=== PATIENT | male | born 1965 | race Caucasian/White ===

== ENCOUNTER 2016-05-06 07:58 | Emergency (ER) | payer OTHER ==
[~2016-05-06] VITALS: Ht 188 cm; Wt 82.7 kg
[~2016-05-06 07:58] MED LIST: CITA10TA4 PO; PRAZ2CAP3 PO; WARF7.5T PO
[2016-05-06] MEDS ORDERED: SODIUM CHLORIDE 0.9% 1000ML 1,000 ML IV STA (08:01)
[2016-05-06 08:05] VITALS: TEMP 36.8; Ht 188 cm; Wt 82.7 kg
[2016-05-06 08:12] VITALS: O2SAT 95
[2016-05-06 08:19] LABS: BASO % 0.2 %; BASO ABS # 0.02 K/uL (0-0.2); COMPLETE YES; EOS % 2.4 %; IG% 0.2 %; LYMPH % 10.3 %; LYMPH ABS # 1.06 K/uL (1.2-3.4); MEAN CELL VOLUME 92.9 fL (80-100); MEAN CORPUSCULAR HEMOGLOBIN 32.6 pg (25-34); MEAN CORPUSCULAR HGB CONC 35.1 g/dl (32-36); MONO % 8.9 %; PLATELET COUNT 141 K/uL (130-400); WHITE BLOOD COUNT 10.28 K/uL (4.8-10.8)
[2016-05-06 08:28] LABS: INR 2.6 (0.9-1.1); PROTHROMBIN TIME (PATIENT) 28.8 SECONDS (9.0-12.0)
--- NOTE | 2016-05-06 08:28 | DIAGNOSTIC IMAGING REPORT ---
CHEST ONE VIEW PORTABLE CLINICAL HISTORY: Syncope. COMPARISON STUDY: Chest radiograph March 06, 2015. FINDINGS: There are median sternotomy wires and a prosthetic cardiac valve. Mild cardiomegaly is noted. There is no evidence of pulmonary edema. No consolidation is identified. No pneumothorax or pleural effusion is identified. IMPRESSION: No acute cardiopulmonary findings. Electronically signed by: Sherman Murdock M.D. 05/06/2016 8:26 AM Dictated Date/Time: 05/06/2016 8:24 AM
[2016-05-06 08:36] LABS: ALT/SGPT 34 U/L (12-78); BLOOD UREA NITROGEN 8 mg/dl (7-18); BUN/CREATININE RATIO 10.2 (10-20); CALCIUM 8.4 mg/dl (8.5-10.1); CARBON DIOXIDE 25 mmol/L (21-32); CHLORIDE 107 mmol/L (98-107); GLUCOSE 85 mg/dl (70-99); POTASSIUM 3.9 mmol/L (3.5-5.1); SODIUM 142 mmol/L (136-145)
[2016-05-06 08:47] LABS: ALKALINE PHOSPHATASE 68 U/L (45-117); AST/SGOT 34 U/L (15-37); CKMB/CK RATIO 0.8 (0-3.0)
--- NOTE | 2016-05-06 08:48 | DIAGNOSTIC IMAGING REPORT ---
CT HEAD WITHOUT CONTRAST (CT) CLINICAL HISTORY: Head pain status post trauma. Patient on Coumadin. COMPARISON STUDY: No previous studies for comparison. TECHNIQUE: Axial CT of the brain is performed from the vertex to the skull base. IV contrast was not administered for this examination. CT DOSE: FINDINGS: No intra or extra-axial mass lesions are visualized. There is no CT evidence of acute cortical infarction. There is no evidence of midline shift. There is no acute hemorrhage. No calvarial fractures are visualized. There is no evidence of pathologic ventricular dilatation. There is no evidence of acute sinusitis. There is mastoid sclerosis. There is minor mucosal thickening within the maxillary sphenoid ethmoid and frontal sinuses. IMPRESSION: No acute intracranial findings Electronically signed by: Vish Maloney M.D. 05/06/2016 8:46 AM Dictated Date/Time: 05/06/2016 8:45 AM
--- NOTE | 2016-05-06 08:52 | DIAGNOSTIC IMAGING REPORT ---
CT FACIAL BONES-MXILLOFAC WITHOUT CT DOSE: 860.29 mGy.cm CLINICAL HISTORY: Facial pain status post trauma COMPARISON STUDY: No previous studies for comparison. TECHNIQUE: Helical images were acquired in the transverse plane. The study was reviewed and analyzed on the independent 3-D workstation. The pterygoid plates appear intact. The zygomatic arches appear intact. The globes appear intact. There is no evidence of orbital emphysema. The orbital figueroa and floor appear intact. The mandibular condyles appear intact. There is a left nasal bone fracture. IMPRESSION: Left nasal bone fracture. Electronically signed by: Vish Maloney M.D. 05/06/2016 8:50 AM Dictated Date/Time: 05/06/2016 8:48 AM
[2016-05-06] MEDS ORDERED: WARF2TAB PO (08:54)
[2016-05-06] MEDS ORDERED: WARF5TAB90 PO (08:54)
--- NOTE | 2016-05-06 08:56 | DIAGNOSTIC IMAGING REPORT ---
RIGHT KNEE 1 OR 2 VIEWS ROUTINE CLINICAL HISTORY: Right knee pain following fall. COMPARISON: None FINDINGS: Alignment of the right knee is anatomic. No acute fracture is identified. There is chondrocalcinosis within the menisci. There is a moderate to large right knee joint effusion. No lipohemarthrosis is identified. There is prepatellar soft tissue swelling. IMPRESSION: 1. No acute fracture identified. 2. Moderate to large right knee joint effusion. 3. Chondrocalcinosis within the menisci. Electronically signed by: Sherman Murdock M.D. 05/06/2016 8:54 AM Dictated Date/Time: 05/06/2016 8:52 AM
[2016-05-06] MEDS ORDERED: HYDR50CA2 PO (08:58)
[2016-05-06] MEDS ORDERED: PRAZ2CAP3 PO (08:58)
[2016-05-06] MEDS ORDERED: BUSP-8 PO (08:58)
[2016-05-06] MEDS ORDERED: PRAZ1CAP10 PO (08:58)
[2016-05-06] MEDS ORDERED: ACETAMINOPHEN 500 MG TAB PO STA (09:03)
[2016-05-06] MEDS ORDERED: HYDROmorphone INJ 1 MG/ML SYR IV STA (09:03)
--- NOTE | 2016-05-06 09:17 | EMERGENCY ROOM VISIT NOTE ---
History Report prepared by [place]: Heather Perez Under the Supervision of: Dr. Stanislav Lloyd M.D. First contact with patient: 08:01 Chief Complaint: SYNCOPE Stated Complaint: SYNCOPE History of Present Illness The patient is a 50 year old male arriving by ambulance from [facility] who presents to the Emergency Room for evaluation after suffering a syncopal episode just prior to arrival. Patient was complaining of pain to his right knee , but is now resting more comfortably after given 50 mg Fentanyl via EM en route to the ED. At the time of onset, the patient had just finished using the bathroom when he stood up from the toilet and suddenly became light headed. His vision then became "white", and he passed out, fall forward onto the floor. As the patient fell, he hit his head/face on the floor, and also injured his right knee. Detention staff then called the ambulance as there were concerns because he is currently on Coumadin for history of aortic valve replacement. The patient states that he has not yet eaten breakfast this morning. He denies developing chest pain or shortness of breath prior to passing out this morning, and he has not had recent fevers, chills, cough, abdominal pain, nausea, vomiting, diarrhea or urinary symptoms. Source of History: patient Onset: just prior to arrival Position: head Quality: other (syncope) Timing: other (episodic) Modifying Factors (Worsening): other (standing up after using the toilet) Modifying Factors (Relieving): other (Fentanyl) Associated Symptoms: + LOC, No SOB, No abdominal pain, No chest pain, No chills, No diarrhea, No fevers, No nausea, No urinary symptoms, No vomiting Note: Patient has pain to his right knee. Review of Systems See HPI for pertinent positives & negatives. A total of 10 systems reviewed and were otherwise negative. Past Medical & Surgical Surgical Problems: (1) H/O aortic valve replacement Social History Smoking Status: Current Every Day Smoker Marital Status: single Housing Status: other (incarcerated) Occupation Status: other Current/Historical Medications Scheduled Buspirone Hcl (Buspirone Hcl), 10 MG PO TID Citalopram Hydrobromide (Citalopram Hydrobromide), 30 MG PO HS Hydroxyzine Pamoate (Vistaril), 50 MG PO BID Prazosin Hcl (Prazosin), 1 MG PO HS Prazosin Hcl (Prazosin), 2 MG PO HS Warfarin Sodium (Coumadin), 5 MG PO HS Warfarin Sodium (Coumadin), 2 MG PO HS Allergies Coded Allergies: Chocolate (Unverified Adverse Reaction, Unknown, ., 05/06/16) Uncoded Allergies: VEGETABLES (Adverse Reaction, Intermediate, ., 05/06/16) Physical Exam Vital Signs Date Time Temp Pulse Resp B/P Pulse Ox O2 Delivery O2 Flow Rate FiO2 05/06/16 09:20 69 18 123/69 99 Room Air 05/06/16 08:12 95 Room Air 05/06/16 08:10 61 05/06/16 08:05 36.8 65 18 122/64 95 Room Air Physical Exam GENERAL: Patient is a healthy-appearing well-nourished 50 year old mal. HEAD: There is no tenderness or swelling to the nose. EYES: Black eye present. Ocular movements intact pupils equal and react to light OROPHARYNX mucous membranes are moist no exudates present no erythema or edema present NECK: Supple no nuchal rigidity CHEST: Good equal expansion LUNGS: Clear and equal to auscultation CARDIAC: Normal S1 and S2 ABDOMEN: Soft nontender no guarding BACK: No CVA tenderness EXTREMITIES: Right knee effusion. Able to bend the knee. Good range of motion of the hip and right ankle. Foot is neurovascularly intact. No pain with varus or valgus stress. Normal anterior posterior drawer sign. NEURO: Patient is following commands is answering questions appropriately. Alert and oriented x3 Cranial Nerves 2-12 grossly intact Medical Decision & Procedures ER Provider Diagnostic Interpretation: CT results as stated below per my review and radiologist interpretation: X-ray results as stated below per interpretation by me and the radiologist: CT FACIAL BONES-MXILLOFAC WITHOUT CT DOSE: 860.29 mGy.cm CLINICAL HISTORY: Facial pain status post trauma COMPARISON STUDY: No previous studies for comparison. TECHNIQUE: Helical images were acquired in the transverse plane. The study was reviewed and analyzed on the independent 3-D workstation. The pterygoid plates appear intact. The zygomatic arches appear intact. The globes appear intact. There is no evidence of orbital emphysema. The orbital figueroa and floor appear intact. The mandibular condyles appear intact. There is a left nasal bone fracture. IMPRESSION: Left nasal bone fracture. Electronically signed by: Vish Maloney M.D. 05/06/2016 8:50 AM Dictated Date/Time: 05/06/2016 8:[address] HEAD WITHOUT CONTRAST (CT) CLINICAL HISTORY: Head pain status post trauma. Patient on Coumadin. COMPARISON STUDY: No previous studies for comparison. TECHNIQUE: Axial CT of the brain is performed from the vertex to the skull base. IV contrast was not administered for this examination. CT DOSE: FINDINGS: No intra or extra-axial mass lesions are visualized. There is no CT evidence of acute cortical infarction. There is no evidence of midline shift. There is no acute hemorrhage. No calvarial fractures are visualized. There is no evidence of pathologic ventricular dilatation. There is no evidence of acute sinusitis. There is mastoid sclerosis. There is minor mucosal thickening within the maxillary sphenoid ethmoid and frontal sinuses. IMPRESSION: No acute intracranial findings Electronically signed by: Vish Maloney M.D. 05/06/2016 8:46 AM Dictated Date/Time: 05/06/2016 8:45 AM CHEST ONE VIEW PORTABLE CLINICAL HISTORY: Syncope. COMPARISON STUDY: Chest radiograph March 06, 2015. FINDINGS: There are median sternotomy wires and a prosthetic cardiac valve. Mild cardiomegaly is noted. There is no evidence of pulmonary edema. No consolidation is identified. No pneumothorax or pleural effusion is identified. IMPRESSION: No acute cardiopulmonary findings. Electronically signed by: Sherman Murdock M.D. 05/06/2016 8:26 AM Dictated Date/Time: 05/06/2016 8:24 AM RIGHT KNEE 1 OR 2 VIEWS ROUTINE CLINICAL HISTORY: Right knee pain following fall. COMPARISON: None FINDINGS: Alignment of the right knee is anatomic. No acute fracture is identified. There is chondrocalcinosis within the menisci. There is a moderate to large right knee joint effusion. No lipohemarthrosis is identified. There is prepatellar soft tissue swelling. IMPRESSION: 1. No acute fracture identified. 2. Moderate to large right knee joint effusion. 3. Chondrocalcinosis within the menisci. Electronically signed by: Sherman Murdock M.D. 05/06/2016 8:54 AM Dictated Date/Time: 05/06/2016 8:52 AM Laboratory Results 05/06/16 08:05 Red Blood Count 4.20, Mean Corpuscular Volume 92.9, Mean Corpuscular Hemoglobin 32.6, Mean Corpuscular Hemoglobin Concent 35.1, Mean Platelet Volume 10.0, Neutrophils (%) (Auto) 78.0, Lymphocytes (%) (Auto) 10.3, Monocytes (%) (Auto) 8.9, Eosinophils (%) (Auto) 2.4, Basophils (%) (Auto) 0.2, Neutrophils # (Auto) 8.02, Lymphocytes # (Auto) 1.06, Monocytes # (Auto) 0.91, Eosinophils # (Auto) 0.25, Basophils # (Auto) 0.02 05/06/16 08:05 Test 05/06/16 08:05 05/06/16 08:18 White Blood Count 10.28 K/uL (4.8-10.8) Red Blood Count 4.20 M/uL (4.7-6.1) Hemoglobin 13.7 g/dL (14.0-18.0) Hematocrit 39.0 % (42-52) Mean Corpuscular Volume 92.9 fL (80-100) Mean Corpuscular Hemoglobin 32.6 pg (25-34) Mean Corpuscular Hemoglobin Concent 35.1 g/dl (32-36) Platelet Count 141 K/uL (130-400) Mean Platelet Volume 10.0 fL (7.4-10.4) Neutrophils (%) (Auto) 78.0 % Lymphocytes (%) (Auto) 10.3 % Monocytes (%) (Auto) 8.9 % Eosinophils (%) (Auto) 2.4 % Basophils (%) (Auto) 0.2 % Neutrophils # (Auto) 8.02 K/uL (1.4-6.5) Lymphocytes # (Auto) 1.06 K/uL (1.2-3.4) Monocytes # (Auto) 0.91 K/uL (0.11-0.59) Eosinophils # (Auto) 0.25 K/uL (0-0.5) Basophils # (Auto) 0.02 K/uL (0-0.2) RDW Standard Deviation 45.3 fL (36.4-46.3) RDW Coefficient of Variation 13.4 % (11.5-14.5) Immature Granulocyte % (Auto) 0.2 % Immature Granulocyte # (Auto) 0.02 K/uL (0.00-0.02) Prothrombin Time 28.8 SECONDS (9.0-12.0) Prothromb Time International Ratio 2.6 (0.9-1.1) Anion Gap 10.0 mmol/L (3-11) Est Creatinine Clear Calc Drug Dose 128.5 ml/min Estimated GFR () 120.7 Estimated GFR (Non- 104.2 BUN/Creatinine Ratio 10.2 (10-20) Calcium Level 8.4 mg/dl (8.5-10.1) Total Bilirubin 0.7 mg/dl (0.2-1) Direct Bilirubin 0.2 mg/dl (0-0.2) Aspartate Amino Transf (AST/SGOT) 34 U/L (15-37) Alanine Aminotransferase (ALT/SGPT) 34 U/L (12-78) Alkaline Phosphatase 68 U/L (45-117) Total Creatine Kinase 346 U/L (39-308) Creatine Kinase MB 2.6 ng/ml (0.5-3.6) Creatine Kinase MB Ratio 0.8 (0-3.0) Troponin I < 0.015 ng/ml (0-0.045) Total Protein 6.4 gm/dl (6.4-8.2) Albumin 3.4 gm/dl (3.4-5.0) Thyroid Stimulating Hormone (TSH) 1.750 uIu/ml (0.300-4.500) Bedside Glucose 89 mg/dl (70-99) Labs reviewed by ED physician. Medications Administered Medications (Trade) Dose Ordered Sig/Kain Route Start Time Stop Time Status Last Admin Dose Admin Sodium Chloride (Nss 1000ml) 1,000 ml @ 999 mls/hr Q1H1M STAT IV 05/06/16 08:01 05/06/16 09:01 DC 05/06/16 08:24 999 MLS/HR Hydromorphone HCl (Dilaudid Inj) 1 mg NOW STAT IV 05/06/16 09:03 05/06/16 09:05 DC 05/06/16 09:10 1 MG Acetaminophen (Tylenol Tab) 1,000 mg NOW STAT PO 05/06/16 09:03 05/06/16 09:05 DC 05/06/16 09:09 1,000 MG ECG Indication: syncope Rate (beats per minute): 59 Rhythm: sinus bradycardia Findings: 1st degree AV block, no acute ischemic change, no ectopy Change: no significant change (when compared to EKG from 03/06/15.) ED Course 0803: Past medical records reviewed. The patient was evaluated in room B7. A complete history and physical examination was performed. 08: NSS bolus IV was ordered. 902: Upon reevaluation, the patient was experiencing additional pain. Tylenol tab 1,000 mg PO and Dilaudid 1 mg IV were ordered. 30: Patient was reevaluated at this time and was feeling improved after receiving the pain medication. I updated him on the results of his radiology reports and lab tests. Discharge instructions were also discussed at this time. He verbalized his understanding and agreement with the treatment plan, and he is now ready for disposition back to senior care. Medical Decision Differential diagnosis: Etiologies such as vasovagal event, infection, hypoglycemia, electrolyte abnormalities, cardiac sources, intracerebral event, toxicologic, neurologic, as well as others were entertained. This is a 50-year-old male who presents emergency Department with a syncopal episode after using the bathroom. This appears to be a vasovagal episode. In addition the patient has not eaten today. IV was established, patient given normal saline bolus area the patient's x-ray is consistent with an knee effusion. The patient has no other laboratory abnormality. CAT scan of his head is normal. The patient was given Dilaudid for his pain. I believe he is well enough to be discharged back to the senior care for follow-up with orthopedics for his knee. Patient was in agreement with the treatment plan. Impression Primary Impression: Vasovagal syncope Additional Impression: Right knee sprain Scribe Attestation The scribe's documentation has been prepared under my direction and personally reviewed by me in its entirety. I confirm that the note above accurately reflects all work, treatment, procedures, and medical decision making performed by me. Departure Information Dispostion Other ([facility]) [facility] Forms HOME CARE DOCUMENTATION FORM, IMPORTANT VISIT INFORMATION, School Instructions, Work Instructions Patient Instructions My [facility] Additional Instructions Follow up with DR Smith's office for knee pain Follow up with Dr Ramirez's office for nose fracture Take 1000 mg Tylenol every 6 hours You have been examined and treated today on an emergency basis only. This is not a substitute for, or an effort to provide, complete comprehensive medical care. It is impossible to recognize and treat all injuries or illnesses in a single emergency department visit. It is therefore important that you follow up closely with your PCP. Call as soon as possible for an appointment. Thank you for your time and consideration. I look forward to speaking with you again soon. Please don't hesitate to call us if you have any questions. Problem Qualifiers Additional Impression: Right knee sprain Encounter type: initial encounter Involved ligament of knee: unspecified ligament Qualified Codes: S83.91XA - Sprain of unspecified site of right knee , initial encounter
[2016-05-06 09:20] VITALS: BP 123/69; PULSE 69; O2SAT 99
== END 2016-05-06 09:20 | disposition home or self-care (01) ==
LOC: EDBD 07:58 → C.EDB 07:59
DX: R55 Syncope and collapse (principal); S83.91XA Sprain of unspecified site of right knee, initial encounter; M25.461 Effusion, right knee; I44.0 Atrioventricular block, first degree; S02.2XXA Fracture of nasal bones, initial encounter for closed fracture; Z95.2 Presence of prosthetic heart valve; Z79.01 Long term (current) use of anticoagulants; F17.200 Nicotine dependence, unspecified, uncomplicated; W19.XXXA Unspecified fall, initial encounter; Y93.E8 Activity, other personal hygiene; Y92.142 Bathroom in prison as the place of occurrence of the external cause; Y99.8 Other external cause status

== ENCOUNTER 2017-08-01 01:04 | Observation (INO) | payer OTHER ==
[~2017-08-01] VITALS: Ht 188 cm; Wt 80.8 kg
[~2017-08-01 01:04] MED LIST changes: +BUSP-8 PO; +HYDR50CA2 PO; +PRAZ1CAP10 PO; +WARF2TAB PO; +WARF5TAB90 PO; -WARF7.5T PO
--- NOTE | 2017-08-01 01:16 | EMERGENCY ROOM VISIT NOTE ---
History Report prepared by [place]: Tonny Painagua Under the Supervision of: Dr. Ashwin Mcintyre M.D. First contact with patient: 01:09 Chief Complaint: CHEST PAIN Stated Complaint: CHEST PAIN History of Present Illness The patient is a 51 year old male who presents to the Emergency Room with complaints of persistent chest pain for about one hour. He currently rates his pain a 1/10 in severity. He notes the pain woke him from his sleep and felt heavy. He notes nausea and leg swelling. He notes the leg swelling is new. He denies any shortness of breath. He denies any history of blood clots, HTN, HLD, or DM. He denies any family history of HI. He has a history of aortic valve replacement in February of 1983. He has a metal valve. He regularly takes Coumadin and reports his levels have been normal. He denies taking any medication for the pain. He denies any recent falls or injuries. Source of History: patient Onset: one hour ago Position: chest Symptom Intensity: 1/10 Quality: other (heavy) Timing: other (persistent ) Associated Symptoms: + nausea, No SOB Note: He notes leg swelling. He denies any recent falls or injuries. Review of Systems See HPI for pertinent positives & negatives. A total of 10 systems reviewed and were otherwise negative. Past Medical & Surgical Medical Problems: (1) Chest pain Surgical Problems: (1) H/O aortic valve replacement Family History No pertinent family history Social History Smoking Status: Current Every Day Smoker Marital Status: single Housing Status: other Occupation Status: other Current/Historical Medications Scheduled Buspirone Hcl (Buspirone Hcl), 10 MG PO TID Buspirone Hcl (Buspirone Hcl), 10 MG PO BID Citalopram Hydrobromide (Citalopram Hydrobromide), 30 MG PO HS Citalopram Hydrobromide (Celexa), 15 MG PO DAILY Hydroxyzine Pamoate (Vistaril), 50 MG PO BID Prazosin Hcl (Prazosin), 1 MG PO HS Prazosin Hcl (Prazosin), 2 MG PO HS Prazosin Hcl (Prazosin), 4 MG PO HS Warfarin Sodium (Coumadin), 5 MG PO HS Warfarin Sodium (Coumadin), 2 MG PO HS Warfarin Sodium (Coumadin), 3 MG PO DAILY Allergies Coded Allergies: Chocolate (Unverified Adverse Reaction, Unknown, ., 05/06/16) Uncoded Allergies: VEGETABLES (Adverse Reaction, Intermediate, ., 05/06/16) Physical Exam Vital Signs Date Time Temp Pulse Resp B/P (MAP) Pulse Ox O2 Delivery O2 Flow Rate FiO2 08/01/17 01:54 63 20 107/63 97 Room Air 08/01/17 01:34 68 18 107/59 95 Room Air 08/01/17 01:25 63 08/01/17 01:23 96 Room Air 08/01/17 01:20 97 Room Air 08/01/17 01:17 36.9 63 20 122/67 97 Room Air Physical Exam GENERAL: Patient is sleepy-appearing and in minimal acute distress. EYES: No scleral icterus, unremarkable pupils. ENT: Mucous membranes moist, no nasal congestion. NECK: No masses appreciated, no meningismus, trachea is midline. CHEST: Large sternal incision scar, well healed. RESPIRATORY: No dyspnea. Clear to auscultation and equal bilaterally. No wheeze , no rhonchi. CARDIOVASCULAR: Regular rate and rhythm. No murmurs, rubs, gallops appreciated. Audible click consistent with aortic metal valve. GASTROINTESTINAL: Abdomen soft, nontender, no peritonitis. Bowel sounds positive. No masses appreciated. BACK: No midline tenderness, no CVA tenderness EXTREMITIES: Normal motion all extremities, no cyanosis. Mild swelling of right ankle, larger than left. NEUROLOGIC: Alert and oriented, no acute motor or sensory deficits, no focal weakness, cranial nerves grossly intact. SKIN: No rash, no jaundice, no diaphoresis. Medical Decision & Procedures ER Provider Diagnostic Interpretation: X ray results are stated below per my interpretation: Chest: 1 view: No infiltrate, no effusion, normal cardiac border. Sternal wires in place. Metal aortic valve noted. Laboratory Results 08/01/17 01:20 Red Blood Count 3.84, Mean Corpuscular Volume 94.8, Mean Corpuscular Hemoglobin 32.6, Mean Corpuscular Hemoglobin Concent 34.3, Mean Platelet Volume 9.7, Neutrophils (%) (Auto) 69.2, Lymphocytes (%) (Auto) 19.0, Monocytes (%) (Auto) 5.6, Eosinophils (%) (Auto) 5.8, Basophils (%) (Auto) 0.2, Neutrophils # (Auto) 6.02, Lymphocytes # (Auto) 1.66, Monocytes # (Auto) 0.49, Eosinophils # (Auto) 0.51, Basophils # (Auto) 0.02 08/01/17 01:20 Test 08/01/17 01:20 White Blood Count 8.72 K/uL (4.8-10.8) Red Blood Count 3.84 M/uL (4.7-6.1) Hemoglobin 12.5 g/dL (14.0-18.0) Hematocrit 36.4 % (42-52) Mean Corpuscular Volume 94.8 fL (80-100) Mean Corpuscular Hemoglobin 32.6 pg (25-34) Mean Corpuscular Hemoglobin Concent 34.3 g/dl (32-36) Platelet Count 233 K/uL (130-400) Mean Platelet Volume 9.7 fL (7.4-10.4) Neutrophils (%) (Auto) 69.2 % Lymphocytes (%) (Auto) 19.0 % Monocytes (%) (Auto) 5.6 % Eosinophils (%) (Auto) 5.8 % Basophils (%) (Auto) 0.2 % Neutrophils # (Auto) 6.02 K/uL (1.4-6.5) Lymphocytes # (Auto) 1.66 K/uL (1.2-3.4) Monocytes # (Auto) 0.49 K/uL (0.11-0.59) Eosinophils # (Auto) 0.51 K/uL (0-0.5) Basophils # (Auto) 0.02 K/uL (0-0.2) RDW Standard Deviation 46.3 fL (36.4-46.3) RDW Coefficient of Variation 13.3 % (11.5-14.5) Immature Granulocyte % (Auto) 0.2 % Immature Granulocyte # (Auto) 0.02 K/uL (0.00-0.02) Prothrombin Time 28.1 SECONDS (9.0-12.0) Prothromb Time International Ratio 2.7 (0.9-1.1) Activated Partial Thromboplast Time 50.2 SECONDS (21.0-31.0) Partial Thromboplastin Ratio 1.9 D-Dimer 620 ug/L FEU (0-500) Anion Gap 0.0 mmol/L (3-11) Est Creatinine Clear Calc Drug Dose 106.3 ml/min Estimated GFR () 108.4 Estimated GFR (Non- 93.5 BUN/Creatinine Ratio 12.1 (10-20) Calcium Level 8.1 mg/dl (8.5-10.1) Magnesium Level 1.9 mg/dl (1.8-2.4) Total Creatine Kinase 124 U/L (39-308) Creatine Kinase MB 1.1 ng/ml (0.5-3.6) Creatine Kinase MB Ratio 0.9 (0-3.0) Pro-B-Type Natriuretic Peptide 136 pg/ml (0-900) Laboratory results as reviewed by me. Medications Administered Medications (Trade) Dose Ordered Sig/Kain Route Start Time Stop Time Status Last Admin Dose Admin Nitroglycerin (Nitrostat Tab) 0.4 mg Q5M PRN SL 08/01/17 01:30 08/01/17 04:04 DC 08/01/17 01:30 0.4 MG ECG Per My Interpretation Indication: chest pain Rate (beats per minute): 63 Rhythm: normal sinus Findings: nonspecific-ST abn (Anterior), no acute ischemic change, no ectopy, other (QTC of 460) Change: Repeat EC minutes later Normal Sinus Rhythm 61 bpm Findings: No ectopy. No acute ischemic changes. Similar morphology to previous ECG. ED Course 0111: The patient was evaluated in room A3. A complete history and physical exam was performed. 0146: Discussed with nursing. The patient was given one NTG and has complete resolution of his chest pain. 0228: I reassessed the patient at this time. He is sleeping. He has no further chest pain. 0235: I spoke with Dr. Joel, [facility] hospitalist. We discussed the patient's case. The patient will be evaluated by the [facility] for further management. Medical Decision Differential: Cardiac Ischemia (STEMI, NSTEMI, Unstable Angina, etc), Aortic Dissection, Arrhythmia, Pulmonary Embolism, Pneumonia, Pneumothorax, MSK, Infectious, Pericarditis/Myocarditis, Esophageal Rupture, Gastrointestinal, amongst other pathologies entertained. 51 yr old male with sudden onset left chest pressure which awoke him from sleep this morning. Resolving on way here and completely gone with SLNTG. Patient declines PO Aspirin as states he does not need another blood thinner. He is on Coumadin for metal valve repaired Atrial valve 1982. History of smoking but denies other cardiac risk factors. EKG without obvious ischemia and repeated. He is completely pain free at this time. Will need cardiac rule out and thus hospitalist consulted. Unclear why some swelling right lower leg but INR is therapeutic and his symptoms are not consistent with PE, and even so he has normal vitals and thus I feel CT PE is not indicated at this time. Medication Reconcilliation Current Medication List: was personally reviewed by me Blood Pressure Screening Patient's blood pressure: Normal blood pressure Consults Time Called: [phone] Consulting Physician: Dr. Joel [facility] hospitalist Returned Call: [phone] Joel [facility] hospitalist. We discussed the patient's case. The patient will be evaluated by the [facility] for further management. Impression Primary Impression: Left sided chest pain Scribe Attestation The scribe's documentation has been prepared under my direction and personally reviewed by me in its entirety. I confirm that the note above accurately reflects all work, treatment, procedures, and medical decision making performed by me. Departure Information Dispostion Being Evaluated By Hospitalist Referrals [facility] (PCP) Patient Instructions My [facility]
[2017-08-01] MEDS ORDERED: NITROGLYCERIN 0.4 MG SL PER TAB CHARGE SL PRN ×2 (01:30→02:45)
[2017-08-01 01:38] LABS: BASO % 0.2 %; BASO ABS # 0.02 K/uL (0-0.2); EOS % 5.8 %; EOS ABS # 0.51 K/uL (0-0.5); HEMATOCRIT 36.4 % (42-52); HEMOGLOBIN 12.5 g/dL (14.0-18.0); IG# 0.02 K/uL (0.00-0.02); LYMPH ABS # 1.66 K/uL (1.2-3.4); MEAN CELL VOLUME 94.8 fL (80-100); MEAN CORPUSCULAR HEMOGLOBIN 32.6 pg (25-34); MEAN CORPUSCULAR HGB CONC 34.3 g/dl (32-36); MEAN PLATELET VOLUME 9.7 fL (7.4-10.4); MONO % 5.6 %; MONO ABS # 0.49 K/uL (0.11-0.59); NEUT % 69.2 %; NEUT ABS # 6.02 K/uL (1.4-6.5); PLATELET COUNT 233 K/uL (130-400); RED CELL DISTRIBUTION WIDTH CV 13.3 % (11.5-14.5); RED CELL DISTRIBUTION WIDTH SD 46.3 fL (36.4-46.3); WHITE BLOOD COUNT 8.72 K/uL (4.8-10.8)
[2017-08-01 01:56] LABS: BLOOD UREA NITROGEN 11 mg/dl (7-18); CALCIUM 8.1 mg/dl (8.5-10.1); CARBON DIOXIDE 31 mmol/L (21-32); CREATININE 0.94 mg/dl (0.60-1.40); GLUCOSE 114 mg/dl (70-99); INR 2.7 (0.9-1.1); POTASSIUM 3.5 mmol/L (3.5-5.1); SODIUM 140 mmol/L (136-145)
[2017-08-01 02:04] LABS: CKMB 1.1 ng/ml (0.5-3.6)
[2017-08-01 02:17] LABS: PTT PATIENT 50.2 SECONDS (21.0-31.0)
[2017-08-01] MEDS ORDERED: ZOLPIDEM TARTRATE 5 MG TAB PO PRN (02:45)
[2017-08-01] MEDS ORDERED: MAGNESIUM HYDROXIDE SUSP 30 ML UDC PO PRN (02:45)
[2017-08-01] MEDS ORDERED: ACETAMINOPHEN 325 MG TAB PO PRN (02:45)
[2017-08-01] MEDS ORDERED: ALUMINUM/MAGNESIUM/SIMETH (MAALOX MAX) 30 ML UDC PO PRN (02:45)
[2017-08-01] MEDS ORDERED: POLYETHYLENE (MIRALAX) 17 GM PACK PO PRN (02:45)
[2017-08-01] MEDS ORDERED: ONDANSETRON INJ 2 MG/ML 2 ML VIAL IV PRN (02:45)
[2017-08-01] MEDS ORDERED: MoRPHine SULFATE 2 MG/ML CARP IV PRN (02:45)
[2017-08-01] MEDS ORDERED: BUSP-8 PO (03:49)
[2017-08-01] MEDS ORDERED: CITA10TA8 PO (03:52)
[2017-08-01] MEDS ORDERED: PRAZ2CAP3 PO (03:53)
[2017-08-01 03:55] VITALS: BP 112/65; PULSE 65; TEMP 36.6; O2SAT 97; Ht 188 cm; Wt 80.8 kg
[2017-08-01] MEDS ORDERED: WARF1TAB PO (03:57)
--- NOTE | 2017-08-01 04:05 | History and Physical ---
History & Physical Date & Time of Service: Aug 01, 2017 at 02:57 Chief Complaint: Chest Pain Primary Care Physician: Barbie CARPENTER History of Present Illness Source: patient 51 y/o M Hx aortic valve replacement 1982. Presents from a local [facility] with severe L sided CP. He also states that he has had noticed ankle swelling over the past 2 weeks which he had not had previously. The pt denies any SOB, nausea, vomiting or diaphoresis. His CP did not radiate. Past Medical/Surgical History 1) Aortic valve replacement with mechanical valve 1982 2) Depression Family History No pertinent family history Not well informed regarding family medical history - Mother is living, Father of unspecified CA Social History Smoking Status: Current Every Day Smoker Marital Status: single Occupational Status: other Allergies Coded Allergies: Chocolate (Unverified Adverse Reaction, Unknown, ., 05/06/16) Uncoded Allergies: VEGETABLES (Adverse Reaction, Intermediate, ., 05/06/16) Home Medications Scheduled Buspirone Hcl (Buspirone Hcl), 10 MG PO TID Citalopram Hydrobromide (Citalopram Hydrobromide), 30 MG PO HS Hydroxyzine Pamoate (Vistaril), 50 MG PO BID Prazosin Hcl (Prazosin), 1 MG PO HS Prazosin Hcl (Prazosin), 2 MG PO HS Warfarin Sodium (Coumadin), 5 MG PO HS Warfarin Sodium (Coumadin), 2 MG PO HS Review of Systems Constitutional: No fever, No chills, No sweats Eyes: No worsening of vision ENT: No hearing loss, No unusual epistaxis, No nasal symptoms Respiratory: No cough, No sputum Cardiovascular: + chest pain, + edema, No orthopnea, No PND Abdomen: No pain, No nausea Musculoskeletal: No joint pain Genitourinary - Male: No hematuria, No dysuria Neurologic: No memory loss, No paralysis, No weakness Psychiatric: No depression symptoms Endocrine: No fatigue Hematologic / Lymphatic: No abnormal bleeding/bruising Integumentary: No rash Allergic / Immunologic: No environmental allergies Physical Exam Vital Signs Date Time Temp Pulse Resp B/P (MAP) Pulse Ox O2 Delivery O2 Flow Rate FiO2 08/01/17 01:54 63 20 107/63 97 Room Air 08/01/17 01:34 68 18 107/59 95 Room Air 08/01/17 01:25 63 08/01/17 01:23 96 Room Air 08/01/17 01:20 97 Room Air 08/01/17 01:17 36.9 63 20 122/67 97 Room Air General Appearance: WD/WN, no apparent distress Head: normocephalic Eyes: normal inspection ENT: + pertinent finding (Very poor dentition) Neck: supple, no JVD Respiratory/Chest: chest non-tender, lungs clear, normal breath sounds Cardiovascular: regular rate, rhythm, no edema, no gallop, + systolic murmur Abdomen/GI: normal bowel sounds, non tender, soft Back: normal inspection, no CVA tenderness Extremities/Musculoskelatal: normal inspection, no calf tenderness, normal capillary refill 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, no motor/sensory deficits, alert, oriented x 3 Skin: normal color Diagnostics Laboratory Results Results Past 24 Hours Test 08/01/17 01:20 Range/Units White Blood Count 8.72 4.8-10.8 K/uL Red Blood Count 3.84 4.7-6.1 M/uL Hemoglobin 12.5 14.0-18.0 g/dL Hematocrit 36.4 42-52 % Mean Corpuscular Volume 94.8 80-100 fL Mean Corpuscular Hemoglobin 32.6 25-34 pg Mean Corpuscular Hemoglobin Concent 34.3 32-36 g/dl Platelet Count 233 130-400 K/uL Mean Platelet Volume 9.7 7.4-10.4 fL Neutrophils (%) (Auto) 69.2 % Lymphocytes (%) (Auto) 19.0 % Monocytes (%) (Auto) 5.6 % Eosinophils (%) (Auto) 5.8 % Basophils (%) (Auto) 0.2 % Neutrophils # (Auto) 6.02 1.4-6.5 K/uL Lymphocytes # (Auto) 1.66 1.2-3.4 K/uL Monocytes # (Auto) 0.49 0.11-0.59 K/uL Eosinophils # (Auto) 0.51 0-0.5 K/uL Basophils # (Auto) 0.02 0-0.2 K/uL RDW Standard Deviation 46.3 36.4-46.3 fL RDW Coefficient of Variation 13.3 11.5-14.5 % Immature Granulocyte % (Auto) 0.2 % Immature Granulocyte # (Auto) 0.02 0.00-0.02 K/uL Prothrombin Time 28.1 9.0-12.0 SECONDS Prothromb Time International Ratio 2.7 0.9-1.1 Activated Partial Thromboplast Time 50.2 21.0-31.0 SECONDS Partial Thromboplastin Ratio 1.9 Sodium Level 140 136-145 mmol/L Potassium Level 3.5 3.5-5.1 mmol/L Chloride Level 109 98-107 mmol/L Carbon Dioxide Level 31 21-32 mmol/L Anion Gap 0.0 3-11 mmol/L Blood Urea Nitrogen 11 7-18 mg/dl Creatinine 0.94 0.60-1.40 mg/dl Est Creatinine Clear Calc Drug Dose 106.3 ml/min Estimated GFR () 108.4 Estimated GFR (Non- 93.5 BUN/Creatinine Ratio 12.1 10-20 Random Glucose 114 70-99 mg/dl Calcium Level 8.1 8.5-10.1 mg/dl Magnesium Level 1.9 1.8-2.4 mg/dl Total Creatine Kinase 124 39-308 U/L Creatine Kinase MB 1.1 0.5-3.6 ng/ml Creatine Kinase MB Ratio 0.9 0-3.0 Troponin I < 0.015 0-0.045 ng/ml Pro-B-Type Natriuretic Peptide 136 0-900 pg/ml Normal EKG Impression Assessment and Plan 51 y/o M Hx aortic valve replacement 1982. Presents from a local [facility] with severe L sided CP. He also states that he has had noticed ankle swelling over the past 2 weeks which he had not had previously. The pt denies any SOB, nausea, vomiting or diaphoresis. His CP did not radiate. 1) CP - pt assigned to telemetry. Serial enzymes ordered. NTG/Morphine PRN for pain. We have ordered an echo as well considering his history of AVR. The pt refused ASA stating that he did not want to combine it with Coumadin. 2) Edema - an echo is pending - there is no additional clinical evidence of CHF and BNP is negative - we have ordered a dimer and will consider LE doppler if (+ ) 3) Mechanical aortic valve - echo ordered as mentioned - INR is therapeutic on Coumadin. 4) Depression - continue current prescriptions. 5) Tobacco use - not currently interested in cessation Full code - Coumadin prophylaxis Total time for this admit including review of labs, meds, EKG - discussion with pt and ER attending - 35 min Resuscitation Status VTE Prophylaxis Will order VTE Prophylaxis: Yes
[2017-08-01] MEDS: NSS + 20MEQ KCL 1000ML 1,000 ML IV SCH ×2 (04:23→13:12)
[2017-08-01] MEDS ORDERED: IV FLUIDS COMPLETED PRN (04:30)
[2017-08-01] MEDS ORDERED: OPTIRAY 320 IV PRN (04:45)
--- NOTE | 2017-08-01 05:42 | DIAGNOSTIC IMAGING REPORT ---
(CHEST FOR PE) ANGIO WITH CLINICAL HISTORY: 51 years-old Male presenting with ^elevated D Dimer, clinical concern for pulmonary embolus. TECHNIQUE: Multidetector CT angiography of the chest was performed after administration of intravenous contrast. 3-D volumetric and/or maximum intensity projection (MIP) images were subsequently reconstructed for review. IV contrast: 94 mL of Optiray 320. A dose lowering technique was used consistent with the principles of ALARA (as low as reasonably achievable). COMPARISON: Chest x-ray performed earlier the same day. CT DOSE (mGy.cm): The estimated cumulative dose is 236.74 mGy.cm. FINDINGS: Vice President Sales topogram: Median sternotomy wires. Cardiomegaly. Pulmonary vasculature: The study is suboptimal for the assessment of the pulmonary vascular tree secondary to respiratory motion artifact. Allowing for limited image quality, no central filling defect to suggest pulmonary embolus. Main pulmonary artery is not enlarged. No flattening of the interventricular septum. No intracardiac filling defect. No reflux of contrast into the hepatic veins. Remaining chest: On soft tissue windows, normal thyroid. Bilateral gynecomastia. Small bilateral hilar lymph nodes. No mediastinal lymphadenopathy. Atherosclerosis of the aorta. Postsurgical changes of aortic valve replacement median sternotomy. Mildly ectatic ascending aorta, which measures 4.3 cm in diameter. Descending aorta normal in caliber. Mild multichamber enlargement of the heart. Coronary artery calcification. No pericardial or pleural effusion. Upper abdomen normal. On lung windows, dependent groundglass opacity in the lower lobes. Mild bronchial wall thickening predominately in the lower lobes. Mild smooth interlobular septal thickening with lower lobe predominance. No other focal nodule or infiltrate. Central airways patent. On bone windows, well-healed sternotomy. No acute osseous injury. IMPRESSION: 1. Allowing for suboptimal image quality, no evidence of pulmonary embolus. 2. Mild bibasilar atelectasis and mild congestive change. No cristain pulmonary edema. 3. Mild cardiomegaly. 4. Postsurgical changes of aortic valve replacement. 5. Mild ectasia of the ascending aorta, which measures 4.3 cm in diameter. Electronically signed by: Willi Rodriguez M.D. 08/01/2017 5:40 AM Dictated Date/Time: 08/01/2017 5:32 AM
--- NOTE | 2017-08-01 05:48 | DIAGNOSTIC IMAGING REPORT ---
R VENOUS DOPP LOWER EXT UNILAT CLINICAL HISTORY: 51 years-old Male presenting with swelling of the RLE, positive D Dimer. TECHNIQUE: Real-time grayscale and color and spectral Doppler ultrasound imaging of the veins of the right lower extremity was performed. Compression and augmentation were also utilized. COMPARISON: None. FINDINGS: Right: Common femoral vein: Patent. Greater saphenous vein: Patent. Deep femoral vein: Patent. Femoral vein: Patent. Popliteal vein: Patent. Calf veins: Patent. Other: Predominantly anechoic elongated collection in the right popliteal fossa measuring 5.5 x 9.5 x 1.6 cm. The periphery is mildly thick-walled with polypoid soft tissue. No demonstrable internal color Doppler flow. Mild subcutaneous edema noted in the lower leg. IMPRESSION: 1. No evidence of deep venous thrombosis. 2. Mild subcutaneous edema noted in the lower leg. 3. Suspected right popliteal cyst with synovitis. Electronically signed by: Willi Rodriguez M.D. 08/01/2017 5:46 AM Dictated Date/Time: 08/01/2017 5:45 AM
--- NOTE | 2017-08-01 05:54 | DIAGNOSTIC IMAGING REPORT ---
CHEST ONE VIEW PORTABLE CLINICAL HISTORY: 51 years-old Male presenting with Chest Pain. TECHNIQUE: Portable upright AP view of the chest was obtained. COMPARISON: 05/06/2016. FINDINGS: Median sternotomy wires noted. Atherosclerosis and mild tortuosity of the thoracic aorta. Cardiac silhouette top normal in size. Lungs and pleural spaces clear. Osseous structures normal. Upper abdomen normal. IMPRESSION: 1. No acute cardiopulmonary disease. Electronically signed by: Willi Rodriguez M.D. 08/01/2017 5:52 AM Dictated Date/Time: 08/01/2017 5:52 AM
[2017-08-01 07:18] VITALS: BP 102/51; PULSE 53; TEMP 36.5; O2SAT 98
[2017-08-01] MEDS ORDERED: hydrOXYzine HCL 25 MG TAB PO SCH (09:00)
[2017-08-01] MEDS ORDERED: ATORVASTATIN 40 MG TAB PO SCH (09:00)
[2017-08-01 10:24] VITALS: BP 121/68; PULSE 51; TEMP 36.6; O2SAT 96
--- NOTE | 2017-08-01 12:32 | Discharge Instructions ---
Discharge Instructions Date of Service Aug 01, 2017. Admission Reason for Admission: Chest Pain Discharge Discharge Diagnosis / Problem: ACS r/o Discharge Goals Goal(s): Decrease discomfort, Improve function, Increase independence Activity Recommendations Activity Limitations: per Instructions/Follow-up section . Instructions / Follow-Up Instructions / Follow-Up 51 male with a PMH of Aortic valve replacement came to [facility] with chest pain and right pedal edema. The patient was admitted and evaluated to r/o ACS, pulmonary embolism, CHF and structural abnormalities. All test were found to be unremarkable and the patient was subsequently discharged back to the long-term with close follow up with primary care doctor. No changes were made to the patients medications---please continue normal home regimen. Course by problem; 1. Acute coronary syndrome rule out -Patient had negative troponin x2 -EKG was unremarkable for ischemic changes -Vitals were within normal limits -Low suspicion for acute coronary syndrome 2. Pulmonary embolism and DVT rule out--patient had unilateral swelling, chest pain and elevated d-dimer -LE Doppler was negative for DVT -Chest CT was negative for PE -Low suspicion for venous thrombolic events following imaging modalities 3. CHF rule out--unilateral swelling, h/o valve replacement -BNP was unremarkable -No SOB, CTAB -ECHO showed EF 50-55%, no wall motion abnormalities, RA pressure were increased and IVC was dilated -Findings from physical exam, labs and ECHO do not suggest congestive heart failure Current Hospital Diet Patient's current hospital diet: AHA Diet (Heart Healthy) Discharge Diet Recommended Diet: Regular Diet, Regular OB Diet Pending Studies Studies pending at discharge: no Medical Emergencies . Who to Call and When: Medical Emergencies: If at any time you feel your situation is an emergency, please call 911 immediately. . Non-Emergent Contact Non-Emergency issues call your: Primary Care Provider, Web Operations Manager . . "Provider Documentation" section prepared by David Becerra. .
--- NOTE | 2017-08-01 13:25 | ECHOCARDIOGRAM REPORT ---
*NOTICE TO RECEIVING [employer]ENCY This information is strictly Confidential and protected under [place] law. [place] law prohibits you from making any further disclosure of this information unless further disclosure is expressly permitted by the written consent of the person to whom it pertains or is authorized by law. A general authorization for the release of medical or other information is not sufficient for this purpose. Hospital accepts no responsibility if the information is made available to any other person, INCLUDING THE PATIENT. Interpretation Summary * Conclusions -- * 1. Normal LV size. Moderate concentric LVH. * 2. Normal LV systolic function. LVEF 50-55 %. No regional wall motion abnormalities. * 3. Normal RV size and function. * 4. Well-seated mechanical aortic valve with expected transvalvular gradients. Mild aortic regurgitation. * 5. Mild mitral regurgitation. * 6. Dilated IVC. Estimated RA 15 mmHg * 7. No prior studies for comparison. Procedure Details * A complete two-dimensional transthoracic echocardiogram was performed (2D, M-mode, Doppler and color flow Doppler). Left Ventricle * The left ventricle is grossly normal size. * There is moderate concentric left ventricular hypertrophy. * Ejection Fraction = 50-55%. * No regional wall motion abnormalities noted. * Septal motion is consistent with post-operative state. Right Ventricle * The right ventricle is grossly normal size. * The right ventricular systolic function is normal as assessed by tricuspid annular plane systolic excursion (TAPSE) (normal >1.5 cm). Atria * Borderline left atrial enlargement. * The right atrium is moderately dilated. * There is no evidence of atrial septal defect, but resolution does not allow assessment for a patent foramen ovale. Mitral Valve * The mitral valve is grossly normal. * There is no mitral valve stenosis. * There is mild mitral regurgitation. Tricuspid Valve * The tricuspid valve is not well visualized, but is grossly normal. * There is trace tricuspid regurgitation. Aortic Valve * Mild aortic regurgitation. * There is a mechanical aortic valve. * Normal transvalvular gradients. Pulmonic Valve * The pulmonary valve is inadequately visualized, but the Doppler data is adequate for interpretation. * Pulmonic stenosis is absent. * There is no significant pulmonary regurgitation. Great Vessels * The aortic root and proximal ascending aorta are normal sized. Pericardium/Pleural * There is no pericardial effusion. Great Vessels * Dilated inferior vena cava with reduced collapsability with sniff indicates an elevated right atrial pressure of 15 mmHg MMode 2D Measurements and Calculations IVSd 1.5 cm IVSs 2.1 cm LVIDd 5.6 cm LVIDs 4.2 cm LVPWd 1.4 cm LVPWs 2.1 cm IVS/LVPW 1.1 FS 25.4 % EDV(Teich) 152.0 ml ESV(Teich) 76.7 ml EF(Teich) 49.5 % EDV(cubed) 173.1 ml ESV(cubed) 71.9 ml EF(cubed) 58.5 % % IVS thick 41.5 % % LVPW thick 51.3 % LV mass(C)d 350.4 grams LV mass(C)dI 169.4 grams/m\S\2 LV mass(C)s 416.3 grams LV mass(C)sI 201.3 grams/m\S\2 SV(Teich) 75.2 ml SI(Teich) 36.4 ml/m\S\2 SV(cubed) 101.2 ml SI(cubed) 48.9 ml/m\S\2 ACS 1.4 cm LA dimension 3.3 cm asc Aorta Diam 3.0 cm LVAd ap4 51.6 cm\S\2 LVLd ap4 10.2 cm EDV(MOD-sp4) 213.7 ml EDV(sp4-el) 220.9 ml LVAs ap4 30.4 cm\S\2 LVLs ap4 8.1 cm ESV(MOD-sp4) 96.3 ml ESV(sp4-el) 96.4 ml EF(MOD-sp4) 54.9 % EF(sp4-el) 56.3 % LVAd ap2 44.8 cm\S\2 LVLd ap2 9.6 cm EDV(MOD-sp2) 175.9 ml EDV(sp2-el) 176.3 ml LVAs ap2 29.2 cm\S\2 LVLs ap2 8.9 cm ESV(MOD-sp2) 80.0 ml ESV(sp2-el) 81.0 ml EF(MOD-sp2) 54.5 % EF(sp2-el) 54.0 % LVLd %diff -5.92 % EDV(MOD-bp) 197.3 ml LVLs %diff 8.8 % ESV(MOD-bp) 93.9 ml EF(MOD-bp) 52.4 % SV(MOD-sp4) 117.4 ml SI(MOD-sp4) 56.8 ml/m\S\2 SV(MOD-sp2) 95.9 ml SI(MOD-sp2) 46.3 ml/m\S\2 SV(MOD-bp) 103.4 ml SI(MOD-bp) 50.0 ml/m\S\2 SV(sp4-el) 124.5 ml SI(sp4-el) 60.2 ml/m\S\2 SV(sp2-el) 95.3 ml SI(sp2-el) 46.1 ml/m\S\2 Doppler Measurements and Calculations MV E max nathalie 85.7 cm/sec MV A max nathalie 46.4 cm/sec MV E/A 1.8 MV dec time 0.27 sec Ao V2 max 209.7 cm/sec Ao max PG 17.6 mmHg Ao max PG (full) 15.8 mmHg Ao V2 mean 124.8 cm/sec Ao mean PG 7.8 mmHg Ao V2 VTI 44.5 cm AI max nathalie 408.3 cm/sec AI max PG 66.7 mmHg AI dec slope 176.0 cm/sec\S\2 AI P1/2t 679.5 msec LV V1 max PG 1.8 mmHg LV V1 max 66.9 cm/sec MR max nathalie 456.8 cm/sec MR max PG 83.5 mmHg PA V2 max 59.9 cm/sec PA max PG 1.4 mmHg
--- NOTE | 2017-08-01 14:25 | Discharge Summary ---
Discharge Summary Date of Service Aug 01, 2017. Discharge Summary Admission Date: Aug 01, 2017 at 02:54 Discharge Date: Aug 01, 2017 Discharge Disposition: Home Principal Diagnosis: ACS rule out Procedures: ECHO, Chest CT, LE doppler Discharge Exam Review of Systems: Constitutional: No fever, No chills, No sweats Respiratory: No cough, No sputum, No wheezing Cardiovascular: No chest pain, No palpitations Abdomen: No pain, No nausea, No vomiting Genitourinary - Female: No dysuria Physical Exam: General Appearance: WD/WN, no apparent distress Neck: supple, no adenopathy Respiratory/Chest: chest non-tender, lungs clear, normal breath sounds, no respiratory distress Cardiovascular: regular rate, rhythm, no gallop, no murmur Abdomen / GI: non tender, soft, no organomegaly Extremities: + pertinent finding (right pedal edema) Neurologic/Psychiatric: alert, normal mood/affect, normal reflexes, oriented x 3 Skin: normal color, warm/dry, no rash Hospital Course 51 male with a PMH of Aortic valve replacement came to [facility] with chest pain and right pedal edema. The patient was admitted and evaluated to r/o ACS, pulmonary embolism, CHF and structural abnormalities. All test were found to be unremarkable and the patient was subsequently discharged back to the snf with close follow up with primary care doctor. No changes were made to the patients medications---please continue normal home regimen. Course by problem; 1. Chest pain -Patient had negative troponin x2 -EKG was unremarkable for ischemic changes -Vitals were within normal limits -Low suspicion for acute coronary syndrome 2. Pulmonary embolism and DVT rule out--patient had unilateral swelling, chest pain and elevated d-dimer -LE Doppler was negative for DVT -Chest CT was negative for PE -Low suspicion for venous thrombolic events following imaging modalities 3. CHF rule out--unilateral swelling, h/o valve replacement -BNP was unremarkable -No SOB, CTAB -ECHO showed EF 50-55%, no wall motion abnormalities, RA pressure were increased and IVC was dilated -Findings from physical exam, labs and ECHO do not suggest congestive heart failure Total Time Spent: Greater than 30 minutes This includes examination of the patient, discharge planning, medication reconciliation, and communication with other providers. Discharge Instructions Please refer to the electronic Patient Visit Report (Discharge Instructions) for additional information. Reviewed: Pt Seen/Exam by Me History no further chest pain Constitutional: denies: fever Respiratory: negative: short of breath Cardiovascular: denies chest pain General Appearance: no apparent distress Respiratory: lungs clear, no respiratory distress Cardiovascular: regular rate, rhythm Gastrointestinal: soft Neurologic/Psychiatric: alert, oriented x 3 Skin Characteristics: warm/dry Assessment/Plan Resident Physician Supervision Note: I independently interviewed and examined the patient and verified the sethi history and physical, reviewed labs and image studies, discussed the case with the resident Dr. Becerra and agree with the findings and care plan.
[2017-08-01 14:47] VITALS: BP 121/68; PULSE 51; TEMP 36.6; O2SAT 96
[2017-08-01] MEDS ORDERED: WARFARIN SOD 2 MG TAB PO SCH (16:00)
[2017-08-01] MEDS ORDERED: PRAZOSIN HCL 2 MG PO SCH (21:00)
[2017-08-01] MEDS ORDERED: CITALOPRAM 20 MG TAB PO SCH (21:00)
[2017-08-01] MEDS ORDERED: PRAZOSIN HCL 1 MG CAP PO SCH (21:00)
== END 2017-08-01 15:41 | disposition home or self-care (01) ==
LOC: C.EDB 01:05 → C.2T 02:54 → ENRESERV 03:01
PROVIDERS: ADMIT Internal Medicine; ATTEND Family Medicine
DX: R07.9 Chest pain, unspecified (principal); R60.0 Localized edema; F17.200 Nicotine dependence, unspecified, uncomplicated; F32.9 Major depressive disorder, single episode, unspecified; Z95.2 Presence of prosthetic heart valve; Z79.01 Long term (current) use of anticoagulants

== ENCOUNTER 2023-06-06 14:47 | Inpatient (IN) ==
--- NOTE | 2023-06-06 15:33 | Emergency Department Note ---
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 He reports cough and congestion over the past week. He denies any fevers, nausea, vomiting, diarrhea or urinary symptoms. He was given 324 mg of aspirin and 1 spray of nitroglycerin by EMS and reported improvement in symptoms. The patient acknowledges that he recently had a heart catheterization on 05/20/2023 at this facility, which per records demonstrates normal coronary arteries. Will thus, his cardiomyopathy is suspected to be nonischemic in nature. He was referred to cardiothoracic surgery at [facility] for assessment for possible repeat aortic valve replacement and aortic graft. Patient does report he smokes daily but has been on a program to cut back and smokes 4 cigarettes a day at this time. On my evaluation the patient is fatigued appearing, mildly dyspneic but no acute distress, afebrile with stable vital signs. He appears mildly hypervolemic. He has diminished breath sounds of bilateral lung bases with intermittent underlying wheeze. EKG demonstrates LVH with repolarization abnormality which is new compared to February 2021 however this was before the patient's development of nonischemic cardiomyopathy. Otherwise no overt ST elevation. Chest x-ray demonstrates cardiomegaly with interstitial thickening consistent with pulmonary edema with note of small bilateral pleural effusions. Right lower lung opacity is suspected to reflect pulmonary edema as well though superimposed pneumonia could appear similar. WBC within normal limits without neutrophilia or left shift. Platelets within normal limits. H/H similar to prior range values. Chemistry without metabolic acidosis. Creatinine 1.4 proximate to prior values. Electrolytes without significant abnormality. Initial high-sensitivity troponin 52, nonspecific with delta 2-hour high-sensitivity troponin 49, essentially unchanged in the setting of the patient's known nonischemic cardiomyopathy. BNP is elevated at 1600 without prior for comparison but consistent with the patient's hypervolemic appearance and pulmonary edema on imaging. Lipase not elevated. Procalcitonin is not elevated. COVID-19 PCR was negative. CTA with dissection protocol of the chest to further characterize his chest x- ray findings. There is no evidence of thoracic aortic dissection. The patient's aneurysmal dilatation of the ascending aorta is unchanged from prior. Cardiomegaly moderate right and small left pleural effusions are seen. Moderate interstitial pulmonary edema as described. Mildly enlarged mediastinal lymph nodes suspected to be reactive secondary to pulmonary edema. Patient was treated with Xopenex and DuoNeb for component of bronchospasm and additionally administered 40 mg of IV Lasix for diuresis. Patient agrees with plan for admission for further management. Case was discussed with MOLLY Rivera hospitalist, who will evaluate the patient for admission. Further management per admitting team. Triage Nursing notes reviewed and agree them. Prior/external medical records reviewed Vital Signs: reviewed Differential diagnosis: Cardiac ischemia, aortic dissection, pulmonary embolism, pneumothorax, pneumonia, pericarditis, myocarditis, esophageal rupture, GERD, cholecystitis, pancreatitis, musculoskeletal, as well as other pathologies. ER treatment provided: See below. Diagnostics interpreted by me: ECG: Normal sinus rhythm, 92 bpm, LVH with repolarization abnormality, no overt ST elevation. QTc 497, QRS 104. Cardiac Monitoring: An order for continuous cardiac monitoring was placed and demonstrated Normal sinus rhythm, 92 bpm, no ectopy. Laboratory studies: See below Imaging studies: See below Consultation(s): MOLLY Rivera hospitalist. 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 He reports cough and congestion over the past week. He denies any fevers, nausea, vomiting, diarrhea or urinary symptoms. He was given 324 mg of aspirin and 1 spray of nitroglycerin by EMS and reported improvement in symptoms. The patient acknowledges that he recently had a heart catheterization on 05/20/2023 at this facility, which per records demonstrates normal coronary arteries. Will thus, his cardiomyopathy is suspected to be nonischemic in nature. He was referred to cardiothoracic surgery at [facility] for assessment for possible repeat aortic valve replacement and aortic graft. Patient does report he smokes daily but has been on a program to cut back and smokes 4 cigarettes a day at this time. ROS: See above HPI for pertinent positives & negatives. A total of 10 systems reviewed and were otherwise negative. VITALS:See Below PHYSICAL EXAMINATION: GENERAL: Awake, alert, fatigued-appearing, mildly dyspneic but in no distress HENT: Normocephalic, atraumatic. Oropharynx unremarkable. EYES: Normal conjunctiva. Sclera non-icteric. NECK: Supple. No nuchal rigidity. FROM. Mild JVD. RESPIRATORY: Diminished breath sounds of bilateral lung bases with intermittent underlying wheeze. Mild increased work of breathing but no acute distress. CARDIAC: Regular rate, normal rhythm. Extremities warm and well perfused. Pulses equal. ABDOMEN: Soft, non-distended. No tenderness to palpation. No rebound or guarding. No masses. RECTAL: Deferred. MUSCULOSKELETAL: Chest examination reveals no tenderness. The back is symmetrical on inspection without obvious abnormality. There is no CVA tenderness to palpation. No joint edema. LOWER EXTREMITIES: Calves are equal size bilaterally and non-tender. No edema. No discoloration. NEURO: Normal sensorium. No sensory or motor deficits noted. SKIN: No rash or jaundice noted. Pete Romero MD Past Med/Surg History Medical History Encounter for pre-operative examination Dysfunction of both eustachian tubes Tinnitus of right ear Conductive hearing loss of left ear with restricted hearing of right ear Mixed conductive and sensorineural hearing loss of right ear with restricted hearing of left ear Deviated septum Claustrophobia Did have issues in the past with oxygen mask Anxiety and depression Aortic valve disease s/p AVR/revisions (1981, 1982x2), on warfarin, FOLLOWED BY BECKY JAMES PA-C Osteoarthritis Hearing loss in right ear Post traumatic stress disorder History of rheumatic fever as a child at age 6 > led to cardiac issues (hx AVR) On warfarin therapy Asthma Surgical History S/P excision of lipoma LEFT/RT FOREARM AND RT HIP H/O excision of mass (10/16/20) Soft Tissue Mass Excision Bilateral Arms (2-5 cm) and Right Flank (19.5 cm)(Not Applicable) - Yang Lemus DO, FACS History of appendectomy History of tooth extraction all upper teeth removed/some lower teeth removed History of cardiac cath multiple, last Feb 1983--no stents placed Aortic valve replaced s/p AVR/revisions (1981, 1982x2) Family History Brother Family history of reaction to anesthesia when he received anesthesia "it always triggered his seizures" Father Hearing loss Cancer Sister Hearing loss Cancer Other Allergies No family history of bleeding disorder Social History Smoking Status: Current every day smoker Tobacco Type: Cigarettes Age Started Using Tobacco: 14; Cigarettes Per Day: 10 CIG DAILY; Second Hand Exposure: Yes; Do You Dip or Chew Tobacco: No; Hx Alcohol Use: No Hx Substance Use: No Preferred Language: Frisian Communication Ability: Effective Clinical Research Physician Required: No Beliefs That Will Affect Care: None marital status: / Current Living Situation: Other Current Living Situation Comment: ROOMATE WITH MOBILE HOME current occupational status: disabled Feels Safe at Home: Yes Assistive Devices: Glasses Allergies Allergies Allergy/AdvReac Type Severity Reaction Status Date / Time bee venom protein (honey bee) Allergy Severe Severe Verified 06/06/23 17:00 neck/throat swelling, dyspnea adhesive Allergy Mild Rash Verified 06/06/23 17:00 chocolate flavor AdvReac Unknown Advised to Verified 06/06/23 17:00 avoid by surgeon d/t Vitamin K content per pt Home Meds Home Medications Medication Instructions Recorded Confirmed bupropion HCl 300 mg 24 hr tablet, 300 mg PO HS 09/09/20 06/06/23 extended release cholecalciferol (vitamin D3) 50 50 mcg PO QAM 09/09/20 06/06/23 mcg (2,000 unit) capsule trazodone 50 mg tablet 50 mg PO HS 09/12/20 06/06/23 aspirin 81 mg tablet,delayed 81 mg PO QAM 09/27/20 06/06/23 release prazosin 5 mg capsule 10 mg PO QPM 01/12/22 06/06/23 melatonin 10 mg capsule 10 mg PO HS PRN Insomnia 06/04/22 06/06/23 sertraline 50 mg tablet 50 mg PO DAILY 03/16/23 06/06/23 fluticasone fur. 100 mcg-umeclid 1 ea inhalation DAILY 06/06/23 06/06/23 62.5 mcg-vilant 25 mcg inhalat.powder (Trelegy Ellipta) Previous Rx's Medication Instructions Recorded epinephrine 0.3 mg/0.3 mL 0.3 mg (0.3 mL) IM Q10M PRN 05/07/22 injection, auto-injector Anaphylaxis #2 ea hydroxyzine HCl 50 mg tablet 50 mg PO TID PRN Anxiety 30 days 05/07/22 #90 tabs losartan 50 mg tablet 50 mg PO DAILY #90 tabs 03/16/23 metoprolol succinate 25 mg 25 mg PO DAILY #90 tabs 03/16/23 tablet,extended release 24 hr furosemide 40 mg tablet 40 mg PO DAILY #30 tabs 05/11/23 potassium chloride 20 mEq 20 meq PO DAILY #30 tabs 05/11/23 tablet,extended release atorvastatin 10 mg tablet 10 mg PO DAILY #90 tabs 05/25/23 warfarin 5 mg tablet See Rx Instructions PO UD #40 tabs 05/31/23 Results & Data (ED) Vital Signs Vital Signs - 24 hr 06/06/23 14:52 06/06/23 14:52 06/06/23 15:49 Temperature 36.6 C Temperature Source Oral Pulse Rate 91 H 87 Pulse Rate [Apical] Pulse Rate from SpO2 Sensor Respiratory Rate 20 Respiratory Effort / Characteristics Non-Labored Respiratory Depth Normal Respiratory Pattern Blood Pressure 133/64 Blood Pressure [Left Arm] Blood Pressure Mean 87 Blood Pressure Mean [Left Arm] Blood Pressure Position [Left Arm] Pulse Oximetry 91 Oxygen Delivery Method Room Air Room Air Sepsis Recent Fever Within 48 Hours No Sepsis New/Unexplained Change in Mental Status No Sepsis Action Taken by Nursing No Action Required 06/06/23 16:09 06/06/23 16:09 06/06/23 16:09 Temperature Temperature Source Pulse Rate 84 Pulse Rate [Apical] 100 H Pulse Rate from SpO2 Sensor 87 Respiratory Rate 18 29 H Respiratory Effort / Characteristics Respiratory Depth Respiratory Pattern Blood Pressure 129/59 L Blood Pressure [Left Arm] 129/59 L Blood Pressure Mean 82 Blood Pressure Mean [Left Arm] 82 Blood Pressure Position [Left Arm] Pulse Oximetry 96 93 Oxygen Delivery Method Room Air Sepsis Recent Fever Within 48 Hours Sepsis New/Unexplained Change in Mental Status Sepsis Action Taken by Nursing 06/06/23 16:30 06/06/23 17:00 06/06/23 17:30 Temperature Temperature Source Pulse Rate 90 98 H 87 Pulse Rate [Apical] Pulse Rate from SpO2 Sensor 91 H 97 H 88 Respiratory Rate 22 20 23 Respiratory Effort / Characteristics Respiratory Depth Respiratory Pattern Blood Pressure 127/61 127/62 128/59 L Blood Pressure [Left Arm] Blood Pressure Mean 83 83 82 Blood Pressure Mean [Left Arm] Blood Pressure Position [Left Arm] Pulse Oximetry 93 90 93 Oxygen Delivery Method Sepsis Recent Fever Within 48 Hours Sepsis New/Unexplained Change in Mental Status Sepsis Action Taken by Nursing 06/06/23 19:02 Temperature Temperature Source Pulse Rate Pulse Rate [Apical] 97 H Pulse Rate from SpO2 Sensor Respiratory Rate 18 Respiratory Effort / Characteristics Non-Labored Spontaneous Respiratory Depth Normal Respiratory Pattern Regular Blood Pressure Blood Pressure [Left Arm] 176/73 H Blood Pressure Mean Blood Pressure Mean [Left Arm] 107 Blood Pressure Position [Left Arm] Semi-fowlers Pulse Oximetry 93 Oxygen Delivery Method Room Air Sepsis Recent Fever Within 48 Hours Sepsis New/Unexplained Change in Mental Status Sepsis Action Taken by Nursing Laboratory Data Attestation: I reviewed the patient's lab results. 06/06/23 14:59 06/06/23 14:59 Lab Results 06/06/23 06/06/23 Range/Units 14:59 17:03 WBC 7.61 (4.8-10.8) K/ul RBC 3.64 L (4.70-6.10) M/uL Hgb 10.7 L (14.0-18.0) g/dl Hct 32.4 L (42.0-52.0) % MCV 89.0 (80.0-100.0) fL MCH 29.4 (25.0-34.0) pg MCHC 33.0 (32.0-36.0) g/dL RDW Std Deviation 45.6 (36.4-46.3) fL RDW Coeff of Kacey 14.2 (11.5-14.5) % Plt Count 200 (130-400) K/uL MPV 12.5 H (9.4-12.4) fL Immature Gran % (Auto) 0.4 % Neut % (Auto) 73.2 % Lymph % (Auto) 15.9 % Bent % (Auto) 5.7 % Eos % (Auto) 3.7 % Baso % (Auto) 1.1 % Neut # (Auto) 5.58 (1.40-6.50) K/uL Lymph # (Auto) 1.21 (1.20-3.40) K/uL Bent # (Auto) 0.43 (0.11-0.59) K/uL Eos # (Auto) 0.28 (0.00-0.50) K/uL Baso # (Auto) 0.08 (0.00-0.20) K/uL Immature Gran # (Auto) 0.03 (0.01-0.20) K/uL PT 34.5 H (9.0-12.0) Seconds INR 3.4 H (0.9-1.1) Sodium 136 (136-145) mmol/L Potassium 4.2 (3.5-5.1) mmol/L Chloride 108 H (98-107) mmol/L Carbon Dioxide 22 (21-32) mmol/L Anion Gap 6 (3-11) BUN 23 (6-23) mg/dl Creatinine 1.40 (0.6-1.4) mg/dl Est Cr Clr Drug Dosing 65.8 ml/min Est GFR ( Amer) 64.2 ml/min Est GFR (Non-Af Amer) 55.4 ml/min BUN/Creatinine Ratio 16.4 (10-20) Glucose 122 H (70-99(Fasting)) mg/dl Calcium 8.6 (8.6-10.3) mg/dl Magnesium 1.8 (1.7-2.4) mg/dl Total Bilirubin 1.8 H (0.2-1.0) mg/dl AST 27 (13-39) U/L ALT 19 (7-52) U/L Alkaline Phosphatase 97 (34-104) U/L Troponin I High Sens 52.1 H* 49.5 H (0-20) pg/ml B-Natriuretic Peptide 1639 H (0-100) pg/ml Total Protein 6.8 (6.0-8.3) gm/dl Albumin 3.5 (3.4-5.0) gm/dl Globulin 3.3 (2.5-4.0) gm/dl Albumin/Globulin Ratio 1.1 (0.9-2) Lipase 7 L (11-82) U/L Procalcitonin 0.02 (0-0.5) ng/ml SARS-CoV-2 (PCR) NEGATIVE (Negative) Administered Medications Discontinued Medications Furosemide (Furosemide 40 Mg/4 Ml Vial) 40 mg IV ONE ONE Stop: 06/06/23 16:33 Last Admin: 06/06/23 17:41 Dose: 40 mg Documented By: FLORIN Ioversol (Optiray 320 125ml) 118 ml IV ONCE ONE Stop: 06/06/23 17:10 Last Admin: 06/06/23 17:12 Dose: 118 ml Documented By: SID Levalbuterol HCl (Levalbuterol Hcl 0.63 Mg/3 Ml Neb) 0.63 mg NEB NOW STA; Protocol Stop: 06/06/23 16:02 Last Admin: 06/06/23 17:41 Dose: 0.63 mg Documented By: FLORIN Imaging Data Radiologist's Impression: Chest X-Ray 06/06/23 15:17 XR chest 1V portable CLINICAL HISTORY: Chest pain, nonspecific COMPARISON STUDY: Radiograph October 01, 2020. Chest CT June 25, 2022. FINDINGS: There are median sternotomy wires and a prosthetic aortic valve. Moderate cardiomegaly is present. There is interstitial thickening. Right lower lung airspace opacities are present. There are small bilateral pleural effusions. No pneumothorax. IMPRESSION: 1. Cardiomegaly with interstitial thickening consistent with pulmonary edema. Small bilateral pleural effusions. 2. Right lower lung opacity which is likely related to pulmonary edema. Superimposed pneumonia could appear similar although is considered less likely. ACT 112: Negative or not required by law. Electronically signed by: Sherman Murdock M.D. 06/06/2023 4:03 PM Chest CTA 06/06/23 16:02 CT ANGIOGRAPHY OF THE CHEST DISSECTION PROTOCOL CLINICAL HISTORY: Chest pain. History of ascending thoracic aortic aneurysmal dilatation. COMPARISON STUDY: Chest CT July 05, 2022. Chest CT August 01, 2017. Chest radiograph performed earlier today. TECHNIQUE: Before and following the IV administration of 118 mL of Optiray, helical axial images of the chest were obtained. Maximal intensity projections and sagittal and coronal reformats were viewed on an independent 3D workstation. IV contrast was administered without complication. Automated exposure control was utilized for the study. A dose lowering technique was utilized adhering to the principles of ALARA. CT DOSE: 1008.03 mGy.cm FINDINGS: Prosthetic aortic valve is noted. Dilatation of the ascending aorta measuring 4.6 cm is unchanged since CT of June 25, 2022. There is no intramural hematoma. There is no thoracic aortic dissection. Moderate cardiomegaly is present. There is no pericardial effusion. Moderate right and small left pleural effusions are noted. No pneumothorax. There is interlobular septal thickening. Mild groundglass opacities within the lungs are present. Central airways are patent. 5 mm left lower lobe nodule is unchanged. This is likely benign. There is upper lobe predominant emphysema. Mildly enlarged mediastinal lymph nodes measure up to 1.4 cm in short axis diameter. No pulmonary emboli are identified. No acute fractures within the bony thorax. Visualized portions of the upper abdomen are unremarkable. IMPRESSION: 1. No thoracic aortic dissection. No change in aneurysmal dilatation of the ascending aorta measuring up to 4.[address] 2. Cardiomegaly. Moderate right and small left pleural effusions. Moderate interstitial pulmonary edema. 3. Mildly enlarged mediastinal lymph nodes. This is likely related to pulmonary edema however can be assessed on follow-up exams to ensure resolution. ACT 112: Negative or not required by law. Electronically signed by: Sherman Murdock M.D. 06/06/2023 5:34 PM Discharge Plan Visit Data Chief Complaint: Chest Pain Stated Complaint: CHEST PAIN ED Provider: Pete Romero Discharge Problem: Pulmonary edema, NICM (nonischemic cardiomyopathy), On warfarin therapy, H/O mechanical aortic valve replacement Discharge Problem: Pulmonary edema Qualifiers: Chronicity: acute Qualified Code(s): J81.0 - Acute pulmonary edema
[2023-06-06 15:36] LABS: Basophils # (auto) 0.08 K/uL (0.00-0.20); Basophils % (auto) 1.1 %; Eosinophils # (auto) 0.28 K/uL (0.00-0.50); Eosinophils % (auto) 3.7 %; Hematocrit (blood only) 32.4 % (42.0-52.0); Hemoglobin 10.7 g/dl (14.0-18.0); Immature Granulocytes # (auto) 0.03 K/uL (0.01-0.20); Immature Granulocytes % (auto) 0.4 %; Lymphocytes # (auto) 1.21 K/uL (1.20-3.40); Lymphocytes % (auto) 15.9 %; Mean Corpuscular Hemoglobin 29.4 pg (25.0-34.0); Mean Platelet Volume 12.5 fL (9.4-12.4); Monocytes # (auto) 0.43 K/uL (0.11-0.59); Monocytes % (auto) 5.7 %; Neutrophils # (auto) 5.58 K/uL (1.40-6.50); Neutrophils % (auto) 73.2 %; Platelet Count 200 K/uL (130-400); RDW Coefficient of Variation 14.2 % (11.5-14.5); RDW Standard Deviation 45.6 fL (36.4-46.3); Red Blood Count 3.64 M/uL (4.70-6.10); White Blood Count 7.61 K/ul (4.8-10.8)
[2023-06-06 15:51] LABS: Albumin Globulin Ratio 1.1 (0.9-2); Albumin Level 3.5 gm/dl (3.4-5.0); BUN Creatinine Ratio 16.4 (10-20); Bilirubin,Total 1.8 mg/dl (0.2-1.0); Calcium 8.6 mg/dl (8.6-10.3); Creatinine Clr Calc Pharmacy 65.8 ml/min; Est GFR (African American) 64.2 ml/min; Est GFR (Non-African American) 55.4 ml/min; Globulin 3.3 gm/dl (2.5-4.0); Magnesium 1.8 mg/dl (1.7-2.4); Potassium 4.2 mmol/L (3.5-5.1); Total Protein 6.8 gm/dl (6.0-8.3)
[2023-06-06 16:00] LABS: INR 3.4 (0.9-1.1); Prothrombin Time 34.5 Seconds (9.0-12.0); Troponin I High Sensitivity 52.1 pg/ml (0-20)
--- NOTE | 2023-06-06 16:04 | XRay Report ---
XR chest 1V portable CLINICAL HISTORY: Chest pain, nonspecific COMPARISON STUDY: Radiograph October 01, 2020. Chest CT June 25, 2022. FINDINGS: There are median sternotomy wires and a prosthetic aortic valve. Moderate cardiomegaly is p resent. There is interstitial thickening. Right lower lung airspace opacities are present. There are small bilateral pleural effusions. No pneumothorax. IMPRESSION: 1. Cardiomegaly with interstitial thickening consistent with pulmonary edema. Small bilateral pleural effusions. 2. Right lower lung opacity which is likely related to pulmonary edema. Superimposed pneumonia could appear similar although is considered less likely. ACT 112: Negative or not required by law. Electronically signed by: Sherman Murdock M.D. 06/06/2023 4:03 PM
[2023-06-06] MEDS: OPTIRAY 320 125ml IV ONE (17:12)
--- NOTE | 2023-06-06 17:36 | CT Scan Report ---
CT ANGIOGRAPHY OF THE CHEST DISSECTION PROTOCOL CLINICAL HISTORY: Chest pain. History of ascending thoracic aortic aneurysmal dilatation. COMPARISON STUDY: Chest CT July 05, 2022. Chest CT August 01, 2017. Chest radiograph performed earli er today. TECHNIQUE: Before and following the IV administration of 118 mL of Optiray, helical axial images of t he chest were obtained. Maximal intensity projections and sagittal and coronal reformats were viewed on an independent 3D workstation. IV contrast was administered without complication. Automated exp osure control was utilized for the study. A dose lowering technique was utilized adhering to the cathy Hayes. CT DOSE: 1008.03 mGy.cm FINDINGS: Prosthetic aortic valve is noted. Dilatation of the ascending aorta measuring 4.6 cm is un changed since CT of June 25, 2022. There is no intramural hematoma. There is no thoracic aortic disse ction. Moderate cardiomegaly is present. There is no pericardial effusion. Moderate right and small l eft pleural effusions are noted. No pneumothorax. There is interlobular septal thickening. Mild groun dglass opacities within the lungs are present. Central airways are patent. 5 mm left lower lobe nodul e is unchanged. This is likely benign. There is upper lobe predominant emphysema. Mildly enlarged med iastinal lymph nodes measure up to 1.4 cm in short axis diameter. No pulmonary emboli are identified. No acute fractures within the bony thorax. Visualized portions of the upper abdomen are unremarkable . IMPRESSION: 1. No thoracic aortic dissection. No change in aneurysmal dilatation of the ascending aorta measuring up to 4.[address] 2. Cardiomegaly. Moderate right and small left pleural effusions. Moderate interstitial pulmonary carmel ma. 3. Mildly enlarged mediastinal lymph nodes. This is likely related to pulmonary edema however can be assessed on follow-up exams to ensure resolution. ACT 112: Negative or not required by law. Electronically signed by: Sherman Murdock M.D. 06/06/2023 5:34 PM
[2023-06-06] MEDS: LEVALBUTEROL HCL 0.63 MG/3 ML NEB NEB STA (17:41)
[2023-06-06] MEDS: FUROSEMIDE 40 MG/4 ML VIAL IV ONE (17:41)
--- NOTE | 2023-06-06 19:20 | History & Physical Report ---
Date of Service June 06, 2023 Assessment & Plan (1) NICM (nonischemic cardiomyopathy): Plan: 57-year-old male with history of nonischemic cardiomyopathy with reduced EF presenting with several days of worsening chest pain, shortness of breath and lower abdominal cramping. Patient appears volume overloaded on physical exam and by lab values with elevated BNP = 1634. Mild troponin elevation initially 52.1, now 49.5. He has mild right upper quadrant pain as well as an elevated T. bili = 1.8, ?hepatic congestion. He has been given 40 mg of IV Lasix with good diuretic effect. He feels somewhat improved but still with symptoms. Suspect secondary to decompensated CHF Admit to medical with telemetry Continue diuresis with Lasix 40 mg IV twice daily Monitor intake and output, daily standing weights Repeat chemistry, LFTs in the morning Continue home Cozaar 50 mg daily and metoprolol 25 mg daily Fluid restriction 1200 mL (2) H/O mechanical aortic valve replacement: Plan: Patient with history of rheumatic heart disease as a child status post multiple mechanical aortic valves. He is on Coumadin anticoagulation with INR goal at 3.4 Continue p.o. Coumadin INR with a.m. labs (3) Asthma: Plan: Chronic. Patient without wheeze Continue Trelegy Ellipta Albuterol as needed (4) Dyslipidemia: Plan: Chronic. Stable. Continue atorvastatin 10 mg p.o. daily (5) Post traumatic stress disorder: Plan: Patient with history of PTSD. Symptoms are fairly well-controlled Continue prazosin Continue Wellbutrin Continue hydroxyzine as needed for anxiety Continue sertraline F/E/Ndiuresis with Lasix 40 mg IV twice daily as above, monitor electrolytes, will give 2 g of IV magnesium, heart healthy/fluid restricted diet Prophylaxispatient on Coumadin anticoagulation for history mechanical aortic valve. 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 Patient reports that he was recently seen in [place] for evaluation of his heart and he needs to have a new aortic valve placed as well as possible mitral valve. He had a cardiac catheterization performed on 05/20/23 which showed clean coronary arteries. Patient has had 3-4 days of intermittent left sided chest pain with radiation across the anterior chest - pressure/pain and stabbing in nature which was improved by Nitro spray. He has also had some worsening ANDREA as well as abdominal cramping. He has dry cough, fatigue and orthopnea as well. No report of fever or chills. No report of edema or weight gain. In the ER he is afebrile, tachycardic, adequate oxygenation on room air. ER Course: Lasix 40mg IV Nitro spray by EMS Allergies Allergy/AdvReac Type Severity Reaction Status Date / Time bee venom protein (honey bee) Allergy Severe Severe Verified 06/06/23 17:00 neck/throat swelling, dyspnea adhesive Allergy Mild Rash Verified 06/06/23 17:00 chocolate flavor AdvReac Unknown Advised to Verified 06/06/23 17:00 avoid by surgeon d/t Vitamin K content per pt Home Medications Medication Instructions Recorded Confirmed Type bupropion HCl 300 mg 24 hr tablet, 300 mg PO HS 09/09/20 06/06/23 History extended release cholecalciferol (vitamin D3) 50 50 mcg PO QAM 09/09/20 06/06/23 History mcg (2,000 unit) capsule trazodone 50 mg tablet 50 mg PO HS 09/12/20 06/06/23 History aspirin 81 mg tablet,delayed 81 mg PO QAM 09/27/20 06/06/23 History release prazosin 5 mg capsule 10 mg PO QPM 01/12/22 06/06/23 History epinephrine 0.3 mg/0.3 mL 0.3 mg (0.3 mL) IM Q10M PRN 05/07/22 06/06/23 Rx injection, auto-injector Anaphylaxis #2 ea hydroxyzine HCl 50 mg tablet 50 mg PO TID PRN Anxiety 30 days 05/07/22 06/06/23 Rx #90 tabs melatonin 10 mg capsule 10 mg PO HS PRN Insomnia 06/04/22 06/06/23 History losartan 50 mg tablet 50 mg PO DAILY #90 tabs 03/16/23 06/06/23 Rx metoprolol succinate 25 mg 25 mg PO DAILY #90 tabs 03/16/23 06/06/23 Rx tablet,extended release 24 hr sertraline 50 mg tablet 50 mg PO DAILY 03/16/23 06/06/23 History furosemide 40 mg tablet 40 mg PO DAILY #30 tabs 05/11/23 06/06/23 Rx potassium chloride 20 mEq 20 meq PO DAILY #30 tabs 05/11/23 06/06/23 Rx tablet,extended release atorvastatin 10 mg tablet 10 mg PO DAILY #90 tabs 05/25/23 06/06/23 Rx warfarin 5 mg tablet See Rx Instructions PO UD #40 tabs 05/31/23 06/06/23 Rx fluticasone fur. 100 mcg-umeclid 1 ea inhalation DAILY 06/06/23 06/06/23 History 62.5 mcg-vilant 25 mcg inhalat.powder (Trelegy Ellipta) Past Med/Surg History Medical History Encounter for pre-operative examination Dysfunction of both eustachian tubes Tinnitus of right ear Conductive hearing loss of left ear with restricted hearing of right ear Mixed conductive and sensorineural hearing loss of right ear with restricted hearing of left ear Deviated septum Claustrophobia Did have issues in the past with oxygen mask Anxiety and depression Aortic valve disease s/p AVR/revisions (1981, 1982x2), on warfarin, FOLLOWED BY BECKY JAMES PA-C Osteoarthritis Hearing loss in right ear Post traumatic stress disorder History of rheumatic fever as a child at age 6 > led to cardiac issues (hx AVR) On warfarin therapy Asthma Surgical History S/P excision of lipoma LEFT/RT FOREARM AND RT HIP H/O excision of mass (10/16/20) Soft Tissue Mass Excision Bilateral Arms (2-5 cm) and Right Flank (19.5 cm)(Not Applicable) - Yang Lemus DO, FACS History of appendectomy History of tooth extraction all upper teeth removed/some lower teeth removed History of cardiac cath multiple, last Feb 1983--no stents placed Aortic valve replaced s/p AVR/revisions (1981, 1982x2) Family History Brother Family history of reaction to anesthesia when he received anesthesia "it always triggered his seizures" Father Hearing loss Cancer Sister Hearing loss Cancer Other Allergies No family history of bleeding disorder Social History Smoking Status: Current every day smoker Tobacco Type: Cigarettes Age Started Using Tobacco: 14; Cigarettes Per Day: 10 CIG DAILY; Second Hand Exposure: Yes; Do You Dip or Chew Tobacco: No; Hx Alcohol Use: No Hx Substance Use: No Preferred Language: Latvian Communication Ability: Effective Help Desk Representative Required: No Beliefs That Will Affect Care: None marital status: / Current Living Situation: Other Current Living Situation Comment: ROOMATE WITH MOBILE HOME current occupational status: disabled Feels Safe at Home: Yes Assistive Devices: Glasses Review of Systems Review of Systems: All systems reviewed & are unremarkable except as noted in HPI & below Physical Exam Physical Exam: General: patient resting comfortably, NAD, non-toxic in appearance, AA&O x 4 Skin: warm, dry, intact, no rashes or lesions HEENT: NC/AT, PERRL, EOMI, anicteric sclera, conjunctiva without injection, external ear normal to inspection and nontender, nares patent, moist mucus membranes, dentition intact, no oropharyngeal lesions, neck supple, trachea midline, no LAD, no thyromegaly, +JVD to angle of jaw noted on left Heart: +S1/S2, regular, tachycardic, no m/r/g Lungs: equal air entry bilaterally, crackles in bilateral bases Abd: +BS, soft, NT/ND, no masses/organomegaly/ascites Ext: warm, 2+ pulses in UE/LE bilaterally, no clubbing/cyanosis, trace edema bilaterally Neuro: nonfocal, patient AA&O x 4, speech intact, no facial droop, moving all extremities on command with equal strength 5/5 Results & Data Results & Data Vital Signs (Past 12 Hours) Vital Signs Temp Pulse Pulse Resp BP BP Pulse Ox 06/06/23 19:02 97 H 18 176/73 H 93 06/06/23 17:30 87 23 128/59 L 93 06/06/23 17:00 98 H 20 127/62 90 06/06/23 16:30 90 22 127/61 93 06/06/23 16:09 84 29 H 129/59 L 93 06/06/23 16:09 100 H 18 129/59 L 96 06/06/23 16:09 06/06/23 15:49 87 06/06/23 14:52 06/06/23 14:52 36.6 C 91 H 20 133/64 91 O2 Del Method 06/06/23 19:02 Room Air 06/06/23 17:30 06/06/23 17:00 06/06/23 16:30 06/06/23 16:09 06/06/23 16:09 06/06/23 16:09 Room Air 06/06/23 15:49 06/06/23 14:52 Room Air 06/06/23 14:52 Room Air Laboratory Results Laboratory Results WBC 7.61 K/ul (4.8-10.8) 06/06/23 14:59 RBC 3.64 M/uL (4.70-6.10) L 06/06/23 14:59 Hgb 10.7 g/dl (14.0-18.0) L 06/06/23 14:59 Hct 32.4 % (42.0-52.0) L 06/06/23 14:59 MCV 89.0 fL (80.0-100.0) 06/06/23 14:59 MCH 29.4 pg (25.0-34.0) 06/06/23 14:59 MCHC 33.0 g/dL (32.0-36.0) 06/06/23 14:59 RDW Std Deviation 45.6 fL (36.4-46.3) 06/06/23 14:59 RDW Coeff of Kacey 14.2 % (11.5-14.5) 06/06/23 14:59 Plt Count 200 K/uL (130-400) 06/06/23 14:59 MPV 12.5 fL (9.4-12.4) H 06/06/23 14:59 Immature Gran % (Auto) 0.4 % 06/06/23 14:59 Neut % (Auto) 73.2 % 06/06/23 14:59 Lymph % (Auto) 15.9 % 06/06/23 14:59 Hidalgo % (Auto) 5.7 % 06/06/23 14:59 Eos % (Auto) 3.7 % 06/06/23 14:59 Baso % (Auto) 1.1 % 06/06/23 14:59 Neut # (Auto) 5.58 K/uL (1.40-6.50) 06/06/23 14:59 Lymph # (Auto) 1.21 K/uL (1.20-3.40) 06/06/23 14:59 Hidalgo # (Auto) 0.43 K/uL (0.11-0.59) 06/06/23 14:59 Eos # (Auto) 0.28 K/uL (0.00-0.50) 06/06/23 14:59 Baso # (Auto) 0.08 K/uL (0.00-0.20) 06/06/23 14:59 Immature Gran # (Auto) 0.03 K/uL (0.01-0.20) 06/06/23 14:59 PT 34.5 Seconds (9.0-12.0) H 06/06/23 14:59 INR 3.4 (0.9-1.1) H 06/06/23 14:59 Sodium 136 mmol/L (136-145) 06/06/23 14:59 Potassium 4.2 mmol/L (3.5-5.1) 06/06/23 14:59 Chloride 108 mmol/L (98-107) H 06/06/23 14:59 Carbon Dioxide 22 mmol/L (21-32) 06/06/23 14:59 Anion Gap 6 (3-11) 06/06/23 14:59 BUN 23 mg/dl (6-23) 06/06/23 14:59 Creatinine 1.40 mg/dl (0.6-1.4) 06/06/23 14:59 Est Cr Clr Drug Dosing 65.8 ml/min 06/06/23 14:59 Est GFR ( Amer) 64.2 ml/min 06/06/23 14:59 Est GFR (Non-Af Amer) 55.4 ml/min 06/06/23 14:59 BUN/Creatinine Ratio 16.4 (10-20) 06/06/23 14:59 Glucose 122 mg/dl (70-99(Fasting)) H 06/06/23 14:59 Calcium 8.6 mg/dl (8.6-10.3) 06/06/23 14:59 Magnesium 1.8 mg/dl (1.7-2.4) 06/06/23 14:59 Total Bilirubin 1.8 mg/dl (0.2-1.0) H 06/06/23 14:59 AST 27 U/L (13-39) 06/06/23 14:59 ALT 19 U/L (7-52) 06/06/23 14:59 Alkaline Phosphatase 97 U/L (34-104) 06/06/23 14:59 Troponin I High Sens 49.5 pg/ml (0-20) H 06/06/23 17:03 B-Natriuretic Peptide 1639 pg/ml (0-100) H 06/06/23 14:59 Total Protein 6.8 gm/dl (6.0-8.3) 06/06/23 14:59 Albumin 3.5 gm/dl (3.4-5.0) 06/06/23 14:59 Globulin 3.3 gm/dl (2.5-4.0) 06/06/23 14:59 Albumin/Globulin Ratio 1.1 (0.9-2) 06/06/23 14:59 Lipase 7 U/L (11-82) L 06/06/23 14:59 Procalcitonin 0.02 ng/ml (0-0.5) 06/06/23 14:59 SARS-CoV-2 (PCR) NEGATIVE (Negative) 06/06/23 14:59 Impressions Chest X-Ray 06/06/23 15:17 XR chest 1V portable CLINICAL HISTORY: Chest pain, nonspecific COMPARISON STUDY: Radiograph October 01, 2020. Chest CT June 25, 2022. FINDINGS: There are median sternotomy wires and a prosthetic aortic valve. Moderate cardiomegaly is present. There is interstitial thickening. Right lower lung airspace opacities are present. There are small bilateral pleural effusions. No pneumothorax. IMPRESSION: 1. Cardiomegaly with interstitial thickening consistent with pulmonary edema. Small bilateral pleural effusions. 2. Right lower lung opacity which is likely related to pulmonary edema. Superimposed pneumonia could appear similar although is considered less likely. ACT 112: Negative or not required by law. Electronically signed by: Sherman Murdock M.D. 06/06/2023 4:03 PM Chest CTA 06/06/23 16:02 CT ANGIOGRAPHY OF THE CHEST DISSECTION PROTOCOL CLINICAL HISTORY: Chest pain. History of ascending thoracic aortic aneurysmal dilatation. COMPARISON STUDY: Chest CT July 05, 2022. Chest CT August 01, 2017. Chest radiograph performed earlier today. TECHNIQUE: Before and following the IV administration of 118 mL of Optiray, helical axial images of the chest were obtained. Maximal intensity projections and sagittal and coronal reformats were viewed on an independent 3D workstation. IV contrast was administered without complication. Automated exposure control was utilized for the study. A dose lowering technique was utilized adhering to the principles of ALARA. CT DOSE: 1008.03 mGy.cm FINDINGS: Prosthetic aortic valve is noted. Dilatation of the ascending aorta measuring 4.6 cm is unchanged since CT of June 25, 2022. There is no intramural hematoma. There is no thoracic aortic dissection. Moderate cardiomegaly is present. There is no pericardial effusion. Moderate right and small left pleural effusions are noted. No pneumothorax. There is interlobular septal thickening. Mild groundglass opacities within the lungs are present. Central airways are patent. 5 mm left lower lobe nodule is unchanged. This is likely benign. There is upper lobe predominant emphysema. Mildly enlarged mediastinal lymph nodes measure up to 1.4 cm in short axis diameter. No pulmonary emboli are identified. No acute fractures within the bony thorax. Visualized portions of the upper abdomen are unremarkable. IMPRESSION: 1. No thoracic aortic dissection. No change in aneurysmal dilatation of the ascending aorta measuring up to 4.[address] 2. Cardiomegaly. Moderate right and small left pleural effusions. Moderate interstitial pulmonary edema. 3. Mildly enlarged mediastinal lymph nodes. This is likely related to pulmonary edema however can be assessed on follow-up exams to ensure resolution. ACT 112: Negative or not required by law. Electronically signed by: Sherman Murdock M.D. 06/06/2023 5:34 PM PG Care Time/CCT Total # of Minutes Spent Total Time Spent with Patient: Total time spent is greater than 50% in coordination of care (as documented) at patient's floor/unit and/or counseling patient: Coding Level of Care Code 40589 INT INP/OBS CARE 3/75MIN Diagnoses NICM (nonischemic cardiomyopathy) I42.8 H/O mechanical aortic valve replacement Z95.2 Asthma J45.909 Dyslipidemia E78.5 Post traumatic stress disorder F43.10
[2023-06-07] MEDS ORDERED: MELATONIN 3 MG TAB PO PRN (00:50)
[2023-06-07] MEDS ORDERED: ALBUTEROL HFA 8 GM INHALER INH PRN (00:50)
[2023-06-07] MEDS ORDERED: ACETAMINOPHEN 325 MG TAB PO PRN (00:50)
[2023-06-07] MEDS: PRAZOSIN HCL 1 MG CAP PO SCH (02:32)
[2023-06-07] MEDS: buPROPion XL 300 MG TABCR PO SCH (02:32)
[2023-06-07] MEDS: traZODone HCL 50 MG TAB PO SCH (02:32)
[2023-06-07] MEDS: MAGNESIUM SULFATE / D5W 1 GM/100 ML BAG IV SCH (02:33)
[2023-06-07 06:58] LABS: Hematocrit (blood only) 29.5 % (42.0-52.0); Hemoglobin 9.8 g/dl (14.0-18.0); Mean Corpuscular Hemoglobin 29.5 pg (25.0-34.0); Mean Corpuscular Hgb Conc 33.2 g/dL (32.0-36.0); Mean Corpuscular Volume 88.9 fL (80.0-100.0); Mean Platelet Volume 11.8 fL (9.4-12.4); Platelet Count 183 K/uL (130-400); RDW Coefficient of Variation 14.5 % (11.5-14.5); RDW Standard Deviation 46.2 fL (36.4-46.3); Red Blood Count 3.32 M/uL (4.70-6.10); White Blood Count 6.95 K/ul (4.8-10.8)
--- NOTE | 2023-06-07 07:05 | Electrocardiogram Report ---
Test Reason : Blood Pressure : / mmHG Vent. Rate : 092 BPM Atrial Rate : 092 BPM P-R Int : 204 ms QRS Dur : 104 ms QT Int : 402 ms P-R-T Axes : 072 058 165 degrees QTc Int : 497 ms Normal sinus rhythm Possible Left atrial enlargement Left ventricular hypertrophy with repolarization abnormality ( Abie product ) Prolonged QT Abnormal ECG When compared with ECG of 21-FEB-2021 23:07, ST now depressed in Inferior leads ST now depressed in Lateral leads T wave inversion now evident in Lateral leads QT has lengthened Confirmed by Seven Yu ([id number]) on 06/07/2023 7:05:01 AM Referred By: REFERRED SELF Confirmed By:Seven Yu
[2023-06-07 07:21] LABS: Albumin Level 3.4 gm/dl (3.4-5.0); BUN Creatinine Ratio 14.9 (10-20); Bilirubin Direct 0.5 mg/dl (0-0.2); Bilirubin,Total 1.6 mg/dl (0.2-1.0); Calcium 8.2 mg/dl (8.6-10.3); Creatinine Clr Calc Pharmacy 62.2 ml/min; Est GFR (Non-African American) 51.8 ml/min; Potassium 3.6 mmol/L (3.5-5.1); Total Protein 6.1 gm/dl (6.0-8.3)
[2023-06-07 07:28] LABS: Troponin I High Sensitivity 83.1 pg/ml (0-20)
[2023-06-07 07:31] LABS: INR 4.1 (0.9-1.1)
[2023-06-07] MEDS ORDERED: NON-FORMULARY MEDICATION (Fluticasone-Umeclidin-Vilanter [Trelegy Ellipta] 100-62.5-25 mcg INH SCH (09:00)
[2023-06-07] MEDS: ATORVASTATIN 10 MG TAB PO SCH (09:20)
[2023-06-07] MEDS: ASPIRIN 81 MG ECTAB PO SCH (09:20)
[2023-06-07] MEDS: SERTRALINE HCL 50 MG TABLET PO SCH (09:22)
[2023-06-07] MEDS: UMECLIDINIUM/VILANTEROL 62.5/25MCG 7 PUFFS/INHALER INH SCH (09:23)
[2023-06-07] MEDS: LOSARTAN POTASSIUM 50 MG TAB PO SCH (09:25)
[2023-06-07] MEDS: METOPROLOL SUCC 25MG EXT REL TAB PO SCH (09:25)
[2023-06-07] MEDS: FLUTICASONE FUROATE 100MCG 14 PUFFS/INHALER INH SCH (09:26)
[2023-06-07] MEDS: FUROSEMIDE 40 MG/4 ML VIAL IV SCH (09:29)
--- NOTE | 2023-06-07 13:01 | Hospitalist Progress Note ---
Date of Service June 07, 2023 Assessment & Plan (1) NICM (nonischemic cardiomyopathy): Plan: 57-year-old male with history of nonischemic cardiomyopathy with reduced EF presenting with several days of worsening chest pain, shortness of breath and lower abdominal cramping. Most likely acute decompensated heart failure, Patient appears volume overloaded on physical exam and by lab values with elevated BNP = 1634. Mild troponin elevation initially 52.1, now 49.5. He has mild right upper quadrant pain as well as an elevated T. bili = 1.8, ?hepatic congestion. He has been given 40 mg of IV Lasix with good diuretic effect. He feels somewhat improved but still with symptoms. Continue diuresis with Lasix 40 mg IV twice daily Monitor intake and output, daily standing weights Continue home Cozaar 50 mg daily and metoprolol 25 mg daily Fluid restriction 1200 mL (2) H/O mechanical aortic valve replacement: Plan: Patient with history of rheumatic heart disease as a child status post multiple mechanical aortic valves. He is on Coumadin anticoagulation with INR goal at 3.4 Continue p.o. Coumadin INR 4.1 (3) Asthma: Plan: Chronic. Patient without wheeze Continue Trelegy Ellipta Albuterol as needed (4) Dyslipidemia: Plan: Chronic. Stable. Continue atorvastatin 10 mg p.o. daily (5) Post traumatic stress disorder: Plan: Patient with history of PTSD. Symptoms are fairly well-controlled Continue prazosin Continue Wellbutrin Continue hydroxyzine as needed for anxiety Continue sertraline F/E/Ndiuresis with Lasix 40 mg IV twice daily as above, monitor electrolytes, will give 2 g of IV magnesium, heart healthy/fluid restricted diet Prophylaxispatient on Coumadin anticoagulation for history mechanical aortic valve. INR = 3.4 present Codefull per discussion with patient Dispositionadmit to medical with telemetry for ongoing treatment for acute exacerbation of CHF Plan Continue to monitor, Admission and Anticipated Discharge Date Admission Date: June 06, 2023 Subjective Patient seen and examined, sitting up in the bed, says his symptoms little bit improved, shortness of breath elevated improved 2. Review of Systems Review of Systems: All systems reviewed are negative, apart from the ones contained in the history. Physical Exam Physical Exam: The patient is awake, alert and oriented 3, well developed and well nourished, normocephalic and atraumatic, lying in bed and in no acute distress. HEENT--PERRL, EOMI, mucous membranes and oropharynx mildly dry Neck--supple. No JVD. No bruits. Thyroid normal, trachea midline, no adenopathy. Heart--mechanical heart sounds,. No murmurs, rubs or gallops. Lungs--clear bilaterally, no respiratory distress, no accessory muscle use. Abdomen--normal bowel sounds and soft. Extremities--no cyanosis or clubbing. No edema. Dermatologic--normal skin turgor, normal color, no abnormal lymph nodes, no rash. Neurologic--cranial nerves II through XII grossly intact. Rheumatologic--normal range of motion. Psychiatric--normal affect. Results & Data Results & Data Vital Signs (Past 12 Hours) Vital Signs Temp Pulse Pulse Resp BP BP Pulse Ox 06/07/23 11:10 97.5 F L 92 H 16 119/56 L 93 06/07/23 08:00 93 H 06/07/23 07:44 92 06/07/23 07:43 97.7 F 73 20 109/56 L 89 L 06/07/23 04:00 98.2 F 73 18 105/53 L 92 06/07/23 01:45 103 H 06/07/23 01:45 06/07/23 01:45 97.5 F L 100 H 20 144/71 H 94 O2 Del Method O2 Flow Rate 06/07/23 11:10 Nasal Cannula 2 06/07/23 08:00 06/07/23 07:44 Nasal Cannula 2 06/07/23 07:43 Room Air 06/07/23 04:00 Room Air 06/07/23 01:45 06/07/23 01:45 Room Air 06/07/23 01:45 Room Air PG Care Time/CCT Total # of Minutes Spent Total Time Spent with Patient: Total time spent is greater than 50% in coordination of care (as documented) at patient's floor/unit and/or counseling patient: Coding Level of Care Code 35182 SUB INP/OBS CARE 2/35MIN Diagnoses NICM (nonischemic cardiomyopathy) I42.8 H/O mechanical aortic valve replacement Z95.2 Asthma J45.909 Dyslipidemia E78.5 Post traumatic stress disorder F43.10 Time Spent (min) 35
[2023-06-07] MEDS: WARFARIN SOD 7.5 MG TAB PO SCH (15:10)
[2023-06-07] MEDS: WARFARIN SOD 5 MG TAB PO ONE (16:22)
[2023-06-07 17:33] LABS: Calcium 8.3 mg/dl (8.6-10.3); Est GFR (African American) 43.8 ml/min; Est GFR (Non-African American) 37.8 ml/min; Potassium 3.8 mmol/L (3.5-5.1)
[2023-06-07] MEDS: BENZONATATE 100 MG CAPSULE PO PRN (23:04)
[2023-06-08 07:00] LABS: Calcium 8.2 mg/dl (8.6-10.3); Creatinine Clr Calc Pharmacy 55.8 ml/min; Est GFR (African American) 52.6 ml/min; Est GFR (Non-African American) 45.4 ml/min; Potassium 3.7 mmol/L (3.5-5.1)
[2023-06-08 07:37] LABS: INR 3.6 (0.9-1.1); Prothrombin Time 36.6 Seconds (9.0-12.0)
--- NOTE | 2023-06-08 12:27 | Hospitalist Progress Note ---
Date of Service June 08, 2023 Assessment & Plan (1) NICM (nonischemic cardiomyopathy): Plan: 57-year-old male with history of nonischemic cardiomyopathy with reduced EF presenting with several days of worsening chest pain, shortness of breath and lower abdominal cramping. Most likely acute decompensated heart failure, -On admission, he appeared volume overloaded on physical exam and by lab values with elevated BNP = 1634. Mild troponin elevation initially 52.1, now 49.5. He has mild right upper quadrant pain as well as an elevated T. bili = 1.8, ?hepatic congestion. Continue diuresis with Lasix 40 mg IV twice daily 9the night dose was held due to worsening cr) Monitor intake and output, daily standing weights Continue home Cozaar 50 mg daily and metoprolol 25 mg daily Fluid restriction 1200 mL -Some improvement in clinical symptoms however still gets short of breath especially on exertion (2) H/O mechanical aortic valve replacement: Plan: Patient with history of rheumatic heart disease as a child status post multiple mechanical aortic valves. He is on Coumadin anticoagulation with INR goal at 3.4 Continue p.o. Coumadin -Mechanical aortic valve with regurgitation 3+ on suspected paravalvular leak Patient said he is scheduled to follow-up with cardiothoracic surgery at [facility] for a redo AVR (3) Asthma: Plan: Chronic. Patient without wheeze Continue Trelegy Ellipta Albuterol as needed (4) Dyslipidemia: Plan: Chronic. Stable. Continue atorvastatin 10 mg p.o. daily (5) Post traumatic stress disorder: Plan: Patient with history of PTSD. Symptoms are fairly well-controlled Continue prazosin Continue Wellbutrin Continue hydroxyzine as needed for anxiety Continue sertraline F/E/Ndiuresis with Lasix 40 mg IV twice daily as above, monitor electrolytes, will give 2 g of IV magnesium, heart healthy/fluid restricted diet Prophylaxispatient on Coumadin anticoagulation for history mechanical aortic valve. INR = 3.4 present Codefull per discussion with patient Plan Dispositionpatient still a bit short of breath especially on exertion, hopefully discharge in the next 24 to 48 hours Admission and Anticipated Discharge Date Admission Date: June 06, 2023 Subjective Patient seen and examined, sitting up in the bed, says his symptoms little bit improved, shortness of breath elevated improved 2. Review of Systems Review of Systems: All systems reviewed are negative, apart from the ones contained in the history. Physical Exam Physical Exam: The patient is awake, alert and oriented 3, well developed and well nourished, normocephalic and atraumatic, lying in bed and in no acute distress. HEENT--PERRL, EOMI, mucous membranes and oropharynx mildly dry Neck--supple. No JVD. No bruits. Thyroid normal, trachea midline, no adenopathy. Heart--mechanical heart sounds,. No murmurs, rubs or gallops. Lungs--clear bilaterally, no respiratory distress, no accessory muscle use. Abdomen--normal bowel sounds and soft. Extremities--no cyanosis or clubbing. No edema. Dermatologic--normal skin turgor, normal color, no abnormal lymph nodes, no rash. Neurologic--cranial nerves II through XII grossly intact. Rheumatologic--normal range of motion. Psychiatric--normal affect. Results & Data Results & Data Vital Signs (Past 12 Hours) Vital Signs Temp Pulse Pulse Resp BP Pulse Ox O2 Del Method 06/08/23 11:13 97.5 F L 88 18 110/60 97 Nasal Cannula 06/08/23 10:15 Nasal Cannula 06/08/23 07:58 62 06/08/23 07:33 97.5 F L 93 H 22 125/60 96 Nasal Cannula 06/08/23 04:10 97.7 F 77 20 97/51 L 90 Room Air 06/08/23 01:13 81 O2 Flow Rate 06/08/23 11:13 2 06/08/23 10:15 2 06/08/23 07:58 06/08/23 07:33 2 06/08/23 04:10 06/08/23 01:13 PG Care Time/CCT Total # of Minutes Spent Total Time Spent with Patient: Total time spent is greater than 50% in coordination of care (as documented) at patient's floor/unit and/or counseling patient: Coding Level of Care Code 02350 SUB INP/OBS CARE 2/35MIN Diagnoses NICM (nonischemic cardiomyopathy) I42.8 H/O mechanical aortic valve replacement Z95.2 Asthma J45.909 Dyslipidemia E78.5 Post traumatic stress disorder F43.10 Time Spent (min) 35
[2023-06-08] MEDS ORDERED: WARFARIN SOD 5 MG TAB PO SCH (16:00)
[2023-06-09 06:39] LABS: INR 2.8 (0.9-1.1); Prothrombin Time 28.8 Seconds (9.0-12.0)
--- NOTE | 2023-06-09 08:35 | XRay Report ---
XR chest 1V portable HISTORY: Shortness of breath. CHF COMPARISON: Chest 06/06/2023. FINDINGS: No pneumothorax. The heart remains enlarged. There are poststernotomy changes again noted. There is an aortic valve prosthesis. Pulmonary edema and small bilateral pleural effusions persist. N o acute fractures. IMPRESSION: Cardiomegaly, bilateral pleural effusions, and pulmonary edema again noted. This is similar to the pr ior study. ACT 112: Negative or not required by law. Electronically signed by: Garrett Stewart M.D. 06/09/2023 8:34 AM
--- NOTE | 2023-06-09 13:08 | Hospitalist Progress Note ---
Date of Service June 09, 2023 Assessment & Plan (1) Acute on chronic systolic (congestive) heart failure: Plan: Up titration of parenteral Lasix dosage today, June 09. Will also give a dose of metolazone today and gauge the response. Monitor intake and output. Cardiology consultation requested (2) NICM (nonischemic cardiomyopathy): Plan: Most recent cardiac echo reveals ejection fraction of 40% with moderately severe mitral regurgitation. He already takes an ARB. Cardiology consultation requested . (3) H/O mechanical aortic valve replacement: Plan: history of rheumatic heart disease as a child, status post multiple mechanical aortic valve replacements. INR should be maintained between 2.5 and 3.5 on average. INR is 2.8 today and Coumadin has been restarted. Will follow INR daily. (4) Asthma: Plan: Stable. No exacerbation. Continue current medical management (5) Dyslipidemia: Plan: Stable. Continue statin therapy (6) Post traumatic stress disorder: Plan: Supportive care. Continue current medical management Plan Hopeful discharge to home soon Admission and Anticipated Discharge Date Admission Date: June 06, 2023 Subjective Alert and oriented. No distress. Chest x-ray repeated today, June 09, is underpenetrated but there probably is an element of CHF causing his hypoxia. Parenteral Lasix dosage increased and metolazone 5 mg ordered x 1 dose. Coumadin has been restarted since INR is now in a therapeutic range. He has a mechanical aortic valve and INR will be monitored daily. Cardiology consultation requested. Most recent cardiac echo obtained February 2023 reveals ejection fraction of 40% with moderately severe MR. Review of Systems 2 Review of Systems: Constitutional-no fever or chills ENT-no blurred vision, no double vision, no epistaxis, no sore throat Respiratory-no cough, no wheezing. Dyspnea on exertion Cardiac-no palpitations, no chest pain, no syncope GI-no nausea, vomiting, diarrhea, melena, hematochezia -no urinary retention, no urinary incontinence, no dysuria, no hematuria Musculoskeletal-no joint pain, no muscle tenderness Skin-no bruising, no rashes, no pruritus Neuro-no isolated weakness, no paresthesia Psych-no depression, no anxiety Physical Exam 2 Physical Exam: General-alert and oriented x3, no fevers, no chills HEENT-head atraumatic and normocephalic, pupils equal and reactive to light, extraocular muscles intact Neck-no lymphadenopathy or thyromegaly, trachea midline Chest-faint bibasilar inspiratory rales. No rhonchi. No wheezing Cardiac-regular rate and rhythm, normal S1 and S2 Abdomen-normal bowel sounds, nontender, no hepatosplenomegaly Extremities-no cyanosis, clubbing, or edema Neuro-cranial nerves II through XII intact, motor and sensory function within normal limits, strength symmetrical, no focal deficits Psych-flat affect Results & Data Results & Data Vital Signs (Past 12 Hours) Vital Signs Temp Pulse Pulse Resp BP BP Pulse Ox 06/09/23 11:19 36.8 C 78 20 99/58 L 95 06/09/23 09:58 06/09/23 08:44 107/61 06/09/23 07:31 36.4 C L 78 20 94/57 L 95 06/09/23 05:29 88 06/09/23 04:19 36.3 C L 85 20 102/50 L 92 O2 Del Method O2 Flow Rate 06/09/23 11:19 Nasal Cannula 2 06/09/23 09:58 Nasal Cannula 2 06/09/23 08:44 06/09/23 07:31 Nasal Cannula 2 06/09/23 05:29 06/09/23 04:19 Nasal Cannula 2 Laboratory Results 06/07/23 06:10 06/08/23 05:41 PG Care Time/CCT Total # of Minutes Spent Total Time Spent with Patient: Total time spent is greater than 50% in coordination of care (as documented) at patient's floor/unit and/or counseling patient: Coding Level of Care Code 85011 SUB INP/OBS CARE 3/50MIN Diagnoses Acute on chronic systolic (congestive) heart failure I50.23 NICM (nonischemic cardiomyopathy) I42.8 H/O mechanical aortic valve replacement Z95.2 Asthma J45.909 Dyslipidemia E78.5 Post traumatic stress disorder F43.10
--- NOTE | 2023-06-09 13:57 | Cardiology Consultation ---
Date of Consultation June 09, 2023 Assessment & Plan (1) Acute on chronic systolic (congestive) heart failure: (2) H/O mechanical aortic valve replacement: (3) NICM (nonischemic cardiomyopathy): (4) Severe aortic valve regurgitation: (5) Mitral regurgitation: (6) Ascending aortic aneurysm: Plan 1. Acute decompensated systolic heart failure: He has an element of reduced LV systolic function and severe valvular heart disease. He had progressive dyspnea leading up to his admission which became acutely worse. He was known to have some mildly elevated filling pressures and an element of pulmonary hypertension on catheterization done a few weeks ago. X-ray, lab studies, exam presentation all consistent with pulmonary edema. Unfortunately, he has not affected a significant diuresis over 2 days. Renal function slightly worse. Hopefully we can still effect some volume loss and reverses symptoms so that he can continue his evaluation for elective valve surgery. I think we will intensify his diuretic regimen. In the absence of improvement, we may need to contact [facility] to see if more urgent surgery can be performed. 2. Valvular heart disease: Significant aortic and mitral regurgitation. All re-evaluated and planning on valve surgery at [facility]. As noted above will try medical treatment to reverse some of his pulmonary vascular congestion in the hopes that the surgery can still be performed on a planned basis. 3. Cardiomyopathy: Nonischemic. Currently on losartan and metoprolol succinate. More intensive regimen would be worthwhile. Addition of an SG LT 2 inhibitor and or switch to Entresto can be considered. Blood pressure on the lower side currently. I think we will wait till he is more hemodynamically stable before introducing new agents. 4. Ascending thoracic aortic aneurysm: 4.7 cm. This will be addressed at the time of his planned surgery. We will continue beta-blockade good blood pressure control. 5. Poor dentition: Patient was planning on dental extraction leading up to valve surgery. Perhaps he can be seen as an inpatient. History of Present Illness Reason for Consultation: Congestive heart failure, valvular heart disease, cardiomyopathy Requesting Physician: Juliana Attending Physician: Christiano Andrews MD History of Present Illness The patient is a 57-year-old gentleman with an extensive cardiac history to include a mechanical aortic valve replacement x3 between 1981 in 1982. This was reportedly for rheumatic heart disease. Surgery took place in [place]. Recently he has been suffering with progressive shortness of breath and exercise intolerance. Outpatient evaluation has revealed mildly reduced LV systolic function and significant aortic regurgitation secondary to a perivalvular leak. He also has an element of significant mitral regurgitation and known thoracic aortic aneurysm. He underwent coronary angiography and right heart catheterization on May 20. This revealed mildly elevated wedge pressure and moderately elevated pulmonary pressures. Coronary angiography was normal and there was no evidence of obstructive coronary disease. The patient was evaluated for surgery at [facility]. An evaluation was in progress in anticipation of another heart surgery. The patient states that 2-3 days ago he began to have acutely worsening shortness of breath. This was accompanied by an element of chest discomfort that was located in the left lateral chest wall. He had some mild associated dizziness and lightheadedness. Some tachycardia but no irregularity to his heartbeat. He also had significant coughing at nighttime which prevented him from sleeping. He did not endorse symptoms of lower extremity edema or increasing abdominal girth. No subjective fevers or chills. He was admitted to the hospital treated for pulmonary edema. He states that his chest pain has resolved but his breathing difficulty persists. Allergies Allergy/AdvReac Type Severity Reaction Status Date / Time bee venom protein (honey bee) Allergy Severe Severe Verified 06/06/23 17:00 neck/throat swelling, dyspnea adhesive Allergy Mild Rash Verified 06/06/23 17:00 chocolate flavor AdvReac Unknown Advised to Verified 06/06/23 17:00 avoid by surgeon d/t Vitamin K content per pt Home Medications Medication Instructions Recorded Confirmed Type bupropion HCl 300 mg 24 hr tablet, 300 mg PO HS 09/09/20 06/06/23 History extended release cholecalciferol (vitamin D3) 50 50 mcg PO QAM 09/09/20 06/06/23 History mcg (2,000 unit) capsule trazodone 50 mg tablet 50 mg PO HS 09/12/20 06/06/23 History aspirin 81 mg tablet,delayed 81 mg PO QAM 09/27/20 06/06/23 History release prazosin 5 mg capsule 10 mg PO QPM 01/12/22 06/06/23 History epinephrine 0.3 mg/0.3 mL 0.3 mg (0.3 mL) IM Q10M PRN 05/07/22 06/06/23 Rx injection, auto-injector Anaphylaxis #2 ea hydroxyzine HCl 50 mg tablet 50 mg PO TID PRN Anxiety 30 days 05/07/22 06/06/23 Rx #90 tabs melatonin 10 mg capsule 10 mg PO HS PRN Insomnia 06/04/22 06/06/23 History losartan 50 mg tablet 50 mg PO DAILY #90 tabs 03/16/23 06/06/23 Rx metoprolol succinate 25 mg 25 mg PO DAILY #90 tabs 03/16/23 06/06/23 Rx tablet,extended release 24 hr sertraline 50 mg tablet 50 mg PO DAILY 03/16/23 06/06/23 History furosemide 40 mg tablet 40 mg PO DAILY #30 tabs 05/11/23 06/06/23 Rx potassium chloride 20 mEq 20 meq PO DAILY #30 tabs 05/11/23 06/06/23 Rx tablet,extended release atorvastatin 10 mg tablet 10 mg PO DAILY #90 tabs 05/25/23 06/06/23 Rx warfarin 5 mg tablet See Rx Instructions PO UD #40 tabs 05/31/23 06/06/23 Rx fluticasone fur. 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 ear Deviated septum Claustrophobia Did have issues in the past with oxygen mask Anxiety and depression Aortic valve disease s/p AVR/revisions (1981, 1982x2), on warfarin, FOLLOWED BY BECKY JAMES PA-C Osteoarthritis Hearing loss in right ear Post traumatic stress disorder History of rheumatic fever as a child at age 6 > led to cardiac issues (hx AVR) On warfarin therapy Asthma Surgical History S/P excision of lipoma LEFT/RT FOREARM AND RT HIP H/O excision of mass (10/16/20) Soft Tissue Mass Excision Bilateral Arms (2-5 cm) and Right Flank (19.5 cm)(Not Applicable) - Yang Lemus DO, FACS History of appendectomy History of tooth extraction all upper teeth removed/some lower teeth removed History of cardiac cath multiple, last Feb 1983--no stents placed Aortic valve replaced s/p AVR/revisions (1981, 1982x2) Family History Brother Family history of reaction to anesthesia when he received anesthesia "it always triggered his seizures" Father Hearing loss Cancer Sister Hearing loss Cancer Other Allergies No family history of bleeding disorder Social History Smoking Status: Current every day smoker Tobacco Type: Cigarettes Age Started Using Tobacco: 14; Cigarettes Per Day: 4; Second Hand Exposure: Yes; Do You Dip or Chew Tobacco: No; Hx Alcohol Use: No Hx Substance Use: No Preferred Language: Hebrew Communication Ability: Effective Tire [employer]er Required: No Beliefs That Will Affect Care: None marital status: / Current Living Situation: Other Current Living Situation Comment: lives with a roomate current occupational status: disabled Feels Safe at Home: Yes Assistive Devices: None Review of Systems Review of Systems: Per HPI Physical Exam Physical Exam: The patient is alert and oriented. Mood and affect appeared normal. He answered all questions appropriately. HEENT: Pupils are equal and reactive to light and accommodation. Extraocular movements are intact. The sclerae are anicteric. Poor dentition Neuro: Cranial nerves intact Lungs: Crackles from the mid lung to bases bilaterally. No expiratory wheezing. Normal respiratory effort. Cardiac: Heart demonstrates a regular rate and rhythm. Holosystolic murmur. [place] mechanical S2 Pulses: The patient has palpable radial pulses bilaterally that are equal in intensity Extremities: There was no evidence of hypoperfusion. There is no cyanosis or clubbing. There is no edema. Skin: I did not appreciate any rashes on examination today. Results & Data Vital Signs (Past 12 Hours) Vital Signs Temp Pulse Pulse Resp BP BP Pulse Ox 06/09/23 11:19 36.8 C 78 20 99/58 L 95 06/09/23 09:58 06/09/23 08:44 107/61 06/09/23 07:31 36.4 C L 78 20 94/57 L 95 06/09/23 05:29 88 06/09/23 04:19 36.3 C L 85 20 102/50 L 92 O2 Del Method O2 Flow Rate 06/09/23 11:19 Nasal Cannula 2 06/09/23 09:58 Nasal Cannula 2 06/09/23 08:44 06/09/23 07:31 Nasal Cannula 2 06/09/23 05:29 06/09/23 04:19 Nasal Cannula 2 Laboratory Results Abnormal Lab Results 06/09/23 05:37 PT 28.8 H INR 2.8 H Diagnostic Findings Cardiac catheterization 05/20/2023: Summary: 1. Angiographically normal coronary arteries 2. Borderline cardiac output 3. Moderate pulmonary hypertension (combined pre and post capillary) 4. Elevated left-sided filling pressures. 5. Dilated aortic root/ascending aorta. 6. Mechanical AVR with 3+ aortic regurgitation (suspected paravalvular leak) Echocardiogram 03/08/2023: Moderately dilated left ventricle with mildly reduced LV systolic function. Ejection fraction 40-45%. Normally functioning mechanical aortic valve. Posterior perivalvular aortic valve regurgitation. Dilated ascending aorta. Moderate to severe mitral regurgitation. Obtained the time admission revealed pulmonary vascular congestion. Chest CTA performed 06/06/2023: Ascending thoracic aortic aneurysm measured at 4.7 cm in greatest dimension. No evidence of dissection. Moderate right and small left pleural effusions. Interstitial pulmonary edema. ECG Additional Comments: Normal sinus rhythm with diffuse ST segment depressions and T-wave inversions PG Care Time/CCT Total # of Minutes Spent Total Time Spent with Patient: Total time spent is greater than 50% in coordination of care (as documented) at patient's floor/unit and/or counseling patient: Coding Level of Care Code 58730 IN/OBS CONSULT LVL 4,60M Diagnoses Acute on chronic systolic (congestive) heart failure I50.23 H/O mechanical aortic valve replacement Z95.2 NICM (nonischemic cardiomyopathy) I42.8 Severe aortic valve regurgitation I35.1 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
[2023-06-09] MEDS: metOLazone 5 MG TABLET PO ONE (15:17)
[2023-06-09] MEDS: WARFARIN SOD 5 MG TAB PO SCH (16:23)
[2023-06-09] MEDS: FUROSEMIDE 40 MG/4 ML VIAL IV SCH (16:24)
[2023-06-10 08:19] LABS: BUN Creatinine Ratio 25.3 (10-20); Calcium 8.3 mg/dl (8.6-10.3); Creatinine Clr Calc Pharmacy 54.2 ml/min; Est GFR (African American) 50.8 ml/min; Est GFR (Non-African American) 43.8 ml/min; Potassium 3.8 mmol/L (3.5-5.1)
[2023-06-10 08:29] LABS: INR 2.3 (0.9-1.1); Prothrombin Time 23.8 Seconds (9.0-12.0)
[2023-06-10] MEDS: metOLazone 5 MG TABLET PO ONE (11:32)
--- NOTE | 2023-06-10 14:09 | Hospitalist Progress Note ---
Date of Service June 10, 2023 Assessment & Plan (1) Acute on chronic systolic (congestive) heart failure: Plan: Good response to up titration of parenteral Lasix dosage on June 09 with addition of metolazone. Monitor intake and output. Cardiology consultation appreciated. Will repeat portable chest x-ray again tomorrow, June 11 (2) NICM (nonischemic cardiomyopathy): Plan: Most recent cardiac echo reveals ejection fraction of 40% with moderately severe mitral regurgitation. He already takes an ARB. Cardiology consultation appreciated. (3) H/O mechanical aortic valve replacement: Plan: history of rheumatic heart disease as a child, status post multiple mechanical aortic valve replacements. INR should be maintained between 2.5 and 3.5 on average. INR is 2.3 today on Coumadin. Will follow INR daily. (4) Asthma: Plan: Stable. No exacerbation. Continue current medical management (5) Dyslipidemia: Plan: Stable. Continue statin therapy (6) Post traumatic stress disorder: Plan: Supportive care. Continue current medical management Plan Hopeful discharge to home tomorrowJune 11 Admission and Anticipated Discharge Date Admission Date: June 06, 2023 Subjective Improving overall. He has responded nicely to higher dose parenteral Lasix with the addition of metolazone. Good diuretic effect achieved. Oxygen is nearly off now. Will repeat portable chest x-ray tomorrow. Hopefully he will be able to go home tomorrow, June 11 Review of Systems 2 Review of Systems: Constitutional-no fever or chills ENT-no blurred vision, no double vision, no epistaxis, no sore throat Respiratory-no cough, no wheezing. Dyspnea on exertion has improved Cardiac-no palpitations, no chest pain, no syncope GI-no nausea, vomiting, diarrhea, melena, hematochezia -no urinary retention, no urinary incontinence, no dysuria, no hematuria Musculoskeletal-no joint pain, no muscle tenderness Skin-no bruising, no rashes, no pruritus Neuro-no isolated weakness, no paresthesia Psych-no depression, no anxiety Physical Exam 2 Physical Exam: General-alert and oriented x3, no fevers, no chills HEENT-head atraumatic and normocephalic, pupils equal and reactive to light, extraocular muscles intact Neck-no lymphadenopathy or thyromegaly, trachea midline Chest-faint bibasilar inspiratory rales have resolved. No rhonchi. No wheezing Cardiac-regular rate and rhythm, normal S1 and S2 Abdomen-normal bowel sounds, nontender, no hepatosplenomegaly Extremities-no cyanosis, clubbing, or edema Neuro-cranial nerves II through XII intact, motor and sensory function within normal limits, strength symmetrical, no focal deficits Psych-flat affect Results & Data Results & Data Vital Signs (Past 12 Hours) Vital Signs Temp Pulse Pulse Resp BP Pulse Ox O2 Del Method 06/10/23 11:24 36.6 C 86 20 116/50 L 98 Nasal Cannula 06/10/23 08:00 84 06/10/23 08:00 Nasal Cannula 06/10/23 07:15 36.5 C 84 20 103/55 L 97 Nasal Cannula 06/10/23 04:03 36.3 C L 71 18 106/55 L 94 Nasal Cannula O2 Flow Rate 06/10/23 11:24 1 06/10/23 08:00 06/10/23 08:00 2 06/10/23 07:15 1 06/10/23 04:03 2 Laboratory Results 06/07/23 06:10 06/10/23 07:32 PG Care Time/CCT Total # of Minutes Spent Total Time Spent with Patient: Total time spent is greater than 50% in coordination of care (as documented) at patient's floor/unit and/or counseling patient: Coding Level of Care Code 09294 SUB INP/OBS CARE 3/50MIN Diagnoses Acute on chronic systolic (congestive) heart failure I50.23 NICM (nonischemic cardiomyopathy) I42.8 H/O mechanical aortic valve replacement Z95.2 Asthma J45.909 Dyslipidemia E78.5 Post traumatic stress disorder F43.10
--- NOTE | 2023-06-10 17:05 | Cardiology Progress Note ---
Date of Service June 10, 2023 Assessment & Plan (1) Acute on chronic systolic (congestive) heart failure: (2) H/O mechanical aortic valve replacement: (3) NICM (nonischemic cardiomyopathy): (4) Severe aortic valve regurgitation: (5) Mitral regurgitation: (6) Ascending aortic aneurysm: Plan 1. Acute decompensated systolic heart failure: He affected a good diuresis yesterday on escalating doses of diuretics. However, renal function did suffer somewhat. I think we will need to accept some compromised renal function order to maintain euvolemia in anticipation of his operative intervention. Overall improving. 2. Valvular heart disease: Significant aortic and mitral regurgitation. Currently being evaluated for valve replacement at [facility] in [place]. Patient was scheduled for an outpatient transesophageal echocardiogram yesterday. Obviously, hemostat appointment. It is possible we can accomplish this tomorrow while he is an inpatient. 3. Cardiomyopathy: Nonischemic. Currently on losartan and metoprolol succinate. More intensive regimen would be worthwhile but precluded by his relative hypotension and renal dysfunction. 4. Ascending thoracic aortic aneurysm: 4.7 cm. This will be addressed at the time of his planned surgery. We will continue beta-blockade good blood pressure control. 5. Poor dentition: Patient was planning on dental extraction leading up to valve surgery. Admission and Anticipated Discharge Date Admission Date: June 06, 2023 Subjective This afternoon the patient claimed of feeling tired. He was ambulatory to the bathroom. He did have some element of dyspnea. Mild dizziness as well. He was not able to sleep much last evening. However, he did sleep relatively flat. He did not report orthopnea but does continue to have coughing at times. Review of Systems Review of Systems: Per HPI Physical Exam Physical Exam: The patient is alert and oriented. Mood and affect appeared normal. He answered all questions appropriately. HEENT: Pupils are equal and reactive to light and accommodation. Extraocular movements are intact. The sclerae are anicteric. Poor dentition Neuro: Cranial nerves intact Lungs: Clear to auscultation bilaterally. No expiratory wheezing. Normal respiratory effort. Cardiac: Heart demonstrates a regular rate and rhythm. Holosystolic murmur. [place] mechanical S2 Pulses: The patient has palpable radial pulses bilaterally that are equal in intensity Extremities: There was no evidence of hypoperfusion. There is no cyanosis or clubbing. There is no edema. Skin: I did not appreciate any rashes on examination today. Results & Data Vital Signs (Past 12 Hours) Vital Signs Temp Pulse Pulse Resp BP Pulse Ox O2 Del Method 06/10/23 16:10 36.7 C 74 16 102/54 L 97 Nasal Cannula 06/10/23 15:51 86 06/10/23 11:24 36.6 C 86 20 116/50 L 98 Nasal Cannula 06/10/23 08:00 84 06/10/23 08:00 Nasal Cannula 06/10/23 07:15 36.5 C 84 20 103/55 L 97 Nasal Cannula O2 Flow Rate 06/10/23 16:10 1 06/10/23 15:51 06/10/23 11:24 1 06/10/23 08:00 06/10/23 08:00 2 06/10/23 07:15 1 Laboratory Results Abnormal Lab Results 06/10/23 07:32 PT 23.8 H INR 2.3 H Sodium 137 Potassium 3.8 Chloride 105 Carbon Dioxide 27 Anion Gap 5 BUN 43 H Creatinine 1.70 H Est Cr Clr Drug Dosing 54.2 Est GFR ( Amer) 50.8 Est GFR (Non-Af Amer) 43.8 BUN/Creatinine Ratio 25.3 H Glucose 99 Calcium 8.3 L PG Care Time/CCT Total # of Minutes Spent Total Time Spent with Patient: Total time spent is greater than 50% in coordination of care (as documented) at patient's floor/unit and/or counseling patient: Coding Level of Care Code 85847 SUB INP/OBS CARE 2/35MIN Diagnoses Acute on chronic systolic (congestive) heart failure I50.23 H/O mechanical aortic valve replacement Z95.2 NICM (nonischemic cardiomyopathy) I42.8 Severe aortic valve regurgitation I35.1 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
[2023-06-11 07:12] LABS: BUN Creatinine Ratio 22.5 (10-20); Calcium 8.3 mg/dl (8.6-10.3); Creatinine Clr Calc Pharmacy 44.1 ml/min; Est GFR (African American) 39.5 ml/min; Est GFR (Non-African American) 34.1 ml/min; Potassium 3.5 mmol/L (3.5-5.1)
[2023-06-11 07:25] LABS: INR 2.6 (0.9-1.1); Prothrombin Time 26.6 Seconds (9.0-12.0)
--- NOTE | 2023-06-11 07:59 | XRay Report ---
XR chest 1V portable HISTORY: Congestive heart failure. Shortness of breath. COMPARISON: Chest 06/09/2023. FINDINGS: No pneumothorax. There are poststernotomy changes again noted and an aortic valve prosthesi s. The heart remains enlarged. Small bilateral pleural effusions and pulmonary edema persists. There are patchy right basilar densities. IMPRESSION: 1. No significant change in the cardiomegaly, small bilateral pleural effusions, and pulmonary edema. 2. Patchy right basilar densities may represent a component of pulmonary edema versus a superimposed pneumonia. ACT 112: Negative or not required by law. Electronically signed by: Garrett Stewart M.D. 06/11/2023 7:57 AM
--- NOTE | 2023-06-11 12:14 | Pre Anesthesia Assessment ---
Date of Service June 11, 2023 Pre Sedation Assessment Vital Signs Temp Pulse Pulse Pulse Resp BP BP 06/11/23 12:10 77 18 99/53 L 06/11/23 12:05 89 100/49 L 06/11/23 12:00 89 108/50 L 06/11/23 11:55 89 114/48 L 06/11/23 11:50 89 124/49 L 06/11/23 11:20 83 20 113/52 L 06/11/23 08:00 06/11/23 07:51 36.8 C 75 18 102/48 L 06/11/23 07:36 82 06/11/23 02:54 36.7 C 84 16 98/33 L 06/10/23 23:35 36.6 C 84 91/47 L 06/10/23 23:30 06/10/23 22:27 97 H 06/10/23 19:22 36.6 C 84 18 100/54 L 06/10/23 16:10 36.7 C 74 16 102/54 L 06/10/23 15:51 86 Pulse Ox O2 Del Method O2 Flow Rate 06/11/23 12:10 99 Oxymask 2 06/11/23 12:05 98 Oxymask 6 06/11/23 12:00 98 Oxymask 6 06/11/23 11:55 98 Oxymask 6 06/11/23 11:50 98 Oxymask 6 06/11/23 11:20 96 Nasal Cannula 1 06/11/23 08:00 Nasal Cannula 1 06/11/23 07:51 96 Nasal Cannula 2 06/11/23 07:36 06/11/23 02:54 90 Nasal Cannula 1 06/10/23 23:35 94 Nasal Cannula 1 06/10/23 23:30 Nasal Cannula 1 06/10/23 22:27 06/10/23 19:22 98 Nasal Cannula 1 06/10/23 16:10 97 Nasal Cannula 1 06/10/23 15:51 Cardiovascular + regular rate and + regular rhythm Respiratory + respiratory effort normal Pre-Sedation Airway Assessment Smoking Status: Current every day smoker Hx Sleep Apnea: No Hx Difficult Intubation: No Short, Thick Neck: No Thyromental Distance: > or= 3.5 Finger Breadths Oral Cavity: + Chipped Teeth and + Dental Abnormalities Mallampati Class: III ASA: ASA3 NPO Status Date of Last Intake of Fluids: 06/10/23 Time of Last Intake of Fluids: 21:00 Date of Last Intake of Solid Food: 06/10/23 Time of Last Intake of Solid Foods: 17:00 Procedure Planning Contraindications for Sedation: none Current Medications Reviewed: Yes Notes The planned sedation has been discussed with the patient. Informed Consent was obtained. I have identified the patient, determined the appropriateness of sedation and have assessed the patient immediately prior to the procedure. All medicine(s) and interventions are by my order.
[2023-06-11] MEDS: fentaNYL citrate PF 100 MCG/2 ML VIAL ONE (12:19)
[2023-06-11] MEDS: BENZOCAINE/TETRACAIN/BUTAM 50 APPLN/5 GM CAN EXT ONE (12:20)
[2023-06-11] MEDS: MIDAZOLAM HCL 5 MG/ML 1 ML VIAL ONE (12:20)
--- NOTE | 2023-06-11 12:28 | Post Anesthesia Assessment ---
Date of Service June 11, 2023 Post Sedation Assessment Vital Signs Temp Pulse Pulse Pulse Resp BP BP 06/11/23 12:15 77 18 102/49 L 06/11/23 12:10 77 18 99/53 L 06/11/23 12:05 89 100/49 L 06/11/23 12:00 89 108/50 L 06/11/23 11:55 89 114/48 L 06/11/23 11:50 89 124/49 L 06/11/23 11:20 83 20 113/52 L 06/11/23 08:00 06/11/23 07:51 36.8 C 75 18 102/48 L 06/11/23 07:36 82 06/11/23 02:54 36.7 C 84 16 98/33 L 06/10/23 23:35 36.6 C 84 91/47 L 06/10/23 23:30 06/10/23 22:27 97 H 06/10/23 19:22 36.6 C 84 18 100/54 L 06/10/23 16:10 36.7 C 74 16 102/54 L 06/10/23 15:51 86 Pulse Ox O2 Del Method O2 Flow Rate 06/11/23 12:15 99 Oxymask 2 06/11/23 12:10 99 Oxymask 2 06/11/23 12:05 98 Oxymask 6 06/11/23 12:00 98 Oxymask 6 06/11/23 11:55 98 Oxymask 6 06/11/23 11:50 98 Oxymask 6 06/11/23 11:20 96 Nasal Cannula 1 06/11/23 08:00 Nasal Cannula 1 06/11/23 07:51 96 Nasal Cannula 2 06/11/23 07:36 06/11/23 02:54 90 Nasal Cannula 1 06/10/23 23:35 94 Nasal Cannula 1 06/10/23 23:30 Nasal Cannula 1 06/10/23 22:27 06/10/23 19:22 98 Nasal Cannula 1 06/10/23 16:10 97 Nasal Cannula 1 06/10/23 15:51 Recovery Score Activity: Moves 4 extremities Respiration: Deep Breath/Cough Circulation: +/-20% PreAnes Value Consciousness: Arouseable (by name) Oxygen Saturation: O2 needed for >90% Post Anesthesia Score: 8 Discharge Sedation Level of Care: Fast Track Phase II Post Sedation Plan On clinical assessment, the patient appears to have tolerated the sedation without complications. Patient is recovering as anticipated. Patient will continue to be monitored by nursing and may be discharged when sedation discharge criteria are met per below protocol. Upon Completions of procedure up to 15 minutes continue every 5 minute vital signs and the P.A.R. score; then discharge to a Phase I or Fast Track to Phase II per the following guidelines: * Discharge Patient to appropriate Phase II area if PAR is 8 or greater or return to pre- procedure baseline. The post - procedure orders will be as directed. * If PAR score is less than 8 or not return to pre-procedure baseline then patient will follow Phase I monitoring till PAR is reached for Phase II. The Phase I may be done in procedure room or may call to secure a Phase I area. * If naloxone or flumazenil are used for reversal, hold in Phase I for continued monitoring from when last reversal dose was given for a minimum of 60 minutes or longer pending the nurse and/or physician discretion of patient condition before discharge to Phase II. Please call the Sedation Physician to re-evaluate and complete post-note for discharge to Phase II area. Do NOT discharge from procedure sedation or Phase 1 until post- sedation evaluation note is complete by procedure /sedation MD Sedation Discharge Instructions to be given to the patient at discharge to home.
[2023-06-11] MEDS: LOSARTAN POTASSIUM 25 MG TAB PO SCH (14:19)
--- NOTE | 2023-06-11 15:20 | Hospitalist Progress Note ---
Date of Service June 11, 2023 Assessment & Plan (1) Acute on chronic systolic (congestive) heart failure: Plan: Good response to up titration of parenteral Lasix dosage on June 09 with addition of metolazone. However, his creatinine has now bumped to 2.0 and further metolazone will be avoided. Blood pressure has also dropped and losartan and prazosin dosages have been decreased. Monitor intake and output. Cardiology consultation appreciated. Chest x-ray done today, June 11, is unchanged (2) Acute respiratory failure with hypoxia: Plan: Supplemental oxygen per nasal cannula to maintain saturation greater than 90%. Wean off as tolerated. Continue to treat CHF (3) NICM (nonischemic cardiomyopathy): Plan: Most recent cardiac echo reveals ejection fraction of 40% with moderately severe mitral regurgitation. He already takes an ARB. Cardiology consultation appreciated. (4) H/O mechanical aortic valve replacement: Plan: history of rheumatic heart disease as a child, status post multiple mechanical aortic valve replacements. INR should be maintained between 2.5 and 3.5 on average. INR is 2.6 today on Coumadin. Will follow INR daily. (5) Asthma: Plan: Stable. No exacerbation. Continue current medical management (6) Dyslipidemia: Plan: Stable. Continue statin therapy (7) Post traumatic stress disorder: Plan: Supportive care. Continue current medical management Plan Hopeful discharge to home tomorrow, June 12. He may need oxygen at the time of discharge. Maxillofacial surgery consultation has been requested to assess his multiple teeth with dental caries which probably will need treatment as an outpatient before he can undergo any further cardiac surgery. Admission and Anticipated Discharge Date Admission Date: June 06, 2023 Subjective Alert and oriented. Blood pressure has dropped with diuresis and losartan and prazosin dosages decreased. Will not give metolazone today. Continue Lasix parenteral diuresis. Cardiology performed a CARLYN today which revealed suspected findings of AI and MR. Maxillofacial surgery consultation pending to evaluate the patient for his multiple teeth with dental caries which will need to be addressed before he can have another valve replacement operation in [place]. He remains on supplemental oxygen for the time being and may need oxygen when he is discharged hopefully tomorrow, June 12. Potassium is dropped to 3.5 and he received a dose of oral potassium today to prevent further hypokalemia. Creatinine has bumped to 2.0 with diuresis but this cannot be avoided unfortunately. Continue serial labs Review of Systems 2 Review of Systems: Constitutional-no fever or chills ENT-no blurred vision, no double vision, no epistaxis, no sore throat Respiratory-no cough, no wheezing. Dyspnea on exertion has improved Cardiac-no palpitations, no chest pain, no syncope GI-no nausea, vomiting, diarrhea, melena, hematochezia -no urinary retention, no urinary incontinence, no dysuria, no hematuria Musculoskeletal-no joint pain, no muscle tenderness Skin-no bruising, no rashes, no pruritus Neuro-no isolated weakness, no paresthesia Psych-no depression, no anxiety Physical Exam 2 Physical Exam: General-alert and oriented x3, no fevers, no chills HEENT-head atraumatic and normocephalic, pupils equal and reactive to light, extraocular muscles intact Neck-no lymphadenopathy or thyromegaly, trachea midline Chest-faint bibasilar inspiratory rales have resolved. No rhonchi. No wheezing Cardiac-regular rate and rhythm, normal S1 and S2 Abdomen-normal bowel sounds, nontender, no hepatosplenomegaly Extremities-no cyanosis, clubbing, or edema Neuro-cranial nerves II through XII intact, motor and sensory function within normal limits, strength symmetrical, no focal deficits Psych-flat affect Results & Data Results & Data Vital Signs (Past 12 Hours) Vital Signs Temp Pulse Pulse Pulse Resp BP BP 06/11/23 15:07 75 06/11/23 12:45 80 16 95/53 L 06/11/23 12:30 67 16 100/53 L 06/11/23 12:15 77 18 102/49 L 06/11/23 12:10 77 18 99/53 L 06/11/23 12:05 89 100/49 L 06/11/23 12:00 89 108/50 L 06/11/23 11:55 89 114/48 L 06/11/23 11:50 89 124/49 L 06/11/23 11:20 83 20 113/52 L 06/11/23 08:00 06/11/23 07:51 36.8 C 75 18 102/48 L 06/11/23 07:36 82 Pulse Ox O2 Del Method O2 Flow Rate 06/11/23 15:07 06/11/23 12:45 99 Nasal Cannula 2 06/11/23 12:30 99 Nasal Cannula 2 06/11/23 12:15 99 Oxymask 2 06/11/23 12:10 99 Oxymask 2 06/11/23 12:05 98 Oxymask 6 06/11/23 12:00 98 Oxymask 6 06/11/23 11:55 98 Oxymask 6 06/11/23 11:50 98 Oxymask 6 06/11/23 11:20 96 Nasal Cannula 1 06/11/23 08:00 Nasal Cannula 1 06/11/23 07:51 96 Nasal Cannula 2 06/11/23 07:36 Laboratory Results 06/07/23 06:10 06/11/23 05:38 PG Care Time/CCT Total # of Minutes Spent Total Time Spent with Patient: Total time spent is greater than 50% in coordination of care (as documented) at patient's floor/unit and/or counseling patient: Coding Level of Care Code 25869 SUB INP/OBS CARE 3/50MIN Diagnoses Acute on chronic systolic (congestive) heart failure I50.23 Acute respiratory failure with hypoxia J96.01 NICM (nonischemic cardiomyopathy) I42.8 H/O mechanical aortic valve replacement Z95.2 Asthma J45.909 Dyslipidemia E78.5 Post traumatic stress disorder F43.10
--- NOTE | 2023-06-11 16:13 | XCELERA ---
[id number] \\[email or web address]\[id number]___[id number]
--- NOTE | 2023-06-11 17:22 | Oral/Maxillofacial Consult ---
Date of Consultation June 11, 2023 Assessment & Plan (1) Poor dentition: (2) Exposed lingual bone: (3) Dental fistula: (4) Fracture of incisor teeth: (5) Chronic dental infection: History of Present Illness Attending Physician: Christiano Andrews MD History of Present Illness Oral Maxillofacial Surgery Exam (1) Acute on chronic systolic (congestive) heart failure: (2) H/O mechanical aortic valve replacement: (3) NICM (nonischemic cardiomyopathy): (4) Severe aortic valve regurgitation: (5) Mitral regurgitation: (6) Ascending aortic aneurysm: 1. Acute decompensated systolic heart failure: He affected a good diuresis yesterday on escalating doses of diuretics. However, renal function did suffer somewhat. I think we will need to accept some compromised renal function order to maintain euvolemia in anticipation of his operative intervention. Overall improving. 2. Valvular heart disease: Significant aortic and mitral regurgitation. Currently being evaluated for valve replacement at [facility] in [place]. Patient was scheduled for an outpatient transesophageal echocardiogram yesterday. Obviously, hemostat appointment. It is possible we can accomplish this tomorrow while he is an inpatient. 3. Cardiomyopathy: Nonischemic. Currently on losartan and metoprolol succinate. More intensive regimen would be worthwhile but precluded by his relative hypotension and renal dysfunction. 4. Ascending thoracic aortic aneurysm: 4.7 cm. This will be addressed at the time of his planned surgery. We will continue beta-blockade good blood pressure control. 5. Poor dentition: Patient was planning on dental extraction leading up to valve surgery. Subjective This afternoon the patient claimed of feeling tired. He was ambulatory to the bathroom. He did have some element of dyspnea. Mild dizziness as well. He was not able to sleep much last evening. However, he did sleep relatively flat. He did not report orthopnea but does continue to have coughing at times. Present Complaint: Carious teeth need extraction before he can be set up for heart valve replacement Oral Exam: Finding-, tender gingival tissue with deep pocket formation. Teeth are decayed and carious and removal is clinical indicated. There are only 9 grossly fractured teeth # 21,22,23,24,25,26,27,28,29 Swollen gingival tissue, fistula present, looks to have exposed bone lingula aspect secondary to the long standing bone infection and chronic draining dental infections. Imaging: Given the long chronic standing dental infection and the clinical picture a CT is needed to determine the condition of he supporting bone and need for bone curetment and adjustment to insure complete resolution of the ongoing dental infection. Soft tissue: The floor of the mouth, tongue, hard/soft palate, posterior pharyngeal area all with in normal limits, no pathology or abnormal findings noted other then noted above Oral Care: Overall oral care is poor secondary to the grossly infected and carious teeth Occlusion: N/A TMJ exam: No pop, clicking, pain, good ROM, No history of TMJ injury or dysfunction Periodontal exam: Healthy gingival tissue upper jaw (no teeth present -excellent ridge form) Lower periodontal inflammation, deep pockets and periodontal pathology apparent. Head/Neck exam: Neck is supple, FROM, Able to extend and flex neck w/o difficulty, no masses, no abnormalities, no airway issues, no evidence of sleep apnea. Treatment Plan: Set up with general anesthesia in hospital due to complexity of the procedure Need to adjust Heparin to allow surgery INR ideally to be 1.2-1.5 given the fact that 9 difficult teeth are planned for removal. Ideally need to keep INR to no higher then 1.5 for 24 hours post op I reviewed the treatment plan and consent with the patient . Understanding was expressed. Time was given for questions regarding the surgery, risks and post op care. Discussed alternative to treatment--procedure as planned, Do not do surgery The following teeth are decayed and fractured and removal is indicated CARIE: tooth 20-29 9 teeth Risks discussed: Bleeding,Pain,swelling,infection, dry socket, delayed healing, nerve injury to face,lips,tongue,chin area which could be permanent (rare). Need to adjust the INR pre-op and for 24 hours post op TMJ, jaw stiffness, change in bite (rare), ear pain (referred). Sinus problems like fistula or infection. Need to leave a small root fragment in place to avoid injury to nerve or sinus. Relationship of teeth to nerve and risk of jaw fracture very rare. Surgery to be set up ideally on WednesdayJun 14 in [place] need to get INR to at least 1.5 day of surgery need medical and cardiology clearance Allergies Allergy/AdvReac Type Severity Reaction Status Date / Time bee venom protein (honey bee) Allergy Severe Severe Verified 06/06/23 17:00 neck/throat swelling, dyspnea adhesive Allergy Mild Rash Verified 06/06/23 17:00 chocolate flavor AdvReac Unknown Advised to Verified 06/06/23 17:00 avoid by surgeon d/t Vitamin K content per pt Home Medications Medication Instructions Recorded Confirmed Type bupropion HCl 300 mg 24 hr tablet, 300 mg PO HS 09/09/20 06/06/23 History extended release cholecalciferol (vitamin D3) 50 50 mcg PO QAM 09/09/20 06/06/23 History mcg (2,000 unit) capsule trazodone 50 mg tablet 50 mg PO HS 09/12/20 06/06/23 History aspirin 81 mg tablet,delayed 81 mg PO QAM 09/27/20 06/06/23 History release prazosin 5 mg capsule 10 mg PO QPM 01/12/22 06/06/23 History epinephrine 0.3 mg/0.3 mL 0.3 mg (0.3 mL) IM Q10M PRN 05/07/22 06/06/23 Rx injection, auto-injector Anaphylaxis #2 ea hydroxyzine HCl 50 mg tablet 50 mg PO TID PRN Anxiety 30 days 05/07/22 06/06/23 Rx #90 tabs melatonin 10 mg capsule 10 mg PO HS PRN Insomnia 06/04/22 06/06/23 History losartan 50 mg tablet 50 mg PO DAILY #90 tabs 03/16/23 06/06/23 Rx metoprolol succinate 25 mg 25 mg PO DAILY #90 tabs 03/16/23 06/06/23 Rx tablet,extended release 24 hr sertraline 50 mg tablet 50 mg PO DAILY 03/16/23 06/06/23 History furosemide 40 mg tablet 40 mg PO DAILY #30 tabs 05/11/23 06/06/23 Rx potassium chloride 20 mEq 20 meq PO DAILY #30 tabs 05/11/23 06/06/23 Rx tablet,extended release atorvastatin 10 mg tablet 10 mg PO DAILY #90 tabs 05/25/23 06/06/23 Rx warfarin 5 mg tablet See Rx Instructions PO UD #40 tabs 05/31/23 06/06/23 Rx fluticasone fur. 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 ear Deviated septum Claustrophobia Did have issues in the past with oxygen mask Anxiety and depression Aortic valve disease s/p AVR/revisions (1981, 1982x2), on warfarin, FOLLOWED BY BECKY JAMES PA-C Osteoarthritis Hearing loss in right ear Post traumatic stress disorder History of rheumatic fever as a child at age 6 > led to cardiac issues (hx AVR) On warfarin therapy Asthma Surgical History S/P excision of lipoma LEFT/RT FOREARM AND RT HIP H/O excision of mass (10/16/20) Soft Tissue Mass Excision Bilateral Arms (2-5 cm) and Right Flank (19.5 cm)(Not Applicable) - Yang Lemus DO, FACS History of appendectomy History of tooth extraction all upper teeth removed/some lower teeth removed History of cardiac cath multiple, last Feb 1983--no stents placed Aortic valve replaced s/p AVR/revisions (1981, 1982x2) Family History Brother Family history of reaction to anesthesia when he received anesthesia "it always triggered his seizures" Father Hearing loss Cancer Sister Hearing loss Cancer Other Allergies No family history of bleeding disorder Social History Smoking Status: Current every day smoker Tobacco Type: Cigarettes Age Started Using Tobacco: 14; Cigarettes Per Day: 4; Second Hand Exposure: Yes; Do You Dip or Chew Tobacco: No; Hx Alcohol Use: No Hx Substance Use: No Preferred Language: Danish Communication Ability: Effective Utility Tech Required: No Beliefs That Will Affect Care: None marital status: / Current Living Situation: Other Current Living Situation Comment: lives with a roomate current occupational status: disabled Feels Safe at Home: Yes Assistive Devices: None Results & Data Vital Signs (Past 12 Hours) Vital Signs Temp Pulse Pulse Pulse Resp BP BP 06/11/23 15:42 36.3 C L 74 18 108/54 L 06/11/23 15:07 75 06/11/23 12:45 80 16 95/53 L 06/11/23 12:30 67 16 100/53 L 06/11/23 12:15 77 18 102/49 L 06/11/23 12:10 77 18 99/53 L 06/11/23 12:05 89 100/49 L 06/11/23 12:00 89 108/50 L 06/11/23 11:55 89 114/48 L 06/11/23 11:50 89 124/49 L 06/11/23 11:20 83 20 113/52 L 06/11/23 08:00 06/11/23 07:51 36.8 C 75 18 102/48 L 06/11/23 07:36 82 Pulse Ox O2 Del Method O2 Flow Rate 06/11/23 15:42 94 Room Air 06/11/23 15:07 06/11/23 12:45 99 Nasal Cannula 2 06/11/23 12:30 99 Nasal Cannula 2 06/11/23 12:15 99 Oxymask 2 06/11/23 12:10 99 Oxymask 2 06/11/23 12:05 98 Oxymask 6 06/11/23 12:00 98 Oxymask 6 06/11/23 11:55 98 Oxymask 6 06/11/23 11:50 98 Oxymask 6 06/11/23 11:20 96 Nasal Cannula 1 06/11/23 08:00 Nasal Cannula 1 06/11/23 07:51 96 Nasal Cannula 2 06/11/23 07:36 PG Care Time/CCT Total # of Minutes Spent Total Time Spent with Patient: Total time spent is greater than 50% in coordination of care (as documented) at patient's floor/unit and/or counseling patient: Coding Level of Care Code 09119 INT INP/OBS CARE 1/40MIN Diagnoses Poor dentition K08.9 Exposed lingual bone R29.898 Dental fistula K04.6 Fracture of incisor teeth S02.5XXA Chronic dental infection K04.7
[2023-06-11] MEDS: POTASSIUM CHLORIDE CRTAB 20 MEQ TABCR PO ONE (18:53)
[2023-06-11] MEDS: PRAZOSIN HCL 1 MG CAP PO SCH (20:09)
--- NOTE | 2023-06-11 21:24 | CT Scan Report ---
Exam(s): CT NECK Without Contrast EXAM: CT Neck Without Intravenous Contrast CLINICAL HISTORY: Reason for exam: fractured lower anterior teeth secondary dental DK. TECHNIQUE: Axial computed tomography images of the neck without intravenous contrast. CTDI is 16.34 mGy and DLP is 401.52 mGy-cm. Automated exposure control was utilized for the study. A dose lowering technique was utilized adhering to the principles of ALARA. COMPARISON: No relevant prior studies available. FINDINGS: Oropharynx: No foreign body. No significant tonsillar enlargement. Hypopharynx: Unremarkable. Larynx: Unremarkable. Normal epiglottis. Trachea: Unremarkable. Retropharyngeal space: Unremarkable. Submandibular/parotid glands: Unremarkable. Glands are normal in size. Thyroid: Unremarkable. No enlarged or calcified nodules. Bones/joints: No mandibular fracture. No maxillary fracture. Remainder of the osseous structures are intact. Moderate degenerative changes within the cervical spine. Soft tissues: Unremarkable. Vasculature: No acute findings. Lymph nodes: Unremarkable. No lymphadenopathy. Dental: Numerous missing maxillary and mandibular teeth. Caries within the teeth that remain. No periapical lucency. Lung apices: Pleural effusions bilaterally. IMPRESSION: No acute abnormality. Electronically signed by: Connor Petty MD 06/11/23 21:23 PM
[2023-06-12 08:35] LABS: INR 2.6 (0.9-1.1); Prothrombin Time 27.2 Seconds (9.0-12.0)
[2023-06-12 08:41] LABS: BUN Creatinine Ratio 24.6 (10-20); Calcium 8.6 mg/dl (8.6-10.3); Creatinine Clr Calc Pharmacy 47.2 ml/min; Est GFR (Non-African American) 37.1 ml/min; Potassium 3.4 mmol/L (3.5-5.1)
--- NOTE | 2023-06-12 09:07 | Cardiology Progress Note ---
Date of Service June 12, 2023 Assessment & Plan (1) Acute on chronic systolic (congestive) heart failure: (2) H/O mechanical aortic valve replacement: (3) NICM (nonischemic cardiomyopathy): (4) Severe aortic valve regurgitation: (5) Mitral regurgitation: (6) Ascending aortic aneurysm: Plan 1. Acute decompensated systolic heart failure: Improved. While his chest x-ray continues to demonstrate the appearance of pulmonary edema, it is possible this is also related to another etiology. He continues to have an element of coughing. This appears to be worse at night and may be related to being in a dependent position. In any event, he has affected a good diuresis yesterday. Unfortunately, kidney function suffered. He will likely require reduction in his Lasix dose to his once daily dose at this point. I suspect he will have an element of dyspnea leading up to his valve replacement in any event. 2. Valvular heart disease: Significant aortic and mitral regurgitation. 3. Cardiomyopathy: Nonischemic. Currently on losartan and metoprolol succinate. More intensive regimen would be worthwhile. Addition of an SG LT 2 inhibitor and or switch to Entresto can be considered. Blood pressure on the lower side currently. I think we will wait till he is more hemodynamically stable before introducing new agents. 4. Ascending thoracic aortic aneurysm: 4.7 cm. This will be addressed at the time of his planned surgery. We will continue beta-blockade good blood pressure control. 5. Poor dentition: Planning for tooth extraction on Wednesday Has improved significantly. Symptoms have improved. Still likely an element of pulmonary vascular congestion and hypervolemia. However, our ability to affect more volume loss may be limited by his valve disease. I would consider reducing the diuretic to a daily dose. Once his renal function improves, his symptoms have improved to the point where he could likely be discharged and follow up on an outpatient basis. With respect to the planned surgery on Wednesday, the only issue in the perioperative period will be managing his volume. Would avoid significant volume administration as this could precipitate worsening pulmonary edema and hypoxia. Warfarin can certainly be held for a couple of days. Anticoagulation could be held entirely for a couple of days if necessary to facilitate his surgery. I will be away from the hospital for the next 2 days. Please contact the on- call [facility] [facility] for questions or management. Admission and Anticipated Discharge Date Admission Date: June 06, 2023 Subjective This morning patient claimed to be feeling well. He was able to get some sleep last evening. Some dyspnea with activity but much improved. He did report ambulating around the james yesterday with minimal shortness of breath. No significant dizziness or lightheadedness. No orthopnea. Review of Systems Review of Systems: Per HPI Physical Exam Physical Exam: The patient is alert and oriented. Mood and affect appeared normal. He answered all questions appropriately. HEENT: Pupils are equal and reactive to light and accommodation. Extraocular movements are intact. The sclerae are anicteric. Poor dentition Neuro: Cranial nerves intact Lungs: Clear to auscultation bilaterally. No expiratory wheezing. Normal respiratory effort. Cardiac: Heart demonstrates a regular rate and rhythm. Holosystolic murmur. [place] mechanical S2 Pulses: The patient has palpable radial pulses bilaterally that are equal in intensity Extremities: There was no evidence of hypoperfusion. There is no cyanosis or clubbing. There is no edema. Skin: I did not appreciate any rashes on examination today. Results & Data Vital Signs (Past 12 Hours) Vital Signs Temp Pulse Pulse Pulse Pulse Pulse Resp 06/12/23 08:15 98 H 89 87 06/12/23 07:42 36.6 C 77 18 06/12/23 07:25 82 06/12/23 04:00 36.7 C 85 20 06/12/23 00:24 36.7 C 89 20 Resp Resp Resp BP BP Pulse Ox Pulse Ox 06/12/23 08:15 20 16 16 96 06/12/23 07:42 101/48 L 97 06/12/23 07:25 06/12/23 04:00 102/47 L 92 06/12/23 00:24 103/52 L 93 Pulse Ox Pulse Ox O2 Del Method O2 Flow Rate 06/12/23 08:15 94 95 06/12/23 07:42 Nasal Cannula 1.5 06/12/23 07:25 06/12/23 04:00 Nasal Cannula 1 06/12/23 00:24 Nasal Cannula 1 Laboratory Results Abnormal Lab Results 06/12/23 07:34 PT 27.2 H INR 2.6 H Sodium 137 Potassium 3.4 L Chloride 102 Carbon Dioxide 29 Anion Gap 6 BUN 48 H Creatinine 1.95 H Est Cr Clr Drug Dosing 47.2 Est GFR ( Amer) 43.0 Est GFR (Non-Af Amer) 37.1 BUN/Creatinine Ratio 24.6 H Glucose 97 Calcium 8.6 PG Care Time/CCT Total # of Minutes Spent Total Time Spent with Patient: Total time spent is greater than 50% in coordination of care (as documented) at patient's floor/unit and/or counseling patient: Coding Level of Care Code 44779 SUB INP/OBS CARE 2/35MIN Diagnoses Acute on chronic systolic (congestive) heart failure I50.23 H/O mechanical aortic valve replacement Z95.2 NICM (nonischemic cardiomyopathy) I42.8 Severe aortic valve regurgitation I35.1 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
[2023-06-12] MEDS: POTASSIUM CHLORIDE CRTAB 20 MEQ TABCR PO ONE (12:47)
--- NOTE | 2023-06-12 14:10 | Hospitalist Progress Note ---
Date of Service June 12, 2023 Assessment & Plan (1) Acute on chronic systolic (congestive) heart failure: Plan: Good response to up titration of parenteral Lasix dosage on June 09 with addition of metolazone. However, his creatinine bumped to 2.0 and further metolazone will be avoided. Blood pressure has also dropped and losartan and prazosin dosages have been decreased. Monitor intake and output. Cardiology consultation appreciated. Chest x-ray done on June 11 was unchanged (2) Acute respiratory failure with hypoxia: Plan: Resolved. He is now on room air. Continue to treat CHF (3) NICM (nonischemic cardiomyopathy): Plan: Most recent cardiac echo reveals ejection fraction of 40% with moderately severe mitral regurgitation. He already takes an ARB. Cardiology consultation appreciated. (4) H/O mechanical aortic valve replacement: Plan: history of rheumatic heart disease as a child, status post multiple mechanical aortic valve replacements. INR should be maintained between 2.5 and 3.5 on average. INR is 2.6 again today, June 12, on Coumadin. Coumadin has been placed on hold for upcoming dental surgery on June 14 (5) Asthma: Plan: Stable. No exacerbation. Continue current medical management (6) Dyslipidemia: Plan: Stable. Continue statin therapy (7) Post traumatic stress disorder: Plan: Supportive care. Continue current medical management Plan Anticipate multiple decayed teeth extraction on June 14. Hopeful discharge to home June 15. He has been weaned off of his oxygen. Admission and Anticipated Discharge Date Admission Date: June 06, 2023 Subjective Alert and oriented. Depressed affect. Oral maxillofacial surgery entry and cardiology entry noted. Multiple tooth extraction planned for June 14. Coumadin has been placed on hold. Lasix down titrated to once daily dosing. Will continue to monitor intake and output and daily lab. He is no longer requiring any oxygen. Review of Systems 2 Review of Systems: Constitutional-no fever or chills ENT-no blurred vision, no double vision, no epistaxis, no sore throat Respiratory-no cough, no wheezing. Dyspnea on exertion has improved Cardiac-no palpitations, no chest pain, no syncope GI-no nausea, vomiting, diarrhea, melena, hematochezia -no urinary retention, no urinary incontinence, no dysuria, no hematuria Musculoskeletal-no joint pain, no muscle tenderness Skin-no bruising, no rashes, no pruritus Neuro-no isolated weakness, no paresthesia Psych-no depression, no anxiety Physical Exam 2 Physical Exam: General-alert and oriented x3, no fevers, no chills HEENT-head atraumatic and normocephalic, pupils equal and reactive to light, extraocular muscles intact Neck-no lymphadenopathy or thyromegaly, trachea midline Chest-faint bibasilar inspiratory rales have resolved. No rhonchi. No wheezing Cardiac-regular rate and rhythm, normal S1 and S2 Abdomen-normal bowel sounds, nontender, no hepatosplenomegaly Extremities-no cyanosis, clubbing, or edema Neuro-cranial nerves II through XII intact, motor and sensory function within normal limits, strength symmetrical, no focal deficits Psych-flat affect Results & Data Results & Data Vital Signs (Past 12 Hours) Vital Signs Temp Pulse Pulse Pulse Pulse Pulse Resp 06/12/23 11:18 36.8 C 82 20 06/12/23 08:15 98 H 89 87 06/12/23 08:00 06/12/23 07:42 36.6 C 77 18 06/12/23 07:25 82 06/12/23 04:00 36.7 C 85 20 Resp Resp Resp BP BP Pulse Ox Pulse Ox 06/12/23 11:18 106/47 L 91 06/12/23 08:15 20 16 16 96 06/12/23 08:00 06/12/23 07:42 101/48 L 97 06/12/23 07:25 06/12/23 04:00 102/47 L 92 Pulse Ox Pulse Ox O2 Del Method O2 Flow Rate 06/12/23 11:18 Room Air 06/12/23 08:15 94 95 06/12/23 08:00 Room Air 06/12/23 07:42 Nasal Cannula 1.5 06/12/23 07:25 06/12/23 04:00 Nasal Cannula 1 Laboratory Results 06/07/23 06:10 06/12/23 07:34 PG Care Time/CCT Total # of Minutes Spent Total Time Spent with Patient: Total time spent is greater than 50% in coordination of care (as documented) at patient's floor/unit and/or counseling patient: Coding Level of Care Code 77642 SUB INP/OBS CARE 3/50MIN Diagnoses Acute on chronic systolic (congestive) heart failure I50.23 Acute respiratory failure with hypoxia J96.01 NICM (nonischemic cardiomyopathy) I42.8 H/O mechanical aortic valve replacement Z95.2 Asthma J45.909 Dyslipidemia E78.5 Post traumatic stress disorder F43.10
[2023-06-13] MEDS: FUROSEMIDE 40 MG/4 ML VIAL IV SCH (08:19)
--- NOTE | 2023-06-13 09:29 | XRay Report ---
XR chest 1V portable HISTORY: Shortness of breath. CHF COMPARISON: Chest 06/11/2023. FINDINGS: Interval improvement in the pulmonary edema. No pneumothorax. The heart remains enlarged. T here are poststernotomy changes. Small bilateral pleural effusions and right basilar densities again noted. Right basilar densities have slightly improved. IMPRESSION: 1. Interval improvement in the pulmonary edema and small bilateral pleural effusions. 2. The right basilar densities have also slightly improved and may represent a component of the pulmo nary edema. ACT 112: Negative or not required by law. Electronically signed by: Garrett Stewart M.D. 06/13/2023 9:27 AM
[2023-06-13 09:46] LABS: BUN Creatinine Ratio 28.7 (10-20); Calcium 8.8 mg/dl (8.6-10.3); Creatinine Clr Calc Pharmacy 50.9 ml/min; Est GFR (Non-African American) 40.6 ml/min; Potassium 3.6 mmol/L (3.5-5.1)
[2023-06-13 09:58] LABS: INR 1.9 (0.9-1.1); Prothrombin Time 19.5 Seconds (9.0-12.0)
--- NOTE | 2023-06-13 10:32 | Oral/Maxillofacial Progress Nt ---
Date of Service June 13, 2023 Assessment & Plan Admission and Anticipated Discharge Date Admission Date: June 06, 2023 Subjective I reviewed the CT scan Grossly infected teeth lower anterior jaw. There is significant swelling and infection from the carious and fractured teeth The plan is for I&D of the vestibular space and subperiosteal space infection, extraction of the remaining lower 9 teeth and smoothing the bone. Once healed he will undergo heart valve replacement. Will need INR to be at least 1.5 to allow surgery. Consent signed NPO tonight For OR tomorrow morning pending INR is at least 1.5 Results & Data Vital Signs (Past 12 Hours) Vital Signs Temp Pulse Pulse Resp BP Pulse Ox O2 Del Method 06/13/23 07:56 36.4 C L 79 18 94/57 L 94 Room Air 06/13/23 05:34 36.7 C 79 20 107/52 L 94 Room Air 06/13/23 00:58 82 06/12/23 23:40 36.5 C 79 20 99/51 L 95 Nasal Cannula O2 Flow Rate 06/13/23 07:56 06/13/23 05:34 06/13/23 00:58 06/12/23 23:40 1 PG Care Time/CCT Total # of Minutes Spent Total Time Spent with Patient: Total time spent is greater than 50% in coordination of care (as documented) at patient's floor/unit and/or counseling patient: Coding Level of Care Code None
--- NOTE | 2023-06-13 11:44 | Anesthesiology Consultation ---
Date of Service June 13, 2023 Assessment & Plan (1) Encounter for pre-operative examination: (2) Mitral regurgitation: Chart Review Chart Review: Acceptable Risk for Surgery (needs infected teeth removed prior to evaluation for further valve surgery) History Surgery Operation Date: 06/11/23 11:00 Proposed Procedures p Echo Transesophageal - Ahsan Martinez MD Operation Date: 06/14/23 07:30 Proposed Procedures p Incision and Drainage General - Trell Ramirez DMD s extract 6 teeth, incision and drainage - Trell Ramirez DMD Height/Weight Height: 6 ft 1 in Weight: 85.8 kg Allergies Allergy/AdvReac Type Severity Reaction Status Date / Time bee venom protein (honey bee) Allergy Severe Severe Verified 06/06/23 17:00 neck/throat swelling, dyspnea adhesive Allergy Mild Rash Verified 06/06/23 17:00 chocolate flavor AdvReac Unknown Advised to Verified 06/06/23 17:00 avoid by surgeon d/t Vitamin K content per pt Medications Home Medications Medication Instructions Recorded Confirmed Last Taken bupropion HCl 300 mg 24 hr tablet, 300 mg PO HS 09/09/20 06/06/23 02/20/21 08:00 extended release cholecalciferol (vitamin D3) 50 50 mcg PO QAM 09/09/20 06/06/23 02/20/21 08:00 mcg (2,000 unit) capsule trazodone 50 mg tablet 50 mg PO HS 09/12/20 06/06/23 02/19/21 21:00 aspirin 81 mg tablet,delayed 81 mg PO QAM 09/27/20 06/06/23 2 Days Ago release ~02/19/21 prazosin 5 mg capsule 10 mg PO QPM 01/12/22 06/06/23 Unknown epinephrine 0.3 mg/0.3 mL 0.3 mg (0.3 mL) IM Q10M PRN 05/07/22 06/06/23 Unknown injection, auto-injector Anaphylaxis #2 ea hydroxyzine HCl 50 mg tablet 50 mg PO TID PRN Anxiety 30 days 05/07/22 06/06/23 Unknown #90 tabs melatonin 10 mg capsule 10 mg PO HS PRN Insomnia 06/04/22 06/06/23 Unknown losartan 50 mg tablet 50 mg PO DAILY #90 tabs 03/16/23 06/06/23 Unknown metoprolol succinate 25 mg 25 mg PO DAILY #90 tabs 03/16/23 06/06/23 Unknown tablet,extended release 24 hr sertraline 50 mg tablet 50 mg PO DAILY 03/16/23 06/06/23 Unknown furosemide 40 mg tablet 40 mg PO DAILY #30 tabs 05/11/23 06/06/23 Unknown potassium chloride 20 mEq 20 meq PO DAILY #30 tabs 05/11/23 06/06/23 Unknown tablet,extended release atorvastatin 10 mg tablet 10 mg PO DAILY #90 tabs 05/25/23 06/06/23 Unknown warfarin 5 mg tablet See Rx Instructions PO UD #40 tabs 05/31/23 06/06/23 06/05/23 fluticasone fur. 100 mcg-umeclid 1 ea inhalation DAILY 06/06/23 06/06/23 Unknown 62.5 mcg-vilant 25 mcg inhalat.powder (Trelegy Ellipta) Active Medications Generic Name Dose Route Start Last Admin Trade Name Freq PRN Reason Stop Dose Admin Aspirin 81 mg 06/07/23 09:00 06/13/23 08:18 Aspirin 81 Mg Ectab PO 07/07/23 08:59 81 mg QAM JOVANY Administration Atorvastatin Calcium 10 mg 06/07/23 09:00 06/13/23 08:16 Atorvastatin 10 Mg Tab PO 07/07/23 08:59 10 mg DAILY JOVANY Administration Benzonatate 100 mg 06/07/23 22:35 06/13/23 08:21 Benzonatate 100 Mg Capsule PO 07/08/23 08:59 100 mg TID PRN Administration cough Bupropion HCl 300 mg 06/07/23 00:50 06/12/23 20:25 Bupropion Xl 300 Mg Tabcr PO 07/07/23 00:49 300 mg HS JOVANY Administration Fluticasone Furoate 1 puffs 06/07/23 09:00 06/13/23 08:14 Fluticasone Furoate 100mcg 14 Puffs/Inhaler INH 07/07/23 08:59 1 puffs DAILY OJVANY Administration Furosemide 60 mg 06/13/23 09:00 06/13/23 08:19 Furosemide 40 Mg/4 Ml Vial IV 07/13/23 08:59 60 mg DAILY JOVANY Administration Losartan Potassium 25 mg 06/11/23 09:00 06/13/23 08:16 Losartan Potassium 25 Mg Tab PO 07/11/23 08:59 25 mg DAILY JOVANY Administration Metoprolol Succinate 25 mg 06/07/23 09:00 06/13/23 08:18 Metoprolol Succ 25mg Ext Rel Tab PO 07/07/23 08:59 Not Given DAILY JOVANY Prazosin HCl 5 mg 06/11/23 21:00 06/12/23 20:25 Prazosin Hcl 1 Mg Cap PO 07/11/23 20:59 5 mg QPM JOVANY Administration Sertraline HCl 50 mg 06/07/23 09:00 06/13/23 08:16 Sertraline Hcl 50 Mg Tablet PO 07/07/23 08:59 50 mg DAILY JOVANY Administration Trazodone HCl 50 mg 06/07/23 00:50 06/12/23 20:24 Trazodone Hcl 50 Mg Tab PO 07/07/23 00:49 50 mg HS JOVANY Administration Umeclidinium/Vilanterol 1 puffs 06/07/23 09:00 06/13/23 08:14 Umeclidinium/Vilanterol 62.5/25mcg 7 Puffs/Inhaler INH 07/07/23 08:59 1 puffs DAILY JOVANY Administration Past Medical History Medical History (Updated 06/13/23 @ 11:42 by Demetri Fisher MD) Acute on chronic systolic (congestive) heart failure Tinnitus of right ear Mixed conductive and sensorineural hearing loss of right ear with restricted hearing of left ear Deviated septum Claustrophobia Did have issues in the past with oxygen mask Anxiety and depression Aortic valve disease s/p AVR/revisions (1981, 1982x2), on warfarin, FOLLOWED BY BECKY JAMES PA-C Osteoarthritis Hearing loss in right ear Post traumatic stress disorder History of rheumatic fever as a child at age 6 > led to cardiac issues (hx AVR) On warfarin therapy Asthma Past Family History Family History Brother Family history of reaction to anesthesia when he received anesthesia "it always triggered his seizures" Father Hearing loss Cancer Sister Hearing loss Cancer Other Allergies No family history of bleeding disorder Past Surgical History Surgical History S/P excision of lipoma LEFT/RT FOREARM AND RT HIP H/O excision of mass (10/16/20) Soft Tissue Mass Excision Bilateral Arms (2-5 cm) and Right Flank (19.5 cm)(Not Applicable) - Yang Lemus, DO, FACS History of appendectomy History of tooth extraction all upper teeth removed/some lower teeth removed History of cardiac cath multiple, last Feb 1983--no stents placed Aortic valve replaced s/p AVR/revisions (1981, 1982x2) Social History Smoking Status: Current every day smoker tobacco type: cigarettes Smoking cigarettes per day: 4 Do You Dip or Chew Tobacco: No Hx Alcohol Use: No Hx Substance Use: No substance use type: does not use Physical Exam Vital Signs Last Vital Signs Temp 36.6 C 06/13/23 11:36 Pulse 81 06/13/23 11:36 Resp 18 06/13/23 11:36 BP 104/53 L 06/13/23 11:36 Pulse Ox 94 06/13/23 11:36 O2 Del Method Room Air 06/13/23 11:36 O2 Flow Rate 1 06/12/23 23:40 Testing Laboratory Results 06/07/23 06:10 06/13/23 09:05 PT 19.5 Seconds (9.0-12.0) H 06/13/23 09:05 INR 1.9 (0.9-1.1) H 06/13/23 09:05 Electrocardiogram Date: 06/06/23 Findings: + NSR @ (92) and + LVH prolonged QT Echocardiogram Date: 06/11/23 LV Function: normal Valvular Disease: + MR moderate to severe MR and AI (pt has had an AVR) (2) Mitral regurgitation Cardiac valve disease etiology: rheumatic Qualified Code(s): I05.1 - Rheumatic mitral insufficiency
[2023-06-13] MEDS ORDERED: Heparin IV Adult Wt-Based Standard *NO* INITIAL Bolus Protocol IV SCH (12:01)
[2023-06-13] MEDS: PHYTONADIONE 5 MG in DEXTROSE 5% 50 ML IV ONE (12:11)
[2023-06-13 12:45] LABS: INR 1.8 (0.9-1.1); Prothrombin Time 19.1 Seconds (9.0-12.0)
[2023-06-13] MEDS: HEPARIN SODIUM/DEXTROSE 25,000 UNITS/500 ML BAG IV SCH (12:48)
[2023-06-13] MEDS: BENZONATATE 100 MG CAPSULE PO SCH (12:56)
--- NOTE | 2023-06-13 14:42 | Hospitalist Progress Note ---
Date of Service June 13, 2023 Assessment & Plan (1) Acute on chronic systolic (congestive) heart failure: Plan: Good response to up titration of parenteral Lasix dosage on June 09 with addition of metolazone. However, his creatinine bumped to 2.0 and further metolazone will be avoided. Creatinine now down to 1.8. Blood pressure has also dropped and losartan and prazosin dosages have been decreased. Blood pressure is now stable. Monitor intake and output. Cardiology consultation appreciated. Chest x-ray done today on June 13 looks better. June 11 was unchanged (2) Acute respiratory failure with hypoxia: Plan: Resolved. He is now on room air. Continue to treat CHF (3) NICM (nonischemic cardiomyopathy): Plan: Most recent cardiac echo reveals ejection fraction of 40% with moderately severe mitral regurgitation. He already takes an ARB. Cardiology consultation appreciated. (4) H/O mechanical aortic valve replacement: Plan: history of rheumatic heart disease as a child, status post multiple mechanical aortic valve replacements. INR should be maintained between 2.5 and 3.5 on average. Coumadin has been discontinued and reversed with vitamin K. He is now on a heparin drip pending upcoming dental surgery. Coumadin will be restarted postoperatively. (5) Asthma: Plan: Stable. No exacerbation. Continue current medical management (6) Dyslipidemia: Plan: Stable. Continue statin therapy (7) Post traumatic stress disorder: Plan: Supportive care. Continue current medical management Plan Anticipate multiple decayed teeth extraction tomorrow, June 14. Coumadin will need to be restarted postoperatively. He will be discharged when the INR is again therapeutic Admission and Anticipated Discharge Date Admission Date: June 06, 2023 Subjective Alert and oriented. Persistent flat affect. Coumadin discontinued and will be reversed with vitamin K. He is now on a heparin drip. He can proceed with dental surgery and multiple tooth extraction tomorrow, June 14. Dr. Ramirez notified. He is now on room air. Chest x-ray looks better. Review of Systems 2 Review of Systems: Constitutional-no fever or chills ENT-no blurred vision, no double vision, no epistaxis, no sore throat Respiratory-no cough, no wheezing. Dyspnea on exertion has improved Cardiac-no palpitations, no chest pain, no syncope GI-no nausea, vomiting, diarrhea, melena, hematochezia -no urinary retention, no urinary incontinence, no dysuria, no hematuria Musculoskeletal-no joint pain, no muscle tenderness Skin-no bruising, no rashes, no pruritus Neuro-no isolated weakness, no paresthesia Psych-no depression, no anxiety Physical Exam 2 Physical Exam: General-alert and oriented x3, no fevers, no chills HEENT-head atraumatic and normocephalic, pupils equal and reactive to light, extraocular muscles intact Neck-no lymphadenopathy or thyromegaly, trachea midline Chest-faint bibasilar inspiratory rales have resolved. No rhonchi. No wheezing Cardiac-regular rate and rhythm, normal S1 and S2 Abdomen-normal bowel sounds, nontender, no hepatosplenomegaly Extremities-no cyanosis, clubbing, or edema Neuro-cranial nerves II through XII intact, motor and sensory function within normal limits, strength symmetrical, no focal deficits Psych-flat affect Results & Data Results & Data Vital Signs (Past 12 Hours) Vital Signs Temp Pulse Resp BP Pulse Ox O2 Del Method 06/13/23 11:36 36.6 C 81 18 104/53 L 94 Room Air 06/13/23 08:00 Room Air 06/13/23 07:56 36.4 C L 79 18 94/57 L 94 Room Air 06/13/23 05:34 36.7 C 79 20 107/52 L 94 Room Air Laboratory Results 06/07/23 06:10 06/13/23 09:05 PG Care Time/CCT Total # of Minutes Spent Total Time Spent with Patient: Total time spent is greater than 50% in coordination of care (as documented) at patient's floor/unit and/or counseling patient: Coding Level of Care Code 85477 SUB INP/OBS CARE 3/50MIN Diagnoses Acute on chronic systolic (congestive) heart failure I50.23 Acute respiratory failure with hypoxia J96.01 NICM (nonischemic cardiomyopathy) I42.8 H/O mechanical aortic valve replacement Z95.2 Asthma J45.909 Dyslipidemia E78.5 Post traumatic stress disorder F43.10
[2023-06-13 19:12] LABS: ANTI-Xa, LMWH(Low Molecular Wt 0.49 IU/ML (< 0.10)
[2023-06-14 06:38] LABS: Basophils # (auto) 0.04 K/uL (0.00-0.20); Basophils % (auto) 0.8 %; Eosinophils # (auto) 0.14 K/uL (0.00-0.50); Eosinophils % (auto) 2.9 %; Hematocrit (blood only) 30.6 % (42.0-52.0); Immature Granulocytes # (auto) 0.02 K/uL (0.01-0.20); Immature Granulocytes % (auto) 0.4 %; Lymphocytes % (auto) 30.8 %; Mean Corpuscular Hemoglobin 29.2 pg (25.0-34.0); Mean Corpuscular Hgb Conc 32.7 g/dL (32.0-36.0); Mean Corpuscular Volume 89.5 fL (80.0-100.0); Mean Platelet Volume 11.8 fL (9.4-12.4); Monocytes # (auto) 0.42 K/uL (0.11-0.59); Monocytes % (auto) 8.6 %; Neutrophils # (auto) 2.75 K/uL (1.40-6.50); Neutrophils % (auto) 56.5 %; Platelet Count 206 K/uL (130-400); RDW Coefficient of Variation 14.8 % (11.5-14.5); RDW Standard Deviation 47.9 fL (36.4-46.3); Red Blood Count 3.42 M/uL (4.70-6.10); White Blood Count 4.87 K/ul (4.8-10.8)
[2023-06-14 06:39] LABS: BUN Creatinine Ratio 26.7 (10-20); Calcium 8.5 mg/dl (8.6-10.3); Creatinine Clr Calc Pharmacy 47.2 ml/min; Est GFR (Non-African American) 37.1 ml/min; Potassium 3.3 mmol/L (3.5-5.1)
[2023-06-14 07:25] LABS: ANTI-Xa, UFH(UnfractionatedHep 0.11 IU/ml (0.3-0.7); INR 1.2 (0.9-1.1); Prothrombin Time 13.3 Seconds (9.0-12.0)
[2023-06-14] MEDS: POTASSIUM CHLORIDE / WTR 10 MEQ/100 ML PLCT IV SCH (07:30)
--- NOTE | 2023-06-14 09:34 | Anesthesiology Consultation ---
Date of Service June 14, 2023 Assessment & Plan Chart Review Chart Review: Acceptable Risk for Surgery and Patient NOT seen in Pre Admission Testing Consults Requested none History Surgery Operation Date: 06/11/23 11:00 Proposed Procedures p Echo Transesophageal - Ahsan Martinez MD Operation Date: 06/14/23 07:30 Proposed Procedures p Incision and Drainage General - Trell Ramirez DMD s extract 6 teeth, incision and drainage - Trell Ramirez DMD Operation Date: 06/14/23 08:00 Proposed Procedures p Extraction 6 Teeth, Incision and Drainage - Trell Ramirez DMD Height/Weight Height: 6 ft 1 in Weight: 88.6 kg Allergies Allergy/AdvReac Type Severity Reaction Status Date / Time bee venom protein (honey bee) Allergy Severe Severe Verified 06/06/23 17:00 neck/throat swelling, dyspnea adhesive Allergy Mild Rash Verified 06/06/23 17:00 chocolate flavor AdvReac Unknown Advised to Verified 06/06/23 17:00 avoid by surgeon d/t Vitamin K content per pt Medications Home Medications Medication Instructions Recorded Confirmed Last Taken bupropion HCl 300 mg 24 hr tablet, 300 mg PO HS 09/09/20 06/06/23 02/20/21 08:00 extended release cholecalciferol (vitamin D3) 50 50 mcg PO QAM 09/09/20 06/06/23 02/20/21 08:00 mcg (2,000 unit) capsule trazodone 50 mg tablet 50 mg PO HS 09/12/20 06/06/23 02/19/21 21:00 aspirin 81 mg tablet,delayed 81 mg PO QAM 09/27/20 06/06/23 2 Days Ago release ~02/19/21 prazosin 5 mg capsule 10 mg PO QPM 01/12/22 06/06/23 Unknown epinephrine 0.3 mg/0.3 mL 0.3 mg (0.3 mL) IM Q10M PRN 05/07/22 06/06/23 Unknown injection, auto-injector Anaphylaxis #2 ea hydroxyzine HCl 50 mg tablet 50 mg PO TID PRN Anxiety 30 days 05/07/22 06/06/23 Unknown #90 tabs melatonin 10 mg capsule 10 mg PO HS PRN Insomnia 06/04/22 06/06/23 Unknown losartan 50 mg tablet 50 mg PO DAILY #90 tabs 03/16/23 06/06/23 Unknown metoprolol succinate 25 mg 25 mg PO DAILY #90 tabs 03/16/23 06/06/23 Unknown tablet,extended release 24 hr sertraline 50 mg tablet 50 mg PO DAILY 03/16/23 06/06/23 Unknown furosemide 40 mg tablet 40 mg PO DAILY #30 tabs 05/11/23 06/06/23 Unknown potassium chloride 20 mEq 20 meq PO DAILY #30 tabs 05/11/23 06/06/23 Unknown tablet,extended release atorvastatin 10 mg tablet 10 mg PO DAILY #90 tabs 05/25/23 06/06/23 Unknown warfarin 5 mg tablet See Rx Instructions PO UD #40 tabs 05/31/23 06/06/23 06/05/23 fluticasone fur. 100 mcg-umeclid 1 ea inhalation DAILY 06/06/23 06/06/23 Unknown 62.5 mcg-vilant 25 mcg inhalat.powder (Trelegy Ellipta) Active Medications Generic Name Dose Route Start Last Admin Trade Name Freq PRN Reason Stop Dose Admin Aspirin 81 mg 06/07/23 09:00 06/13/23 08:18 Aspirin 81 Mg Ectab PO 07/07/23 08:59 81 mg QAM JOVANY Administration Atorvastatin Calcium 10 mg 06/07/23 09:00 06/13/23 08:16 Atorvastatin 10 Mg Tab PO 07/07/23 08:59 10 mg DAILY JOVANY Administration Benzonatate 100 mg 06/13/23 14:00 06/13/23 20:03 Benzonatate 100 Mg Capsule PO 07/13/23 13:59 100 mg TID JOVANY Administration Bupropion HCl 300 mg 06/07/23 00:50 06/13/23 20:03 Bupropion Xl 300 Mg Tabcr PO 07/07/23 00:49 300 mg HS JOVANY Administration Fluticasone Furoate 1 puffs 06/07/23 09:00 06/14/23 09:07 Fluticasone Furoate 100mcg 14 Puffs/Inhaler INH 07/07/23 08:59 1 puffs DAILY JOVANY Administration Furosemide 60 mg 06/13/23 09:00 06/13/23 08:19 Furosemide 40 Mg/4 Ml Vial IV 07/13/23 08:59 60 mg DAILY JOVANY Administration Heparin Sodium/Dextrose 25,000 units in 500 mls @ 0 mls/hr 06/13/23 12:15 06/14/23 03:12 Heparin Sodium/Dextrose IV 07/13/23 12:14 Not Given .Q0M JOVANY Protocol 0 UNITS/HR Potassium Chloride 10 meq in 100 mls @ 100 mls/hr 06/14/23 07:30 06/14/23 08:47 K Shun / Wtr IV 06/14/23 09:29 100 mls/hr Q1H JOVANY Administration Losartan Potassium 25 mg 06/11/23 09:00 06/13/23 08:16 Losartan Potassium 25 Mg Tab PO 07/11/23 08:59 25 mg DAILY JOVANY Administration Metoprolol Succinate 25 mg 06/07/23 09:00 06/13/23 08:18 Metoprolol Succ 25mg Ext Rel Tab PO 07/07/23 08:59 Not Given DAILY JOVANY Prazosin HCl 5 mg 06/11/23 21:00 06/13/23 20:03 Prazosin Hcl 1 Mg Cap PO 07/11/23 20:59 5 mg QPM JOVANY Administration Sertraline HCl 50 mg 06/07/23 09:00 06/13/23 08:16 Sertraline Hcl 50 Mg Tablet PO 07/07/23 08:59 50 mg DAILY JOVANY Administration Trazodone HCl 50 mg 06/07/23 00:50 06/13/23 20:02 Trazodone Hcl 50 Mg Tab PO 07/07/23 00:49 50 mg HS JOVANY Administration Umeclidinium/Vilanterol 1 puffs 06/07/23 09:00 06/14/23 09:08 Umeclidinium/Vilanterol 62.5/25mcg 7 Puffs/Inhaler INH 07/07/23 08:59 1 puffs DAILY JOVANY Administration NPO Date Last Intake of Fluids: 06/13/23 Time Last Intake of Fluids: 23:30 Date Last Intake of Solids: 06/13/23 Time Last Intake of Solids: 20:00 Past Medical History Medical History (Updated 06/13/23 @ 11:42 by Demteri Fisher MD) Acute on chronic systolic (congestive) heart failure Tinnitus of right ear Mixed conductive and sensorineural hearing loss of right ear with restricted hearing of left ear Deviated septum Claustrophobia Did have issues in the past with oxygen mask Anxiety and depression Aortic valve disease s/p AVR/revisions (1981, 1982x2), on warfarin, FOLLOWED BY BECKY JAMES PA-C Osteoarthritis Hearing loss in right ear Post traumatic stress disorder History of rheumatic fever as a child at age 6 > led to cardiac issues (hx AVR) On warfarin therapy Asthma Past Family History Family History Brother Family history of reaction to anesthesia when he received anesthesia "it always triggered his seizures" Father Hearing loss Cancer Sister Hearing loss Cancer Other Allergies No family history of bleeding disorder Past Surgical History Surgical History S/P excision of lipoma LEFT/RT FOREARM AND RT HIP H/O excision of mass (10/16/20) Soft Tissue Mass Excision Bilateral Arms (2-5 cm) and Right Flank (19.5 cm)(Not Applicable) - Yang Lemus DO, FACS History of appendectomy History of tooth extraction all upper teeth removed/some lower teeth removed History of cardiac cath multiple, last Feb 1983--no stents placed Aortic valve replaced s/p AVR/revisions (1981, 1982x2) Social History Smoking Status: Current every day smoker tobacco type: cigarettes Smoking cigarettes per day: 4 Do You Dip or Chew Tobacco: No Hx Alcohol Use: No Hx Substance Use: No substance use type: does not use Physical Exam Vital Signs Last Vital Signs Temp 36.5 C 06/14/23 09:25 Pulse 87 06/14/23 09:25 Resp 20 06/14/23 09:25 BP 115/48 L 06/14/23 09:25 Pulse Ox 93 06/14/23 09:25 O2 Del Method Room Air 06/14/23 09:25 O2 Flow Rate 1 06/12/23 23:40 ENMT Thyromental Distance: > or= 3.5 Finger Breadths Mallampati Class: III Respiratory normal respiratory effort Cardiovascular Rate/Rhythm: regular rate and regular rhythm Testing Laboratory Results 06/14/23 06:02 06/14/23 06:02 PT 13.3 Seconds (9.0-12.0) H 06/14/23 06:02 INR 1.2 (0.9-1.1) H 06/14/23 06:02 Electrocardiogram Date: 06/06/23 Findings: + NSR @ (92) and + LVH prolonged QT Echocardiogram Date: 06/11/23 LV Function: normal Valvular Disease: + MR moderate to severe MR and AI (pt has had an AVR)
[2023-06-14] MEDS ORDERED: ATROPINE SULFATE 0.1 MG/ML 10ML SYR IV PRN (09:46)
[2023-06-14] MEDS ORDERED: ePHEDrine sulfate 50 MG/ML AMP IV PRN (09:46)
[2023-06-14] MEDS ORDERED: fentaNYL citrate PF 100 MCG/2 ML VIAL IV PRN (09:46)
--- NOTE | 2023-06-14 10:36 | History & Physical Bridge Note ---
Date of Service June 14, 2023 History & Physical Bridge Note I have examined the patient, reviewed the History & Physical and in the interval since the performance of the History & Physical I have noted the following changes of clinical significance: no changes noted INR ans APTT in surgical range for extractions of multiply teeth lower jaw OK for the procedure
[2023-06-14] MEDS: LACTATED RINGER'S 1,000 ML IV SCH (10:43)
[2023-06-14] MEDS: ceFAZolin 2000MG 2,000 MG/15 ML SYR IV ONE ×2 (10:59→13:57)
--- NOTE | 2023-06-14 12:06 | Post Operative Brief Note ---
PG Immediate Post Op with CF Date of Surgery June 14, 2023 Pre & Post Diagnosis Operation Date: 06/14/23 08:00 Pre-Op Diagnosis: CHEST PAIN, SOB Post-Op Diagnosis: CHEST PAIN, SOB I identified the patient and participated in the time-out.: Yes Procedure Operation Date: 06/14/23 08:00 Actual Procedures p Extraction 6 Teeth, Incision and Drainage(Not Applicable) - Trell Ramirez DMD Surgeon Trell Ramirez DMD Roll Cutting Operator none Estimated Blood Loss 5 Findings Consistent with Post-Op Diagnosis grossly infected anterior mandible secondary to decayed lower teeth Specimens Specimen Description: none Anesthesia Type General Complications none Disposition Accompanied Patient To Recovery: Yes
--- NOTE | 2023-06-14 12:59 | Anesthesiology Progress Note ---
Date of Service June 14, 2023 Anesthesia Post Procedure Vital Signs Vital Signs: Temp Pulse Pulse Pulse Resp BP BP 06/14/23 12:54 98.6 F 74 20 122/57 L 06/14/23 12:40 74 18 124/52 L 06/14/23 12:30 79 18 126/60 06/14/23 12:20 82 17 133/53 L 06/14/23 12:10 96.8 F L 83 12 140/49 L 06/14/23 09:25 97.7 F 87 20 115/48 L 06/14/23 07:35 97.9 F 83 16 117/46 L 06/14/23 07:19 82 06/14/23 07:15 06/14/23 04:14 97.9 F 64 18 105/43 L 06/14/23 00:22 76 06/13/23 23:12 97.9 F 75 20 111/51 L 06/13/23 22:39 06/13/23 20:04 98.1 F 75 20 111/53 L 06/13/23 17:16 97.5 F L 81 18 110/54 L 06/13/23 15:00 75 Pulse Ox O2 Del Method O2 Flow Rate 06/14/23 12:54 92 Room Air 0 06/14/23 12:40 92 Room Air 0 06/14/23 12:30 96 Oxymask 2 06/14/23 12:20 99 Oxymask 4 06/14/23 12:10 98 Oxymask 8 06/14/23 09:25 93 Room Air 06/14/23 07:35 94 Room Air 06/14/23 07:19 06/14/23 07:15 Room Air 06/14/23 04:14 94 Room Air 06/14/23 00:22 06/13/23 23:12 98 Room Air 06/13/23 22:39 Room Air 06/13/23 20:04 94 Room Air 06/13/23 17:16 96 Room Air 06/13/23 15:00 Pain Intensity Mouth: Pain Intensity: 3 Transfer of Care Handoff Completed per policy Notes Mental Status: alert / awake / arousable and participated in evaluation Patient Amnestic to Procedure: Yes Nausea / Vomiting: adequately controlled Pain: adequately controlled Airway Patency, RR, SpO2: stable & adequate BP & HR: stable & adequate Hydration State: stable & adequate Anesthetic Complications: no major complications apparent and Pt Satisfied with anesthetic care
[2023-06-14] MEDS: MoRPHine SULFATE 2 MG/ML CARP IV STA (13:56)
[2023-06-14] MEDS ORDERED: AMPICILLIN SOD/SULBACTAM SOD 3 GM VIAL IV SCH (14:30)
--- NOTE | 2023-06-14 14:30 | Hospitalist Progress Note ---
Date of Service June 14, 2023 Assessment & Plan (1) Acute on chronic systolic (congestive) heart failure: Plan: Good response to up titration of parenteral Lasix dosage on June 09 with addition of metolazone. However, his creatinine bumped to 2.0 and further metolazone will be avoided. Creatinine now stable in the 1.8-1.9 range. Low blood pressure necessitated down titration of dosages of losartan and terazosin. Blood pressure is now stable. Monitor intake and output. Cardiology consultation appreciated. Chest x-ray done on June 13 looks better. (2) Acute respiratory failure with hypoxia: Plan: Resolved. He is now on room air. Continue to treat CHF (3) NICM (nonischemic cardiomyopathy): Plan: Most recent cardiac echo reveals ejection fraction of 40% with moderately severe mitral regurgitation. He already takes an ARB. Cardiology consultation appreciated. (4) H/O mechanical aortic valve replacement: Plan: history of rheumatic heart disease as a child, status post multiple mechanical aortic valve replacements. INR should be maintained between 2.5 and 3.5 on average. Coumadin has been discontinued and reversed with vitamin K. He is now on a heparin drip bridge until INR is back to therapeutic levels postoperatively. Coumadin has been restarted today, June 14. (5) Asthma: Plan: Stable. No exacerbation. Continue current medical management (6) Dyslipidemia: Plan: Stable. Continue statin therapy (7) Post traumatic stress disorder: Plan: Supportive care. Continue current medical management (8) Chronic dental infection: Plan: Multiple lower teeth extracted today, June 14. Unasyn has been started, day 1. Appreciate oral maxillofacial surgery consult and recommendations Plan Hopeful discharge to home yet this week once INR levels are therapeutic again and heparin drip has been stopped. Admission and Anticipated Discharge Date Admission Date: June 06, 2023 Subjective The patient was seen postoperatively after he had multiple teeth extracted from the mandible. There is evidence of infection. Unasyn has been started. He is currently on a heparin drip and Coumadin has been restarted. Will discontinue heparin drip once the INR is therapeutic again. Potassium intravenous riders ordered earlier this morning, June 14, for mild hypokalemia. Review of Systems 2 Review of Systems: Constitutional-no fever or chills ENT-no blurred vision, no double vision, no epistaxis, no sore throat. No active bleeding from multiple dental extraction areas in the mandible Respiratory-no cough, no wheezing. Dyspnea on exertion has improved Cardiac-no palpitations, no chest pain, no syncope GI-no nausea, vomiting, diarrhea, melena, hematochezia -no urinary retention, no urinary incontinence, no dysuria, no hematuria Musculoskeletal-no joint pain, no muscle tenderness Skin-no bruising, no rashes, no pruritus Neuro-no isolated weakness, no paresthesia Psych-no depression, no anxiety Physical Exam 2 Physical Exam: General-alert and oriented x3, no fevers, no chills HEENT-head atraumatic and normocephalic, pupils equal and reactive to light, extraocular muscles intact. Hemostasis noted at all mandible tooth extraction sites Neck-no lymphadenopathy or thyromegaly, trachea midline Chest-faint bibasilar inspiratory rales have resolved. No rhonchi. No wheezing Cardiac-regular rate and rhythm, normal S1 and S2 Abdomen-normal bowel sounds, nontender, no hepatosplenomegaly Extremities-no cyanosis, clubbing, or edema Neuro-cranial nerves II through XII intact, motor and sensory function within normal limits, strength symmetrical, no focal deficits Psych-flat affect Results & Data Results & Data Vital Signs (Past 12 Hours) Vital Signs Temp Pulse Pulse Pulse Resp BP BP 06/14/23 13:15 76 17 119/57 L 06/14/23 13:10 81 21 122/51 L 06/14/23 13:00 82 16 118/47 L 06/14/23 12:50 37.0 C 74 20 122/57 L 06/14/23 12:40 74 18 124/52 L 06/14/23 12:30 79 18 126/60 06/14/23 12:20 82 17 133/53 L 06/14/23 12:10 36.0 C L 83 12 140/49 L 06/14/23 09:25 36.5 C 87 20 115/48 L 06/14/23 07:35 36.6 C 83 16 117/46 L 06/14/23 07:19 82 06/14/23 07:15 06/14/23 04:14 36.6 C 64 18 105/43 L Pulse Ox O2 Del Method O2 Flow Rate 06/14/23 13:15 92 Room Air 0 06/14/23 13:10 92 Room Air 0 02/26/24 13:00 90 Room Air 0 06/14/23 12:50 92 Room Air 0 06/14/23 12:40 92 Room Air 0 06/14/23 12:30 96 Oxymask 2 06/14/23 12:20 99 Oxymask 4 06/14/23 12:10 98 Oxymask 8 06/14/23 09:25 93 Room Air 06/14/23 07:35 94 Room Air 06/14/23 07:19 06/14/23 07:15 Room Air 06/14/23 04:14 94 Room Air Laboratory Results 06/14/23 06:02 06/14/23 06:02 PG Care Time/CCT Total # of Minutes Spent Total Time Spent with Patient: Total time spent is greater than 50% in coordination of care (as documented) at patient's floor/unit and/or counseling patient: Coding Level of Care Code 14348 SUB INP/OBS CARE 3/50MIN Diagnoses Acute on chronic systolic (congestive) heart failure I50.23 Acute respiratory failure with hypoxia J96.01 NICM (nonischemic cardiomyopathy) I42.8 H/O mechanical aortic valve replacement Z95.2 Asthma J45.909 Dyslipidemia E78.5 Post traumatic stress disorder F43.10 Chronic dental infection K04.7
[2023-06-14] MEDS: UNASYN 3000MG / NS q6h IV SCH (16:25)
[2023-06-14] MEDS: WARFARIN SOD 7.5 MG TAB PO SCH (16:29)
[2023-06-14] MEDS: MoRPHine SULFATE 2 MG/ML CARP IV PRN (17:56)
[2023-06-14] MEDS: ONDANSETRON INJ 2 MG/ML 2 ML VIAL IV PRN (20:48)
[2023-06-15 06:06] LABS: Basophils # (auto) 0.01 K/uL (0.00-0.20); Basophils % (auto) 0.1 %; Eosinophils # (auto) 0.02 K/uL (0.00-0.50); Eosinophils % (auto) 0.3 %; Hematocrit (blood only) 31.9 % (42.0-52.0); Hemoglobin 10.6 g/dl (14.0-18.0); Immature Granulocytes # (auto) 0.02 K/uL (0.01-0.20); Immature Granulocytes % (auto) 0.3 %; Lymphocytes # (auto) 0.74 K/uL (1.20-3.40); Lymphocytes % (auto) 10.5 %; Mean Corpuscular Hemoglobin 29.8 pg (25.0-34.0); Mean Corpuscular Hgb Conc 33.2 g/dL (32.0-36.0); Mean Corpuscular Volume 89.6 fL (80.0-100.0); Mean Platelet Volume 12.1 fL (9.4-12.4); Monocytes # (auto) 0.43 K/uL (0.11-0.59); Monocytes % (auto) 6.1 %; Neutrophils % (auto) 82.7 %; Platelet Count 191 K/uL (130-400); RDW Coefficient of Variation 15.3 % (11.5-14.5); RDW Standard Deviation 50.1 fL (36.4-46.3); Red Blood Count 3.56 M/uL (4.70-6.10); White Blood Count 7.02 K/ul (4.8-10.8)
[2023-06-15 06:24] LABS: BUN Creatinine Ratio 25.6 (10-20); Calcium 8.8 mg/dl (8.6-10.3); Creatinine Clr Calc Pharmacy 45.4 ml/min; Est GFR (Non-African American) 35.3 ml/min; Potassium 4.3 mmol/L (3.5-5.1)
[2023-06-15 06:34] LABS: ANTI-Xa, UFH(UnfractionatedHep < 0.10 IU/ml (0.3-0.7); INR 1.2 (0.9-1.1); Prothrombin Time 12.5 Seconds (9.0-12.0)
[2023-06-15 09:06] LABS: Troponin I High Sensitivity 76.2 pg/ml (0-20)
[2023-06-15] MEDS: FUROSEMIDE 40 MG TAB PO SCH (10:02)
--- NOTE | 2023-06-15 10:45 | Electrocardiogram Report ---
Test Reason : Blood Pressure : / mmHG Vent. Rate : 083 BPM Atrial Rate : 083 BPM P-R Int : 220 ms QRS Dur : 112 ms QT Int : 454 ms P-R-T Axes : 072 051 194 degrees QTc Int : 533 ms Sinus rhythm with 1st degree A-V block Possible Left atrial enlargement Incomplete left bundle block Prolonged QT Abnormal ECG When compared with ECG of 06-JUN-2023 14:52, No significant change was found Confirmed by Anand Watters ([id number]) on 06/15/2023 10:45:15 AM Referred By: REFERRED SELF Confirmed By:Anand Watters
--- NOTE | 2023-06-15 10:50 | Cardiology Progress Note ---
Date of Service June 15, 2023 Assessment & Plan (1) Acute on chronic systolic (congestive) heart failure: (2) NICM (nonischemic cardiomyopathy): (3) H/O mechanical aortic valve replacement: (4) Severe aortic valve regurgitation: (5) Mitral regurgitation: (6) Ascending aortic aneurysm: Plan Mr. 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, and twice in 1982), Mild Concentric LVH, Ascending Thoracic Aortic Aneurysm (4.[address] Scan 06/25/22), Calcified Coronary Arteries (Presumed CAD), Asthma, Arthritis, Depression, Lipomatosis, and a recently diagnosed Cardiomyopathy who was noted to have Reduced LV Systolic Function (LVEF 40% to 45% with global hypokinesis) with a Dilated LV, Ufhkazlv-jw-Maggeq MR, and a Severe Perivalvular Aortic Valve Insufficiency on Echocardiogram 03/16/23 who is currently admitted to [facility] with Acute on Chronic Combined Systolic and Diastolic CHF (Reduced LV Systolic Function, Severe Perivalvular AI, Moderate-to Severe MR) whom we were asked to re-evaluate for an atypical left sided chest pain. Patient noticed increased dyspnea on exertion/shortness beginning in June 2022 and this progressed as time passed. When he complained of this, we did an Echocardiogram which showed newly reduced LV systolic function with an LVEF of 40% to 45% as well as valvular heart disease and an ascending thoracic aortic aneurysm. He was also noted to have heavily calcified coronary arteries so we arranged for Cardiac Catheterization which was carried out on 05/20/23 and showed: 1. Angiographically normal coronary arteries 2. Borderline cardiac output 3. Moderate pulmonary hypertension (combined pre and post capillary) 4. Elevated left-sided filling pressures. 5. Dilated aortic root/ascending aorta. 6. Mechanical AVR with 3+ aortic regurgitation (suspected paravalvular leak) Recommendations: -- Repeat echo, CARLYN to reassess valve disease. -- Continue recently started diuretics. -- Continue GDMT for nonischemic cardiomyopathy. -- Refer to Cardiothoracic Surgery to address redo AVR, graft/repair ascending thoracic aorta +/- mitral valve repair. He did have a follow-up CARLYN with Dr. Martinez. Patient was seen by Cardiothoracic Surgery at [facility] who will proceed with the surgery, but he needed to have teeth pulled/dental work prior to proceeding due to multiple infected teeth, carious teeth, and poor dentition in general. During this hospitalization he had his teeth all removed in a staged procedure with Dr. Ramirez and is currently recovering from that oral surgery. Patient is currently being seen in room 286 bed 1 and he does complain of an intermittent nonexertional chest discomfort across his left upper chest which seems to come and go random, does not radiate, and it is without associated symptoms. He specifically denies any associated nausea, vomiting, diaphoresis, or worsening dyspnea. Patient has been coughing frequently due to his heart failure which is likely contributing to his chest pain. He also thinks that anxiety is playing a role. I have reassured the patient that this is most likely noncardiac in origin as he had completely normal coronary arteries on cardiac catheterization on 05/20/23 -- I suspect it is musculoskeletal origin related to increased work of breathing and frequent coughing while in heart failure. Ultimately, his valvular heart disease and ascending thoracic aorta need to be addressed surgically -- even if it requires a direct transfer from [facility] to [facility]. Recommend the followin. Continue to monitor daily body weights, I&Os. 2. Treat underlying anxiety, would recommend an as benzodiazepine such as Klonopin or Lorazepam on an as-needed basis. 3. Continue Toprol XL 25 mg daily. 4. Continue Lasix 40 mg daily. 5. Continue Potassium Chloride 20 mEq daily. 6. Continue Warfarin. 7. Continue Aspirin 81 mg daily. 8. Continue Atorvastatin 10 mg daily. 9. Continue Losartan 50 mg daily 10. Continue prazosin 10 mg q.h.s. 11. Low sodium diet. 12. Monitor laboratories as needed. Admission and Anticipated Discharge Date Admission Date: June 06, 2023 Subjective Mr. 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, and twice in 1982), Mild Concentric LVH, Ascending Thoracic Aortic Aneurysm (4.[address] Scan 06/25/22), Calcified Coronary Arteries (Presumed CAD), Asthma, Arthritis, Depression, Lipomatosis, and a recently diagnosed Cardiomyopathy who was noted to have Reduced LV Systolic Function (LVEF 40% to 45% with global hypokinesis) with a Dilated LV, Csxnvxdi-dn-Nrrave MR, and a Severe Perivalvular Aortic Valve Insufficiency on Echocardiogram 03/16/23 who is currently admitted to [facility] with Acute on Chronic Combined Systolic and Diastolic CHF (Reduced LV Systolic Function, Severe Perivalvular AI, Moderate-to Severe MR) whom we were asked to re-evaluate for left sided chest pain. Patient is currently being seen in room 286 bed 1 and he does complain of an intermittent nonexertional chest discomfort across his left upper chest which seems to come and go at random, does not radiate, and it is without associated symptoms. He specifically denies any associated nausea, vomiting, diaphoresis, or worsening dyspnea. Patient has been coughing frequently due to his heart failure which is likely contributing to his chest pain. He also thinks that anxiety is playing a role. Review of Systems Review of Systems: -- He still experiences dyspnea and orth opnea. -- 10 point ROS completed and is negativ e with the exception of what is mentioned in the HPI. Physical Exam Physical Exam: Blood pressure is 112/62. Pulse 78 and regular. GENERAL: Patient in no acute distress. HEENT: Head is atraumatic, normocephalic. EOM's intact. Facies symmetric. No perioral cyanosis. NECK: No JVD. JVP is elevated. Carotid upstrokes are + 2 bilaterally without bruits. Audible aortic valve closure sound in the carotids. CHEST/LUNGS: Mildly diminished breath sounds throughout, with bibasilar crackles. No wheezes. CVS: S1 and S2 are regular with a crisp aortic valve closure sound and a grade 1/6 systolic ejection murmur heard at the right upper sternal border, and a grade 2/6 apical holosystolic murmur. No gallops or rubs. PMI is nondisplaced. No lifts, heaves, or thrills. No abdominal aortic or renal bruits. ABDOMINAL EXAM: Bowel sounds are present. No masses, organomegaly, or tenderness. EXTREMITIES: No clubbing or cyanosis. Trace bilateral pretibial edema. Intact radial pulses bilaterally. NEUROLOGIC EXAM: Patient is awake, alert, and oriented. Pleasant and cooperative. Answers questions appropriately. Speech is clear. Results & Data Vital Signs (Past 12 Hours) Vital Signs Temp Pulse Pulse Resp BP Pulse Ox O2 Del Method 06/15/23 10:26 79 06/15/23 08:00 36.2 C L 82 14 112/62 83 L Room Air 06/15/23 02:56 36.8 C 80 18 112/40 L 91 Room Air 06/15/23 00:25 83 Laboratory Results Laboratory Results - last 24 hr 06/15/23 05:49 WBC 7.02 RBC 3.56 L Hgb 10.6 L Hct 31.9 L MCV 89.6 MCH 29.8 MCHC 33.2 RDW Std Deviation 50.1 H RDW Coeff of Kacey 15.3 H Plt Count 191 MPV 12.1 Immature Gran % (Auto) 0.3 Neut % (Auto) 82.7 Lymph % (Auto) 10.5 [place] % (Auto) 6.1 Eos % (Auto) 0.3 Baso % (Auto) 0.1 Neut # (Auto) 5.80 Lymph # (Auto) 0.74 L [place] # (Auto) 0.43 Eos # (Auto) 0.02 Baso # (Auto) 0.01 Immature Gran # (Auto) 0.02 PT 12.5 H INR 1.2 H Heparin Anti-Xa, Unfract < 0.10 L Sodium 136 Potassium 4.3 D Chloride 102 Carbon Dioxide 26 Anion Gap 8 BUN 52 H Creatinine 2.03 H Est Cr Clr Drug Dosing 45.4 Est GFR ( Amer) 41.0 Est GFR (Non-Af Amer) 35.3 BUN/Creatinine Ratio 25.6 H Glucose 132 H Calcium 8.8 Troponin I High Sens 76.2 H* Diagnostic Findings CXR 06/13/23: 1. Interval improvement in the pulmonary edema and small bilateral pleural effusions. 2. The right basilar densities have also slightly improved and may represent a component of the pulmonary edema. Medications Administered Medication List Aspirin (Aspirin 81 Mg Ectab) 81 mg PO [facility] Stop: 07/07/23 08:59 Last Admin: 06/15/23 10:04 Dose: 81 mg Documented By: Admin: 06/14/23 16:39 Dose: 81 mg Documented By: Admin: 06/13/23 08:18 Dose: 81 mg Documented By: Admin: 06/12/23 09:26 Dose: 81 mg Documented By: Admin: 06/11/23 14:16 Dose: 81 mg Documented By: Admin: 06/10/23 09:02 Dose: 81 mg Documented By: Admin: 06/09/23 08:42 Dose: 81 mg Documented By: Admin: 06/08/23 09:51 Dose: 81 mg Documented By: Admin: 06/07/23 09:20 Dose: 81 mg Documented By: JASE Atorvastatin Calcium (Atorvastatin 10 Mg Tab) 10 mg PO DAILY [facility] Stop: 07/07/23 08:59 Last Admin: 06/15/23 10:05 Dose: 10 mg Documented By: Admin: 06/14/23 16:41 Dose: 10 mg Documented By: Admin: 06/13/23 08:16 Dose: 10 mg Documented By: Admin: 06/12/23 09:25 Dose: 10 mg Documented By: Admin: 06/11/23 14:21 Dose: 10 mg Documented By: Admin: 06/10/23 09:02 Dose: 10 mg Documented By: Admin: 06/09/23 08:42 Dose: 10 mg Documented By: Admin: 06/08/23 09:51 Dose: 10 mg Documented By: Admin: 06/07/23 09:20 Dose: 10 mg Documented By: JASE Benzonatate (Benzonatate 100 Mg Capsule) 100 mg PO TID JOVANY Stop: 07/13/23 13:59 Last Admin: 06/15/23 10:04 Dose: 100 mg Documented By: Admin: 06/14/23 19:37 Dose: 100 mg Documented By: Admin: 06/14/23 16:38 Dose: 100 mg Documented By: Admin: 06/14/23 13:46 Dose: Not Given Documented By: Admin: 06/13/23 20:03 Dose: 100 mg Documented By: Admin: 06/13/23 12:56 Dose: 100 mg Documented By: MC Bupropion HCl (Bupropion Xl 300 Mg Tabcr) 300 mg PO HS JOVANY Stop: 07/07/23 00:49 Last Admin: 06/14/23 19:15 Dose: 300 mg Documented By: Admin: 06/13/23 20:03 Dose: 300 mg Documented By: Admin: 06/12/23 20:25 Dose: 300 mg Documented By: Admin: 06/11/23 20:09 Dose: 300 mg Documented By: Admin: 06/10/23 19:35 Dose: 300 mg Documented By: DMSamia Admin: 06/09/23 19:19 Dose: 300 mg Documented By: Admin: 06/08/23 20:12 Dose: 300 mg Documented By: Admin: 06/07/23 21:38 Dose: 300 mg Documented By: Admin: 06/07/23 02:32 Dose: 300 mg Documented By: MG Fluticasone Furoate (Fluticasone Furoate 100mcg 14 Puffs/Inhaler) 1 puffs INH DAILY JOVANY Stop: 07/07/23 08:59 Last Admin: 06/15/23 10:03 Dose: 1 puffs Documented By: Admin: 06/14/23 09:07 Dose: 1 puffs Documented By: Admin: 06/13/23 08:14 Dose: 1 puffs Documented By: Admin: 06/12/23 09:27 Dose: 1 puffs Documented By: KKJamie Admin: 06/11/23 14:18 Dose: 1 puffs Documented By: Admin: 06/10/23 09:03 Dose: 1 puffs Documented By: Admin: 06/09/23 08:43 Dose: 1 puffs Documented By: Admin: 06/08/23 09:52 Dose: 1 puffs Documented By: Admin: 06/07/23 09:26 Dose: 1 puffs Documented By: JASE Furosemide (Furosemide 40 Mg Tab) 40 mg PO QAM JOVANY Stop: 07/15/23 08:59 Last Admin: 06/15/23 10:02 Dose: 40 mg Documented By: LMS Ampicillin Sodium/Sulbactam Sodium 3,000 mg/ Sodium Chloride 100 mls @ 200 mls/hr IV Q6H JOVANY Stop: 06/21/23 14:59 Last Infusion: 06/15/23 10:06 Dose: Infused Documented By: Admin: 06/15/23 07:35 Dose: 100 mls/hr Documented By: Infusion: 06/15/23 02:52 Dose: Infused Documented By: Admin: 06/15/23 02:21 Dose: 200 mls/hr Documented By: Infusion: 06/14/23 20:18 Dose: Infused Documented By: Admin: 06/14/23 19:41 Dose: 200 mls/hr Documented By: Infusion: 06/14/23 17:31 Dose: Infused Documented By: Admin: 06/14/23 16:25 Dose: 200 mls/hr Documented By: MC Losartan Potassium (Losartan Potassium 25 Mg Tab) 25 mg PO DAILY JOVANY Stop: 07/11/23 08:59 Last Admin: 06/14/23 16:40 Dose: 25 mg Documented By: Admin: 06/13/23 08:16 Dose: 25 mg Documented By: Admin: 06/12/23 09:27 Dose: 25 mg Documented By: Admin: 06/11/23 14:19 Dose: 25 mg Documented By: DARIEN Metoprolol Succinate (Metoprolol Succ 25mg Ext Rel Tab) 25 mg PO DAILY JOVANY Stop: 07/07/23 08:59 Last Admin: 06/14/23 16:39 Dose: 25 mg Documented By: Admin: 06/13/23 08:18 Dose: Not Given Documented By: Admin: 06/12/23 09:26 Dose: 25 mg Documented By: Admin: 06/11/23 14:17 Dose: Not Given Documented By: Admin: 06/10/23 09:02 Dose: 25 mg Documented By: Admin: 06/09/23 08:44 Dose: 25 mg Documented By: Admin: 06/08/23 09:51 Dose: 25 mg Documented By: Admin: 06/07/23 09:25 Dose: 25 mg Documented By: JASE Morphine Sulfate (Morphine Sulfate 2 Mg/Ml Carp) 2 mg IV Q3H PRN PRN Reason: Pain Stop: 06/28/23 13:45 Last Admin: 06/15/23 07:35 Dose: 2 mg Documented By: Admin: 06/14/23 17:56 Dose: 2 mg Documented By: MC Ondansetron HCl (Ondansetron Inj 2 Mg/Ml 2 Ml Vial) 4 mg IV Q6H PRN PRN Reason: Nausea Stop: 07/07/23 00:49 Last Admin: 06/15/23 07:34 Dose: 4 mg Documented By: Admin: 06/15/23 04:22 Dose: 4 mg Documented By: Admin: 06/14/23 20:48 Dose: 4 mg Documented By: CAR Prazosin HCl (Prazosin Hcl 1 Mg Cap) 5 mg PO QPM JOVANY Stop: 07/11/23 20:59 Last Admin: 06/14/23 19:37 Dose: 5 mg Documented By: Admin: 06/13/23 20:03 Dose: 5 mg Documented By: Admin: 06/12/23 20:25 Dose: 5 mg Documented By: Admin: 06/11/23 20:09 Dose: 5 mg Documented By: CAMELIA Sertraline HCl (Sertraline Hcl 50 Mg Tablet) 50 mg PO DAILY JOVANY Stop: 07/07/23 08:59 Last Admin: 06/15/23 10:04 Dose: 50 mg Documented By: Admin: 06/14/23 16:41 Dose: 50 mg Documented By: Admin: 06/13/23 08:16 Dose: 50 mg Documented By: Admin: 06/12/23 09:25 Dose: 50 mg Documented By: Admin: 06/11/23 14:18 Dose: 50 mg Documented By: Admin: 06/10/23 09:02 Dose: 50 mg Documented By: Admin: 06/09/23 08:42 Dose: 50 mg Documented By: Admin: 06/08/23 09:51 Dose: 50 mg Documented By: Admin: 06/07/23 09:22 Dose: 50 mg Documented By: JASE Trazodone HCl (Trazodone Hcl 50 Mg Tab) 50 mg PO HS JOVANY Stop: 07/07/23 00:49 Last Admin: 06/14/23 19:37 Dose: 50 mg Documented By: Admin: 06/13/23 20:02 Dose: 50 mg Documented By: Admin: 06/12/23 20:24 Dose: 50 mg Documented By: Admin: 06/11/23 20:09 Dose: 50 mg Documented By: Admin: 06/10/23 19:35 Dose: 50 mg Documented By: Admin: 06/09/23 21:17 Dose: 50 mg Documented By: Admin: 06/08/23 20:12 Dose: 50 mg Documented By: Admin: 06/07/23 21:38 Dose: 50 mg Documented By: Admin: 06/07/23 02:32 Dose: 50 mg Documented By: MG Umeclidinium/Vilanterol (Umeclidinium/Vilanterol 62.5/25mcg 7 Puffs/Inhaler) 1 puffs INH DAILY [facility] Stop: 07/07/23 08:59 Last Admin: 06/15/23 10:03 Dose: 1 puffs Documented By: Admin: 06/14/23 09:08 Dose: 1 puffs Documented By: Admin: 06/13/23 08:14 Dose: 1 puffs Documented By: Admin: 06/12/23 09:27 Dose: 1 puffs Documented By: Admin: 06/11/23 14:18 Dose: 1 puffs Documented By: Admin: 06/10/23 09:03 Dose: 1 puffs Documented By: Admin: 06/09/23 08:43 Dose: 1 puffs Documented By: Admin: 06/08/23 09:52 Dose: 1 puffs Documented By: Admin: 06/07/23 09:23 Dose: 1 puffs Documented By: JASE Warfarin Sodium (Warfarin Sod 7.5 Mg Tab) 7.5 mg PO DAILY@1600 [facility] Stop: 07/14/23 15:59 Last Admin: 06/14/23 16:29 Dose: 7.5 mg Documented By: LMS Discontinued Medications Benzocaine/Butamben/Tetracaine HCl (Benzocaine/Tetracain/Butam 50 Appln/5 Gm Can) Confirm Administered Dose 50 appln EXT .STK-MED ONE Stop: 06/11/23 11:07 Last Admin: 06/11/23 12:20 Dose: 50 appln Documented By: JOSEK Benzonatate (Benzonatate 100 Mg Capsule) 100 mg PO TID PRN PRN Reason: cough Stop: 07/08/23 08:59 Last Admin: 06/13/23 08:21 Dose: 100 mg Documented By: Admin: 06/12/23 09:35 Dose: 100 mg Documented By: Admin: 06/11/23 21:12 Dose: 100 mg Documented By: Admin: 06/11/23 14:49 Dose: 100 mg Documented By: Admin: 06/10/23 20:52 Dose: 100 mg Documented By: Admin: 06/10/23 09:08 Dose: 100 mg Documented By: Admin: 06/08/23 15:55 Dose: 100 mg Documented By: Admin: 06/07/23 23:04 Dose: 100 mg Documented By: KARUNA Fentanyl Citrate (Fentanyl Citrate Pf 100 Mcg/2 Ml Vial) Confirm Administered Dose 100 mcg .ROUTE .STK-MED ONE Stop: 06/11/23 11:07 Last Increment: 06/11/23 12:19 Dose: 50 mcg Documented By: ALANA Furosemide (Furosemide 40 Mg/4 Ml Vial) 40 mg IV ONE ONE Stop: 06/06/23 16:33 Last Admin: 06/06/23 17:41 Dose: 40 mg Documented By: FLORIN Furosemide (Furosemide 40 Mg/4 Ml Vial) 40 mg IV BID17 [facility]ANY Stop: 07/07/23 08:59 Last Admin: 06/09/23 08:49 Dose: 40 mg Documented By: Admin: 06/08/23 16:55 Dose: 40 mg Documented By: Admin: 06/08/23 09:56 Dose: 40 mg Documented By: Admin: 06/07/23 16:23 Dose: 40 mg Documented By: Admin: 06/07/23 09:29 Dose: 40 mg Documented By: JASE Furosemide (Furosemide 40 Mg/4 Ml Vial) 60 mg IV BID17 JOVANY Stop: 07/09/23 16:59 Last Admin: 06/12/23 09:24 Dose: 60 mg Documented By: Admin: 06/11/23 17:31 Dose: 60 mg Documented By: Admin: 06/11/23 14:58 Dose: Not Given Documented By: Admin: 06/10/23 16:55 Dose: 60 mg Documented By: Admin: 06/10/23 09:03 Dose: 60 mg Documented By: Admin: 06/09/23 16:24 Dose: 60 mg Documented By: SNEHAL Furosemide (Furosemide 40 Mg/4 Ml Vial) 60 mg IV DAILY JOVANY Stop: 07/13/23 08:59 Last Admin: 06/14/23 13:46 Dose: Not Given Documented By: Admin: 06/13/23 08:19 Dose: 60 mg Documented By: MC Magnesium Sulfate/Dextrose (Magnesium Sulfate / D5w) 1 gm in 100 mls @ 50 mls/hr IV Q2H [facility]OVANY Stop: 06/07/23 04:49 Last Infusion: 06/07/23 06:30 Dose: Infused Documented By: Admin: 06/07/23 04:24 Dose: 50 mls/hr Documented By: Infusion: 06/07/23 04:24 Dose: Infused Documented By: Admin: 06/07/23 02:33 Dose: 50 mls/hr Documented By: MG Heparin Sodium/Dextrose (Heparin Sodium/Dextrose) 25,000 units in 500 mls @ 0 mls/hr IV .Q0M JOVANY; Protocol Stop: 07/13/23 12:14 Last Titration: 06/14/23 19:00 Dose: Infused Documented By: AMS Co-signed By: LMS Admin: 06/14/23 03:12 Dose: Not Given Documented By: Titration: 06/14/23 03:10 Dose: 0 units/hr, 0 mls/hr Documented By: CAMELIA Co-signed By: CHAZ Titration: 06/13/23 18:51 Dose: 1,500 units/hr, 30 mls/hr Documented By: MC Co-signed By: CAMELIA Admin: 06/13/23 12:48 Dose: 1,500 units/hr, 30 mls/hr Documented By: MC Co-signed By: RALEIGH Phytonadione 5 mg/ Dextrose 50.5 mls @ 101 mls/hr IV ONE ONE Stop: 06/13/23 12:44 Last Infusion: 06/13/23 13:31 Dose: Infused Documented By: Admin: 06/13/23 12:11 Dose: 101 mls/hr Documented By: MC Potassium Chloride (K Shun / Wtr) 10 meq in 100 mls @ 100 mls/hr IV Q1H [facility] Stop: 06/14/23 09:29 Last Infusion: 06/14/23 17:31 Dose: Infused Documented By: Admin: 06/14/23 08:47 Dose: 100 mls/hr Documented By: Infusion: 06/14/23 08:30 Dose: Infused Documented By: Admin: 06/14/23 07:30 Dose: 100 mls/hr Documented By: LMJamie Cefazolin Sodium (Ancef 2000mg) 2,000 mg in 15 mls @ 3.75 mls/min IV PREOP ONE; Protocol Stop: 06/14/23 10:38 Last Admin: 06/14/23 10:59 Dose: 3.75 mls/min Documented By: RENE Lactated Ringer's (Lr) 1,000 mls @ 15 mls/hr IV .Q24H [facility]OVANY Stop: 07/14/23 10:44 Last Infusion: 06/14/23 10:56 Dose: Infused Documented By: Admin: 06/14/23 10:43 Dose: 15 mls/hr Documented By: TSERING Cefazolin Sodium (Ancef 2000mg) 2,000 mg in 15 mls @ 3.75 mls/min IV ONE ONE; Protocol Stop: 06/14/23 13:03 Last Admin: 06/14/23 13:57 Dose: 3.75 mls/min Documented By: LMJamie Ioversol (Optiray 320 125ml) 118 ml IV ONCE ONE Stop: 06/06/23 17:10 Last Admin: 06/06/23 17:12 Dose: 118 ml Documented By: SID Levalbuterol HCl (Levalbuterol Hcl 0.63 Mg/3 Ml Neb) 0.63 mg NEB NOW STA; Protocol Stop: 06/06/23 16:02 Last Admin: 06/06/23 17:41 Dose: 0.63 mg Documented By: FLORIN Losartan Potassium (Losartan Potassium 50 Mg Tab) 50 mg PO DAILY [facility]ANY Stop: 07/07/23 08:59 Last Admin: 06/10/23 09:02 Dose: 50 mg Documented By: Admin: 06/09/23 08:42 Dose: 50 mg Documented By: Admin: 06/08/23 09:51 Dose: 50 mg Documented By: Admin: 06/07/23 09:25 Dose: 50 mg Documented By: JASE Metolazone (Metolazone 5 Mg Tablet) 5 mg PO NOW ONE Stop: 06/09/23 13:10 Last Admin: 06/09/23 15:17 Dose: 5 mg Documented By: SNEHAL Metolazone (Metolazone 5 Mg Tablet) 5 mg PO NOW ONE Stop: 06/10/23 09:56 Last Admin: 06/10/23 11:32 Dose: 5 mg Documented By: JOSEPH Midazolam HCl (Midazolam Hcl 5 Mg/Ml 1 Ml Vial) Confirm Administered Dose 5 mg .ROUTE .STK-MED ONE Stop: 06/11/23 11:07 Last Increment: 06/11/23 12:20 Dose: 2 mg Documented By: ALANA Morphine Sulfate (Morphine Sulfate 2 Mg/Ml Carp) 2 mg IV NOW STA Stop: 06/14/23 13:45 Last Admin: 06/14/23 13:56 Dose: 2 mg Documented By: WADES Potassium Chloride (Potassium Chloride Crtab 20 Meq Tabcr) 20 meq PO NOW ONE Stop: 06/11/23 09:49 Last Admin: 06/11/23 18:53 Dose: Not Given Documented By: DARIEN Potassium Chloride (Potassium Chloride Crtab 20 Meq Tabcr) 40 meq PO NOW ONE Stop: 06/12/23 10:12 Last Admin: 06/12/23 12:47 Dose: 40 meq Documented By: DARIEN Prazosin HCl (Prazosin Hcl 1 Mg Cap) 10 mg PO QPM [facility] Stop: 07/07/23 00:49 Last Admin: 06/10/23 19:35 Dose: 10 mg Documented By: Admin: 06/09/23 19:19 Dose: 10 mg Documented By: Admin: 06/08/23 20:12 Dose: 10 mg Documented By: Admin: 06/07/23 21:38 Dose: 10 mg Documented By: Admin: 06/07/23 02:32 Dose: 10 mg Documented By: MG Warfarin Sodium (Warfarin Sod 7.5 Mg Tab) 7.5 mg PO MoWeFr@1600 [facility] Stop: 07/07/23 15:59 Last Admin: 06/07/23 15:10 Dose: Not Given Documented By: YULIET Warfarin Sodium (Warfarin Sod 5 Mg Tab) 5 mg PO 1600 ONE Stop: 06/07/23 16:01 Last Admin: 06/07/23 16:22 Dose: 5 mg Documented By: JASE Warfarin Sodium (Warfarin Sod 5 Mg Tab) 5 mg PO DAILY@1600 [facility] Stop: 07/09/23 15:59 Last Admin: 06/11/23 17:30 Dose: 5 mg Documented By: Admin: 06/10/23 16:55 Dose: 5 mg Documented By: Admin: 06/09/23 16:23 Dose: 5 mg Documented By: SNEHAL PG Care Time/CCT Total # of Minutes Spent Total Time Spent with Patient: Total time spent is greater than 50% in coordination of care (as documented) at patient's floor/unit and/or counseling patient:37 [place] [address] SUB INP/OBS CARE 3/50MIN Patient Type Established History Comprehensive Exam Comprehensive Medical Decision Making High Complexity Diagnoses Acute on chronic systolic (congestive) heart failure I50.23 NICM (nonischemic cardiomyopathy) I42.8 H/O mechanical aortic valve replacement Z95.2 Severe aortic valve regurgitation I35.1 Rheumatic mitral regurgitation I05.1 Cardiac valve disease etiology: rheumatic Aneurysm of ascending aorta without rupture I71.21 Presence of rupture: without rupture Time Spent (min) 55 (5) Mitral regurgitation Cardiac valve disease etiology: rheumatic Qualified Code(s): I05.1 - Rheumatic mitral insufficiency (6) Ascending aortic aneurysm Presence of rupture: without rupture Qualified Code(s): I71.21 - Aneurysm of the ascending aorta, without rupture
[2023-06-15] MEDS: hydrOXYzine HCl 25 MG TAB PO PRN (11:37)
[2023-06-15] MEDS: HEPARIN SODIUM/DEXTROSE 25,000 UNITS/500 ML BAG IV SCH (13:49)
[2023-06-15] MEDS: Heparin IV Adult Wt-Based Standard *NO* INITIAL Bolus Protocol IV STA (14:29)
--- NOTE | 2023-06-15 17:43 | Hospitalist Progress Note ---
Date of Service June 15, 2023 Assessment & Plan (1) Acute on chronic systolic (congestive) heart failure: Plan: Presented with several days of shortness of breath, chest pain, found to have an elevated BNP and mildly elevated troponin consistent with myocardial demand ischemia Acute on chronic HFrEF with known mildly reduced EF of 40-45% He is s/p mechanical aortic valve replacement x 3 and has a known periaortic valve leak and moderate to severe MR Transesophageal echocardiogram here shows grossly normal LV, moderate to severe MR, mechanical aortic valve with perivalvular leak, ascending aortic aneurysm He had good response to IV Lasix with addition of metolazone. However, his creatinine bumped to 2.0 and further metolazone will be avoided. Low blood pressure necessitated down titration of dosages of losartan and terazosin. Will now hold losartan Convert from IV Lasix back to home dose of Lasix 40 Mg p.o. once daily Blood pressure is now stable. Monitor intake and output, Daily weights, low-sodium diet Monitor renal function with BMP and keep electrolytes replete Cardiology consultation appreciated-plan for close follow-up with surgeon at [facility] in [place] as he needs repeat aortic valve replacement as well as likely thoracic aortic aneurysm repair Chest x-ray done on June 13 looks better Continue Toprol-XL 25 mg daily (2) Acute respiratory failure with hypoxia: Plan: Resolved. He is now on room air. Continue to treat CHF (3) Chronic dental infection: Plan: Multiple lower teeth extracted June 14 At cardiothoracic surgeon's request prior to heart valve replacement. Appreciate OMFS management Continue Unasyn Continue clear liquids diet Discontinue morphine as this may be causing nausea and vomiting, increase Tylenol dose to 1000 Mg p.o. every 8 hours as needed pain (4) DUDLEY (acute kidney injury): Plan: Creatinine elevated at 2.0, with baseline creatinine 1.0-1.4 This is secondary to aggressive diuresis Reverting back to p.o. diuretics today Follow BMP (5) Anemia: Plan: Hemoglobin stable at 10.6, normocytic. Baseline hemoglobin is 11-12 Recent TSH normal No iron studies, B12 or folate in our system Likely anemia of chronic kidney disease but will check these levels in the morning as hemoglobin is dropping Also add LDH, reticulocytes, haptoglobin, and LFTs given mechanical aortic valve to look for hemolysis especially as total bilirubin has been elevated (6) Nausea & vomiting: Plan: Possibly secondary to morphine-discontinue morphine Antiemetics as needed Clear liquids diet (7) H/O mechanical aortic valve replacement: Plan: With a history of rheumatic heart disease as a child, status post multiple mechanical aortic valve replacements. INR should be maintained between 2.5 and 3.5 on average. Coumadin was held and reversed with vitamin K for his oral surgery. Resume his heparin drip bridge until INR is back to therapeutic levels postoperatively. Continue Coumadin and follow INR Needs close follow-up and valve replacement at [place] If decompensates from heart failure standpoint, would transfer directly to [place] (8) Asthma: Plan: Stable. No exacerbation. Continue current medical management (9) Dyslipidemia: Plan: Stable. Continue statin therapy (10) Post traumatic stress disorder: Plan: Supportive care. Continue current medical management with bupropion, hydroxyzine as needed, prazosin, trazodone (11) Ascending aortic aneurysm: Plan: Needs repair likely Following with cardiothoracic surgery (12) Elevated troponin: Plan: Mild elevation on admission secondary to myocardial demand ischemia Just had cardiac catheterization on 05/20/2023 with nonobstructive CAD With some atypical left-sided chest pain likely noncardiac-repeat troponin down from previous (13) Mitral regurgitation: Plan: Moderate to severe Follows with cardiology and cardiothoracic surgery Plan Disposition-continued stay on telemetry unit Admission and Anticipated Discharge Date Admission Date: June 06, 2023 Subjective Patient feels lousy. Has some soreness through the gums from his dental extraction. Has some left-sided chest pain occasionally that goes away. He feels it may be related to anxiety. He does report some occasional shortness of breath. I discussed his care with cardiology. He also reports having nausea and some vomiting today. He is moving his bowels. Telemetry with normal sinus rhythm with rates in the 60s to 80s Physical Exam Constitutional: WD/WN, vitals as above ENMT: Mouth: + dentition abnormality (Edentulous, bruised gums, no active bleeding) Respiratory: normal respiratory effort, lungs clear to auscultation Cardiovascular: Rate/Rhythm: regular rate and regular rhythm Heart Sounds: + murmur (2/6 holosystolic murmur) Extremities: no edema Gastrointestinal (Abdomen): normal bowel sounds, soft, nontender, no hepatosplenomegaly Psychiatric: A+Ox3, euthymic affect Results & Data Results & Data Vital Signs (Past 12 Hours) Vital Signs Temp Pulse Pulse Pulse Resp BP Pulse Ox 06/15/23 16:03 36.7 C 79 16 111/44 L 91 06/15/23 11:11 36.5 C 71 16 112/70 95 06/15/23 11:03 36.5 C 78 16 111/58 L 86 L 06/15/23 10:26 79 06/15/23 08:00 36.2 C L 82 14 112/62 83 L O2 Del Method 06/15/23 16:03 Room Air 06/15/23 11:11 Room Air 06/15/23 11:03 Room Air 06/15/23 10:26 06/15/23 08:00 Room Air Laboratory Results CBC, BMP, INR reviewed PG Care Time/CCT Total # of Minutes Spent Total Time Spent with Patient: Total time spent is greater than 50% in coordination of care (as documented) at patient's floor/unit and/or counseling patient: Coding Level of Care Code 72417 SUB INP/OBS CARE 3/50MIN Diagnoses Acute on chronic systolic (congestive) heart failure I50.23 Acute respiratory failure with hypoxia J96.01 Chronic dental infection K04.7 DUDLEY (acute kidney injury) N17.9 Anemia D64.9 Nausea & vomiting R11.2 H/O mechanical aortic valve replacement Z95.2 Asthma J45.909 Dyslipidemia E78.5 Post traumatic stress disorder F43.10 Aneurysm of ascending aorta without rupture I71.21 Presence of rupture: without rupture Elevated troponin R79.89 Rheumatic mitral regurgitation I05.1 Cardiac valve disease etiology: rheumatic (11) Ascending aortic aneurysm Presence of rupture: without rupture Qualified Code(s): I71.21 - Aneurysm of the ascending aorta, without rupture (13) Mitral regurgitation Cardiac valve disease etiology: rheumatic Qualified Code(s): I05.1 - Rheumatic mitral insufficiency
[2023-06-15 18:42] LABS: ANTI-Xa, LMWH(Low Molecular Wt 0.42 IU/ML (< 0.10)
[2023-06-16 06:07] LABS: Basophils # (auto) 0.03 K/uL (0.00-0.20); Basophils % (auto) 0.3 %; Eosinophils # (auto) 0.03 K/uL (0.00-0.50); Eosinophils % (auto) 0.3 %; Hematocrit (blood only) 32.3 % (42.0-52.0); Hemoglobin 10.5 g/dl (14.0-18.0); Immature Granulocytes # (auto) 0.05 K/uL (0.01-0.20); Immature Granulocytes % (auto) 0.6 %; Lymphocytes # (auto) 1.36 K/uL (1.20-3.40); Lymphocytes % (auto) 15.7 %; Mean Corpuscular Hemoglobin 29.7 pg (25.0-34.0); Mean Corpuscular Hgb Conc 32.5 g/dL (32.0-36.0); Mean Corpuscular Volume 91.2 fL (80.0-100.0); Mean Platelet Volume 12.2 fL (9.4-12.4); Monocytes # (auto) 0.44 K/uL (0.11-0.59); Monocytes % (auto) 5.1 %; Neutrophils # (auto) 6.78 K/uL (1.40-6.50); Platelet Count 196 K/uL (130-400); RDW Coefficient of Variation 15.5 % (11.5-14.5); RDW Standard Deviation 51.6 fL (36.4-46.3); Red Blood Count 3.54 M/uL (4.70-6.10); White Blood Count 8.69 K/ul (4.8-10.8)
[2023-06-16 06:20] LABS: Albumin Level 3.7 gm/dl (3.4-5.0); BUN Creatinine Ratio 23.5 (10-20); Bilirubin Direct 0.4 mg/dl (0-0.2); Calcium 8.5 mg/dl (8.6-10.3); Creatinine Clr Calc Pharmacy 35.4 ml/min; Est GFR (African American) 30.4 ml/min; Est GFR (Non-African American) 26.2 ml/min; Magnesium 2.4 mg/dl (1.7-2.4); Potassium 3.9 mmol/L (3.5-5.1); Total Protein 6.7 gm/dl (6.0-8.3)
[2023-06-16 06:29] LABS: INR 1.7 (0.9-1.1); Prothrombin Time 17.6 Seconds (9.0-12.0)
[2023-06-16 06:40] LABS: Ferritin 370.4 ng/ml (8-388)
[2023-06-16 06:43] LABS: ANTI-Xa, UFH(UnfractionatedHep 0.78 IU/ml (0.3-0.7)
[2023-06-16 06:46] LABS: Folate (Folic Acid),Ser orPlas 12.17 ng/ml (>5.38)
--- NOTE | 2023-06-16 12:40 | Oral/Maxillofacial Progress Nt ---
Date of Service June 15, 2023 Assessment & Plan Admission and Anticipated Discharge Date Admission Date: June 06, 2023 Subjective POST OP NOTE at 24 hours The patient did very well post operatively, healing is excellent. Oral care is good, minimal swelling as expected. Tissue tone =healthy normal tissue No sinus or nerve complications noted Excellent ROM Reviewed oral care, diet, home care. Still very sleepy and not out of bed as of yest. Will plan continued in patient status as per hospitalist team. I will see Werner on Jun 16. No Bleeding noted Overall: Excellent healing from recent oral surgery Results & Data Vital Signs (Past 12 Hours) Vital Signs Temp Pulse Pulse Pulse Pulse Resp BP 06/16/23 11:29 06/16/23 08:16 36.4 C L 76 14 06/16/23 08:16 80 06/16/23 07:38 36.3 C L 72 16 06/16/23 02:56 36.8 C 79 18 94/40 L BP Pulse Ox O2 Del Method 06/16/23 11:29 Room Air 06/16/23 08:16 96 Room Air 06/16/23 08:16 06/16/23 07:38 119/41 L 94 Room Air 06/16/23 02:56 93 Room Air PG Care Time/CCT Total # of Minutes Spent Total Time Spent with Patient: Total time spent is greater than 50% in coordination of care (as documented) at patient's floor/unit and/or counseling patient: Coding Level of Care Code None
[2023-06-16 13:32] LABS: ANTI-Xa, UFH(UnfractionatedHep 0.41 IU/ml (0.3-0.7)
--- NOTE | 2023-06-16 15:51 | Oral/Maxillofacial Progress Nt ---
Date of Service June 16, 2023 Assessment & Plan Admission and Anticipated Discharge Date Admission Date: June 06, 2023 Subjective POST OP NOTE at 48 hours The patient is doing very well post operatively, healing is excellent. Oral care is good, minimal swelling as expected. Tissue tone =healthy normal tissue No sinus issues, some paraesthesia lower left lip from swelling as expected Excellent ROM Sutures stable Reviewed oral care=when home--peridex rinse Reviewed diet, massage, exercise and continued home/oral care RTC to see me in 2 weeks from discharge Overall: Excellent healing from recent oral surgery Can be discharged when OK from Hospital medicine Suggest 1 week of oral antibiotics Pain Meds as needed--hopefully Tylenol will control other mccain Vicodin for a few days. Results & Data Vital Signs (Past 12 Hours) Vital Signs Temp Pulse Pulse Pulse Resp BP BP 06/16/23 15:35 36.5 C 82 16 118/61 06/16/23 12:35 36.5 C 76 12 108/40 L 06/16/23 11:29 06/16/23 08:16 36.4 C L 76 14 06/16/23 08:16 80 06/16/23 07:38 36.3 C L 72 16 119/41 L Pulse Ox O2 Del Method 06/16/23 15:35 94 Room Air 06/16/23 12:35 94 Room Air 06/16/23 11:29 Room Air 06/16/23 08:16 96 Room Air 06/16/23 08:16 06/16/23 07:38 94 Room Air PG Care Time/CCT Total # of Minutes Spent Total Time Spent with Patient: Total time spent is greater than 50% in coordination of care (as documented) at patient's floor/unit and/or counseling patient: Coding Level of Care Code 53230 SUB INP/OBS CARE 05/13MIN
--- NOTE | 2023-06-16 16:03 | Hospitalist Progress Note ---
Date of Service June 16, 2023 Assessment & Plan (1) Acute on chronic systolic (congestive) heart failure: Plan: Presented with several days of shortness of breath, chest pain, found to have an elevated BNP and mildly elevated troponin consistent with myocardial demand ischemia Acute on chronic HFrEF with known mildly reduced EF of 40-45% He is s/p mechanical aortic valve replacement x 3 and has a known periaortic valve leak and moderate to severe MR Transesophageal echocardiogram here shows grossly normal LV, moderate to severe MR, mechanical aortic valve with perivalvular leak, ascending aortic aneurysm He had good response to IV Lasix with addition of metolazone. However, developed acute kidney injury with creatinine up to 2.6 and further diuretics will be avoided. Low blood pressure necessitated down titration of dosages of losartan and terazosin. Will continue to hold losartan Continue to hold home oral Lasix until renal function improves Blood pressure is now stable. Monitor intake and output, Daily weights, low-sodium diet Monitor renal function with BMP and keep electrolytes replete Cardiology consultation appreciated-plan for close follow-up with surgeon at [facility] in [place] as he needs repeat aortic valve replacement as well as likely thoracic aortic aneurysm repair Chest x-ray done on June 13 looks better Continue Toprol-XL 25 mg daily (2) Acute respiratory failure with hypoxia: Plan: Resolved. He is now on room air. Continue to treat CHF (3) Chronic dental infection: Plan: Multiple lower teeth extracted June 14 At cardiothoracic surgeon's request prior to heart valve replacement. Appreciate OMFS management Continue Unasyn Advance to pured diet Continue chlorhexidine rinses twice daily Discontinued morphine as this was likely causing nausea and vomiting Continue Tylenol 1000 Mg p.o. every 8 hours as needed for pain (4) DUDLEY (acute kidney injury): Plan: Creatinine leif further to 2.6, with baseline creatinine 1.0-1.4 This is secondary to aggressive diuresis continue to hold diuretics and losartan Follow BMP (5) Anemia: Plan: Hemoglobin stable at 10.5, normocytic. Baseline hemoglobin is 11-12 Recent TSH normal iron studies, B12, and folate normal-anemia of chronic kidney disease However also with elevated total bilirubin, elevated LDH, elevated reticulocyte count, haptoglobin pending-could have some hemolysis from mechanical aortic valve and severe aortic regurgitation Follow CBC, pending haptoglobin, LFTs (6) Nausea & vomiting: Plan: Possibly secondary to morphine-discontinued morphine and now resolved Antiemetics as needed Advance diet (7) H/O mechanical aortic valve replacement: Plan: With a history of rheumatic heart disease as a child, status post multiple mechanical aortic valve replacements. INR should be maintained between 2.5 and 3.5 on average. Coumadin was held and reversed with vitamin K for his oral surgery. Continue heparin drip bridge until INR is back to therapeutic levels postoperatively. Continue Coumadin and follow INR-remains subtherapeutic at 1.7 Needs close follow-up and valve replacement at [place] If decompensates from heart failure standpoint, would transfer directly to [place] (8) Asthma: Plan: Stable. No exacerbation. Continue current medical management (9) Dyslipidemia: Plan: Stable. Continue statin therapy (10) Post traumatic stress disorder: Plan: Supportive care. Continue current medical management with bupropion, hydroxyzine as needed, prazosin, trazodone (11) Ascending aortic aneurysm: Plan: Needs repair likely Following with cardiothoracic surgery (12) Elevated troponin: Plan: Mild elevation on admission secondary to myocardial demand ischemia Just had cardiac catheterization on 05/20/2023 with nonobstructive CAD With some atypical left-sided chest pain likely noncardiac-repeat troponin down from previous (13) Mitral regurgitation: Plan: Moderate to severe Follows with cardiology and cardiothoracic surgery Plan Disposition-continued stay on telemetry unit Admission and Anticipated Discharge Date Admission Date: June 06, 2023 Subjective Patient reports no further nausea, oral pain is improved. Still has shortness of breath with exertion. Telemetry with normal sinus rhythm with rates in the 70s to 80s Physical Exam Constitutional: WD/WN, vitals as above ENMT: Mouth: + dentition abnormality (Edentulous, bruised gums, no active bleeding) Respiratory: normal respiratory effort, lungs clear to auscultation Cardiovascular: Rate/Rhythm: regular rate and regular rhythm Heart Sounds: + murmur (2/6 holosystolic murmur) Extremities: no edema Gastrointestinal (Abdomen): normal bowel sounds, soft, nontender, no hepatosplenomegaly Psychiatric: A+Ox3, euthymic affect Results & Data Results & Data Vital Signs (Past 12 Hours) Vital Signs Temp Pulse Pulse Pulse Resp BP BP 06/16/23 15:35 36.5 C 82 16 118/61 06/16/23 12:35 36.5 C 76 12 108/40 L 06/16/23 11:29 06/16/23 08:16 36.4 C L 76 14 06/16/23 08:16 80 06/16/23 07:38 36.3 C L 72 16 119/41 L Pulse Ox O2 Del Method 06/16/23 15:35 94 Room Air 06/16/23 12:35 94 Room Air 06/16/23 11:29 Room Air 06/16/23 08:16 96 Room Air 06/16/23 08:16 06/16/23 07:38 94 Room Air Laboratory Results CBC, CMP, LDH, INR, iron studies, B12 and folate, magnesium reviewed PG Care Time/CCT Total # of Minutes Spent Total Time Spent with Patient: Total time spent is greater than 50% in coordination of care (as documented) at patient's floor/unit and/or counseling patient: Coding Level of Care Code 08047 SUB INP/OBS CARE 2/35MIN Diagnoses Acute on chronic systolic (congestive) heart failure I50.23 Acute respiratory failure with hypoxia J96.01 Chronic dental infection K04.7 DUDLEY (acute kidney injury) N17.9 Anemia D64.9 Nausea & vomiting R11.2 H/O mechanical aortic valve replacement Z95.2 Asthma J45.909 Dyslipidemia E78.5 Post traumatic stress disorder F43.10 Aneurysm of ascending aorta without rupture I71.21 Presence of rupture: without rupture Elevated troponin R79.89 Rheumatic mitral regurgitation I05.1 Cardiac valve disease etiology: rheumatic (11) Ascending aortic aneurysm Presence of rupture: without rupture Qualified Code(s): I71.21 - Aneurysm of the ascending aorta, without rupture (13) Mitral regurgitation Cardiac valve disease etiology: rheumatic Qualified Code(s): I05.1 - Rheumatic mitral insufficiency
[2023-06-16] MEDS: guaiFENesin/DEXTROM SYRUP 200MG/20MG 10ML UDC PO STA (18:21)
[2023-06-16] MEDS: ACETAMINOPHEN 500 MG TAB PO PRN (19:11)
[2023-06-17 06:26] LABS: Basophils # (auto) 0.04 K/uL (0.00-0.20); Basophils % (auto) 0.5 %; Eosinophils % (auto) 1.2 %; Hemoglobin 9.8 g/dl (14.0-18.0); Immature Granulocytes # (auto) 0.07 K/uL (0.01-0.20); Immature Granulocytes % (auto) 0.8 %; Lymphocytes # (auto) 1.34 K/uL (1.20-3.40); Lymphocytes % (auto) 15.9 %; Mean Corpuscular Hemoglobin 29.3 pg (25.0-34.0); Mean Corpuscular Hgb Conc 32.7 g/dL (32.0-36.0); Mean Corpuscular Volume 89.8 fL (80.0-100.0); Mean Platelet Volume 11.9 fL (9.4-12.4); Monocytes # (auto) 0.38 K/uL (0.11-0.59); Monocytes % (auto) 4.5 %; Neutrophils # (auto) 6.52 K/uL (1.40-6.50); Neutrophils % (auto) 77.1 %; Nucleated RBC # (auto) 0.02 K/uL (0.00-0.12); Nucleated RBC % (auto) 0.2 %; Platelet Count 192 K/uL (130-400); RDW Coefficient of Variation 15.5 % (11.5-14.5); RDW Standard Deviation 50.3 fL (36.4-46.3); Red Blood Count 3.34 M/uL (4.70-6.10); White Blood Count 8.45 K/ul (4.8-10.8)
[2023-06-17 06:43] LABS: Albumin Level 3.4 gm/dl (3.4-5.0); BUN Creatinine Ratio 27.7 (10-20); Bilirubin Direct 0.4 mg/dl (0-0.2); Calcium 8.3 mg/dl (8.6-10.3); Creatinine Clr Calc Pharmacy 39.2 ml/min; Est GFR (African American) 34.3 ml/min; Est GFR (Non-African American) 29.6 ml/min; Magnesium 2.4 mg/dl (1.7-2.4); Potassium 3.5 mmol/L (3.5-5.1); Total Protein 6.3 gm/dl (6.0-8.3)
[2023-06-17 07:27] LABS: ANTI-Xa, UFH(UnfractionatedHep 0.51 IU/ml (0.3-0.7)
[2023-06-17 09:02] LABS: INR 3.5 (0.9-1.1); Prothrombin Time 35.6 Seconds (9.0-12.0)
--- NOTE | 2023-06-17 19:28 | Hospitalist Progress Note ---
Date of Service June 17, 2023 Assessment & Plan (1) Acute on chronic systolic (congestive) heart failure: Plan: Presented with SOB,CP, elevated BNP and mildly elevated troponin consistent with myocardial demand ischemia Acute on chronic HFrEF with known mildly reduced EF of 40-45% He is s/p mechanical aortic valve replacement x 3 and has a known periaortic valve leak and moderate to severe MR Transesophageal echocardiogram here shows grossly normal LV, moderate to severe MR, mechanical aortic valve with perivalvular leak, ascending aortic aneurysm He had good response to IV Lasix with addition of metolazone. 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 Low blood pressure necessitated down titration of dosages of losartan and terazosin. Will continue to hold losartan Continue to hold home oral Lasix until renal function improves Blood pressure is now stable. Monitor intake and output, Daily weights, low-sodium diet Monitor renal function with BMP and keep electrolytes replete Cardiology consultation appreciated-plan for close follow-up with surgeon at [facility] in [place] as he needs repeat aortic valve replacement as well as likely thoracic aortic aneurysm repair Chest x-ray done on June 13 looks better Continue Toprol-XL 25 mg daily Improved, feels better. Plan to resume home po lasix once renal function closer to baseline (2) Acute respiratory failure with hypoxia: Plan: Resolved. He is now on room air. secondary to CHF Remains with chronic cough-continue tessalon perles and added guaifenesin DM prn (3) Chronic dental infection: Plan: Multiple lower teeth extracted 06/14 at cardiothoracic surgeon's request prior to heart valve replacement. Appreciate OMFS management Received IV Unasyn for 3 days and now convert to po Augmentin through 06/20/23 Continue pured diet, chlorhexidine rinses twice daily Discontinued morphine as this was likely causing nausea and vomiting Continue Tylenol 1000 Mg p.o. 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 Baseline hemoglobin is 11-12 Recent TSH normal iron studies, B12, and folate normal-anemia of chronic kidney disease However also with elevated total bilirubin, elevated LDH, elevated reticulocyte count, haptoglobin pending-could have some hemolysis from mechanical aortic valve and severe aortic regurgitation Follow CBC, pending haptoglobin, LFTs (although TBili has normalized) (6) Nausea & vomiting: Plan: Possibly secondary to morphine-discontinued morphine and now resolved Antiemetics as needed tolerating pureed diet (7) H/O mechanical aortic valve replacement: Plan: With a h/o rheumatic heart disease as a child, status post multiple mechanical aortic valve replacements. INR should be maintained between 2.5 and 3.5 on average. Coumadin was held and reversed with vitamin K for his oral surgery. Received heparin drip bridge and now stopped as INR is back to therapeutic levels postoperatively at 3.5 Continue Coumadin but lower dose to 5mg daily while on Augmentin and follow INR after discharge Needs close follow-up and valve replacement at [place] If decompensates from heart failure standpoint, would transfer directly to [place] (8) Asthma: Plan: Stable. No exacerbation. Continue current medical management (9) Dyslipidemia: Plan: Stable. Continue statin therapy (10) Post traumatic stress disorder: Plan: Supportive care. Continue current medical management with bupropion, hydroxyzine as needed, prazosin, trazodone (11) Ascending aortic aneurysm: Plan: Needs repair at time of AV replacement Following with cardiothoracic surgery (12) Elevated troponin: Plan: Mild elevation on admission secondary to myocardial demand ischemia Just had cardiac catheterization on 05/20/2023 with nonobstructive CAD With some atypical left-sided chest pain on admission and 06/14 likely noncardiac-repeat troponin down from previous (13) Mitral regurgitation: Plan: Moderate to severe Follows with cardiology and cardiothoracic surgery Plan Disposition-continued stay on telemetry unit, slowly improving renal function, hopeful for discharge tomorrow if renal function continues to improve Admission and Anticipated Discharge Date Admission Date: June 06, 2023 Anticipated date of discharge: 06/18/23 Subjective Pt reports feeling better today. No nausea or vomiting, is tolerating pureed diet. oral pain controlled. Less SOB and is lying flat. No chest pain. Asking when he will be discharged. Tele with NSR, rates 70-80s Physical Exam Constitutional: WD/WN, vitals as above ENMT: Mouth: + dentition abnormality (Edentulous, bruised gums, no active bleeding) Respiratory: normal respiratory effort, lungs clear to auscultation Cardiovascular: Rate/Rhythm: regular rate and regular rhythm Heart Sounds: + murmur (2/6 holosystolic murmur) Extremities: no edema Gastrointestinal (Abdomen): normal bowel sounds, soft, nontender, no hepatosplenomegaly Psychiatric: A+Ox3, euthymic affect Results & Data Results & Data Vital Signs (Past 12 Hours) Vital Signs Temp Pulse Pulse Resp BP Pulse Ox O2 Del Method 06/17/23 15:54 71 06/17/23 15:34 36.4 C L 76 16 116/45 L 91 Room Air 06/17/23 12:30 36.6 C 80 16 120/49 L 94 Room Air 06/17/23 08:00 Room Air 06/17/23 07:59 36.5 C 85 16 118/50 L 94 Room Air Laboratory Results CBC, BMP, magnesium, INR reviewed PG Care Time/CCT Total # of Minutes Spent Total Time Spent with Patient: Total time spent is greater than 50% in coordination of care (as documented) at patient's floor/unit and/or counseling patient: Coding Level of Care Code 69376 SUB INP/OBS CARE 2/35MIN Diagnoses Acute on chronic systolic (congestive) heart failure I50.23 Acute respiratory failure with hypoxia J96.01 Chronic dental infection K04.7 DUDLEY (acute kidney injury) N17.9 Anemia D64.9 Nausea & vomiting R11.2 H/O mechanical aortic valve replacement Z95.2 Asthma J45.909 Dyslipidemia E78.5 Post traumatic stress disorder F43.10 Aneurysm of ascending aorta without rupture I71.21 Presence of rupture: without rupture Elevated troponin R79.89 Rheumatic mitral regurgitation I05.1 Cardiac valve disease etiology: rheumatic (11) Ascending aortic aneurysm Presence of rupture: without rupture Qualified Code(s): I71.21 - Aneurysm of the ascending aorta, without rupture (13) Mitral regurgitation Cardiac valve disease etiology: rheumatic Qualified Code(s): I05.1 - Rheumatic mitral insufficiency
[2023-06-17] MEDS: guaiFENesin/DEXTROM SYRUP 200MG/20MG 10ML UDC PO PRN (20:32)
[2023-06-18 08:00] LABS: Basophils # (auto) 0.05 K/uL (0.00-0.20); Basophils % (auto) 0.6 %; Eosinophils # (auto) 0.09 K/uL (0.00-0.50); Hematocrit (blood only) 29.8 % (42.0-52.0); Hemoglobin 9.7 g/dl (14.0-18.0); Immature Granulocytes # (auto) 0.08 K/uL (0.01-0.20); Immature Granulocytes % (auto) 0.9 %; Lymphocytes # (auto) 1.16 K/uL (1.20-3.40); Mean Corpuscular Hemoglobin 29.8 pg (25.0-34.0); Mean Corpuscular Hgb Conc 32.6 g/dL (32.0-36.0); Mean Corpuscular Volume 91.4 fL (80.0-100.0); Mean Platelet Volume 12.7 fL (9.4-12.4); Monocytes # (auto) 0.49 K/uL (0.11-0.59); Monocytes % (auto) 5.5 %; Neutrophils # (auto) 7.02 K/uL (1.40-6.50); Nucleated RBC # (auto) 0.05 K/uL (0.00-0.12); Nucleated RBC % (auto) 0.6 %; Platelet Count 205 K/uL (130-400); RDW Coefficient of Variation 15.9 % (11.5-14.5); RDW Standard Deviation 50.5 fL (36.4-46.3); Red Blood Count 3.26 M/uL (4.70-6.10); White Blood Count 8.89 K/ul (4.8-10.8)
[2023-06-18 08:04] LABS: BUN Creatinine Ratio 34.4 (10-20); Calcium 8.5 mg/dl (8.6-10.3); Creatinine Clr Calc Pharmacy 43.4 ml/min; Est GFR (African American) 38.9 ml/min; Est GFR (Non-African American) 33.5 ml/min; Magnesium 2.5 mg/dl (1.7-2.4); Potassium 3.4 mmol/L (3.5-5.1)
[2023-06-18 08:12] LABS: Prothrombin Time 58.5 Seconds (9.0-12.0)
[2023-06-18] MEDS: POTASSIUM CHLORIDE CRTAB 20 MEQ TABCR PO SCH (09:23)
[2023-06-18] MEDS: AMOXICILLIN/CLAVULANATE 875 MG TAB PO SCH (09:23)
--- NOTE | 2023-06-18 14:05 | Hospitalist Progress Note ---
Date of Service June 18, 2023 Assessment & Plan (1) Acute on chronic systolic (congestive) heart failure: Plan: Resolved. Losartan has been restarted. Repeat portable chest x-ray again today, June 17. Acute on chronic HFrEF with known mildly reduced EF of 40-45%. He is s/p mechanical aortic valve replacement x 3 and has a known periaortic valve leak and moderate to severe MR. Transesophageal echocardiogram here shows grossly normal LV, moderate to severe MR, mechanical aortic valve with perivalvular leak, ascending aortic aneurysm. He had good response to IV Lasix with addition of metolazone. However, developed DUDLEY w/ pier worker up to 2.6 and further parenteral diuretics have been avoided. Low blood pressure necessitated down titration of dosages of losartan and terazosin. Losartan was temporarily stopped and has been restarted today, June 17. Cardiology consultation and recommendations appreciated. Follow-up with surgeon at [facility] in [place] as he needs repeat aortic valve replacement as well as likely thoracic aortic aneurysm repair. (2) Acute respiratory failure with hypoxia: Plan: Resolved to room air earlier this hospitalization. However now he is requiring low-flow oxygen which possibly is due to atelectasis related to his sedentary lifestyle. Repeat portable chest x-ray is pending today, June 17. Incentive spirometry has been ordered. (3) Chronic dental infection: Plan: Multiple lower teeth extracted 06/14 prior to heart valve replacement. Appreciate [facility] consultation and recommendations. He was treated with intravenous Carri F for 3 days and now is on oral Augmentin. (4) DUDLEY (acute kidney injury): Plan: Due to parenteral diuresis. Hide Sorter peaked at 2.6 and is now declining. Losartan has been restarted. Serial lab (5) Anemia: Plan: Appears to be chronic. No overt GI bleeding. There may be an element of intravascular hemolysis related to the mechanical aortic valve. Serial lab (6) Nausea & vomiting: Plan: Resolved. May have been secondary to narcotic pain control measures after dental extraction. (7) H/O mechanical aortic valve replacement: Plan: h/o rheumatic heart disease as a child, status post multiple mechanical aortic valve replacements. Goal INR is 2.5 to 3.5. INR today is 6.0 and Coumadin has been placed on hold, June 17. Serial lab. Earlier this admission, Coumadin was reversed and he was placed on a heparin drip for the dental extraction. (8) Asthma: Plan: Stable. No exacerbation. Continue current medical management (9) Dyslipidemia: Plan: Stable. Continue statin therapy (10) Post traumatic stress disorder: Plan: Supportive care. Continue current medical management with bupropion, hydroxyzine as needed, prazosin, trazodone (11) Ascending aortic aneurysm: Plan: Needs repair at time of AV replacement. Following with cardiothoracic surgery (12) Elevated troponin: Plan: Mild elevation on admission secondary to myocardial demand ischemia. Just had cardiac catheterization on 05/20/2023 with nonobstructive CAD (13) Mitral regurgitation: Plan: Moderate to severe. Due to rheumatic fever as a child. Follows with cardiology and cardiothoracic surgery Plan Hopeful discharge to home tomorrow, June 18 Admission and Anticipated Discharge Date Admission Date: June 06, 2023 Subjective Alert and oriented. Unasyn has been switched to oral Augmentin. INR has bumped to 6.0 and Coumadin has temporarily been placed on hold. Creatinine is down to 2.1. Potassium is low again and oral potassium replacement has been restarted. Losartan has been restarted. He has back on oxygen again but I believe this is due to an element of atelectasis due to his sedentary lifestyle. Incentive spirometry has been ordered. Will repeat portable chest x-ray to reexamine the lung cordero. Hopefully he can go home tomorrow, June 18 Review of Systems 2 Review of Systems: Constitutional-no fever or chills ENT-no blurred vision, no double vision, no epistaxis, no sore throat. No active bleeding from multiple dental extraction areas in the mandible Respiratory-no cough, no wheezing. Dyspnea on exertion has improved Cardiac-no palpitations, no chest pain, no syncope GI-no nausea, vomiting, diarrhea, melena, hematochezia -no urinary retention, no urinary incontinence, no dysuria, no hematuria Musculoskeletal-no joint pain, no muscle tenderness Skin-no bruising, no rashes, no pruritus Neuro-no isolated weakness, no paresthesia Psych-no depression, no anxiety Physical Exam 2 Physical Exam: General-alert and oriented x3, no fevers, no chills HEENT-head atraumatic and normocephalic, pupils equal and reactive to light, extraocular muscles intact. Hemostasis noted at all mandible tooth extraction sites Neck-no lymphadenopathy or thyromegaly, trachea midline Chest-faint bibasilar inspiratory rales have resolved. No rhonchi. No wheezing Cardiac-regular rate and rhythm, normal S1 and S2 Abdomen-normal bowel sounds, nontender, no hepatosplenomegaly Extremities-no cyanosis, clubbing, or edema Neuro-cranial nerves II through XII intact, motor and sensory function within normal limits, strength symmetrical, no focal deficits Psych-flat affect Results & Data Results & Data Vital Signs (Past 12 Hours) Vital Signs Temp Pulse Resp BP Pulse Ox O2 Del Method O2 Flow Rate 06/18/23 11:56 36.4 C L 80 18 116/53 L 91 Nasal Cannula 2 06/18/23 10:56 94 Nasal Cannula 2 06/18/23 10:56 82 18 119/63 88 L Room Air 06/18/23 09:15 Nasal Cannula 2 06/18/23 07:17 36.6 C 79 18 111/66 96 Nasal Cannula 2 06/18/23 03:03 36.5 C 73 18 111/51 L 94 Room Air Laboratory Results 06/18/23 07:11 06/18/23 07:11 PG Care Time/CCT Total # of Minutes Spent Total Time Spent with Patient: Total time spent is greater than 50% in coordination of care (as documented) at patient's floor/unit and/or counseling patient: Coding Level of Care Code 71096 SUB INP/OBS CARE 3/50MIN Diagnoses Acute on chronic systolic (congestive) heart failure I50.23 Acute respiratory failure with hypoxia J96.01 Chronic dental infection K04.7 DUDLEY (acute kidney injury) N17.9 Anemia D64.9 Nausea & vomiting R11.2 H/O mechanical aortic valve replacement Z95.2 Asthma J45.909 Dyslipidemia E78.5 Post traumatic stress disorder F43.10 Aneurysm of ascending aorta without rupture I71.21 Presence of rupture: without rupture Elevated troponin R79.89 Rheumatic mitral regurgitation I05.1 Cardiac valve disease etiology: rheumatic (11) Ascending aortic aneurysm Presence of rupture: without rupture Qualified Code(s): I71.21 - Aneurysm of the ascending aorta, without rupture (13) Mitral regurgitation Cardiac valve disease etiology: rheumatic Qualified Code(s): I05.1 - Rheumatic mitral insufficiency
--- NOTE | 2023-06-18 14:18 | XRay Report ---
XR chest 1V portable CLINICAL HISTORY: CHF, hypoxia COMPARISON STUDY: Chest CT June 06, 2023. Chest radiograph June 13, 2023. FINDINGS: There is no pneumothorax. Small bilateral pleural effusions are unchanged. Moderate cardiom egaly. Interstitial pulmonary edema has slightly improved. IMPRESSION: 1. Slight improvement in pulmonary edema. 2. Small bilateral pleural effusions with stable bibasilar opacities. ACT 112: Negative or not required by law. Electronically signed by: Sherman Murdock M.D. 06/18/2023 2:17 PM
--- NOTE | 2023-06-18 15:26 | Heart Failure Consultation ---
Date of Consultation June 18, 2023 History of Present Illness Attending Physician: Christiano Andrews MD History of Present Illness Meet with patient in their hospital room. We discussed the nature of heart failure and the goals of the heart failure program. Patient is agreeable to ongoing participation and will be formally enrolled in the [facility] heart failure program. Patient advised to weigh themselves daily on their home scale. Notify the office if 2+ lb weight gain overnight or 5+ lb in 1 week. Low sodium diet recommended on discharge. Contact information provided. Patient will have scheduled outpatient follow up within 7 days of discharge- 06/24/1130am. Please see full cardiology consult for additional recommendations and formal plan of care. Allergies Allergy/AdvReac Type Severity Reaction Status Date / Time bee venom protein (honey bee) Allergy Severe Severe Verified 06/06/23 17:00 neck/throat swelling, dyspnea adhesive Allergy Mild Rash Verified 06/06/23 17:00 chocolate flavor AdvReac Unknown Advised to Verified 06/06/23 17:00 avoid by surgeon d/t Vitamin K content per pt Home Medications Medication Instructions Recorded Confirmed Type bupropion HCl 300 mg 24 hr tablet, 300 mg PO HS 09/09/20 06/06/23 History extended release cholecalciferol (vitamin D3) 50 50 mcg PO QAM 09/09/20 06/06/23 History mcg (2,000 unit) capsule trazodone 50 mg tablet 50 mg PO HS 09/12/20 06/06/23 History aspirin 81 mg tablet,delayed 81 mg PO QAM 09/27/20 06/06/23 History release prazosin 5 mg capsule 10 mg PO QPM 01/12/22 06/06/23 History epinephrine 0.3 mg/0.3 mL 0.3 mg (0.3 mL) IM Q10M PRN 05/07/22 06/06/23 Rx injection, auto-injector Anaphylaxis #2 ea hydroxyzine HCl 50 mg tablet 50 mg PO TID PRN Anxiety 30 days 05/07/22 06/06/23 Rx #90 tabs melatonin 10 mg capsule 10 mg PO HS PRN Insomnia 06/04/22 06/06/23 History losartan 50 mg tablet 50 mg PO DAILY #90 tabs 03/16/23 06/06/23 Rx metoprolol succinate 25 mg 25 mg PO DAILY #90 tabs 03/16/23 06/06/23 Rx tablet,extended release 24 hr sertraline 50 mg tablet 50 mg PO DAILY 03/16/23 06/06/23 History furosemide 40 mg tablet 40 mg PO DAILY #30 tabs 05/11/23 06/06/23 Rx potassium chloride 20 mEq 20 meq PO DAILY #30 tabs 05/11/23 06/06/23 Rx tablet,extended release atorvastatin 10 mg tablet 10 mg PO DAILY #90 tabs 05/25/23 06/06/23 Rx warfarin 5 mg tablet See Rx Instructions PO UD #40 tabs 05/31/23 06/06/23 Rx fluticasone fur. 100 mcg-umeclid 1 ea inhalation DAILY 06/06/23 06/06/23 History 62.5 mcg-vilant 25 mcg inhalat.powder (Trelegy Ellipta) Patient History Medical History (Updated 06/15/23 @ 17:48 by Carolina Sevilla MD) Coronary artery calcification Normal Coronary Arteries on Cardiac Cath 05/20/23 Acute on chronic systolic (congestive) heart failure Tinnitus of right ear Mixed conductive and sensorineural hearing loss of right ear with restricted hearing of left ear Deviated septum Claustrophobia Did have issues in the past with oxygen mask Anxiety and depression Aortic valve disease s/p AVR/revisions (1981, 1982x2), on warfarin, FOLLOWED BY BECKY JAMES PA-C Osteoarthritis Hearing loss in right ear Post traumatic stress disorder History of rheumatic fever as a child at age 6 > led to cardiac issues (hx AVR) On warfarin therapy Asthma Surgical History (Updated 06/15/23 @ 16:[address] RN) Hx of oral surgery (06/14/23) Extraction 6 Teeth, Incision and Drainage(Not Applicable) - Trell Ramirez, RODO S/P excision of lipoma LEFT/RT FOREARM AND RT HIP H/O excision of mass (10/16/20) Soft Tissue Mass Excision Bilateral Arms (2-5 cm) and Right Flank (19.5 cm)(Not Applicable) - Yang Lemus, DO, FACS History of appendectomy History of tooth extraction all upper teeth removed/some lower teeth removed History of cardiac cath multiple, last Feb 1983--no stents placed Aortic valve replaced s/p AVR/revisions (1981, 1982x2) Family History Brother Family history of reaction to anesthesia when he received anesthesia "it always triggered his seizures" Father Hearing loss Cancer Sister Hearing loss Cancer Other Allergies No family history of bleeding disorder Social History Smoking Status: Current every day smoker Tobacco Type: Cigarettes Age Started Using Tobacco: 14; Cigarettes Per Day: 4; Second Hand Exposure: Yes; Do You Dip or Chew Tobacco: No; Hx Alcohol Use: No Hx Substance Use: No Preferred Language: Omani Communication Ability: Effective Anatomy Professor Required: No Beliefs That Will Affect Care: None marital status: / Current Living Situation: Other Current Living Situation Comment: lives with a roomate current occupational status: disabled Feels Safe at Home: Yes Assistive Devices: None Results & Data Vital Signs (Past 12 Hours) Vital Signs Temp Pulse Resp BP Pulse Ox O2 Del Method O2 Flow Rate 06/18/23 11:56 97.5 F L 80 18 116/53 L 91 Nasal Cannula 2 06/18/23 10:56 94 Nasal Cannula 2 06/18/23 10:56 82 18 119/63 88 L Room Air 06/18/23 09:15 Nasal Cannula 2 06/18/23 07:17 97.9 F 79 18 111/66 96 Nasal Cannula 2 Heart Failure Data/Metrics Heart Failure Type: HFmrEF (Midly Reduced/Mid-Range, EF 41-49%) Ejection Fraction: 40-45% Evidenced Based Beta Desiree Therapy Beta Desiree Therapy: Yes Beta Desiree Name: Metoprolol Succinate ALTAF/ARB/ARNI Therapy ALTAF/ARB/ARNI Therapy: Yes ALTAF/ARB/ARNI Name: Losartan Coding Level of Care Code None
[2023-06-18] MEDS: FUROSEMIDE 40 MG/4 ML VIAL IV ONE (15:49)
[2023-06-18] MEDS ORDERED: WARFARIN SOD 5 MG TAB PO SCH (16:00)
[2023-06-19 06:36] LABS: Prothrombin Time 66.4 Seconds (9.0-12.0)
[2023-06-19 08:13] LABS: INR 6.9 (0.9-1.1)
[2023-06-19] MEDS: FUROSEMIDE 40 MG TAB PO SCH (10:35)
--- NOTE | 2023-06-19 12:05 | Discharge Summary ---
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 Patient reports that he was recently seen in [place] for evaluation of his heart and he needs to have a new aortic valve placed as well as possible mitral valve. He had a cardiac catheterization performed on 05/20/23 which showed clean coronary arteries. Patient has had 3-4 days of intermittent left sided chest pain with radiation across the anterior chest - pressure/pain and stabbing in nature which was improved by Nitro spray. He has also had some worsening ANDREA as well as abdominal cramping. He has dry cough, fatigue and orthopnea as well. No report of fever or chills. No report of edema or weight gain. In the ER he is afebrile, tachycardic, adequate oxygenation on room air. ER Course: Lasix 40mg IV Nitro spray by EMS Principal Diagnosis Acute on chronic combined systolic and diastolic CHF, transient acute hypoxic respiratory failure, Coumadin toxicity, dental caries Discharge Exam General-alert and oriented x3, no fevers, no chills HEENT-head atraumatic and normocephalic, pupils equal and reactive to light, extraocular muscles intact. Hemostasis noted at all mandible tooth extraction sites Neck-no lymphadenopathy or thyromegaly, trachea midline Chest-faint bibasilar inspiratory rales have resolved. No rhonchi. No wheezing Cardiac-regular rate and rhythm, normal S1 and S2 Abdomen-normal bowel sounds, nontender, no hepatosplenomegaly Extremities-no cyanosis, clubbing, or edema Neuro-cranial nerves II through XII intact, motor and sensory function within normal limits, strength symmetrical, no focal deficits Psych-flat affect Discharge Data Allergies Allergy/AdvReac Type Severity Reaction Status Date / Time bee venom protein (honey bee) Allergy Severe Severe Verified 06/06/23 17:00 neck/throat swelling, dyspnea adhesive Allergy Mild Rash Verified 06/06/23 17:00 chocolate flavor AdvReac Unknown Advised to Verified 06/06/23 17:00 avoid by surgeon d/t Vitamin K content per pt Consultations 06/06/23 17:46 ED Decision to Admit Stat 06/09/23 12:06 Consult Cardiology Routine 06/11/23 15:25 Consult Oromaxillofacial Surgery Routine Procedures Performed Operation Date: 06/14/23 08:00 Actual Procedures p Extraction 6 Teeth, (Not Applicable) - Trell Ramirez DMD s Incision and Drainage(Not Applicable) - Trell Ramirez DMD Ordered Studies 06/06/23 16:02 CT angio chest dissec wo/w con Stat 06/11/23 19:16 CT soft tissue neck wo con Urgent Hospital Course (1) Acute on chronic systolic (congestive) heart failure: Resolved. Losartan has been restarted. Acute on chronic HFrEF with known mildly reduced EF of 40-45%. He is s/p mechanical aortic valve replacement x 3 and has a known periaortic valve leak and moderate to severe MR. Transesophageal echocardiogram here shows grossly normal LV, moderate to severe MR, mechanical aortic valve with perivalvular leak, ascending aortic aneurysm. He had good response to IV Lasix with addition of metolazone. However, developed DUDLEY w/ electric switch tester up to 2.6 and further parenteral diuretics have been avoided. Low blood pressure necessitated down titration of dosages of losartan and terazosin. Losartan was temporarily stopped and has been restarted on June 17. Oral Lasix dosage now 40 mg twice daily. Cardiology consultation and recommendations appreciated. Follow-up with surgeon at [facility] in [place] as he needs repeat aortic valve replacement as well as likely thoracic aortic aneurysm repair. (2) Acute respiratory failure with hypoxia: Resolved. He is now on room air. Two-step oxygen evaluation reveals no need for home oxygen therapy at this time (3) Chronic dental infection: Multiple lower teeth extracted 06/14 prior to heart valve replacement. Appreciate [facility] consultation and recommendations. He was treated with intravenous Unasyn for 3 days and now is on oral Augmentin. (4) DUDLEY (acute kidney injury): Due to parenteral diuresis. Steam Crane Operator peaked at 2.6 and is now declining. Losartan has been restarted. Serial lab (5) Anemia: Appears to be chronic. No overt GI bleeding. There may be an element of intravascular hemolysis related to the mechanical aortic valve. Serial lab (6) Nausea & vomiting: Resolved. May have been secondary to narcotic pain control measures after dental extraction. (7) H/O mechanical aortic valve replacement: h/o rheumatic heart disease as a child, status post multiple mechanical aortic valve replacements. Goal INR is 2.5 to 3.5. INR today June 18, remains elevated at 6.9. No active bleeding however. He was told to stay off his Coumadin today and tomorrow then resume his usual Coumadin therapy on June 20. Serial lab. Earlier this admission, Coumadin was reversed and he was placed on a heparin drip for the dental extraction. (8) Asthma: Stable. No exacerbation. Continue current medical management (9) Dyslipidemia: Stable. Continue statin therapy (10) Post traumatic stress disorder: Supportive care. Continue current medical management with bupropion, hydroxyzine as needed, prazosin, trazodone (11) Ascending aortic aneurysm: Needs repair at time of AV replacement. Following with cardiothoracic surgery (12) Elevated troponin: Mild elevation on admission secondary to myocardial demand ischemia. Just had cardiac catheterization on 05/20/2023 with nonobstructive CAD (13) Mitral regurgitation: Moderate to severe. Due to rheumatic fever as a child. Follows with cardiology and cardiothoracic surgery Plan Home todayJune 18 . He will remain off Coumadin today and tomorrow. INR will be monitored twice weekly going forward. Total Time Total Time Spent Total Time Spent (In Minutes): 50 minutes Discharge Plan Discharge Items Patient Disposition: Home - Self-Care Reason For Visit: CHEST PAIN, SOB Discharge Diagnosis: Acute on chronic combined systolic and diastolic CHF, acute hypoxic respiratory failure, Coumadin toxicity, dental caries Activity: Resume your previous activity Non-emergency contact: Primary Care Provider, Surgeon and Drier And Evaporator Operator Call non-emergency contact if: you have any medication questions and your symptoms worsen Follow-up/Referrals: Pricilla Danielson PA-C [Physician Grizzly Worker] - 06/25/23 11:30 am (Congestive Heart Failure Program Appointment Information Early follow up is essential to managing your heart failure. An appointment has been scheduled for you with the [facility] within 7 days of discharge. Anticipate this visit to be 30-60 minutes long. Please expect a cloth laminating supervisor phone call from one of our nurses approximately 48 hours from discharge. They will also be placing an order for lab work to be completed 1-2 days prior to your heart failure follow up appointment. Please be sure to have this done so we can go over the results when you come in. Office Location The cardiology office building is located in front of the hospital at [address] Bring the following with you to your follow-up doctor appointments: Please bring your daily weight log any discharge paperwork all of your medication bottles with you to this visit. ) Trell Ramirez, RODO [Physician] - Jake Siegel DO [Primary Care Provider] - 06/18/23 2:45 pm Diet: Regular and Heart Healthy Diet Texture: Pureed (blended smooth) Diet Comment: advance as tolerated Addtl Attending Provider Instructions: ADDITIONAL ACTIVITY RECOMMENDATIONS: * It is very important to keep your mouth clean to prevent infection. * Starting tonight rinse with the Peridex as directed then 2 x a day * it is very important to keep well hydrated, this prevents fever and possible dry socket pain SPECIAL CARE INSTRUCTIONS: *It is not uncommon that between day 2-4 that your swelling will be at its worst this is very normal, do not be alarmed. * Tomorrow start rinsing your mouth with 1/2 teaspoon salt in 8 ounces warm water. This rinse should be used every 4-6 hours. * You may experience slight nausea. To prevent this, never take your medication on an empty stomach. If nauseated, take small sips of spenser angelica until you feel better; then you may start on applesauce and toast. * Some swelling is common. It should gradually decrease within 4-5 days. * A certain amount of bleeding is to be expected. It is often possible to control mild oozing by placing folded gauze over the area and biting down for 30 minutes. If you are unable to control excessive bleeding, * You may experience some discomfort for a few days. If pain or swelling increases, Call Dr Ramirez * Return to the office for a follow up check up on: call to set up to see Dr Ramirez 2 weeks from discharge * office address--[address]. phone # [phone] Lasix is now 40 mg twice daily. Take Augmentin (amoxicillin/clavulanate) twice daily for 1 more week. Stay off Coumadin today and tomorrow then resume usual dosing on Dexter, March 4. Get INR Coumadin level checked every Wednesday and going forward for Coumadin management. Pending Studies at Discharge: No Stand-Alone Forms: [facility], Smoking Cessation Medications and DC Order Prescriptions: New furosemide 40 mg Tablet 40 mg PO BID17 Qty: 60 0RF amoxicillin-pot clavulanate 875-125 mg Tablet 1 tab PO BIDM Qty: 14 0RF Continued warfarin 5 mg tablet See Rx Instructions PO UD Qty: 40 2RF Dose Instruction: TAKE 1 & 1/2 TABLETS BY MOUTH DIRECTED PER [facility] Rx Instructions: 7.5 mg MWF and 5 mg x 4 days or as directed by [facility] trazodone 50 mg tablet 50 mg PO HS aspirin 81 mg tablet,delayed release (DR/EC) 81 mg PO QAM atorvastatin 10 mg tablet 10 mg PO DAILY Qty: 90 3RF bupropion HCl 300 mg tablet extended release 24 hr 300 mg PO HS cholecalciferol (vitamin D3) 50 mcg (2,000 unit) capsule 50 mcg PO QAM prazosin 5 mg capsule 10 mg PO QPM epinephrine 0.3 mg/0.3 mL auto-injector 0.3 mg IM Q10M PRN (Reason: Anaphylaxis) Qty: 2 1RF Rx Instructions: for 2 doses hydroxyzine HCl 50 mg tablet 50 mg PO TID PRN (Reason: Anxiety) 30 Days Qty: 90 2RF sertraline 50 mg tablet 50 mg PO DAILY metoprolol succinate 25 mg tablet extended release 24 hr 25 mg PO DAILY Qty: 90 3RF losartan 50 mg tablet 50 mg PO DAILY Qty: 90 3RF potassium chloride 20 mEq tablet extended release 20 meq PO DAILY Qty: 30 5RF Rx Instructions: Take 1 tablet by mouth on days that Furosemide is taken melatonin 10 mg capsule 10 mg PO HS PRN (Reason: Insomnia) Trelegy Ellipta 100-62.5-25 mcg blister with device 1 ea INHALATION DAILY Discontinued furosemide 40 mg tablet 40 mg PO DAILY Qty: 30 5RF Rx Instructions: Take 1 tablet daily until breathing at baseline, then take 40 mg every other day. Discharge Orders: Discharge Order- CHF (Routine); Ordered 06/19/23 Ordered By: Christiano Andrews Admission Data Admit Date/Time: 06/06/23 19:19 Attending Provider: Christiano Andrews Admit Provider: Caroline Harris Primary Care Provider: Jake Siegel Other Providers: Willi Doss; Piter Aguayo; Matt Meek; Anand Watters; Sloan Dockery; Seven Yu; Walter Lopes Jr; Mathieu Chadwick; Cami Silvestre; Sarah Magana; Ahsan Andrew; Ahsan Martinez; Christiano Frazier; Pricilla Danielson; Angie Griffith; Steven Coon; Cezar Witt; Nakul Miguel; Trell Ramirez Coding Level of Care Code 62816 INP/OBS DISCH >30 MIN Diagnoses Acute on chronic systolic (congestive) heart failure I50.23 Acute respiratory failure with hypoxia J96.01 Chronic dental infection K04.7 DUDLEY (acute kidney injury) N17.9 Anemia D64.9 Nausea & vomiting R11.2 H/O mechanical aortic valve replacement Z95.2 Asthma J45.909 Dyslipidemia E78.5 Post traumatic stress disorder F43.10 Aneurysm of ascending aorta without rupture I71.21 Presence of rupture: without rupture Elevated troponin R79.89 Rheumatic mitral regurgitation I05.1 Cardiac valve disease etiology: rheumatic
--- NOTE | 2023-06-23 09:43 | Coding Query ---
CODING QUERY To promote full compliance with coding requirements relating to patient care, provider participation is requested in all cases of [employer] uncertainty. Please assist us with the question(s) below: Coding Question(s): There is documentation through the record of decompensated CHF with documentation. starting on the 06/09 Progress Note specifying as, "Acute on chronic systolic (congestive) heart failure", and on the 06/09 Cardiology Consultation of, "Acute on chronic systolic (congestive) heart failure", however, there is conflicting documentation on the 06/15 Cardiology Progress Note of, "Acute on chronic systolic (congestive) heart failure", under Assessment & Plan, and, "who is currently admitted to [facility] [place] with Acute on Chronic Combined Systolic and Diastolic CHF", in the body of the Plan section, and also conflicting documentation on the Discharge Summary, with documentation under Principal Diagnosis area of, "Acute on chronic combined systolic and diastolic CHF", and under the Hospital Course of, "Acute on chronic systolic (congestive) heart failure". Please specify below, in your clinical opinion, due to conflicting documentation, the CHF diagnosis: ( ) Acute on Chronic Systolic CHF ( x ) Acute on Chronic Combined Systolic and Diastolic CHF ( ) Other: Please Specify: Physician's Response(s): Thank you Sheryl Andrade Principal Diagnosis: "that condition established after study, to be chiefly responsible for occasioning the admission of the patient to the hospital for care." Co-Existing Principal Diagnosis: "when two or more diagnoses equally meet the criteria for principal diagnosis as determined by the circumstances of admission, diagnostic work up, and/or therapy provided, and the Alphabetic Index, Tabular List, or another coding guideline does not provide sequencing direction, any one of the diagnoses may be sequenced first." "When the physician has documented what appears to be a current diagnosis in the body of the record, but has not included the diagnosis in the final diagnostic statement, the physician should be asked whether the diagnosis should be added." (Source [facility]oding [facility] 2 QTR90. p3-4) [facility]
== END 2023-06-19 14:11 | disposition home or self-care (01) | DRG 981 ==
LOC: ED 14:47 → EDINP 19:19 → SUATTDRO 19:19 → 2N 06-07 00:50

== ENCOUNTER 2023-06-22 13:24 | Observation (INO) ==
--- NOTE | 2023-06-22 13:45 | ED Triage Note ---
Date of Service June 22, 2023 Provider in Triage Author: Fidelia Ramirez History of Present Illness This patient was briefly evaluated while in triage. An abbreviated physical exam was performed. This patient is a 57-year-old Male who presents to the ED for evaluation of SOB. Recently admitted, undergoing evaluation/plan for aortic valve replacement with Andie Garcia, h/o severe regurg. On coumadin, last INR 6.7 Physical Exam Constitutional: alert and oriented x3. conversational dyspnea. spO2 95% on RA HEENT: normocephalic, atraumatic. normal conjunctiva.PERRLA. EOM's grossly i ntact. Respiratory: equal chest rise. normal respiratory effort, no accessory muscle use. Cardiovascular: regular rate and rhythm. MSK: moves all 4 extremities spontaneously Psych:appropriate mood and affect. Initial orders for labs and / or imaging were placed and patient was placed in the waiting area until a bed is available. Please see further documentation for the full ED course.
[2023-06-22 14:24] LABS: Basophils # (auto) 0.06 K/uL (0.00-0.20); Basophils % (auto) 0.6 %; Eosinophils # (auto) 0.08 K/uL (0.00-0.50); Eosinophils % (auto) 0.9 %; Hematocrit (blood only) 32.3 % (42.0-52.0); Hemoglobin 10.4 g/dl (14.0-18.0); Immature Granulocytes # (auto) 0.05 K/uL (0.01-0.20); Immature Granulocytes % (auto) 0.5 %; Lymphocytes # (auto) 1.56 K/uL (1.20-3.40); Lymphocytes % (auto) 16.6 %; Mean Corpuscular Hemoglobin 29.4 pg (25.0-34.0); Mean Corpuscular Hgb Conc 32.2 g/dL (32.0-36.0); Mean Corpuscular Volume 91.2 fL (80.0-100.0); Mean Platelet Volume 12.8 fL (9.4-12.4); Monocytes # (auto) 0.55 K/uL (0.11-0.59); Monocytes % (auto) 5.9 %; Neutrophils # (auto) 7.07 K/uL (1.40-6.50); Neutrophils % (auto) 75.5 %; Nucleated RBC # (auto) 0.03 K/uL (0.00-0.12); Nucleated RBC % (auto) 0.3 %; Platelet Count 195 K/uL (130-400); RDW Coefficient of Variation 16.5 % (11.5-14.5); RDW Standard Deviation 53.1 fL (36.4-46.3); Red Blood Count 3.54 M/uL (4.70-6.10); White Blood Count 9.37 K/ul (4.8-10.8)
--- NOTE | 2023-06-22 14:49 | XRay Report ---
XR chest 1V not portable HISTORY: 57 years-old Male Dyspnea acute shortness of breath COMPARISON: 06/18/2023 TECHNIQUE: AP view the chest FINDINGS: Cardiac silhouette is enlarged. Median sternotomy with cardiac valvular prosthesis. Pulmonary vascula r congestion with interstitial coarsening. Small pleural effusions with mild bibasilar opacities. Bon es appear grossly intact. IMPRESSION: 1. Cardiomegaly with pulmonary edema. 2. Small pleural effusions with stable mild bibasilar opacities, likely atelectasis. ACT 112: Negative or not required by law. The above report was generated using voice recognition software. It may contain grammatical, syntax o r spelling errors. Electronically signed by: Karlo Navarrete M.D. 06/22/2023 2:47 PM
[2023-06-22 15:10] LABS: Alanine Aminotransferase 68 U/L (7-52); BUN Creatinine Ratio 31.3 (10-20); Bilirubin,Total 1.9 mg/dl (0.2-1.0); Blood Urea Nitrogen 51 mg/dl (6-23); Calcium 8.5 mg/dl (8.6-10.3); Carbon Dioxide 26 mmol/L (21-32); Chloride 103 mmol/L (98-107); Est GFR (African American) 53.4 ml/min; Est GFR (Non-African American) 46.1 ml/min; Glucose 137 mg/dl (70-99(Fasting)); Troponin I High Sensitivity 65.3 pg/ml (0-20)
[2023-06-22 16:31] LABS: Albumin Level 3.7 gm/dl (3.4-5.0); Magnesium 2.3 mg/dl (1.7-2.4); Potassium 3.5 mmol/L (3.5-5.1)
[2023-06-22 16:50] LABS: Partial Thromboplastin Ratio 1.9; Partial Thromboplastin Time 53 Seconds (21-31); Prothrombin Time 60.1 Seconds (9.0-12.0)
[2023-06-22 17:04] LABS: INR 6.2 (0.9-1.1)
--- NOTE | 2023-06-22 17:37 | Emergency Department Note ---
Impression & Plan Dyspnea, Supratherapeutic INR, Anemia ED Provider Note ED Provider Note NAME: ADDY VACA AGE:57 SEX: Male : 1965 ARRIVES VIA: EMS INFORMANT: Patient ED PROVIDER(s): Park Walls DO CHIEF COMPLAINT: Shortness of breath, referred from coumadin clinic HPI: This is a 57-year-old male who presents emergency department due to concern for increased shortness of breath. Patient admitted with similar symptoms last week and just discharged on Wednesday. He states he did feel improved at time of discharge but now returns because he is feeling worse again. Patient with history of prior aortic valve replacement. Patient states he is anticoagulated and did present to the Coumadin clinic today and his INR was found to be elevated. He was referred here for additional evaluation given his history and concern. Patient denies any increased leg swelling, fevers or chills, he does admit to slightly worse cough. He denies chest pain, abdominal pain, vomiting or diarrhea. He states he has been taking his medications as prescribed including his daily diuretic. He states he has seen cardiothoracic surgery at [facility] because his aortic valve needs to be replaced. Patient states during her last admission he underwent dental extraction additionally which was a requirement of CT surgery before they would schedule him for his aortic valve replacement. He is still taking antibiotics that were prescribed following the extraction. PAST MEDICAL HISTORY:See Below PAST SURGICAL HISTORY:See Below FAMILY HISTORY:See Below SOCIAL HISTORY:See Below HOME MEDICATIONS:See Below ALLERGIES:See Below VITALS:See Below PHYSICAL EXAMINATION: GENERAL: alert, well appearing, well nourished, no distress, non-toxic EYE EXAM: normal conjunctiva, PERRL and EOM's grossly intact OROPHARYNX: no exudate, no erythema, lips, buccal mucosa, and tongue normal and mucous membranes are moist, poor dentition and evidence of recent dental extraction NECK: supple, no nuchal rigidity, no adenopathy, non-tender LUNGS: Clear to auscultation. Normal chest wall mechanics, no w/r/r HEART: no murmurs, S1 normal and S2 normal, well-healed prior sternotomy scar ABDOMEN: abdomen soft, non-tender, normo-active bowel sounds, no masses, no rebound or guarding. Well-healed prior surgical scars in the epigastric region BACK: Back is symmetrical on inspection and there is no deformity, no midline tenderness, no CVA tenderness. SKIN: no rashes, petechiae, orbruising UPPER EXTREMITIES: upper extremities are grossly normal. FROM, nml pulses b/l. LOWER EXTREMITIES: No pitting edema. FROM, nml pulses b/l. NEURO EXAM: Normal sensorium, cranial nerves II-XII grossly intact, normal speech, no facial droop,nogross weakness of arms, no gross weakness of legs. Gross sensation intact. No ataxia. Vital Signs: reviewed and remarkable Differential Diagnosis: pneumonia, bronchitis, COPD/Asthma exacerbation, pneumothorax, pulmonary embolism, congestive heart failure, acute coronary syndrome, as well as others were considered MEDICAL DECISION MAKING: This is a 57-year-old male with complex past medical history who presents emergency department after being referred here from the Coumadin clinic due to concern for increased shortness of breath as well as supratherapeutic INR. Patient was afebrile vital signs stable on arrival. Labs drawn and sent, IV established, EKG and chest x-ray performed bedside interpreted by me and patient monitored on telemetry. Patient found to have supratherapeutic INR, stable and improved anemia compared to prior, and improved creatinine compared to prior. Due to initial concern by Coumadin clinic I did call and discussed case with Dr. Argueta. She felt patient could be given a small amount of oral vitamin K but also concerned about evaluation with [facility] given the need for aortic valve replacement. Case discussed with on-call CT surgery at [facility]. They do not feel patient required urgent transfer for operative intervention at this time. Recommended CT without contrast of the chest, additional dose of Lasix here, and were in agreement with plan for oral vitamin K dosing. Case discussed with hospitalist team for additional evaluation and management. Nasal swab added for completion given recent hospitalization and patient ultimately found to have COVID. Patient did not require additional oxygen here, although does admit to dyspnea with exertion. I do not suspect any occult bleeding from other sources despite the supratherapeutic INR. EKG changes were noted but appear similar compared to prior. Patient had frequent PVCs on telemetry. No evidence for overt CHF. Patient was given extra dose of Lasix in the ER and to begin diuresing. Consultation(s): 1701: Discussed with Dr. Argueta, coumadin clinic. 1729: Discussed with Dr. Monzon, CT surgery at [facility]. Recommends dose of Lasix here in the emergency room, dose of vitamin K orally, as well as CT of the chest. He feels this can be done without contrast given he did have a recent CT. 2030: DIscussed with Dr. Tomas, [facility] hospitalist team, for additional evaluation and management. ER Treatment Provided: See below Diagnostics Interpreted By Me: -ECG: Normal sinus at 88, normal axis, normal QRS, prolonged QTc, PVC noted, inverted T waves noted in 1, 2, 3, with ST depression in V5 and V6; unchanged compared to prior -Cardiac Monitoring: An order was placed for continuous cardiac monitoring. The monitor shows a rate of 80 with normal sinus rhythm. -Laboratory studies: As stated above and show below. -Imaging studies: X-ray Chest: A single view study of the chest was reviewed and was negative for focal infiltrate, effusion, or wide mediastinum. Cardiomegaly and mild pulmonary edema noted Triage Nursing Note Reviewed Prior/Outside Records Reviewed -prior discharge summary from this weekend reviewed Past Med/Surg History Medical History Anemia Chronic dental infection Fracture of incisor teeth Dental fistula Exposed lingual bone On warfarin therapy NICM (nonischemic cardiomyopathy) Poor dentition Severe aortic valve regurgitation Mitral regurgitation Ascending aortic aneurysm Dyslipidemia Coronary artery calcification Normal Coronary Arteries on Cardiac Cath 05/20/23 Acute on chronic systolic (congestive) heart failure Tinnitus of right ear Mixed conductive and sensorineural hearing loss of right ear with restricted hearing of left ear Deviated septum Claustrophobia Did have issues in the past with oxygen mask Anxiety and depression Aortic valve disease s/p AVR/revisions (1981, 1982x2), on warfarin, FOLLOWED BY BECKY JMAES PA-C Osteoarthritis Hearing loss in right ear Post traumatic stress disorder History of rheumatic fever as a child at age 6 > led to cardiac issues (hx AVR) On warfarin therapy Asthma Surgical History H/O mechanical aortic valve replacement Hx of oral surgery (06/14/23) Extraction 6 Teeth, Incision and Drainage(Not Applicable) - Trell Ramirez, RODO S/P excision of lipoma LEFT/RT FOREARM AND RT HIP H/O excision of mass (10/16/20) Soft Tissue Mass Excision Bilateral Arms (2-5 cm) and Right Flank (19.5 cm)(Not Applicable) - Yang Lemus DO, FACS History of appendectomy History of tooth extraction all upper teeth removed/some lower teeth removed History of cardiac cath multiple, last Feb 1983--no stents placed Aortic valve replaced s/p AVR/revisions (1981, 1982x2) Family History Brother Family history of reaction to anesthesia when he received anesthesia "it always triggered his seizures" Father Hearing loss Cancer Sister Hearing loss Cancer Other Allergies No family history of bleeding disorder Social History Smoking Status: Former smoker Tobacco Type: Cigarettes Age Started Using Tobacco: 14; Cigarettes Per Day: 4; Second Hand Exposure: Yes; Do You Dip or Chew Tobacco: No; Hx Alcohol Use: No Hx Substance Use: No Preferred Language: Latvian Communication Ability: Effective Manager Commission Required: No Beliefs That Will Affect Care: None marital status: / Current Living Situation: Other Current Living Situation Comment: lives with a roomate current occupational status: disabled Feels Safe at Home: Yes Assistive Devices: None Allergies Allergies Allergy/AdvReac Type Severity Reaction Status Date / Time bee venom protein (honey bee) Allergy Severe Severe Verified 06/06/23 17:00 neck/throat swelling, dyspnea adhesive Allergy Mild Rash Verified 06/06/23 17:00 chocolate flavor AdvReac Unknown Advised to Verified 06/06/23 17:00 avoid by surgeon d/t Vitamin K content per pt Home Meds Home Medications Medication Instructions Recorded Confirmed bupropion HCl 300 mg 24 hr tablet, 300 mg PO HS 09/09/20 06/22/23 extended release cholecalciferol (vitamin D3) 50 50 mcg PO QAM 09/09/20 06/22/23 mcg (2,000 unit) capsule trazodone 50 mg tablet 50 mg PO HS 09/12/20 06/22/23 aspirin 81 mg tablet,delayed 81 mg PO QAM 09/27/20 06/22/23 release prazosin 5 mg capsule 10 mg PO QPM 01/12/22 06/22/23 melatonin 10 mg capsule 10 mg PO HS PRN Insomnia 06/04/22 06/22/23 sertraline 50 mg tablet 50 mg PO DAILY 03/16/23 06/22/23 fluticasone fur. 100 mcg-umeclid 1 ea inhalation DAILY 06/06/23 06/22/23 62.5 mcg-vilant 25 mcg inhalat.powder (Trelegy Ellipta) warfarin 5 mg tablet See Rx Instructions PO UD 06/22/23 06/22/23 Previous Rx's Medication Instructions Recorded epinephrine 0.3 mg/0.3 mL 0.3 mg (0.3 mL) IM Q10M PRN 05/07/22 injection, auto-injector Anaphylaxis #2 ea hydroxyzine HCl 50 mg tablet 50 mg PO TID PRN Anxiety 30 days 05/07/22 #90 tabs losartan 50 mg tablet 50 mg PO DAILY #90 tabs 03/16/23 metoprolol succinate 25 mg 25 mg PO DAILY #90 tabs 03/16/23 tablet,extended release 24 hr potassium chloride 20 mEq 20 meq PO DAILY #30 tabs 05/11/23 tablet,extended release atorvastatin 10 mg tablet 10 mg PO DAILY #90 tabs 05/25/23 amoxicillin 875 mg-potassium 1 tab PO BIDM #14 tabs 06/19/23 clavulanate 125 mg tablet furosemide 40 mg tablet 40 mg PO BID17 #60 tabs 06/19/23 Results & Data (ED) Vital Signs Vital Signs - 24 hr 06/22/23 13:43 06/22/23 15:11 06/22/23 15:11 Temperature 36.5 C Temperature Source Oral Pulse Rate 88 Pulse Rate [Apical] 84 Pulse Rate from SpO2 Sensor Pulse Rhythm Regular Pulse Rhythm [Apical] Pulse Strength Normal Pulse Strength [Apical] Respiratory Rate 18 20 Respiratory Effort / Characteristics Non-Labored Spontaneous Non-Labored Spontaneous Respiratory Depth Normal Normal Respiratory Pattern Regular Blood Pressure 116/70 Blood Pressure [Right Arm] 126/57 L Blood Pressure Mean 85 Blood Pressure Mean [Right Arm] 80 Blood Pressure Position Sitting Blood Pressure Position [Right Arm] Pulse Oximetry 95 96 Oxygen Delivery Method Room Air Room Air Room Air Oxygen Flow Rate Sepsis Recent Fever Within 48 Hours No Sepsis New/Unexplained Change in Mental Status No Sepsis Action Taken by Nursing No Action Required 06/22/23 16:44 06/22/23 17:04 06/22/23 17:04 Temperature Temperature Source Pulse Rate 73 79 Pulse Rate [Apical] Pulse Rate from SpO2 Sensor 80 Pulse Rhythm Pulse Rhythm [Apical] Pulse Strength Pulse Strength [Apical] Respiratory Rate 21 Respiratory Effort / Characteristics Respiratory Depth Respiratory Pattern Blood Pressure 122/55 L Blood Pressure [Right Arm] Blood Pressure Mean 97 Blood Pressure Mean [Right Arm] Blood Pressure Position Blood Pressure Position [Right Arm] Pulse Oximetry 98 Oxygen Delivery Method Room Air Oxygen Flow Rate Sepsis Recent Fever Within 48 Hours Sepsis New/Unexplained Change in Mental Status Sepsis Action Taken by Nursing 06/22/23 17:05 06/22/23 17:30 06/22/23 17:30 Temperature Temperature Source Pulse Rate 66 Pulse Rate [Apical] 82 Pulse Rate from SpO2 Sensor 73 Pulse Rhythm Pulse Rhythm [Apical] Pulse Strength Pulse Strength [Apical] Respiratory Rate 25 H 19 Respiratory Effort / Characteristics Non-Labored Spontaneous Respiratory Depth Normal Respiratory Pattern Blood Pressure 121/59 L Blood Pressure [Right Arm] 122/55 L Blood Pressure Mean 103 Blood Pressure Mean [Right Arm] 77 Blood Pressure Position Blood Pressure Position [Right Arm] Pulse Oximetry 94 99 Oxygen Delivery Method Nasal Cannula Room Air Oxygen Flow Rate 2 Sepsis Recent Fever Within 48 Hours Sepsis New/Unexplained Change in Mental Status Sepsis Action Taken by Nursing 06/22/23 18:00 06/22/23 18:00 06/22/23 18:44 Temperature Temperature Source Pulse Rate 87 89 Pulse Rate [Apical] Pulse Rate from SpO2 Sensor 86 88 Pulse Rhythm Pulse Rhythm [Apical] Pulse Strength Pulse Strength [Apical] Respiratory Rate 15 18 Respiratory Effort / Characteristics Respiratory Depth Respiratory Pattern Blood Pressure 114/63 Blood Pressure [Right Arm] Blood Pressure Mean 89 Blood Pressure Mean [Right Arm] Blood Pressure Position Blood Pressure Position [Right Arm] Pulse Oximetry 91 98 Oxygen Delivery Method Room Air Room Air Oxygen Flow Rate Sepsis Recent Fever Within 48 Hours Sepsis New/Unexplained Change in Mental Status Sepsis Action Taken by Nursing 06/22/23 18:44 06/22/23 19:28 06/22/23 19:28 Temperature Temperature Source Pulse Rate 91 H Pulse Rate [Apical] Pulse Rate from SpO2 Sensor 91 H Pulse Rhythm Pulse Rhythm [Apical] Pulse Strength Pulse Strength [Apical] Respiratory Rate 19 Respiratory Effort / Characteristics Respiratory Depth Respiratory Pattern Blood Pressure 117/57 L 127/58 L Blood Pressure [Right Arm] Blood Pressure Mean 79 83 Blood Pressure Mean [Right Arm] Blood Pressure Position Blood Pressure Position [Right Arm] Pulse Oximetry 96 Oxygen Delivery Method Room Air Oxygen Flow Rate Sepsis Recent Fever Within 48 Hours Sepsis New/Unexplained Change in Mental Status Sepsis Action Taken by Nursing 06/22/23 19:30 06/22/23 19:30 06/22/23 19:50 Temperature Temperature Source Pulse Rate 88 87 Pulse Rate [Apical] Pulse Rate from SpO2 Sensor 87 Pulse Rhythm Pulse Rhythm [Apical] Pulse Strength Pulse Strength [Apical] Respiratory Rate 19 Respiratory Effort / Characteristics Respiratory Depth Respiratory Pattern Blood Pressure 143/51 H Blood Pressure [Right Arm] Blood Pressure Mean 105 Blood Pressure Mean [Right Arm] Blood Pressure Position Blood Pressure Position [Right Arm] Pulse Oximetry 94 Oxygen Delivery Method Room Air Oxygen Flow Rate Sepsis Recent Fever Within 48 Hours Sepsis New/Unexplained Change in Mental Status Sepsis Action Taken by Nursing 06/22/23 20:00 06/22/23 20:00 06/22/23 20:00 Temperature Temperature Source Pulse Rate 79 Pulse Rate [Apical] 81 Pulse Rate from SpO2 Sensor 81 Pulse Rhythm Pulse Rhythm [Apical] Regular Pulse Strength Pulse Strength [Apical] Normal Respiratory Rate 18 15 Respiratory Effort / Characteristics Non-Labored Spontaneous Respiratory Depth Normal Respiratory Pattern Regular Blood Pressure 135/67 Blood Pressure [Right Arm] 135/67 Blood Pressure Mean 98 Blood Pressure Mean [Right Arm] 89 Blood Pressure Position Blood Pressure Position [Right Arm] Semi-fowlers Pulse Oximetry 92 95 Oxygen Delivery Method Room Air Room Air Oxygen Flow Rate Sepsis Recent Fever Within 48 Hours Sepsis New/Unexplained Change in Mental Status Sepsis Action Taken by Nursing Laboratory Data 06/22/23 13:15 06/22/23 15:24 Lab Results 06/22/23 06/22/23 06/22/23 Range/Units 13:15 15:24 15:35 WBC 9.37 (4.8-10.8) K/ul RBC 3.54 L (4.70-6.10) M/uL Hgb 10.4 L (14.0-18.0) g/dl Hct 32.3 L (42.0-52.0) % MCV 91.2 (80.0-100.0) fL MCH 29.4 (25.0-34.0) pg MCHC 32.2 (32.0-36.0) g/dL RDW Std Deviation 53.1 H (36.4-46.3) fL RDW Coeff of Kacey 16.5 H (11.5-14.5) % Plt Count 195 (130-400) K/uL MPV 12.8 H (9.4-12.4) fL Immature Gran % (Auto) 0.5 % Neut % (Auto) 75.5 % Lymph % (Auto) 16.6 % Stanton % (Auto) 5.9 % Eos % (Auto) 0.9 % Baso % (Auto) 0.6 % Neut # (Auto) 7.07 H (1.40-6.50) K/uL Lymph # (Auto) 1.56 (1.20-3.40) K/uL Stanton # (Auto) 0.55 (0.11-0.59) K/uL Eos # (Auto) 0.08 (0.00-0.50) K/uL Baso # (Auto) 0.06 (0.00-0.20) K/uL Immature Gran # (Auto) 0.05 (0.01-0.20) K/uL Absolute Nucleated RBC 0.03 (0.00-0.12) K/uL Nucleated RBC % (auto) 0.3 % PT Cancelled 60.1 H INR Cancelled 6.2 H* APTT Cancelled 53 H PTT Ratio Cancelled 1.9 Sodium TNP 138 Potassium TNP 3.5 Chloride 103 (98-107) mmol/L Carbon Dioxide 26 (21-32) mmol/L Anion Gap TNP BUN 51 H (6-23) mg/dl Creatinine 1.63 H (0.6-1.4) mg/dl Est Cr Clr Drug Dosing Not Reportable Est GFR ( Amer) 53.4 ml/min Est GFR (Non-Af Amer) 46.1 ml/min BUN/Creatinine Ratio 31.3 H (10-20) Glucose 137 H (70-99(Fasting)) mg/dl Calcium 8.5 L (8.6-10.3) mg/dl Magnesium TNP 2.3 Total Bilirubin 1.9 H (0.2-1.0) mg/dl AST TNP 65 H ALT 68 H (7-52) U/L Alkaline Phosphatase TNP 110 H Troponin I High Sens 65.3 H* 76.8 H* D (0-20) pg/ml B-Natriuretic Peptide 1464 H (0-100) pg/ml Total Protein 7.0 (6.0-8.3) gm/dl Albumin TNP 3.7 Globulin TNP Albumin/Globulin Ratio TNP Urine Color Urine Appearance (Clear) Urine pH (4.5-7.5) Ur Specific [place] (1.000-1.030) Urine Protein (Negative) Urine Glucose (UA) (Negative) Urine Ketones (Negative) Urine Blood (Negative) Urine Nitrite (Negative) Urine Bilirubin (Negative) Urine Urobilinogen (Negative) Ur Leukocyte Esterase (Negative) Adenovirus (PCR) (NotDetected) B. pertussis DNA (PCR) (NotDetected) B.parapertussis DNA PCR (NotDetected) C. pneumoniae DNA (PCR) (NotDetected) Coronavirus OC43 (PCR) (NotDetected) Coronavirus HKU1 (PCR) (NotDetected) Coronavirus 229E (PCR) (NotDetected) SARS-CoV-2 (PCR) (NotDetected) Coronavirus NL63 (PCR) (NotDetected) Human Metapneumovir PCR (NotDetected) Influenza Type A (PCR) (NotDetected) Influenza Type B (PCR) (NotDetected) M. pneumoniae (PCR) (NotDetected) Parainfluenza 1 (PCR) (NotDetected) Parainfluenza 2 (PCR) (NotDetected) Parainfluenza 3 (PCR) (NotDetected) Parainfluenza 4 (PCR) (NotDetected) RSV (PCR) (NotDetected) Entero/Rhino (PCR) (NotDetected) 06/22/23 Range/Units 18:53 WBC (4.8-10.8) K/ul RBC (4.70-6.10) M/uL Hgb (14.0-18.0) g/dl Hct (42.0-52.0) % MCV (80.0-100.0) fL MCH (25.0-34.0) pg MCHC (32.0-36.0) g/dL RDW Std Deviation (36.4-46.3) fL RDW Coeff of Kacey (11.5-14.5) % Plt Count (130-400) K/uL MPV (9.4-12.4) fL Immature Gran % (Auto) % Neut % (Auto) % Lymph % (Auto) % Stanton % (Auto) % Eos % (Auto) % Baso % (Auto) % Neut # (Auto) (1.40-6.50) K/uL Lymph # (Auto) (1.20-3.40) K/uL Stanton # (Auto) (0.11-0.59) K/uL Eos # (Auto) (0.00-0.50) K/uL Baso # (Auto) (0.00-0.20) K/uL Immature Gran # (Auto) (0.01-0.20) K/uL Absolute Nucleated RBC (0.00-0.12) K/uL Nucleated RBC % (auto) % PT INR APTT PTT Ratio Sodium Potassium Chloride (98-107) mmol/L Carbon Dioxide (21-32) mmol/L Anion Gap BUN (6-23) mg/dl Creatinine (0.6-1.4) mg/dl Est Cr Clr Drug Dosing Est GFR ( Amer) ml/min Est GFR (Non-Af Amer) ml/min BUN/Creatinine Ratio (10-20) Glucose (70-99(Fasting)) mg/dl Calcium (8.6-10.3) mg/dl Magnesium Total Bilirubin (0.2-1.0) mg/dl AST ALT (7-52) U/L Alkaline Phosphatase Troponin I High Sens (0-20) pg/ml B-Natriuretic Peptide (0-100) pg/ml Total Protein (6.0-8.3) gm/dl Albumin Globulin Albumin/Globulin Ratio Urine Color Dark Yellow Urine Appearance Clear (Clear) Urine pH 6.0 (4.5-7.5) Ur Specific [place] 1.016 (1.000-1.030) Urine Protein Negative (Negative) Urine Glucose (UA) Negative (Negative) Urine Ketones Negative (Negative) Urine Blood Negative (Negative) Urine Nitrite Negative (Negative) Urine Bilirubin 1+ H (Negative) Urine Urobilinogen Negative (Negative) Ur Leukocyte Esterase Negative (Negative) Adenovirus (PCR) Not Detected (NotDetected) B. pertussis DNA (PCR) Not Detected (NotDetected) B.parapertussis DNA PCR Not Detected (NotDetected) C. pneumoniae DNA (PCR) Not Detected (NotDetected) Coronavirus OC43 (PCR) Not Detected (NotDetected) Coronavirus HKU1 (PCR) Not Detected (NotDetected) Coronavirus 229E (PCR) Not Detected (NotDetected) SARS-CoV-2 (PCR) DETECTED A (NotDetected) Coronavirus NL63 (PCR) Not Detected (NotDetected) Human Metapneumovir PCR Not Detected (NotDetected) Influenza Type A (PCR) Not Detected (NotDetected) Influenza Type B (PCR) Not Detected (NotDetected) M. pneumoniae (PCR) Not Detected (NotDetected) Parainfluenza 1 (PCR) Not Detected (NotDetected) Parainfluenza 2 (PCR) Not Detected (NotDetected) Parainfluenza 3 (PCR) Not Detected (NotDetected) Parainfluenza 4 (PCR) Not Detected (NotDetected) RSV (PCR) Not Detected (NotDetected) Entero/Rhino (PCR) Not Detected (NotDetected) Administered Medications Bupropion HCl (Bupropion Xl 300 Mg Tabcr) 300 mg PO [facility] Stop: 07/22/23 22:13 Last Admin: 06/23/23 00:08 Dose: 300 mg Documented By: SHANE Prazosin HCl (Prazosin Hcl 1 Mg Cap) 10 mg PO QPM [facility] Stop: 07/22/23 22:13 Last Admin: 06/23/23 00:10 Dose: 10 mg Documented By: SHANE Trazodone HCl (Trazodone Hcl 50 Mg Tab) 50 mg PO [facility] Stop: 07/22/23 22:13 Last Admin: 06/23/23 00:09 Dose: 50 mg Documented By: SHANE Discontinued Medications Furosemide (Furosemide 40 Mg/4 Ml Vial) 40 mg IV ONE ONE Stop: 06/22/23 18:12 Last Admin: 06/22/23 18:24 Dose: 40 mg Documented By: PLACIDO Phytonadione (Phytonadione 5 Mg Tab) 2.5 mg PO NOW STA Stop: 06/22/23 17:38 Last Admin: 06/22/23 18:15 Dose: 2.5 mg Documented By: PLACIDO Potassium Chloride (Potassium Chloride Crtab 20 Meq Tabcr) 40 meq PO NOW STA Stop: 06/22/23 20:16 Last Admin: 06/22/23 21:31 Dose: 40 meq Documented By: S Imaging Data Radiologist's Impression: Chest X-Ray 06/22/23 13:46 XR chest 1V not portable HISTORY: 57 years-old Male Dyspnea acute shortness of breath COMPARISON: 06/18/2023 TECHNIQUE: AP view the chest FINDINGS: Cardiac silhouette is enlarged. Median sternotomy with cardiac valvular prosthesis. Pulmonary vascular congestion with interstitial coarsening. Small pleural effusions with mild bibasilar opacities. Bones appear grossly intact. IMPRESSION: 1. Cardiomegaly with pulmonary edema. 2. Small pleural effusions with stable mild bibasilar opacities, likely atelectasis. ACT 112: Negative or not required by law. The above report was generated using voice recognition software. It may contain grammatical, syntax or spelling errors. Electronically signed by: Karlo Navarrete M.D. 06/22/2023 2:[address] 06/22/23 17:37 CT SCAN OF THE CHEST WITHOUT IV CONTRAST CLINICAL HISTORY: Dyspnea. COMPARISON STUDY: Chest x-ray dated 06/22/2023. Chest CT dated 06/06/2023. TECHNIQUE: CT scan of the thorax was performed from the thoracic inlet to the upper abdomen. Images are reviewed in the axial, sagittal, and coronal planes. IV contrast was not administered for this examination as per the referring clinician. A dose lowering technique was utilized adhering to the principles of ALARA. CT DOSE: 576.85 mGy.cm FINDINGS: Thyroid: Imaged portions of the thyroid gland are normal in size and attenuation. Thoracic aorta: There is atherosclerotic calcification of the thoracic aorta, which is normal in caliber and demonstrates bovine variant arch anatomy. Heart: The patient is status post midline sternotomy and aortic valve surgery.. The heart is enlarged and without pericardial effusion. There is diminished attenuation of the cardiac blood pool as compared to myocardium suggesting anemia. The coronary arteries are densely calcified. Lungs and pleural spaces: Emphysematous change is observed. There are [id number] pleural effusions, right larger than left with dependent atelectasis. Intralobular septal thickening is seen throughout both lungs. The trachea and central airways are clear. A 4 mm left lower lobe pulmonary nodule image #212 is unchanged. Mediastinum: 5 enlarged mediastinal lymph nodes are similar to previous. A precarinal node measures 13 mm in short axis. A high prevascular node measures 14 mm in short axis. Jacquelyn: Not well assessed without IV contrast. Axillae: There is no axillary lymphadenopathy. Upper abdomen: The liver is cirrhotic in morphology. Partially visualized upper abdominal viscera is otherwise grossly unremarkable. Skeletal structures: The skeletal structures are osteopenic. Degenerative change is noted in the shoulders and spine. No lytic or blastic bony lesions are seen. IMPRESSION: 1. Cardiomegaly and emphysema with evidence of congestive failure. Radiographic follow-up to resolution is recommended. 2. Right larger than left pleural effusions with dependent atelectasis. 3. Cirrhotic liver morphology. 4. Mildly enlarged mediastinal lymph nodes are nonspecific and may be reactive. These are similar to previous. Clinical correlation will be required. 5. Additional findings as above. ACT 112: Negative or not required by law. Electronically signed by: Alfonso Lunsford M.D. 06/22/2023 7:01 PM Discharge Plan Visit Data Chief Complaint: Shortness of Breath/Dyspnea Stated Complaint: SOB, REF BY DOC ED Provider: Park Walls Discharge Problem: Dyspnea, Supratherapeutic INR, Anemia Patient Disposition: Admitted As Inpatient Discharge Instructions Interventions: ED Discharge Assessment Last Done: 06/22/23 22:20
--- NOTE | 2023-06-22 17:52 | Electrocardiogram Report ---
Test Reason : Blood Pressure : / mmHG Vent. Rate : 088 BPM Atrial Rate : 088 BPM P-R Int : 198 ms QRS Dur : 108 ms QT Int : 430 ms P-R-T Axes : 067 031 218 degrees QTc Int : 520 ms Poor data quality, interpretation may be adversely affected Sinus rhythm with occasional Premature ventricular complexes Left atrial enlargement Left ventricular hypertrophy with repolarization abnormality ( James product ) Prolonged QT Abnormal ECG When compared with ECG of 15-JUN-2023 08:15, Premature ventricular complexes are now Present Confirmed by Matt Meek ([id number]) on 06/22/2023 5:51:58 PM Referred By: REFERRED SELF Confirmed By:Matt Meek
[2023-06-22] MEDS: PHYTONADIONE 5 MG TAB PO STA (18:15)
[2023-06-22] MEDS: FUROSEMIDE 40 MG/4 ML VIAL IV ONE (18:24)
--- NOTE | 2023-06-22 19:03 | CT Scan Report ---
CT SCAN OF THE CHEST WITHOUT IV CONTRAST CLINICAL HISTORY: Dyspnea. COMPARISON STUDY: Chest x-ray dated 06/22/2023. Chest CT dated 06/06/2023. TECHNIQUE: CT scan of the thorax was performed from the thoracic inlet to the upper abdomen. Images are reviewed in the axial, sagittal, and coronal planes. IV contrast was not administered for this ex amination as per the referring clinician. A dose lowering technique was utilized [facility] DOSE: 576.85 mGy.cm FINDINGS: Thyroid: Imaged portions of the thyroid gland are normal in size and attenuation. Thoracic aorta: There is atherosclerotic calcification of the thoracic aorta, which is normal in kalyn severino and demonstrates bovine variant arch anatomy. Heart: The patient is status post midline sternotomy and aortic valve surgery.. The heart is enlarged and without pericardial effusion. There is diminished attenuation of the cardiac blood pool as macho red to myocardium suggesting anemia. The coronary arteries are densely calcified. Lungs and pleural spaces: Emphysematous change is observed. There are xasit-fr-xcgrujsp pleural effus ions, right larger than left with dependent atelectasis. Intralobular septal thickening is seen throu ghout both lungs. The trachea and central airways are clear. A 4 mm left lower lobe pulmonary nodule image #212 is unchanged. Mediastinum: 5 enlarged mediastinal lymph nodes are similar to previous. A precarinal node measures 1 3 mm in short axis. A high prevascular node measures 14 mm in short axis. Jacquelyn: Not well assessed without IV contrast. Axillae: There is no axillary lymphadenopathy. Upper abdomen: The liver is cirrhotic in morphology. Partially visualized upper abdominal viscera is otherwise grossly unremarkable. Skeletal structures: The skeletal structures are osteopenic. Degenerative change is noted in the shou lders and spine. No lytic or blastic bony lesions are seen. IMPRESSION: 1. Cardiomegaly and emphysema with evidence of congestive failure. Radiographic follow-up to resoluti on is recommended. 2. Right larger than left pleural effusions with dependent atelectasis. 3. Cirrhotic liver morphology. 4. Mildly enlarged mediastinal lymph nodes are nonspecific and may be reactive. These are similar to previous. Clinical correlation will be required. 5. Additional findings as above. ACT 112: Negative or not required by law. Electronically signed by: Alfonso Lunsford M.D. 06/22/2023 7:01 PM
[2023-06-22 19:12] LABS: Appearance Urine Clear (Clear); Blood Urine Negative (Negative); Color Urine Dark Yellow; Glucose Urine UA Negative (Negative); Ketones Urine Negative (Negative); Leukocyte Esterase Urine Negative (Negative); Nitrite Urine Negative (Negative); Protein Urine Negative (Negative); Specific Gravity Urine 1.016 (1.000-1.030); Urobilinogen Urine Negative (Negative)
[2023-06-22 19:18] LABS: Bilirubin Urine 1+ (Negative)
--- NOTE | 2023-06-22 20:22 | History & Physical Report ---
Date of Service June 22, 2023 Assessment & Plan (1) Supratherapeutic INR: (2) Acute on chronic systolic (congestive) heart failure: (3) Acute respiratory failure with hypoxia: (4) Pulmonary edema: (5) Cardiomyopathy: (6) Valvular heart disease: (7) H/O mechanical aortic valve replacement: (8) Aortic valve replaced: (9) On warfarin therapy: (10) Chronic dental infection: Plan Pulmonary edema/acute on chronic combined systolic and diastolic CHF- EF 40-45% on most recent echo Status post hospitalization from 06/06-06/19/2023 for management of CHF and dental infection Given Lasix 40 mg IV in ED, and will continue every morning Chest x-ray/CT chest with pulmonary edema and bilateral pleural effusions right greater than left Transesophageal echo at last visit showed grossly normal LV, moderate to severe MR, mechanical aortic valve with perivalvular leak and ascending aortic aneurysm Plan was to follow-up with surgeon at [facility] in [place] to get repeat aortic valve replacement and likely thoracic aortic aneurysm repair Continue losartan, metoprolol succinate, potassium chloride, aspirin Chronic dental infection-patient is status post excision of multiple lower teeth on 06/14 in preparation for heart valve replacement Continue Augmentin 875 mg p.o. twice daily Supratherapeutic INR- Target 2.5-3.5 INR was 6.2 in the ED, and was given vitamin K 2.5 mg by the ED COVID is temporarily on hold Recheck labs in the a.m. COPD- Continue Trelegy Ellipta History of Present Illness Chief Complaint: The patient presents to the emergency department due to a recurrence of shortness of breath, similar to symptoms that prompted his most recent hospitalization from 06/06-06/19/2023 at [facility]. Primary Care Provider: Jake Siegel DO The patient is a 57-year-old male with a past medical history including acute on chronic combined systolic and diastolic heart failure, pulmonary edema, cardiomyopathy, valvular heart disease, hearing loss, history of aortic valve replacement on warfarin therapy, rheumatic disease of heart valve, aortic valve disease, LVH, and on chronic anticoagulation. The patient was most recently a dmitted from 06/06-06/19/2023 to [facility] and was treated for acute on chronic systolic CHF. Transesophageal echocardiogram showed a grossly normal LV, moderate to severe MR, mechanical aortic valve with perivalvular leak, ascending aortic aneurysm. He was initially managed with IV Lasix in the edition metolazone, but due to acute kidney injury he was returned to oral Lasix and increase dosing to 40 mg twice daily. He was to follow-up with cardiothoracic surgery at [facility] in [place], as he was told he needed another aortic valve replacement and likely thoracic aortic aneurysm repair. The patient was known to have rheumatic heart disease as a child, and had a history of multiple mechanical aortic valve replacements. The patient presented to the emergency department this evening due to worsening shortness of breath, was found to have pulmonary edema and recurrent CHF, received furosemide 40 mg IV in the ED, and will be admitted to the PCU for further treatment. Patient was noted to have a chronic dental infection during last admission, and had multiple lower teeth extracted on 06/14/2023 anticipation of heart valve replacement. He was on Unasyn IV during admission, and changed to Augmentin twice daily upon discharge. Allergies Allergy/AdvReac Type Severity Reaction Status Date / Time bee venom protein (honey bee) Allergy Severe Severe Verified 06/06/23 17:00 neck/throat swelling, dyspnea adhesive Allergy Mild Rash Verified 06/06/23 17:00 chocolate flavor AdvReac Unknown Advised to Verified 06/06/23 17:00 avoid by surgeon d/t Vitamin K content per pt Home Medications Medication Instructions Recorded Confirmed Type bupropion HCl 300 mg 24 hr tablet, 300 mg PO HS 09/09/20 06/22/23 History extended release cholecalciferol (vitamin D3) 50 50 mcg PO QAM 09/09/20 06/22/23 History mcg (2,000 unit) capsule trazodone 50 mg tablet 50 mg PO HS 09/12/20 06/22/23 History aspirin 81 mg tablet,delayed 81 mg PO QAM 09/27/20 06/22/23 History release prazosin 5 mg capsule 10 mg PO QPM 01/12/22 06/22/23 History epinephrine 0.3 mg/0.3 mL 0.3 mg (0.3 mL) IM Q10M PRN 05/07/22 06/22/23 Rx injection, auto-injector Anaphylaxis #2 ea hydroxyzine HCl 50 mg tablet 50 mg PO TID PRN Anxiety 30 days 05/07/22 06/22/23 Rx #90 tabs melatonin 10 mg capsule 10 mg PO HS PRN Insomnia 06/04/22 06/22/23 History losartan 50 mg tablet 50 mg PO DAILY #90 tabs 03/16/23 06/22/23 Rx metoprolol succinate 25 mg 25 mg PO DAILY #90 tabs 03/16/23 06/22/23 Rx tablet,extended release 24 hr sertraline 50 mg tablet 50 mg PO DAILY 03/16/23 06/22/23 History potassium chloride 20 mEq 20 meq PO DAILY #30 tabs 05/11/23 06/22/23 Rx tablet,extended release atorvastatin 10 mg tablet 10 mg PO DAILY #90 tabs 05/25/23 06/22/23 Rx fluticasone fur. 100 mcg-umeclid 1 ea inhalation DAILY 06/06/23 06/22/23 History 62.5 mcg-vilant 25 mcg inhalat.powder (Trelegy Ellipta) amoxicillin 875 mg-potassium 1 tab PO BIDM #14 tabs 06/19/23 06/22/23 Rx clavulanate 125 mg tablet furosemide 40 mg tablet 40 mg PO BID17 #60 tabs 06/19/23 06/22/23 Rx warfarin 5 mg tablet See Rx Instructions PO UD 06/22/23 06/22/23 History Past Med/Surg History Medical History (Updated 06/23/23 @ 04:57 by Miguel Angel Tomas MD) Chronic dental infection Anemia Fracture of incisor teeth Dental fistula Exposed lingual bone On warfarin therapy NICM (nonischemic cardiomyopathy) Poor dentition Severe aortic valve regurgitation Mitral regurgitation Ascending aortic aneurysm Dyslipidemia Coronary artery calcification Normal Coronary Arteries on Cardiac Cath 05/20/23 Acute on chronic systolic (congestive) heart failure Tinnitus of right ear Mixed conductive and sensorineural hearing loss of right ear with restricted hearing of left ear Deviated septum Claustrophobia Did have issues in the past with oxygen mask Anxiety and depression Aortic valve disease s/p AVR/revisions (1981, 1982x2), on warfarin, FOLLOWED BY BECKY JAMES PA-C Osteoarthritis Hearing loss in right ear Post traumatic stress disorder History of rheumatic fever as a child at age 6 > led to cardiac issues (hx AVR) On warfarin therapy Asthma Surgical History (Updated 06/23/23 @ 04:56 by Miguel Angel Tomas MD) H/O mechanical aortic valve replacement Hx of oral surgery (06/14/23) Extraction 6 Teeth, Incision and Drainage(Not Applicable) - Trell Ramirez, DMD S/P excision of lipoma LEFT/RT FOREARM AND RT HIP H/O excision of mass (10/16/20) Soft Tissue Mass Excision Bilateral Arms (2-5 cm) and Right Flank (19.5 cm)(Not Applicable) - Yang Lemus DO, FACS History of appendectomy History of tooth extraction all upper teeth removed/some lower teeth removed History of cardiac cath multiple, last Feb 1983--no stents placed Aortic valve replaced s/p AVR/revisions (1981, 1982x2) Family History Brother Family history of reaction to anesthesia when he received anesthesia "it always triggered his seizures" Father Hearing loss Cancer Sister Hearing loss Cancer Other Allergies No family history of bleeding disorder Social History Smoking Status: Current every day smoker Tobacco Type: Cigarettes Age Started Using Tobacco: 14; Cigarettes Per Day: 4; Second Hand Exposure: Yes; Do You Dip or Chew Tobacco: No; Hx Alcohol Use: No Hx Substance Use: No Preferred Language: Libyan Communication Ability: Effective Mud Analysis Operator Required: No Beliefs That Will Affect Care: None marital status: / Current Living Situation: Other Current Living Situation Comment: lives w/ friend current occupational status: disabled Feels Safe at Home: Yes Assistive Devices: Denture - Upper, Denture - Lower and Glasses Review of Systems Review of Systems: The patient denies chest pain, palpitations, lower extremity swelling, sore throat, fevers, chills, sweats, nausea, vomiting, diarrhea , constipation, abdominal pain, pelvic pain, blood in urine or stool, dysuria, urinary frequency or urgency, lightheadedness, dizziness, headache, memory loss, loss of consciousness, rash, abnormal bruising or bleeding, imbalance, focal weakness, numbness or tingling in arms or legs, generalized arthralgias or myalgias, back or neck pain, or night sweats. The review of systems is otherwise negative other than for that already noted above, and at least 10 systems have been reviewed. Physical Exam Physical Exam: The patient is awake, alert and oriented 3, appears very fatigued, normocephalic and atraumatic, lying in bed and in no acute distress. HEENT--PERRL, EOMI, mucous membranes and oropharynx normal Neck--supple. No JVD. No bruits. Thyroid normal, trachea midline, no adenopathy. Heart--normal S1 and S2. No murmurs, rubs or gallops. Lungs--clear bilaterally, no respiratory distress, no accessory muscle use. Abdomen--normal bowel sounds and soft. Nontender. Nondistended, no hernias or masses, no organomegaly. Extremities--No edema Dermatologic--normal skin turgor, normal color, no abnormal lymph nodes, no rash. Neurologic--cranial nerves II through XII grossly intact. Rheumatologic--normal range of motion. Psychiatric--normal affect. Results & Data Results & Data Vital Signs (Past 12 Hours) Vital Signs Temp Pulse Pulse Resp BP BP Pulse Ox 06/22/23 20:00 135/67 06/22/23 20:00 79 15 95 06/22/23 20:00 81 18 135/67 92 06/22/23 19:50 87 06/22/23 19:30 88 19 94 06/22/23 19:30 143/51 H 06/22/23 19:28 127/58 L 06/22/23 19:28 91 H 19 96 06/22/23 18:44 117/57 L 06/22/23 18:44 89 18 98 06/22/23 18:00 87 15 91 06/22/23 18:00 114/63 06/22/23 17:30 66 19 99 06/22/23 17:30 121/59 L 06/22/23 17:05 82 25 H 122/55 L 94 06/22/23 17:04 79 21 98 06/22/23 17:04 122/55 L 06/22/23 16:44 73 06/22/23 15:11 84 20 126/57 L 96 06/22/23 15:11 06/22/23 13:43 36.5 C 88 18 116/70 95 O2 Del Method O2 Flow Rate 06/22/23 20:00 06/22/23 20:00 Room Air 06/22/23 20:00 Room Air 06/22/23 19:50 06/22/23 19:30 Room Air 06/22/23 19:30 06/22/23 19:28 06/22/23 19:28 Room Air 06/22/23 18:44 06/22/23 18:44 Room Air 06/22/23 18:00 Room Air 06/22/23 18:00 06/22/23 17:30 Room Air 06/22/23 17:30 06/22/23 17:05 Nasal Cannula 2 06/22/23 17:04 Room Air 06/22/23 17:04 06/22/23 16:44 06/22/23 15:11 Room Air 06/22/23 15:11 Room Air 06/22/23 13:43 Room Air Laboratory Results Laboratory Results WBC 9.37 K/ul (4.8-10.8) 06/22/23 13:15 RBC 3.54 M/uL (4.70-6.10) L 06/22/23 13:15 Hgb 10.4 g/dl (14.0-18.0) L 06/22/23 13:15 Hct 32.3 % (42.0-52.0) L 06/22/23 13:15 MCV 91.2 fL (80.0-100.0) 06/22/23 13:15 MCH 29.4 pg (25.0-34.0) 06/22/23 13:15 MCHC 32.2 g/dL (32.0-36.0) 06/22/23 13:15 RDW Std Deviation 53.1 fL (36.4-46.3) H 06/22/23 13:15 RDW Coeff of Kacey 16.5 % (11.5-14.5) H 06/22/23 13:15 Plt Count 195 K/uL (130-400) 06/22/23 13:15 MPV 12.8 fL (9.4-12.4) H 06/22/23 13:15 Immature Gran % (Auto) 0.5 % 06/22/23 13:15 Neut % (Auto) 75.5 % 06/22/23 13:15 Lymph % (Auto) 16.6 % 06/22/23 13:15 Labette % (Auto) 5.9 % 06/22/23 13:15 Eos % (Auto) 0.9 % 06/22/23 13:15 Baso % (Auto) 0.6 % 06/22/23 13:15 Neut # (Auto) 7.07 K/uL (1.40-6.50) H 06/22/23 13:15 Lymph # (Auto) 1.56 K/uL (1.20-3.40) 06/22/23 13:15 Labette # (Auto) 0.55 K/uL (0.11-0.59) 06/22/23 13:15 Eos # (Auto) 0.08 K/uL (0.00-0.50) 06/22/23 13:15 Baso # (Auto) 0.06 K/uL (0.00-0.20) 06/22/23 13:15 Immature Gran # (Auto) 0.05 K/uL (0.01-0.20) 06/22/23 13:15 Absolute Nucleated RBC 0.03 K/uL (0.00-0.12) 06/22/23 13:15 Nucleated RBC % (auto) 0.3 % 06/22/23 13:15 PT 60.1 Seconds (9.0-12.0) H 06/22/23 15:24 INR 6.2 (0.9-1.1) H* 06/22/23 15:24 APTT 53 Seconds (21-31) H 06/22/23 15:24 PTT Ratio 1.9 06/22/23 15:24 Sodium 138 mmol/L (136-145) 06/22/23 15:24 Potassium 3.5 mmol/L (3.5-5.1) 06/22/23 15:24 Chloride 103 mmol/L (98-107) 06/22/23 13:15 Carbon Dioxide 26 mmol/L (21-32) 06/22/23 13:15 Anion Gap TNP 06/22/23 13:15 BUN 51 mg/dl (6-23) H 06/22/23 13:15 Creatinine 1.63 mg/dl (0.6-1.4) H 06/22/23 13:15 Est Cr Clr Drug Dosing Not Reportable 06/22/23 13:15 Est GFR ( Amer) 53.4 ml/min 06/22/23 13:15 Est GFR (Non-Af Amer) 46.1 ml/min 06/22/23 13:15 BUN/Creatinine Ratio 31.3 (10-20) H 06/22/23 13:15 Glucose 137 mg/dl (70-99(Fasting)) H 06/22/23 13:15 Calcium 8.5 mg/dl (8.6-10.3) L 06/22/23 13:15 Magnesium 2.3 mg/dl (1.7-2.4) 06/22/23 15:24 Total Bilirubin 1.9 mg/dl (0.2-1.0) H 06/22/23 13:15 AST 65 U/L (13-39) H 06/22/23 15:24 ALT 68 U/L (7-52) H 06/22/23 13:15 Alkaline Phosphatase 110 U/L (34-104) H 06/22/23 15:24 Troponin I High Sens 76.8 pg/ml (0-20) H* D 06/22/23 15:35 B-Natriuretic Peptide 1464 pg/ml (0-100) H 06/22/23 13:15 Total Protein 7.0 gm/dl (6.0-8.3) 06/22/23 13:15 Albumin 3.7 gm/dl (3.4-5.0) 06/22/23 15:24 Globulin TNP 06/22/23 13:15 Albumin/Globulin Ratio TNP 06/22/23 13:15 Urine Color Dark Yellow 06/22/23 18:53 Urine Appearance Clear (Clear) 06/22/23 18:53 Urine pH 6.0 (4.5-7.5) 06/22/23 18:53 Ur Specific [place] 1.016 (1.000-1.030) 06/22/23 18:53 Urine Protein Negative (Negative) 06/22/23 18:53 Urine Glucose (UA) Negative (Negative) 06/22/23 18:53 Urine Ketones Negative (Negative) 06/22/23 18:53 Urine Blood Negative (Negative) 06/22/23 18:53 Urine Nitrite Negative (Negative) 06/22/23 18:53 Urine Bilirubin 1+ (Negative) H 06/22/23 18:53 Urine Urobilinogen Negative (Negative) 06/22/23 18:53 Ur Leukocyte Esterase Negative (Negative) 06/22/23 18:53 Adenovirus (PCR) Not Detected (NotDetected) 06/22/23 18:53 B. pertussis DNA (PCR) Not Detected (NotDetected) 06/22/23 18:53 B.parapertussis DNA PCR Not Detected (NotDetected) 06/22/23 18:53 C. pneumoniae DNA (PCR) Not Detected (NotDetected) 06/22/23 18:53 Coronavirus OC43 (PCR) Not Detected (NotDetected) 06/22/23 18:53 Coronavirus HKU1 (PCR) Not Detected (NotDetected) 06/22/23 18:53 Coronavirus 229E (PCR) Not Detected (NotDetected) 06/22/23 18:53 SARS-CoV-2 (PCR) DETECTED (NotDetected) A 06/22/23 18:53 Coronavirus NL63 (PCR) Not Detected (NotDetected) 06/22/23 18:53 Human Metapneumovir PCR Not Detected (NotDetected) 06/22/23 18:53 Influenza Type A (PCR) Not Detected (NotDetected) 06/22/23 18:53 Influenza Type B (PCR) Not Detected (NotDetected) 06/22/23 18:53 M. pneumoniae (PCR) Not Detected (NotDetected) 06/22/23 18:53 Parainfluenza 1 (PCR) Not Detected (NotDetected) 06/22/23 18:53 Parainfluenza 2 (PCR) Not Detected (NotDetected) 06/22/23 18:53 Parainfluenza 3 (PCR) Not Detected (NotDetected) 06/22/23 18:53 Parainfluenza 4 (PCR) Not Detected (NotDetected) 06/22/23 18:53 RSV (PCR) Not Detected (NotDetected) 06/22/23 18:53 Entero/Rhino (PCR) Not Detected (NotDetected) 06/22/23 18:53 Impressions Chest X-Ray 06/22/23 13:46 XR chest 1V not portable HISTORY: 57 years-old Male Dyspnea acute shortness of breath COMPARISON: 06/18/2023 TECHNIQUE: AP view the chest FINDINGS: Cardiac silhouette is enlarged. Median sternotomy with cardiac valvular prosthesis. Pulmonary vascular congestion with interstitial coarsening. Small pleural effusions with mild bibasilar opacities. Bones appear grossly intact. IMPRESSION: 1. Cardiomegaly with pulmonary edema. 2. Small pleural effusions with stable mild bibasilar opacities, likely atelectasis. ACT 112: Negative or not required by law. The above report was generated using voice recognition software. It may contain grammatical, syntax or spelling errors. Electronically signed by: Karlo Navarrete M.D. 06/22/2023 2:[address] 06/22/23 17:37 CT SCAN OF THE CHEST WITHOUT IV CONTRAST CLINICAL HISTORY: Dyspnea. COMPARISON STUDY: Chest x-ray dated 06/22/2023. Chest CT dated 06/06/2023. TECHNIQUE: CT scan of the thorax was performed from the thoracic inlet to the upper abdomen. Images are reviewed in the axial, sagittal, and coronal planes. IV contrast was not administered for this examination as per the referring clinician. A dose lowering technique was utilized adhering to the principles of ALARA. CT DOSE: 576.85 mGy.cm FINDINGS: Thyroid: Imaged portions of the thyroid gland are normal in size and attenuation. Thoracic aorta: There is atherosclerotic calcification of the thoracic aorta, which is normal in caliber and demonstrates bovine variant arch anatomy. Heart: The patient is status post midline sternotomy and aortic valve surgery.. The heart is enlarged and without pericardial effusion. There is diminished attenuation of the cardiac blood pool as compared to myocardium suggesting anemia. The coronary arteries are densely calcified. Lungs and pleural spaces: Emphysematous change is observed. There are cfbmz-cy-pncuxlop pleural effusions, right larger than left with dependent atelectasis. Intralobular septal thickening is seen throughout both lungs. The trachea and central airways are clear. A 4 mm left lower lobe pulmonary nodule image #212 is unchanged. Mediastinum: 5 enlarged mediastinal lymph nodes are similar to previous. A precarinal node measures 13 mm in short axis. A high prevascular node measures 14 mm in short axis. Jacquelyn: Not well assessed without IV contrast. Axillae: There is no axillary lymphadenopathy. Upper abdomen: The liver is cirrhotic in morphology. Partially visualized upper abdominal viscera is otherwise grossly unremarkable. Skeletal structures: The skeletal structures are osteopenic. Degenerative change is noted in the shoulders and spine. No lytic or blastic bony lesions are seen. IMPRESSION: 1. Cardiomegaly and emphysema with evidence of congestive failure. Radiographic follow-up to resolution is recommended. 2. Right larger than left pleural effusions with dependent atelectasis. 3. Cirrhotic liver morphology. 4. Mildly enlarged mediastinal lymph nodes are nonspecific and may be reactive. These are similar to previous. Clinical correlation will be required. 5. Additional findings as above. ACT 112: Negative or not required by law. Electronically signed by: Alfonso Lunsford M.D. 06/22/2023 7:01 PM Code Status & VTE Plan Code Status Full code VTE Prophylaxis Plan VTE Prophylaxis will be ordered: Yes PG Care Time/CCT Total # of Minutes Spent Total Time Spent with Patient: Total time spent is greater than 50% in coordination of care (as documented) at patient's floor/unit and/or counseling patient: Coding Level of Care Code 84267 INT INP/OBS CARE 3/75MIN Diagnoses Supratherapeutic INR R79.1 Acute on chronic systolic (congestive) heart failure I50.23 Acute respiratory failure with hypoxia J96.01 Pulmonary edema J81.0 Chronicity: acute Cardiomyopathy, unspecified type I42.9 Cardiomyopathy type: unspecified Valvular heart disease I38 H/O mechanical aortic valve replacement Z95.2 Aortic valve replaced Z95.2 On warfarin therapy Z79.01 Chronic dental infection K04.7 (4) Pulmonary edema Chronicity: acute Qualified Code(s): J81.0 - Acute pulmonary edema (5) Cardiomyopathy Cardiomyopathy type: unspecified Qualified Code(s): I42.9 - Cardiomyopathy, unspecified
[2023-06-22 20:23] LABS: Adenovirus PCR Not Detected (NotDetected); Bordetella parapertussis PCR Not Detected (NotDetected); Bordetella pertussis PCR Not Detected (NotDetected); Chlamydia pneumoniae PCR Not Detected (NotDetected); Coronavirus 229E PCR Not Detected (NotDetected); Coronavirus CoV-2 (COVID19)PCR DETECTED (NotDetected); Coronavirus HKU1 PCR Not Detected (NotDetected); Coronavirus NL63 PCR Not Detected (NotDetected); Coronavirus OC43PCR Not Detected (NotDetected); Human Metapneumovirus PCR Not Detected (NotDetected); Influenza A PCR Not Detected (NotDetected); Influenza B PCR Not Detected (NotDetected); Mycoplasma pneumoniae PCR Not Detected (NotDetected); Parainfluenza Virus 1 PCR Not Detected (NotDetected); Parainfluenza Virus 2 PCR Not Detected (NotDetected); Parainfluenza Virus 3 PCR Not Detected (NotDetected); Parainfluenza Virus 4 PCR Not Detected (NotDetected); Respiratory Syncytial VirusPCR Not Detected (NotDetected); Rhinovirus/Enterovirus PCR Not Detected (NotDetected)
[2023-06-22] MEDS: POTASSIUM CHLORIDE CRTAB 20 MEQ TABCR PO STA (21:31)
[2023-06-22] MEDS ORDERED: ONDANSETRON INJ 2 MG/ML 2 ML VIAL IV PRN (22:14)
[2023-06-22] MEDS ORDERED: ACETAMINOPHEN 325 MG TAB PO PRN (22:14)
[2023-06-22] MEDS ORDERED: hydrOXYzine HCl 25 MG TAB PO PRN (22:14)
[2023-06-23] MEDS: buPROPion XL 300 MG TABCR PO SCH (00:08)
[2023-06-23] MEDS: traZODone HCL 50 MG TAB PO SCH (00:09)
[2023-06-23] MEDS: PRAZOSIN HCL 1 MG CAP PO SCH (00:10)
[2023-06-23 07:39] LABS: Basophils # (auto) 0.05 K/uL (0.00-0.20); Basophils % (auto) 0.7 %; Eosinophils # (auto) 0.21 K/uL (0.00-0.50); Hematocrit (blood only) 28.4 % (42.0-52.0); Hemoglobin 9.4 g/dl (14.0-18.0); Immature Granulocytes # (auto) 0.05 K/uL (0.01-0.20); Immature Granulocytes % (auto) 0.7 %; Lymphocytes # (auto) 1.63 K/uL (1.20-3.40); Lymphocytes % (auto) 23.5 %; Mean Corpuscular Hemoglobin 29.6 pg (25.0-34.0); Mean Corpuscular Hgb Conc 33.1 g/dL (32.0-36.0); Mean Corpuscular Volume 89.3 fL (80.0-100.0); Mean Platelet Volume 12.9 fL (9.4-12.4); Monocytes # (auto) 0.55 K/uL (0.11-0.59); Monocytes % (auto) 7.9 %; Neutrophils # (auto) 4.45 K/uL (1.40-6.50); Neutrophils % (auto) 64.2 %; Platelet Count 186 K/uL (130-400); RDW Coefficient of Variation 16.2 % (11.5-14.5); RDW Standard Deviation 51.9 fL (36.4-46.3); Red Blood Count 3.18 M/uL (4.70-6.10); White Blood Count 6.94 K/ul (4.8-10.8)
--- NOTE | 2023-06-23 07:41 | Electrocardiogram Report ---
Test Reason : Blood Pressure : / mmHG Vent. Rate : 088 BPM Atrial Rate : 088 BPM P-R Int : 204 ms QRS Dur : 108 ms QT Int : 464 ms P-R-T Axes : 076 062 176 degrees QTc Int : 561 ms Normal sinus rhythm Left atrial enlargement Left ventricular hypertrophy with QRS widening and repolarization abnormality Prolonged QT Abnormal ECG When compared with ECG of 22-JUN-2023 13:53, Premature ventricular complexes are no longer Present Otherwise no significant change Confirmed by Matt Meek ([id number]) on 06/23/2023 7:40:40 AM Referred By: REFERRED SELF Confirmed By:Matt Meek
[2023-06-23 08:10] LABS: Albumin Globulin Ratio 1.2 (0.9-2); Albumin Level 3.3 gm/dl (3.4-5.0); BUN Creatinine Ratio 28.8 (10-20); Bilirubin,Total 2.2 mg/dl (0.2-1.0); Calcium 8.2 mg/dl (8.6-10.3); Est GFR (African American) 56.3 ml/min; Est GFR (Non-African American) 48.6 ml/min; Globulin 2.7 gm/dl (2.5-4.0); Magnesium 2.1 mg/dl (1.7-2.4); Potassium 3.5 mmol/L (3.5-5.1)
[2023-06-23 08:18] LABS: INR 3.9 (0.9-1.1); Partial Thromboplastin Ratio 1.8; Partial Thromboplastin Time 50 Seconds (21-31); Prothrombin Time 39.2 Seconds (9.0-12.0)
[2023-06-23] MEDS ORDERED: FUROSEMIDE 40 MG/4 ML VIAL IV SCH (09:00)
[2023-06-23] MEDS ORDERED: NON-FORMULARY MEDICATION (Fluticasone-Umeclidin-Vilanter [Trelegy Ellipta] 100-62.5-25 mcg INH SCH (09:00)
[2023-06-23] MEDS: ATORVASTATIN 10 MG TAB PO SCH (09:36)
[2023-06-23] MEDS: AMOXICILLIN/CLAVULANATE 875 MG TAB PO SCH (09:36)
[2023-06-23] MEDS: ASPIRIN 81 MG ECTAB PO SCH (09:36)
[2023-06-23] MEDS: CHOLECALCIFEROL 25 MCG (1000 UNITS) TAB PO SCH (09:36)
[2023-06-23] MEDS: SERTRALINE HCL 50 MG TABLET PO SCH (09:37)
[2023-06-23] MEDS: METOPROLOL SUCC 25MG EXT REL TAB PO SCH (09:37)
[2023-06-23] MEDS: FUROSEMIDE 40 MG/4 ML VIAL IV SCH (09:37)
[2023-06-23] MEDS: LOSARTAN POTASSIUM 50 MG TAB PO SCH (09:37)
[2023-06-23] MEDS: POTASSIUM CHLORIDE CRTAB 20 MEQ TABCR PO SCH (09:37)
[2023-06-23] MEDS: FLUTICASONE FUROATE 100MCG 14 PUFFS/INHALER INH SCH (09:37)
[2023-06-23] MEDS: UMECLIDINIUM/VILANTEROL 62.5/25MCG 7 PUFFS/INHALER INH SCH (09:38)
--- NOTE | 2023-06-23 12:21 | Hospitalist Progress Note ---
Date of Service June 23, 2023 Assessment & Plan (1) Supratherapeutic INR: Plan: INR improved to 3.9 after vitamin K administered in the ED. Coumadin remains on hold. Daily lab (2) Acute on chronic systolic (congestive) heart failure: Plan: Actually, acute on chronic diastolic CHF. Recent CARLYN revealed normal ejection fraction. Continue parenteral Lasix diuresis. Repeat portable chest x-ray again tomorrow, June 23. Monitor intake and output (3) Acute respiratory failure with hypoxia: Plan: Resolved. He is on room air. (4) Cardiomyopathy: Plan: Valvular. History of rheumatic heart disease and multiple aortic valve replacements. (5) Valvular heart disease: Plan: Multiple aortic valve replacements with mechanical aortic valve in place. He is on Coumadin therapy (6) H/O mechanical aortic valve replacement: Plan: He is scheduled for follow-up with his spring clipper at [facility] and may require another aortic valve replacement. He currently has a mechanical aortic valve in place (7) On warfarin therapy: Plan: Coumadin toxicity on admission. No active bleeding however. He received vitamin K in the ED. INR today, June 22, is 3.9. Coumadin remains on hold (8) Chronic dental infection: Plan: Status post recent extraction of multiple teeth from the mandible. (9) COVID-19 determined by clinical diagnostic criteria: Plan: COVID positivity persists after recent infection. He does not have active COVID at this time. Isolation precautions are discontinued Plan Hopeful discharge to home tomorrow, June 23 Admission and Anticipated Discharge Date Admission Date: June 22, 2023 Subjective Awake. Flat affect. No distress. When he was discharged on June 18 his INR was 6.6 and has improved down to 6.2. He was given vitamin K in the ED and today, June 22, his INR is down to 3.9. Coumadin remains on hold. He is on room air. He is receiving parenteral Lasix diuresis. Hopefully he can go home tomorrow, June 23. There is no need to transfer him to [facility] at this time. Review of Systems 2 Review of Systems: Constitutional-no fever or chills ENT-no blurred vision, no double vision, no epistaxis, no sore throat Respiratory-no cough, no wheezing. Dyspnea on exertion Cardiac-no palpitations, no chest pain, no syncope GI-no nausea, vomiting, diarrhea, melena, hematochezia -no urinary retention, no urinary incontinence, no dysuria, no hematuria Musculoskeletal-no joint pain, no muscle tenderness Skin-no bruising, no rashes, no pruritus Neuro-no isolated weakness, no paresthesia, no weakness Psych-no depression, no anxiety Physical Exam 2 Physical Exam: General-alert and oriented x3, no fever, no chills HEENT-head atraumatic and normocephalic, pupils equal and reactive to light, extraocular muscles intact Neck-no lymphadenopathy or thyromegaly, trachea midline Chest-diminished breath sounds bilaterally. No audible rales, wheezing or rhonchi Cardiac-regular rate and rhythm, normal S1 and S2, systolic metallic valve click Abdomen-normal bowel sounds, nontender, no hepatosplenomegaly Extremities-no cyanosis, clubbing, or edema Neuro-cranial nerves II through XII intact, motor and sensory function within normal limits, strength symmetrical, no focal deficits Psych-flat affect Results & Data Results & Data Vital Signs (Past 12 Hours) Vital Signs Temp Pulse Pulse Resp BP Pulse Ox O2 Del Method 06/23/23 11:48 36.5 C 80 18 98/47 L 96 Room Air 06/23/23 08:00 Room Air 06/23/23 07:56 36.4 C L 88 18 133/56 L 94 Room Air 06/23/23 03:00 36.5 C 81 21 101/56 L 96 Room Air 06/23/23 00:48 93 H 06/23/23 00:38 Room Air 06/23/23 00:38 36.5 C 96 H 20 129/60 96 Room Air Laboratory Results 06/23/23 07:01 06/23/23 07:01 PG Care Time/CCT Total # of Minutes Spent Total Time Spent with Patient: Total time spent is greater than 50% in coordination of care (as documented) at patient's floor/unit and/or counseling patient: Coding Level of Care Code 80891 SUB INP/OBS CARE 3/50MIN Diagnoses Supratherapeutic INR R79.1 Acute on chronic systolic (congestive) heart failure I50.23 Acute respiratory failure with hypoxia J96.01 Cardiomyopathy, unspecified type I42.9 Cardiomyopathy type: unspecified Valvular heart disease I38 H/O mechanical aortic valve replacement Z95.2 On warfarin therapy Z79.01 Chronic dental infection K04.7 COVID-19 determined by clinical diagnostic criteria U07.1 (4) Cardiomyopathy Cardiomyopathy type: unspecified Qualified Code(s): I42.9 - Cardiomyopathy, unspecified
[2023-06-24 07:51] LABS: Basophils # (auto) 0.04 K/uL (0.00-0.20); Basophils % (auto) 0.6 %; Eosinophils # (auto) 0.22 K/uL (0.00-0.50); Hematocrit (blood only) 30.1 % (42.0-52.0); Hemoglobin 9.8 g/dl (14.0-18.0); Immature Granulocytes # (auto) 0.05 K/uL (0.01-0.20); Immature Granulocytes % (auto) 0.7 %; Lymphocytes # (auto) 1.16 K/uL (1.20-3.40); Mean Corpuscular Hemoglobin 29.2 pg (25.0-34.0); Mean Corpuscular Hgb Conc 32.6 g/dL (32.0-36.0); Mean Corpuscular Volume 89.6 fL (80.0-100.0); Mean Platelet Volume 11.7 fL (9.4-12.4); Monocytes # (auto) 0.45 K/uL (0.11-0.59); Monocytes % (auto) 6.2 %; Neutrophils # (auto) 5.35 K/uL (1.40-6.50); Neutrophils % (auto) 73.5 %; Platelet Count 167 K/uL (130-400); RDW Coefficient of Variation 16.3 % (11.5-14.5); RDW Standard Deviation 52.1 fL (36.4-46.3); Red Blood Count 3.36 M/uL (4.70-6.10); White Blood Count 7.27 K/ul (4.8-10.8)
--- NOTE | 2023-06-24 08:08 | Electrocardiogram Report ---
Test Reason : Blood Pressure : / mmHG Vent. Rate : 081 BPM Atrial Rate : 081 BPM P-R Int : 202 ms QRS Dur : 116 ms QT Int : 440 ms P-R-T Axes : 074 063 158 degrees QTc Int : 511 ms Normal sinus rhythm Left atrial enlargement Incomplete left bundle block Voltage criteria for left ventricular hypertrophy with QRS widening and repolarization abnormality Prolonged QT Abnormal ECG When compared with ECG of 23-JUN-2023 06:39, No significant change was found Confirmed by Matt Meek ([id number]) on 06/24/2023 8:08:27 AM Referred By: REFERRED SELF Confirmed By:Matt Meek
[2023-06-24 08:14] LABS: INR 2.3 (0.9-1.1); Prothrombin Time 24.2 Seconds (9.0-12.0)
[2023-06-24 08:17] LABS: BUN Creatinine Ratio 26.5 (10-20); Calcium 8.4 mg/dl (8.6-10.3); Creatinine Clr Calc Pharmacy 59.4 ml/min; Est GFR (African American) 56.8 ml/min; Potassium 3.8 mmol/L (3.5-5.1)
--- NOTE | 2023-06-24 08:31 | XRay Report ---
XR chest 1V portable HISTORY: 57 years-old Male CHF acute shortness of breath COMPARISON: Chest CT 06/22/2023 TECHNIQUE: AP view of the chest FINDINGS: Cardiac silhouette is enlarged. Median sternotomy with cardiac valvular prosthesis. Progressively wor sened pulmonary edema. Small pleural effusions with progressive bibasilar opacities. No pneumothorax. Degenerative changes of the shoulders and spine. Pulmonary emphysema. IMPRESSION: 1. Cardiomegaly with progressively worsened pulmonary edema. 2. Layering pleural effusions with worsening bibasilar consolidation suggestive of atelectasis versus pneumonia. ACT 112: Negative or not required by law. The above report was generated using voice recognition software. It may contain grammatical, syntax o r spelling errors. Electronically signed by: Karlo Navarrete M.D. 06/24/2023 8:29 AM
[2023-06-24] MEDS: metOLazone 5 MG TABLET PO ONE (10:28)
[2023-06-24] MEDS: LORazepam 0.5 MG TAB PO STA (13:01)
--- NOTE | 2023-06-24 13:20 | XRay Report ---
SINGLE VIEW CHEST CLINICAL HISTORY: Dyspnea FINDINGS: 2 AP, portable, upright chest radiographs are compared to study dated 06/24/2023 and correlat ed with chest CT dated 06/22/2023. The patient is status post midline sternotomy. The heart is enlarged noting atherosclerotic calcification of the thoracic aorta. There is pulmonary vascular congestion. Emphysema and chronic interstitial thickening is similar to previous. Small pleural effusions are not ed with bibasilar consolidation, right greater than left. No pneumothorax is seen. The skeletal struc tures are osteopenic. The bony thorax is grossly intact. IMPRESSION: 1. Cardiomegaly emphysema with evidence of congestive failure. 2. Small pleural effusions with bibasilar consolidation. This likely represents atelectasis. Correlat e clinically for evidence of a superimposed pneumonia. Radiographic follow-up to resolution is recomm ended ACT 112: Negative or not required by law. Electronically signed by: Alfonso Lunsford M.D. 06/24/2023 1:18 PM
--- NOTE | 2023-06-24 14:43 | Hospitalist Progress Note ---
Date of Service June 24, 2023 Assessment & Plan (1) Supratherapeutic INR: Plan: INR now 2.3. Coumadin has been restarted. Daily INR measurements. (2) Acute on chronic systolic (congestive) heart failure: Plan: acute on chronic diastolic CHF. Recent CARLYN revealed normal ejection fraction. Continue parenteral Lasix diuresis. Repeat Zaroxolyn today, June 23. Monitor intake and output (3) Acute respiratory failure with hypoxia: Plan: Resolved. He is on room air. (4) Cardiomyopathy: Plan: Valvular. History of rheumatic heart disease and multiple aortic valve replacements. (5) Valvular heart disease: Plan: Multiple aortic valve replacements with mechanical aortic valve in place. He is on Coumadin therapy (6) H/O mechanical aortic valve replacement: Plan: He is scheduled for follow-up with his sfdc architect at [facility] and may require another aortic valve replacement. He currently has a mechanical aortic valve in place (7) On warfarin therapy: Plan: Coumadin toxicity on admission. No active bleeding however. He received vitamin K in the ED. INR today, June 22, is 3.9. Coumadin remains on hold (8) Chronic dental infection: Plan: Status post recent extraction of multiple teeth from the mandible. (9) COVID-19 determined by clinical diagnostic criteria: Plan: COVID positivity persists after recent infection. He does not have active COVID at this time. Isolation precautions are discontinued (10) PTSD (post-traumatic stress disorder): Plan: Acute shortness of breath this morning may have been an anxiety attack. He is much better after receiving 1 dose of Ativan. Going forward, will use hydroxyzine as needed. Repeat stat portable chest x-ray shows no significant change from chest x-ray ordered earlier this morning. Plan Hopeful discharge to home tomorrow, June 24 Admission and Anticipated Discharge Date Admission Date: June 22, 2023 Subjective Alert. Code purple was called due to acute onset of shortness of breath. This may have simply been a panic attack. Stat chest x-ray does not look any different from portable chest x-ray obtained earlier today. Hydroxyzine has been ordered as needed. He was given 1 dose of Ativan 0.5 mg. INR is down to 2.3 and Coumadin has been restarted. Continue Lasix diuresis. Zaroxolyn ordered again todayJune 23 Review of Systems 2 Review of Systems: Constitutional-no fever or chills ENT-no blurred vision, no double vision, no epistaxis, no sore throat Respiratory-no cough, no wheezing. Dyspnea on exertion Cardiac-no palpitations, no chest pain, no syncope GI-no nausea, vomiting, diarrhea, melena, hematochezia -no urinary retention, no urinary incontinence, no dysuria, no hematuria Musculoskeletal-no joint pain, no muscle tenderness Skin-no bruising, no rashes, no pruritus Neuro-no isolated weakness, no paresthesia, no weakness Psych-no depression, no anxiety Physical Exam 2 Physical Exam: General-alert and oriented x3, no fever, no chills HEENT-head atraumatic and normocephalic, pupils equal and reactive to light, extraocular muscles intact Neck-no lymphadenopathy or thyromegaly, trachea midline Chest-diminished breath sounds bilaterally. No audible rales, wheezing or rhonchi Cardiac-regular rate and rhythm, normal S1 and S2, systolic metallic valve click Abdomen-normal bowel sounds, nontender, no hepatosplenomegaly Extremities-no cyanosis, clubbing, or edema Neuro-cranial nerves II through XII intact, motor and sensory function within normal limits, strength symmetrical, no focal deficits Psych-flat affect Results & Data Results & Data Vital Signs (Past 12 Hours) Vital Signs Temp Pulse Pulse Resp BP Pulse Ox O2 Del Method 06/24/23 12:14 36.3 C L 84 18 106/62 95 Room Air 06/24/23 09:31 95 H 06/24/23 09:31 Room Air 06/24/23 08:04 36.6 C 78 18 106/76 92 Room Air 06/24/23 03:14 36.4 C L 75 20 95/53 L 92 Room Air Laboratory Results 06/24/23 07:26 06/24/23 07:26 PG Care Time/CCT Total # of Minutes Spent Total Time Spent with Patient: Total time spent is greater than 50% in coordination of care (as documented) at patient's floor/unit and/or counseling patient: Coding Level of Care Code 81838 SUB INP/OBS CARE 3/50MIN Diagnoses Supratherapeutic INR R79.1 Acute on chronic systolic (congestive) heart failure I50.23 Acute respiratory failure with hypoxia J96.01 Cardiomyopathy, unspecified type I42.9 Cardiomyopathy type: unspecified Valvular heart disease I38 H/O mechanical aortic valve replacement Z95.2 On warfarin therapy Z79.01 Chronic dental infection K04.7 COVID-19 determined by clinical diagnostic criteria U07.1 PTSD (post-traumatic stress disorder) F43.10 (4) Cardiomyopathy Cardiomyopathy type: unspecified Qualified Code(s): I42.9 - Cardiomyopathy, unspecified
[2023-06-24] MEDS: WARFARIN SOD 7.5 MG TAB PO SCH (15:50)
--- NOTE | 2023-06-24 16:46 | Electrocardiogram Report ---
Test Reason : Blood Pressure : / mmHG Vent. Rate : 085 BPM Atrial Rate : 085 BPM P-R Int : 206 ms QRS Dur : 108 ms QT Int : 432 ms P-R-T Axes : 068 037 155 degrees QTc Int : 514 ms Normal sinus rhythm Incomplete left bundle block Left ventricular hypertrophy with QRS widening and repolarization abnormality Prolonged QT Abnormal ECG When compared with ECG of 24-JUN-2023 06:32, No significant change was found Confirmed by Matt Meek ([id number]) on 06/24/2023 4:46:08 PM Referred By: REFERRED SELF Confirmed By:Matt Meek
[2023-06-24] MEDS: hydrOXYzine HCl 25 MG TAB PO PRN (20:11)
[2023-06-24] MEDS: MELATONIN 3 MG TAB PO PRN (20:28)
[2023-06-25 07:06] LABS: Basophils # (auto) 0.04 K/uL (0.00-0.20); Basophils % (auto) 0.5 %; Eosinophils # (auto) 0.17 K/uL (0.00-0.50); Eosinophils % (auto) 2.3 %; Hematocrit (blood only) 30.5 % (42.0-52.0); Hemoglobin 9.8 g/dl (14.0-18.0); Immature Granulocytes # (auto) 0.03 K/uL (0.01-0.20); Immature Granulocytes % (auto) 0.4 %; Lymphocytes # (auto) 1.28 K/uL (1.20-3.40); Lymphocytes % (auto) 17.4 %; Mean Corpuscular Hemoglobin 29.4 pg (25.0-34.0); Mean Corpuscular Hgb Conc 32.1 g/dL (32.0-36.0); Mean Corpuscular Volume 91.6 fL (80.0-100.0); Mean Platelet Volume 13.3 fL (9.4-12.4); Monocytes # (auto) 0.49 K/uL (0.11-0.59); Monocytes % (auto) 6.7 %; Neutrophils # (auto) 5.33 K/uL (1.40-6.50); Neutrophils % (auto) 72.7 %; Platelet Count 152 K/uL (130-400); RDW Coefficient of Variation 16.5 % (11.5-14.5); RDW Standard Deviation 53.1 fL (36.4-46.3); Red Blood Count 3.33 M/uL (4.70-6.10); White Blood Count 7.34 K/ul (4.8-10.8)
[2023-06-25 07:33] LABS: BUN Creatinine Ratio 24.3 (10-20); Calcium 8.5 mg/dl (8.6-10.3); Creatinine Clr Calc Pharmacy 53.2 ml/min; Est GFR (African American) 49.7 ml/min; Est GFR (Non-African American) 42.9 ml/min; Potassium 3.9 mmol/L (3.5-5.1)
[2023-06-25 07:44] LABS: INR 2.4 (0.9-1.1); Prothrombin Time 25.1 Seconds (9.0-12.0)
--- NOTE | 2023-06-25 11:20 | Cardiology Consultation ---
Date of Consultation June 25, 2023 Assessment & Plan (1) H/O mechanical aortic valve replacement: Valve surgery per cardiac surgery at [facility]. This complicates volume management but he does not seem to have any volume overload at this time. (2) Supratherapeutic INR: Not surprising given that he was taking antibiotics on top of his usual Coumadin dosing. His target INR is 2.0-3.0 given his mechanical aortic valve. We will need to restart the Coumadin to maintain this target given high risk of thrombosis if subtherapeutic. (3) AVB (atrioventricular block): This was intermittent but he certainly symptomatic with it. Does not appear to be junctional as the QRS complex becomes wide and there does appear to be 2-1 AV conduction. Given the totality of his presentation with valvular heart disease, significant caries and dental infection, ID would be concerned that there is possible abscess impacting the AV node or His-Purkinje system. Seems to be intermittent and he is on antibiotics at this point. I do not see that he has had any fevers and he has not had any blood cultures obtained. This can be addressed by cardiac surgery preoperatively. Patient may not have an infection and this may just represent advancing conduction system disease because of his multiple surgeries and in particular valve surgeries. In that case, he may require pacemaker. He should be continued to be monitored. If he has another symptomatic episode we need to immediately obtain an EKG. For now, he is on low-dose metoprolol succinate ER and it should be safe to continue. Plan Patient is tenuous for discharge. I think it be most appropriate to transfer him to cardiac surgery at tertiary center as soon as feasible. History of Present Illness Reason for Consultation: Junctional rhythm Attending Physician: Christiano Andrews MD History of Present Illness Unfortunate 57-year-old gentleman with complex cardiac history. Patient had rheumatic fever as a child and subsequently had aortic valve replacement in 1981. By 1982 he required a second valve to be placed, and finally in 1983 he had a mechanical aortic valve replacement. More recently, he has had several admissions to the hospital. In February he had an EF of 40 to 45% on 2D echocardiogram showing also paravalvular leak, moderate to severe mitral regurgitation, dilated LV, dilated atria. In May had a cardiac catheterization demonstrating normal coronaries. 3+ aortic regurgitation (paravalvular) and right heart cath with moderate pulmonary hypertension and elevated filling pressures. He also had a CARLYN focused on his valvular heart disease which suggested moderate to severe mitral regurgitation and paravalvular leak. He was evaluated in [place] by cardiac surgery who suggested that his teeth be extracted as he had multiple and severe caries. He was placed on Augmentin. The teeth were extracted and there is a plan for future aortic valve replacement plus or minus mitral valve repair/replacement. Patient was discharged on June 18 after admission for chest pain and shortness of breath. He was feeling better but returned after complaining of shortness of breath in the Coumadin clinic and was found to have a supratherapeutic INR (6.7). There has evidently been some discussion about transferring to [place] at this time so he could undergo his cardiac surgery on an accelerated basis. Yesterday he had 3 episodes of sudden onset shortness of breath and lightheadedness. Initially felt to be junctional rhythm. I have reviewed those episodes and it appears that the patient had 2-1 AV block with intermittent wide-complex QRS rhythm. Unfortunately, EKG was not performed during those episodes and so full interpretation is not possible. The quality of the monitor strips is not optimal. Patient tells me he had no chest pain just sudden shortness of breath, some mild nausea and lightheadedness. Duration of the episodes on the monitor appeared to be about 1 minute. Subsequent tachycardia which was narrow complex and sinus. Currently, he denies any ongoing chest pain, shortness of breath, orthopnea, racing heartbeat, palpitations, or edema. He is very fatigued and anxious about the episodes that he is experiencing. Reportedly without any fevers, chills, rigors. Last available EKG shows sinus rhythm with borderline MI prolongation. Incomplete left bundle branch block. Allergies Allergy/AdvReac Type Severity Reaction Status Date / Time bee venom protein (honey bee) Allergy Severe Severe Verified 06/06/23 17:00 neck/throat swelling, dyspnea adhesive Allergy Mild Rash Verified 06/06/23 17:00 chocolate flavor AdvReac Unknown Advised to Verified 06/06/23 17:00 avoid by surgeon d/t Vitamin K content per pt Home Medications Medication Instructions Recorded Confirmed Type bupropion HCl 300 mg 24 hr tablet, 300 mg PO HS 09/09/20 06/22/23 History extended release cholecalciferol (vitamin D3) 50 50 mcg PO QAM 09/09/20 06/22/23 History mcg (2,000 unit) capsule trazodone 50 mg tablet 50 mg PO HS 09/12/20 06/22/23 History aspirin 81 mg tablet,delayed 81 mg PO QAM 09/27/20 06/22/23 History release prazosin 5 mg capsule 10 mg PO QPM 01/12/22 06/22/23 History epinephrine 0.3 mg/0.3 mL 0.3 mg (0.3 mL) IM Q10M PRN 05/07/22 06/22/23 Rx injection, auto-injector Anaphylaxis #2 ea hydroxyzine HCl 50 mg tablet 50 mg PO TID PRN Anxiety 30 days 05/07/22 06/22/23 Rx #90 tabs melatonin 10 mg capsule 10 mg PO HS PRN Insomnia 06/04/22 06/22/23 History losartan 50 mg tablet 50 mg PO DAILY #90 tabs 03/16/23 06/22/23 Rx metoprolol succinate 25 mg 25 mg PO DAILY #90 tabs 03/16/23 06/22/23 Rx tablet,extended release 24 hr sertraline 50 mg tablet 50 mg PO DAILY 03/16/23 06/22/23 History potassium chloride 20 mEq 20 meq PO DAILY #30 tabs 05/11/23 06/22/23 Rx tablet,extended release atorvastatin 10 mg tablet 10 mg PO DAILY #90 tabs 05/25/23 06/22/23 Rx fluticasone fur. 100 mcg-umeclid 1 ea inhalation DAILY 06/06/23 06/22/23 History 62.5 mcg-vilant 25 mcg inhalat.powder (Trelegy Ellipta) amoxicillin 875 mg-potassium 1 tab PO BIDM #14 tabs 06/19/23 06/22/23 Rx clavulanate 125 mg tablet furosemide 40 mg tablet 40 mg PO BID17 #60 tabs 06/19/23 06/22/23 Rx warfarin 5 mg tablet See Rx Instructions PO UD 06/22/23 06/22/23 History Patient History Medical History Chronic dental infection Anemia Fracture of incisor teeth Dental fistula Exposed lingual bone On warfarin therapy NICM (nonischemic cardiomyopathy) Poor dentition Severe aortic valve regurgitation Mitral regurgitation Ascending aortic aneurysm Dyslipidemia Coronary artery calcification Normal Coronary Arteries on Cardiac Cath 2/01/24 Acute on chronic systolic (congestive) heart failure Tinnitus of right ear Mixed conductive and sensorineural hearing loss of right ear with restricted hearing of left ear Deviated septum Claustrophobia Did have issues in the past with oxygen mask Anxiety and depression Aortic valve disease s/p AVR/revisions (1981, 1982x2), on warfarin, FOLLOWED BY BECKY JAMES PA-C Osteoarthritis Hearing loss in right ear Post traumatic stress disorder History of rheumatic fever as a child at age 6 > led to cardiac issues (hx AVR) On warfarin therapy Asthma Surgical History H/O mechanical aortic valve replacement Hx of oral surgery (06/14/23) Extraction 6 Teeth, Incision and Drainage(Not Applicable) - Trell Ramirez, DMD S/P excision of lipoma LEFT/RT FOREARM AND RT HIP H/O excision of mass (10/16/20) Soft Tissue Mass Excision Bilateral Arms (2-5 cm) and Right Flank (19.5 cm)(Not Applicable) - Yang Lemus, DO, FACS History of appendectomy History of tooth extraction all upper teeth removed/some lower teeth removed History of cardiac cath multiple, last Feb 1983--no stents placed Aortic valve replaced s/p AVR/revisions (1981, 1982x2) Family History Brother Family history of reaction to anesthesia when he received anesthesia "it always triggered his seizures" Father Hearing loss Cancer Sister Hearing loss Cancer Other Allergies No family history of bleeding disorder Social History Smoking Status: Current every day smoker Tobacco Type: Cigarettes Age Started Using Tobacco: 14; Cigarettes Per Day: 4; Second Hand Exposure: Yes; Do You Dip or Chew Tobacco: No; Hx Alcohol Use: No Hx Substance Use: No Preferred Language: Danish Communication Ability: Effective Visual Impairment: No Limitations Flotation Tender Required: No Beliefs That Will Affect Care: Spiritual marital status: / Current Living Situation: Other Current Living Situation Comment: lives w/ friend current occupational status: disabled Feels Safe at Home: Yes Assistive Devices: None Review of Systems Review of Systems: Negative except as per HPI Physical Exam Constitutional: WD/WN, vitals as above (Chronically ill-appearing, pale middle-age male. No acute distress.) Eyes: Extraocular muscles intact. Sclera are anicteric. ENMT: Oral mucosa is pink, moist, and intact. Neck: No JVD Respiratory: Clear to auscultation bilaterally. I do not appreciate any wheezing, rhonchi, or rales. Cardiovascular: Regular rate and rhythm. Mechanical heart valve sounds. Grade 1-2/6 diastolic murmur. Grade 2/6 systolic murmur. S4 gallop. No edema. Musculoskeletal: no cyanosis or clubbing, extremities motor strength 5/5 Neurologic: Cognition is intact. Speech is fluent. No focal deficits. Psychiatric: A+Ox3, euthymic affect (Anxious.) Results & Data Vital Signs (Past 12 Hours) Vital Signs Temp Pulse Resp BP Pulse Ox O2 Del Method O2 Flow Rate 06/25/23 08:23 36.3 C L 87 18 111/52 L 90 Room Air 06/25/23 07:57 Room Air 06/25/23 03:41 36.3 C L 84 16 89/45 L 95 Room Air 06/25/23 02:03 Nasal Cannula 2 PG Care Time/CCT Total # of Minutes Spent Total Time Spent with Patient: Total time spent is greater than 50% in coordination of care (as documented) at patient's floor/unit and/or counseling patient: Coding Level of Care Code 59192 IN/OBS CONSULT LVL 5,80M Diagnoses H/O mechanical aortic valve replacement Z95.2 Supratherapeutic INR R79.1 AVB (atrioventricular block) I44.30 Time Spent (min) 85
--- NOTE | 2023-06-25 14:45 | Hospitalist Progress Note ---
Date of Service June 25, 2023 Assessment & Plan (1) Supratherapeutic INR: Plan: INR now 2.4. Coumadin has been restarted. Daily INR measurements. (2) Acute on chronic systolic (congestive) heart failure: Plan: acute on chronic diastolic CHF. Recent CARLYN revealed normal ejection fraction. Continue parenteral Lasix diuresis. Zaroxolyn was given again on June 23. Monitor intake and output (3) Acute respiratory failure with hypoxia: Plan: Resolved. He is on room air. He has episodes of severe shortness of breath but this appears to be panic attack related (4) Cardiomyopathy: Plan: Valvular. History of rheumatic heart disease and multiple aortic valve replacements. (5) Valvular heart disease: Plan: Multiple aortic valve replacements with mechanical aortic valve in place. 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 and may require another aortic valve replacement. He currently has a mechanical aortic valve in place (7) On warfarin therapy: Plan: Coumadin toxicity on admission. No active bleeding however. He received vitamin K in the ED. INR today, June 24, is 2.4. Coumadin has been restarted (8) Chronic dental infection: Plan: Status post recent extraction of multiple teeth from the mandible. (9) COVID-19 determined by clinical diagnostic criteria: Plan: COVID positivity persists after recent infection. He does not have active COVID at this time. Isolation precautions are discontinued (10) PTSD (post-traumatic stress disorder): Plan: Episodes of acute shortness of breath appear to be anxiety attack related. Going forward, will use hydroxyzine as needed. Chest x-rays remained stable. Plan Transfer to [facility] for continued tertiary medical care Admission and Anticipated Discharge Date Admission Date: June 22, 2023 Subjective He continues with intermittent episodes of severe shortness of breath which could be anxiety related. Chest x-ray is unchanged. At 1 point he had an anxiety attack because he was not wearing his oxygen. Cardiology entry noted. Arrangements are being made for transfer to [facility] for further care. Review of Systems 2 Review of Systems: Constitutional-no fever or chills ENT-no blurred vision, no double vision, no epistaxis, no sore throat Respiratory-no cough, no wheezing. Dyspnea on exertion Cardiac-no palpitations, no chest pain, no syncope GI-no nausea, vomiting, diarrhea, melena, hematochezia -no urinary retention, no urinary incontinence, no dysuria, no hematuria Musculoskeletal-no joint pain, no muscle tenderness Skin-no bruising, no rashes, no pruritus Neuro-no isolated weakness, no paresthesia, no weakness Psych-no depression, no anxiety Physical Exam 2 Physical Exam: General-alert and oriented x3, no fever, no chills HEENT-head atraumatic and normocephalic, pupils equal and reactive to light, extraocular muscles intact Neck-no lymphadenopathy or thyromegaly, trachea midline Chest-diminished breath sounds bilaterally. No audible rales, wheezing or rhonchi Cardiac-regular rate and rhythm, normal S1 and S2, systolic metallic valve click Abdomen-normal bowel sounds, nontender, no hepatosplenomegaly Extremities-no cyanosis, clubbing, or edema Neuro-cranial nerves II through XII intact, motor and sensory function within normal limits, strength symmetrical, no focal deficits Psych-flat affect Results & Data Results & Data Vital Signs (Past 12 Hours) Vital Signs Temp Pulse Resp BP Pulse Ox O2 Del Method 06/25/23 12:04 36.4 C L 83 20 100/52 L 97 Room Air 06/25/23 08:23 36.3 C L 87 18 111/52 L 90 Room Air 06/25/23 07:57 Room Air 06/25/23 03:41 36.3 C L 84 16 89/45 L 95 Room Air Laboratory Results 06/25/23 06:16 06/25/23 06:16 PG Care Time/CCT Total # of Minutes Spent Total Time Spent with Patient: Total time spent is greater than 50% in coordination of care (as documented) at patient's floor/unit and/or counseling patient: Coding Level of Care Code 13441 SUB INP/OBS CARE 3/50MIN Diagnoses Supratherapeutic INR R79.1 Acute on chronic systolic (congestive) heart failure I50.23 Acute respiratory failure with hypoxia J96.01 Cardiomyopathy, unspecified type I42.9 Cardiomyopathy type: unspecified Valvular heart disease I38 H/O mechanical aortic valve replacement Z95.2 On warfarin therapy Z79.01 Chronic dental infection K04.7 COVID-19 determined by clinical diagnostic criteria U07.1 PTSD (post-traumatic stress disorder) F43.10 (4) Cardiomyopathy Cardiomyopathy type: unspecified Qualified Code(s): I42.9 - Cardiomyopathy, unspecified
--- NOTE | 2023-06-25 14:49 | Discharge Summary ---
Date of Service June 25, 2023 Admission HPI Per Admitting Provider The patient is a 57-year-old male with a past medical history including acute on chronic combined systolic and diastolic heart failure, pulmonary edema, cardiomyopathy, valvular heart disease, hearing loss, history of aortic valve replacement on warfarin therapy, rheumatic disease of heart valve, aortic valve disease, LVH, and on chronic anticoagulation. The patient was most recently admitted from 06/06-06/19/2023 to [facility] and was treated for acute on chronic systolic CHF. Transesophageal echocardiogram showed a grossly normal LV, moderate to severe MR, mechanical aortic valve with perivalvular leak, ascending aortic aneurysm. He was initially managed with IV Lasix in the edition metolazone, but due to acute kidney injury he was returned to oral Lasix and increase dosing to 40 mg twice daily. He was to follow-up with cardiothoracic surgery at [facility] in [place], as he was told he needed another aortic valve replacement and likely thoracic aortic aneurysm repair. The patient was known to have rheumatic heart disease as a child, and had a history of multiple mechanical aortic valve replacements. The patient presented to the emergency department this evening due to worsening shortness of breath, was found to have pulmonary edema and recurrent CHF, received furosemide 40 mg IV in the ED, and will be admitted to the PCU for further treatment. Patient was noted to have a chronic dental infection during last admission, and had multiple lower teeth extracted on 06/14/2023 anticipation of heart valve replacement. He was on Unasyn IV during admission, and changed to Augmentin twice daily upon discharge. Principal Diagnosis Acute on chronic diastolic CHF, Coumadin toxicity, Mobitz type II second-degree AV block Discharge Exam General-alert and oriented x3, no fever, no chills HEENT-head atraumatic and normocephalic, pupils equal and reactive to light, extraocular muscles intact Neck-no lymphadenopathy or thyromegaly, trachea midline Chest-diminished breath sounds bilaterally. No audible rales, wheezing or rhonchi Cardiac-regular rate and rhythm, normal S1 and S2, systolic metallic valve click Abdomen-normal bowel sounds, nontender, no hepatosplenomegaly Extremities-no cyanosis, clubbing, or edema Neuro-cranial nerves II through XII intact, motor and sensory function within normal limits, strength symmetrical, no focal deficits Psych-flat affect Discharge Data Allergies Allergy/AdvReac Type Severity Reaction Status Date / Time bee venom protein (honey bee) Allergy Severe Severe Verified 06/06/23 17:00 neck/throat swelling, dyspnea adhesive Allergy Mild Rash Verified 06/06/23 17:00 chocolate flavor AdvReac Unknown Advised to Verified 06/06/23 17:00 avoid by surgeon d/t Vitamin K content per pt Consultations 06/22/23 20:30 ED Decision to Admit Stat 06/24/23 16:00 Consult Cardiology Routine Ordered Studies 06/22/23 17:37 CT chest diagnostic wo con Stat Hospital Course (1) Supratherapeutic INR: INR now 2.4. Coumadin has been restarted. Daily INR measurements. (2) Acute on chronic systolic (congestive) heart failure: acute on chronic diastolic CHF. Recent CARLYN revealed normal ejection fraction. Continue parenteral Lasix diuresis. Zaroxolyn was given again on June 23. Monitor intake and output (3) Acute respiratory failure with hypoxia: Resolved. He is on room air. He has episodes of severe shortness of breath but this appears to be panic attack related (4) Cardiomyopathy: Valvular. History of rheumatic heart disease and multiple aortic valve repla cements. (5) Valvular heart disease: Multiple aortic valve replacements with mechanical aortic valve in place. 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 He currently has a mechanical aortic valve in place (7) On warfarin therapy: Coumadin toxicity on admission. No active bleeding however. He received vitamin K in the ED. INR today, June 24, is 2.4. Coumadin has been restarted (8) Chronic dental infection: Status post recent extraction of multiple teeth from the mandible. (9) COVID-19 determined by clinical diagnostic criteria: COVID positivity persists after recent infection. He does not have active COVID at this time. Isolation precautions are discontinued (10) PTSD (post-traumatic stress disorder): Episodes of acute shortness of breath appear to be anxiety attack related. Going forward, will use hydroxyzine as needed. Chest x-rays remained stable. Plan Transfer to [facility] for continued tertiary medical care Total Time Total Time Spent Total Time Spent (In Minutes): 50 minutes Discharge Plan Discharge Items Patient Disposition: Transfer Acute Care Hospital Reason For Visit: CHF EXACERBATION,SUPRATHERAPEUTIC INR Discharge Diagnosis: Acute on chronic diastolic CHF, Coumadin toxicity, Mobitz type II second-degree AV block Activity: Resume your previous activity Non-emergency contact: Primary Care Provider and Spiral Machine Operator Call non-emergency contact if: your symptoms worsen Follow-up/Referrals: Trell Ramirez, DMD [Physician] - 07/01/23 4:00 pm Jake Siegel DO [Primary Care Provider] - Diet: Regular and Heart Healthy Addtl Attending Provider Instructions: See primary care physician and Dr. Trell Ramirez as soon as possible after discharge from [facility] Pending Studies at Discharge: No Stand-Alone Forms: My [facility] [employer] Skilled Items Patient informed of condition?: Yes DNR: No Discharge Level of Care: Other Communicable Disease: No Discharge Prognosis: Stable Lines: Peripheral IV Urinary Catheter: No Medications and DC Order Prescriptions: New ondansetron HCl (PF) 4 mg/2 mL Solution 4 mg IV Q6H PRNQty: 0 0RF Arnuity Ellipta 100 mcg/actuation Blister With Device 1 inh inhalation DAILY Qty: 14 0RF Anoro Ellipta 62.5-25 mcg/actuation Blister With Device 1 inh inhalation DAILY Qty: 0 0RF warfarin 5 mg Tablet 5 mg PO DAILY@1600 Qty: 0 0RF furosemide 40 mg Tablet 40 mg PO QAM Qty: 0 0RF Continued warfarin 5 mg tablet See Rx Instructions PO UD Dose Instruction: TAKE 1 & 1/2 TABLETS BY MOUTH DIRECTED PER [facility] Rx Instructions: 7.5 mg MWF and 5 mg x 4 days or as directed by [facility] Anticoagulation Clinic ON HOLD trazodone 50 mg tablet 50 mg PO HS aspirin 81 mg tablet,delayed release (DR/EC) 81 mg PO QAM atorvastatin 10 mg tablet 10 mg PO DAILY Qty: 90 3RF bupropion HCl 300 mg tablet extended release 24 hr 300 mg PO HS cholecalciferol (vitamin D3) 50 mcg (2,000 unit) capsule 50 mcg PO QAM prazosin 5 mg capsule 10 mg PO QPM epinephrine 0.3 mg/0.3 mL auto-injector 0.3 mg IM Q10M PRN (Reason: Anaphylaxis) Qty: 2 1RF Rx Instructions: for 2 doses hydroxyzine HCl 50 mg tablet 50 mg PO TID PRN (Reason: Anxiety) 30 Days Qty: 90 2RF sertraline 50 mg tablet 50 mg PO DAILY metoprolol succinate 25 mg tablet extended release 24 hr 25 mg PO DAILY Qty: 90 3RF losartan 50 mg tablet 50 mg PO DAILY Qty: 90 3RF potassium chloride 20 mEq tablet extended release 20 meq PO DAILY Qty: 30 5RF Rx Instructions: Take 1 tablet by mouth on days that Furosemide is taken melatonin 10 mg capsule 10 mg PO HS PRN (Reason: Insomnia) Trelegy Ellipta 100-62.5-25 mcg blister with device 1 ea INHALATION DAILY furosemide 40 mg Tablet 40 mg PO BID17 Qty: 60 0RF amoxicillin-pot clavulanate 875-125 mg Tablet 1 tab PO BIDM Qty: 14 0RF Discharge Orders: Discharge Order- CHF (Routine); Ordered 06/25/23 Ordered By: Christiano Andrews Admission Data Admit Date/Time: 06/22/23 20:21 Attending Provider: Christiano Andrews Admit Provider: Miguel Angel Tomas Primary Care Provider: Jake Siegel Other Providers: Miguel Angel Tomas; Piter Aguayo; Matt Meek; Anand Watters; Sloan Dockery; Seven Yu; Walter Lopes Jr; Mathieu Chadwick; Cami Silvestre; Sarah Magana; Ahsan Andrew; Ahsan Martinez; Christiano Frazier; Pricilla Danielson; Angie Griffith; Steven Coon; Cezar Witt; Nakul Miguel Coding Level of Care Code 36020 INP/OBS DISCH >30 MIN Diagnoses Supratherapeutic INR R79.1 Acute on chronic systolic (congestive) heart failure I50.23 Acute respiratory failure with hypoxia J96.01 Cardiomyopathy, unspecified type I42.9 Cardiomyopathy type: unspecified Valvular heart disease I38 H/O mechanical aortic valve replacement Z95.2 On warfarin therapy Z79.01 Chronic dental infection K04.7 COVID-19 determined by clinical diagnostic criteria U07.1 PTSD (post-traumatic stress disorder) F43.10
[2023-06-25] MEDS: WARFARIN SOD 5 MG TAB PO SCH (16:48)
[2023-06-26] MEDS ORDERED: FUROSEMIDE 40 MG TAB PO SCH (09:00)
== END 2023-06-25 20:00 | disposition short-term general hospital (02) ==
LOC: ED 13:24 → INTOOBSV 20:21 → SUATTDRO 20:21 → EDINP 20:21 → 2S 22:20

== ENCOUNTER 2023-12-27 20:58 | Observation (INO) ==
[2023-12-27 21:45] LABS: Basophils # (auto) 0.05 K/uL (0.00-0.20); Basophils % (auto) 0.7 %; Eosinophils # (auto) 0.23 K/uL (0.00-0.50); Eosinophils % (auto) 3.1 %; Hematocrit (blood only) 38.8 % (42.0-52.0); Hemoglobin 13.5 g/dl (14.0-18.0); Immature Granulocytes # (auto) 0.02 K/uL (0.01-0.20); Immature Granulocytes % (auto) 0.3 %; Lymphocytes # (auto) 1.25 K/uL (1.20-3.40); Lymphocytes % (auto) 16.9 %; Mean Corpuscular Hemoglobin 29.5 pg (25.0-34.0); Mean Corpuscular Hgb Conc 34.8 g/dL (32.0-36.0); Mean Corpuscular Volume 84.7 fL (80.0-100.0); Mean Platelet Volume 11.3 fL (9.4-12.4); Monocytes % (auto) 8.1 %; Neutrophils # (auto) 5.23 K/uL (1.40-6.50); Neutrophils % (auto) 70.9 %; Platelet Count 229 K/uL (130-400); RDW Coefficient of Variation 14.3 % (11.5-14.5); RDW Standard Deviation 44.2 fL (36.4-46.3); Red Blood Count 4.58 M/uL (4.70-6.10); White Blood Count 7.38 K/ul (4.8-10.8)
--- NOTE | 2023-12-27 21:46 | Emergency Department Note ---
Impression & Plan Dizziness, Chest pain, Non-ST elevation MA (NSTEMI) ED Provider Note HISTORY OF PRESENT ILLNESS: Patient is a 58-year-old male presenting with lightheadedness and chest pain. Patient reports that shortly after eating dinner he had acute onset of shortness of breath, left-sided chest pressure and fluttering and he felt lightheaded like he was going to pass out. He complains of generalized weakness and fatigue throughout the day today. Per EMS, the patient would keep having episodes of slight unresponsiveness in which he rolled his eyes into the back of his head and 1 to answer questions. Patient denies any alcohol or recreational drug use. He states he just feels very tired and rundown. He reports he had some left- sided chest pressure prior to feeling lightheaded. He is on Coumadin as he has a valve replacement. Reports his last valve replacement was in June 2023 at [facility]. He reports that he had rheumatic fever as a child and has had multiple valve replacements ever since. ROS: as above PHYSICAL EXAM: Constitutional: Patient appears in no acute distress. HENT: Head: Normocephalic and atraumatic. Eyes: EOMI, PERRL Mouth/Throat: Mucous membranes moist. Neck: Trachea midline. Neck supple. Cardiovascular: RRR, Intact distal pulses. Pulmonary/Chest: No respiratory distress. Breath sounds clear and equal bilaterally. No wheezes or rales. Abdominal: Abdomen soft, no tenderness, rebound or guarding. Musculoskeletal: No edema, tenderness or deformity noted. Skin: Warm and dry. No rash, erythema, pallor or cyanosis Psychiatric: Appropriate mood and affect for situation. Neurological: Alert and keenly responsive. CN II-XII grossly intact, moving all extremities equally and fully. MDM: - Vitals signs stable. - History obtained via patient. History as above. - Chronic conditions affecting care: CAD; nonischemic cardiomyopathy; Anxiety/depression; HFrEF; asthma; PTSD; HLD; aortic valve and mitral valve repair; history of rheumatic fever and mechanical aortic valve; aortic thoracic aneurysm - Differential diagnoses include, but are not limited to: Acute coronary syndrome; pulmonary embolism; dissection; tension pneumothorax; esophageal rupture; pneumonia - Order placed for continuous cardiac monitoring. At this time, monitor showed rate of 74 bpm with normal sinus rhythm, per my interpretation. - External medical records reviewed. Primary care visit note dated was reviewed. Patient follows in the clinic for his multiple medical problems. He was admitted from 06/06/2023 to 06/19/2023 and 06/21-06/25/2023 at [facility] and 06/25/2023-07/09/2023 at [facility]. - EKG interpreted by myself showed normal sinus rhythm. Rate 85 bpm. QT prolonged at 408. No acute ischemic changes. - Laboratory workup interpreted by myself showed normal WBC; slightly elevated INR (1.2 - on Coumadin); normal BNP; elevated troponin (22.6); elevated creatinine (Cr 1.53 - baseline for pt) - CXR negative for pneumonia, per my interpretation - Repeat troponin rising slightly to 36.3 - CT head wo contrast negative for acute intracranial pathology - Viral respiratory panel negative - VBG grossly unremarkable. - Unclear etiology for patient's lightheadedness and dizziness at this time, but he is noted to have a elevated troponin that is slightly risen on repeat evaluation. His source of symptoms may be cardiac in nature. He does have a significant cardiac history, so will admit to inpatient hospital service for further evaluation and management. - Discussion was had with community case manager about patient's case and need for admission - Hospitalist consulted for admission - Patient admitted to [facility] hospitalist service for further evaluation and management. 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 Systolic CHF Dysfunction of both eustachian tubes Tinnitus of right ear Conductive hearing loss of left ear with restricted hearing of right ear Mixed conductive and sensorineural hearing loss of right ear with restricted hearing of left ear Chest pain Pre-op testing Arthritis Heart disease History of back problems Lipoma of back Lipoma of arm Rheumatic disease of heart valve Preoperative cardiovascular examination Aortic valve disease s/p AVR/revisions (1981, 1982x2, 2023), on warfarin, FOLLOWED BY BECKY JAMES PA-C H/O excision of mass (10/16/20) Soft Tissue Mass Excision Bilateral Arms (2-5 cm) and Right Flank (19.5 cm)(Not Applicable) - Yang Lemus, DO, FACS Sensorineural hearing loss (SNHL) of right ear with restricted hearing of left ear Chronic mastoiditis of right side Acquired deviated nasal septum Tameka bullosa Papilloma of oropharynx Anxiety and depression LVH (left ventricular hypertrophy) Chronic anticoagulation Impacted cerumen, right ear Acute bronchitis Nonfunctional myringotomy tube Medical History (Updated 12/28/23 @ 00:33 by Carol Leija MD) PTSD (post-traumatic stress disorder) Anemia Cardiomyopathy Valvular heart disease Chronic dental infection Anemia Fracture of incisor teeth Dental fistula Exposed lingual bone On warfarin therapy NICM (nonischemic cardiomyopathy) Poor dentition Severe aortic valve regurgitation Mitral regurgitation Ascending aortic aneurysm Dyslipidemia Coronary artery calcification Normal Coronary Arteries on Cardiac Cath 05/20/23 Deviated septum Claustrophobia Did have issues in the past with oxygen mask Osteoarthritis Hearing loss in right ear Post traumatic stress disorder History of rheumatic fever as a child at age 6 > led to cardiac issues (hx AVR) On warfarin therapy Asthma Surgical History H/O mechanical aortic valve replacement Hx of oral surgery (06/14/23) Extraction 6 Teeth, Incision and Drainage(Not Applicable) - Trell Ramirez, DMD S/P excision of lipoma LEFT/RT FOREARM AND RT HIP History of appendectomy History of tooth extraction all upper teeth removed/some lower teeth removed History of cardiac cath multiple, last Feb 1983--no stents placed Aortic valve replaced s/p AVR/revisions (1981, ) Family History Brother Family history of reaction to anesthesia Father Hearing loss Cancer Sister Hearing loss Cancer Other Allergies No family history of bleeding disorder Social History Smoking Status: Never smoker Tobacco Type: Cigarettes Age Started Using Tobacco: 14; Cigarettes Per Day: 4; Second Hand Exposure: Yes; Do You Dip or Chew Tobacco: No; Hx Alcohol Use: No Hx Substance Use: No Preferred Language: Korean Communication Ability: Effective Visual Impairment: No Limitations Supervisor Finish End Required: No Beliefs That Will Affect Care: Spiritual marital status: / Current Living Situation: Other Current Living Situation Comment: lives w/ friend current occupational status: disabled Feels Safe at Home: Yes Assistive Devices: None Allergies Allergies Allergy/AdvReac Type Severity Reaction Status Date / Time bee venom protein (honey bee) Allergy Severe Severe Verified 08/03/23 10:28 neck/throat swelling, dyspnea adhesive Allergy Mild Rash Verified 08/03/23 10:28 chocolate flavor AdvReac Unknown Advised to Verified 08/03/23 10:28 avoid by surgeon d/t Vitamin K content per pt Home Meds Home Medications Medication Instructions Recorded Confirmed bupropion HCl 300 mg 24 hr tablet, 300 mg PO HS 09/09/20 12/22/23 extended release cholecalciferol (vitamin D3) 50 50 mcg PO QAM 09/09/20 12/22/23 mcg (2,000 unit) capsule trazodone 50 mg tablet 50 mg PO HS 09/12/20 12/22/23 aspirin 81 mg tablet,delayed 81 mg PO QAM 09/27/20 12/22/23 release prazosin 5 mg capsule 10 mg PO QPM 01/12/22 12/22/23 melatonin 10 mg capsule 10 mg PO HS PRN Insomnia 06/04/22 12/22/23 sertraline 50 mg tablet 50 mg PO DAILY 03/16/23 12/22/23 fluticasone fur. 100 mcg-umeclid 1 ea inhalation DAILY 06/06/23 12/22/23 62.5 mcg-vilant 25 mcg inhalat.powder (Trelegy Ellipta) Previous Rx's Medication Instructions Recorded epinephrine 0.3 mg/0.3 mL 0.3 mg (0.3 mL) IM Q10M PRN 05/07/22 injection, auto-injector Anaphylaxis #2 ea hydroxyzine HCl 50 mg tablet 50 mg PO TID PRN Anxiety 30 days 05/07/22 #90 tabs losartan 50 mg tablet 50 mg PO DAILY #90 tabs 03/16/23 potassium chloride 20 mEq 20 meq PO DAILY #30 tabs 05/11/23 tablet,extended release furosemide 40 mg tablet 40 mg PO QAM #0 tabs 06/25/23 warfarin 5 mg tablet See Rx Instructions PO UD #50 tabs 11/22/23 Results & Data (ED) Vital Signs Vital Signs - 24 hr 12/27/23 21:02 12/27/23 21:02 12/27/23 21:19 Temperature 36.6 C Temperature Source Oral Pulse Rate 79 Pulse Rate from SpO2 Sensor Respiratory Rate 20 Respiratory Effort / Characteristics Non-Labored Spontaneous Respiratory Depth Normal Respiratory Pattern Regular Blood Pressure 119/79 Blood Pressure Mean 92 Pulse Oximetry 95 95 95 Oxygen Delivery Method Room Air Room Air Room Air Oxygen Flow Rate 0 0 Sepsis Recent Fever Within 48 Hours No Sepsis New/Unexplained Change in Mental Status N/A Sepsis Action Taken by Nursing No Action Required 12/27/23 21:19 12/27/23 21:23 12/27/23 21:24 Temperature Temperature Source Pulse Rate 66 62 Pulse Rate from SpO2 Sensor 64 Respiratory Rate Respiratory Effort / Characteristics Respiratory Depth Respiratory Pattern Blood Pressure Blood Pressure Mean Pulse Oximetry 95 94 Oxygen Delivery Method Room Air Oxygen Flow Rate Sepsis Recent Fever Within 48 Hours Sepsis New/Unexplained Change in Mental Status Sepsis Action Taken by Nursing 12/27/23 21:39 12/27/23 22:00 12/27/23 22:00 Temperature Temperature Source Pulse Rate 67 Pulse Rate from SpO2 Sensor 77 65 Respiratory Rate 13 Respiratory Effort / Characteristics Respiratory Depth Respiratory Pattern Blood Pressure 110/70 Blood Pressure Mean 90 Pulse Oximetry 93 96 Oxygen Delivery Method Room Air Oxygen Flow Rate Sepsis Recent Fever Within 48 Hours Sepsis New/Unexplained Change in Mental Status Sepsis Action Taken by Nursing 12/27/23 22:18 12/27/23 22:30 12/27/23 22:39 Temperature Temperature Source Pulse Rate 77 74 Pulse Rate from SpO2 Sensor 77 70 Respiratory Rate 17 12 Respiratory Effort / Characteristics Respiratory Depth Respiratory Pattern Blood Pressure 116/65 Blood Pressure Mean 83 Pulse Oximetry 95 94 Oxygen Delivery Method Room Air Oxygen Flow Rate Sepsis Recent Fever Within 48 Hours Sepsis New/Unexplained Change in Mental Status Sepsis Action Taken by Nursing Laboratory Data 12/27/23 21:15 12/27/23 22:16 Lab Results 12/27/23 12/27/23 12/27/23 Range/Units 21:15 22:02 22:16 WBC 7.38 (4.8-10.8) K/ul RBC 4.58 L (4.70-6.10) M/uL Hgb 13.5 L (14.0-18.0) g/dl Hct 38.8 L (42.0-52.0) % MCV 84.7 (80.0-100.0) fL MCH 29.5 (25.0-34.0) pg MCHC 34.8 (32.0-36.0) g/dL RDW Std Deviation 44.2 (36.4-46.3) fL RDW Coeff of Kacey 14.3 (11.5-14.5) % Plt Count 229 (130-400) K/uL MPV 11.3 (9.4-12.4) fL Immature Gran % (Auto) 0.3 % Neut % (Auto) 70.9 % Lymph % (Auto) 16.9 % [place] % (Auto) 8.1 % Eos % (Auto) 3.1 % Baso % (Auto) 0.7 % Neut # (Auto) 5.23 (1.40-6.50) K/uL Lymph # (Auto) 1.25 (1.20-3.40) K/uL [place] # (Auto) 0.60 H (0.11-0.59) K/uL Eos # (Auto) 0.23 (0.00-0.50) K/uL Baso # (Auto) 0.05 (0.00-0.20) K/uL Immature Gran # (Auto) 0.02 (0.01-0.20) K/uL PT 12.7 H (9.0-12.0) Seconds INR 1.2 H (0.9-1.1) APTT 25 (21-31) Seconds PTT Ratio 0.9 VBG pH (7.36-7.41) VBG pCO2 (38-50) mmHg VBG pO2 mmHg VBG HCO3 mmol/L VBG O2 Saturation % VBG Base Excess mEq/L Sodium 137 (136-145) mmol/L Potassium TNP 4.0 Chloride 105 (98-107) mmol/L Carbon Dioxide 26 (21-32) mmol/L Anion Gap 6 (3-11) BUN 13 (6-23) mg/dl Creatinine 1.54 H (0.6-1.4) mg/dl Est Cr Clr Drug Dosing 59.1 ml/min Est GFR ( Amer) 56.8 ml/min Est GFR (Non-Af Amer) 49.0 ml/min BUN/Creatinine Ratio 8.4 L (10-20) Glucose 114 H (70-99(Fasting)) mg/dl Calcium 9.3 (8.6-10.3) mg/dl Magnesium 1.8 (1.7-2.4) mg/dl Total Bilirubin 0.5 (0.2-1.0) mg/dl AST TNP 19 ALT 13 (7-52) U/L Alkaline Phosphatase 90 (34-104) U/L Troponin I High Sens 22.6 H (0-20) pg/ml B-Natriuretic Peptide 97 (0-100) pg/ml Total Protein 7.4 (6.0-8.3) gm/dl Albumin 4.0 (3.4-5.0) gm/dl Globulin 3.4 (2.5-4.0) gm/dl Albumin/Globulin Ratio 1.2 (0.9-2) Adenovirus (PCR) Not Detected (NotDetected) B. pertussis DNA (PCR) Not Detected (NotDetected) B.parapertussis DNA PCR Not Detected (NotDetected) C. pneumoniae DNA (PCR) Not Detected (NotDetected) Coronavirus OC43 (PCR) Not Detected (NotDetected) Coronavirus HKU1 (PCR) Not Detected (NotDetected) Coronavirus 229E (PCR) Not Detected (NotDetected) SARS-CoV-2 (PCR) Not Detected (NotDetected) Coronavirus NL63 (PCR) Not Detected (NotDetected) Human Metapneumovir PCR Not Detected (NotDetected) Influenza Type A (PCR) Not Detected (NotDetected) Influenza Type B (PCR) Not Detected (NotDetected) M. pneumoniae (PCR) Not Detected (NotDetected) Parainfluenza 1 (PCR) Not Detected (NotDetected) Parainfluenza 2 (PCR) Not Detected (NotDetected) Parainfluenza 3 (PCR) Not Detected (NotDetected) Parainfluenza 4 (PCR) Not Detected (NotDetected) RSV (PCR) Not Detected (NotDetected) Entero/Rhino (PCR) Not Detected (NotDetected) 12/27/23 12/27/23 Range/Units 22:25 23:05 WBC (4.8-10.8) K/ul RBC (4.70-6.10) M/uL Hgb (14.0-18.0) g/dl Hct (42.0-52.0) % MCV (80.0-100.0) fL MCH (25.0-34.0) pg MCHC (32.0-36.0) g/dL RDW Std Deviation (36.4-46.3) fL RDW Coeff of Kacey (11.5-14.5) % Plt Count (130-400) K/uL MPV (9.4-12.4) fL Immature Gran % (Auto) % Neut % (Auto) % Lymph % (Auto) % [place] % (Auto) % Eos % (Auto) % Baso % (Auto) % Neut # (Auto) (1.40-6.50) K/uL Lymph # (Auto) (1.20-3.40) K/uL [place] # (Auto) (0.11-0.59) K/uL Eos # (Auto) (0.00-0.50) K/uL Baso # (Auto) (0.00-0.20) K/uL Immature Gran # (Auto) (0.01-0.20) K/uL PT (9.0-12.0) Seconds INR (0.9-1.1) APTT (21-31) Seconds PTT Ratio VBG pH 7.42 H (7.36-7.41) VBG pCO2 42 (38-50) mmHg VBG pO2 56 mmHg VBG HCO3 27 mmol/L VBG O2 Saturation 89.0 % VBG Base Excess 2.4 mEq/L Sodium (136-145) mmol/L Potassium Chloride (98-107) mmol/L Carbon Dioxide (21-32) mmol/L Anion Gap (3-11) BUN (6-23) mg/dl Creatinine (0.6-1.4) mg/dl Est Cr Clr Drug Dosing ml/min Est GFR ( Amer) ml/min Est GFR (Non-Af Amer) ml/min BUN/Creatinine Ratio (10-20) Glucose (70-99(Fasting)) mg/dl Calcium (8.6-10.3) mg/dl Magnesium (1.7-2.4) mg/dl Total Bilirubin (0.2-1.0) mg/dl AST ALT (7-52) U/L Alkaline Phosphatase (34-104) U/L Troponin I High Sens 36.3 H D (0-20) pg/ml B-Natriuretic Peptide (0-100) pg/ml Total Protein (6.0-8.3) gm/dl Albumin (3.4-5.0) gm/dl Globulin (2.5-4.0) gm/dl Albumin/Globulin Ratio (0.9-2) Adenovirus (PCR) (NotDetected) B. pertussis DNA (PCR) (NotDetected) B.parapertussis DNA PCR (NotDetected) C. pneumoniae DNA (PCR) (NotDetected) Coronavirus OC43 (PCR) (NotDetected) Coronavirus HKU1 (PCR) (NotDetected) Coronavirus 229E (PCR) (NotDetected) SARS-CoV-2 (PCR) (NotDetected) Coronavirus NL63 (PCR) (NotDetected) Human Metapneumovir PCR (NotDetected) Influenza Type A (PCR) (NotDetected) Influenza Type B (PCR) (NotDetected) M. pneumoniae (PCR) (NotDetected) Parainfluenza 1 (PCR) (NotDetected) Parainfluenza 2 (PCR) (NotDetected) Parainfluenza 3 (PCR) (NotDetected) Parainfluenza 4 (PCR) (NotDetected) RSV (PCR) (NotDetected) Entero/Rhino (PCR) (NotDetected) Imaging Data Radiologist's Impression: Head CT 12/27/23 21:27 Exam(s): CT HEAD Without Contrast EXAM: CT Head Without Intravenous Contrast CLINICAL HISTORY: Reason for exam: lethargy. TECHNIQUE: Axial computed tomography images of the head/brain without intravenous contrast. CTDI is 38.43 mGy and DLP is 546.36 mGy-cm. Automated exposure control was utilized for the study. A dose lowering technique was utilized adhering to the principles of ALARA. COMPARISON: Prior brain MRI from January 30, 2021. FINDINGS: This study is limited secondary to motion artifact. Brain: Unremarkable. No hemorrhage. No significant white matter disease. No edema. Ventricles: Unremarkable. No ventriculomegaly. Bones/joints: Unremarkable. No acute fracture. Soft tissues: Unremarkable. Sinuses: Chronic ethmoid sinusitis. No acute sinusitis. Mastoid air cells: Bilateral mastoid effusions with moderate amount of fluid in the left middle ear. IMPRESSION: No evidence of acute intracranial pathology. Electronically signed by: Mellisa Wright MD 12/28/23 00:10 AM Discharge Plan Visit Data Chief Complaint: Chest Pain Stated Complaint: CHEST PAIN ED Provider: Carol Leija Discharge Problem: Dizziness, Chest pain, Non-ST elevation MA (NSTEMI) Forms Stand Alone Forms: My [facility] Prescriptions Prescriptions: No Action trazodone 50 mg tablet 50 mg PO HS aspirin 81 mg tablet,delayed release (DR/EC) 81 mg PO QAM warfarin 5 mg tablet See Rx Instructions PO UD Qty: 50 2RF Dose Instruction: TAKE 1 & 1/2 TABLETS BY MOUTH DIRECTED PER [facility] Rx Instructions: 7.5mg daily- or as directed by [facility] bupropion HCl 300 mg tablet extended release 24 hr 300 mg PO HS cholecalciferol (vitamin D3) 50 mcg (2,000 unit) capsule 50 mcg PO QAM prazosin 5 mg capsule 10 mg PO QPM epinephrine 0.3 mg/0.3 mL auto-injector 0.3 mg IM Q10M PRN (Reason: Anaphylaxis) Qty: 2 1RF Rx Instructions: for 2 doses hydroxyzine HCl 50 mg tablet 50 mg PO TID PRN (Reason: Anxiety) 30 Days Qty: 90 2RF sertraline 50 mg tablet 50 mg PO DAILY losartan 50 mg tablet 50 mg PO DAILY Qty: 90 3RF potassium chloride 20 mEq tablet extended release 20 meq PO DAILY Qty: 30 5RF Rx Instructions: Take 1 tablet by mouth on days that Furosemide is taken melatonin 10 mg capsule 10 mg PO HS PRN (Reason: Insomnia) Trelegy Ellipta 100-62.5-25 mcg blister with device 1 ea INHALATION DAILY furosemide 40 mg Tablet 40 mg PO QAM Qty: 0 0RF Referrals Referrals: Jake Siegel DO [Primary Care Provider] -
[2023-12-27 21:56] LABS: Alanine Aminotransferase 13 U/L (7-52); Albumin Globulin Ratio 1.2 (0.9-2); Alkaline Phosphatase 90 U/L (34-104); Anion Gap 6 (3-11); BUN Creatinine Ratio 8.4 (10-20); Bilirubin,Total 0.5 mg/dl (0.2-1.0); Blood Urea Nitrogen 13 mg/dl (6-23); Calcium 9.3 mg/dl (8.6-10.3); Carbon Dioxide 26 mmol/L (21-32); Chloride 105 mmol/L (98-107); Creatinine Clr Calc Pharmacy 59.1 ml/min; Est GFR (African American) 56.8 ml/min; Globulin 3.4 gm/dl (2.5-4.0); Glucose 114 mg/dl (70-99(Fasting)); Magnesium 1.8 mg/dl (1.7-2.4); Sodium 137 mmol/L (136-145); Total Protein 7.4 gm/dl (6.0-8.3)
[2023-12-27 22:05] LABS: Troponin I High Sensitivity 22.6 pg/ml (0-20)
[2023-12-27 22:09] LABS: INR 1.2 (0.9-1.1); Partial Thromboplastin Ratio 0.9; Partial Thromboplastin Time 25 Seconds (21-31); Prothrombin Time 12.7 Seconds (9.0-12.0)
[2023-12-27 22:37] LABS: Base Excess VBG 2.4 mEq/L; HCO3 VBG 27 mmol/L; PCO2 VBG 42 mmHg (38-50); PO2 VBG 56 mmHg; pH VBG 7.42 (7.36-7.41)
[2023-12-27 23:37] LABS: Adenovirus PCR Not Detected (NotDetected); Bordetella parapertussis PCR Not Detected (NotDetected); Bordetella pertussis PCR Not Detected (NotDetected); Chlamydia pneumoniae PCR Not Detected (NotDetected); Coronavirus 229E PCR Not Detected (NotDetected); Coronavirus CoV-2 (COVID19)PCR Not Detected (NotDetected); Coronavirus HKU1 PCR Not Detected (NotDetected); Coronavirus NL63 PCR Not Detected (NotDetected); Coronavirus OC43PCR Not Detected (NotDetected); Human Metapneumovirus PCR Not Detected (NotDetected); Influenza A PCR Not Detected (NotDetected); Influenza B PCR Not Detected (NotDetected); Mycoplasma pneumoniae PCR Not Detected (NotDetected); Parainfluenza Virus 1 PCR Not Detected (NotDetected); Parainfluenza Virus 2 PCR Not Detected (NotDetected); Parainfluenza Virus 3 PCR Not Detected (NotDetected); Parainfluenza Virus 4 PCR Not Detected (NotDetected); Respiratory Syncytial VirusPCR Not Detected (NotDetected); Rhinovirus/Enterovirus PCR Not Detected (NotDetected)
--- NOTE | 2023-12-28 00:11 | CT Scan Report ---
Exam(s): CT HEAD Without Contrast EXAM: CT Head Without Intravenous Contrast CLINICAL HISTORY: Reason for exam: lethargy. TECHNIQUE: Axial computed tomography images of the head/brain without intravenous contrast. CTDI is 38.43 mGy and DLP is 546.36 mGy-cm. Automated exposure control was utilized for the study. A dose lowering technique was utilized adhering to the principles of ALARA. COMPARISON: Prior brain MRI from January 30, 2021. FINDINGS: This study is limited secondary to motion artifact. Brain: Unremarkable. No hemorrhage. No significant white matter disease. No edema. Ventricles: Unremarkable. No ventriculomegaly. Bones/joints: Unremarkable. No acute fracture. Soft tissues: Unremarkable. Sinuses: Chronic ethmoid sinusitis. No acute sinusitis. Mastoid air cells: Bilateral mastoid effusions with moderate amount of fluid in the left middle ear. IMPRESSION: No evidence of acute intracranial pathology. Electronically signed by: Mellisa Wright MD 12/28/23 00:10 AM
[2023-12-28] MEDS ORDERED: ENOXAPARIN 1 MG/KG SQ SCH (01:00)
--- NOTE | 2023-12-28 01:00 | History & Physical Report ---
Date of Service December 28, 2023 Assessment & Plan (1) Subtherapeutic international normalized ratio (INR): (2) H/O mitral valve replacement with mechanical valve: (3) History of aortic valve replacement with metallic valve: (4) Acute kidney injury superimposed on CKD: (5) Chronic anticoagulation: (6) Dizziness: (7) Rheumatic disease of heart valve: (8) Elevated troponin: (9) Anxiety and depression: Plan Status post AVR and MVR/chronic anticoagulation/subtherapeutic INR/elevated troponin- Present INR is 1.2 Placed on Lovenox 1 mg/kg SQ every 12 hours Patient follows with anticoagulation clinic, and was subtherapeutic earlier in November as well The patient will be admitted to telemetry for serial cardiac enzymes, serial EKG's, cardiac rhythm monitoring and a 2-D echocardiogram with Dopplers. Continue aspirin 81 mg daily Consult anticoagulation clinic Troponin 22.6, with follow-up 36.3, is still lower than most previous troponins, and is likely elevated secondary to DUDLEY Acute kidney injury superimposed on CKD- Creatinine 1.54, with base 1.39 Hold furosemide and losartan Placed on NSS at 80 mL/h x 1 L Repeat laboratories in a.m. COPD- Continue Trelegy Ellipta Anxiety and depression- Continue bupropion, melatonin, prazosin, and trazodone, once verified History of Present Illness Chief Complaint: The patient presents to the emergency department with complaint of acute onset of feeling lightheaded, generally weak, and fatigued, when he sat down for supper this evening. Primary Care Provider: Jake Siegel DO The patient is a 58-year-old male with a past medical history including AV block, supratherapeutic INR, subtherapeutic INR, acute on chronic systolic CHF, hearing loss, rheumatic heart disease, status post AVR and MVR with mechanical valve, anxiety and depression, on chronic anticoagulation. The patient presents to the emergency department with acute onset of feeling lightheaded, generally weak and fatigued while sitting down for supper this evening. He reports he had his usual day prior to this. Allergies Allergy/AdvReac Type Severity Reaction Status Date / Time bee venom protein (honey bee) Allergy Severe Severe Verified 08/03/23 10:28 neck/throat swelling, dyspnea adhesive Allergy Mild Rash Verified 08/03/23 10:28 chocolate flavor AdvReac Unknown Advised to Verified 08/03/23 10:28 avoid by surgeon d/t Vitamin K content per pt Home Medications Medication Instructions Recorded Confirmed Type bupropion HCl 300 mg 24 hr tablet, 300 mg PO HS 09/09/20 12/22/23 History extended release cholecalciferol (vitamin D3) 50 50 mcg PO QAM 09/09/20 12/22/23 History mcg (2,000 unit) capsule trazodone 50 mg tablet 50 mg PO HS 09/12/20 12/22/23 History aspirin 81 mg tablet,delayed 81 mg PO QAM 09/27/20 12/22/23 History release prazosin 5 mg capsule 10 mg PO QPM 01/12/22 12/22/23 History epinephrine 0.3 mg/0.3 mL 0.3 mg (0.3 mL) IM Q10M PRN 05/07/22 12/22/23 Rx injection, auto-injector Anaphylaxis #2 ea hydroxyzine HCl 50 mg tablet 50 mg PO TID PRN Anxiety 30 days 05/07/22 12/22/23 Rx #90 tabs melatonin 10 mg capsule 10 mg PO HS PRN Insomnia 06/04/22 12/22/23 History losartan 50 mg tablet 50 mg PO DAILY #90 tabs 03/16/23 12/22/23 Rx sertraline 50 mg tablet 50 mg PO DAILY 03/16/23 12/22/23 History potassium chloride 20 mEq 20 meq PO DAILY #30 tabs 05/11/23 12/22/23 Rx tablet,extended release fluticasone fur. 100 mcg-umeclid 1 ea inhalation DAILY 06/06/23 12/22/23 History 62.5 mcg-vilant 25 mcg inhalat.powder (Trelegy Ellipta) furosemide 40 mg tablet 40 mg PO QAM #0 tabs 06/25/23 12/22/23 Rx warfarin 5 mg tablet See Rx Instructions PO UD #50 tabs 11/22/23 12/22/23 Rx Past Med/Surg History Problem List (Updated 12/28/23 @ 02:01 by Miguel Angel Tomas MD) History of aortic valve replacement with metallic valve H/O mitral valve replacement with mechanical valve Acute kidney injury superimposed on CKD Subtherapeutic international normalized ratio (INR) Non-ST elevation [place] (NSTEMI) (Acute) Chest pain (Acute) Dizziness (Acute) AVB (atrioventricular block) COVID-19 determined by clinical diagnostic criteria Supratherapeutic INR (Acute) Nausea & vomiting Elevated troponin DUDLEY (acute kidney injury) Acute on chronic systolic (congestive) heart failure Acute respiratory failure with hypoxia 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 Systolic CHF Dysfunction of both eustachian tubes Tinnitus of right ear Conductive hearing loss of left ear with restricted hearing of right ear Mixed conductive and sensorineural hearing loss of right ear with restricted hearing of left ear Chest pain Pre-op testing Arthritis Heart disease History of back problems Lipoma of back Lipoma of arm Rheumatic disease of heart valve Preoperative cardiovascular examination Aortic valve disease s/p AVR/revisions (1981, , 2023), on warfarin, FOLLOWED BY BECKY JAMES PA-C H/O excision of mass (10/16/20) Soft Tissue Mass Excision Bilateral Arms (2-5 cm) and Right Flank (19.5 cm)(Not Applicable) - Yang Lemus, DO, FACS Sensorineural hearing loss (SNHL) of right ear with restricted hearing of left ear Chronic mastoiditis of right side Acquired deviated nasal septum Tameka bullosa Papilloma of oropharynx Anxiety and depression LVH (left ventricular hypertrophy) Chronic anticoagulation Impacted cerumen, right ear Acute bronchitis Nonfunctional myringotomy tube Medical History (Updated 12/28/23 @ 02:01 by Miguel Angel Tomas MD) PTSD (post-traumatic stress disorder) Anemia Cardiomyopathy Valvular heart disease Chronic dental infection Anemia Fracture of incisor teeth Dental fistula Exposed lingual bone On warfarin therapy NICM (nonischemic cardiomyopathy) Poor dentition Severe aortic valve regurgitation Mitral regurgitation Ascending aortic aneurysm Dyslipidemia Coronary artery calcification Normal Coronary Arteries on Cardiac Cath 05/20/23 Deviated septum Claustrophobia Did have issues in the past with oxygen mask Osteoarthritis Hearing loss in right ear Post traumatic stress disorder History of rheumatic fever as a child at age 6 > led to cardiac issues (hx AVR) On warfarin therapy Asthma Surgical History (Updated 12/28/23 @ 02:01 by Miguel Angel Tomas MD) H/O mechanical aortic valve replacement Hx of oral surgery (06/14/23) Extraction 6 Teeth, Incision and Drainage(Not Applicable) - Trell Ramirez, RODO S/P excision of lipoma LEFT/RT FOREARM AND RT HIP History of appendectomy History of tooth extraction all upper teeth removed/some lower teeth removed History of cardiac cath multiple, last Feb 1983--no stents placed Aortic valve replaced s/p AVR/revisions (1981, 1982x2) Family History Brother Family history of reaction to anesthesia Father Hearing loss Cancer Sister Hearing loss Cancer Other Allergies No family history of bleeding disorder Social History Smoking Status: Never smoker Tobacco Type: Cigarettes Age Started Using Tobacco: 14; Cigarettes Per Day: 4; Second Hand Exposure: Yes; Do You Dip or Chew Tobacco: No; Hx Alcohol Use: No Hx Substance Use: No Preferred Language: Portuguese Communication Ability: Effective Visual Impairment: No Limitations Mechanist Required: No Beliefs That Will Affect Care: Spiritual marital status: / Current Living Situation: Other Current Living Situation Comment: lives w/ friend current occupational status: disabled Feels Safe at Home: Yes Assistive Devices: None Review of Systems Review of Systems: The patient denies chest pain, palpitations, cough, lower extremity swelling, sore throat, fevers, chills, sweats, nausea, vomiting, diarrhea , constipation, abdominal pain, pelvic pain, blood in urine or stool, dysuria, urinary frequency or urgency, memory loss, loss of consciousness, rash, abnormal bruising or bleeding, imbalance, focal weakness, numbness or tingling in arms or legs, neck pain, or night sweats. The review of systems is otherwise negative other than for that already noted above, and at least 10 systems have been reviewed. Physical Exam Physical Exam: The patient is awake, alert and oriented 3, well developed and well nourished, normocephalic and atraumatic, lying in bed and in no acute distress. HEENT--PERRL, EOMI, mucous membranes and oropharynx mildly dry. Neck--supple. No JVD. No bruits. Thyroid normal, trachea midline, no adenopathy. Heart--normal S1 and S2. No murmurs, rubs or gallops. Lungs--clear bilaterally, no respiratory distress, no accessory muscle use. Abdomen--normal bowel sounds and soft. Nontender. Nondistended, no hernias or masses, no organomegaly. Extremities--no cyanosis or clubbing. No edema. Dermatologic--normal skin turgor, normal color, no abnormal lymph nodes, no rash. Neurologic--cranial nerves II through XII grossly intact. Rheumatologic--normal range of motion. Psychiatric--normal affect. Results & Data Results & Data Vital Signs (Past 12 Hours) Vital Signs Temp Pulse Resp BP Pulse Ox O2 Del Method O2 Flow Rate 12/27/23 22:39 74 12 94 Room Air 12/27/23 22:30 116/65 12/27/23 22:18 77 17 95 12/27/23 22:00 67 13 96 Room Air 12/27/23 22:00 110/70 12/27/23 21:39 93 12/27/23 21:24 62 94 12/27/23 21:23 66 12/27/23 21:19 95 Room Air 12/27/23 21:19 95 Room Air 0 12/27/23 21:02 95 Room Air 0 12/27/23 21:02 36.6 C 79 20 119/79 95 Room Air Laboratory Results Laboratory Results WBC 7.38 K/ul (4.8-10.8) 12/27/23 21:15 RBC 4.58 M/uL (4.70-6.10) L 12/27/23 21:15 Hgb 13.5 g/dl (14.0-18.0) L 12/27/23 21:15 Hct 38.8 % (42.0-52.0) L 12/27/23 21:15 MCV 84.7 fL (80.0-100.0) 12/27/23 21:15 MCH 29.5 pg (25.0-34.0) 12/27/23 21:15 MCHC 34.8 g/dL (32.0-36.0) 12/27/23 21:15 RDW Std Deviation 44.2 fL (36.4-46.3) 12/27/23 21:15 RDW Coeff of Kacey 14.3 % (11.5-14.5) 12/27/23 21:15 Plt Count 229 K/uL (130-400) 12/27/23 21:15 MPV 11.3 fL (9.4-12.4) 12/27/23 21:15 Immature Gran % (Auto) 0.3 % 12/27/23 21:15 Neut % (Auto) 70.9 % 12/27/23 21:15 Lymph % (Auto) 16.9 % 12/27/23 21:15 [place] % (Auto) 8.1 % 12/27/23 21:15 Eos % (Auto) 3.1 % 12/27/23 21:15 Baso % (Auto) 0.7 % 12/27/23 21:15 Neut # (Auto) 5.23 K/uL (1.40-6.50) 12/27/23 21:15 Lymph # (Auto) 1.25 K/uL (1.20-3.40) 12/27/23 21:15 [place] # (Auto) 0.60 K/uL (0.11-0.59) H 12/27/23 21:15 Eos # (Auto) 0.23 K/uL (0.00-0.50) 12/27/23 21:15 Baso # (Auto) 0.05 K/uL (0.00-0.20) 12/27/23 21:15 Immature Gran # (Auto) 0.02 K/uL (0.01-0.20) 12/27/23 21:15 PT 12.7 Seconds (9.0-12.0) H 12/27/23 21:15 INR 1.2 (0.9-1.1) H 12/27/23 21:15 APTT 25 Seconds (21-31) 12/27/23 21:15 PTT Ratio 0.9 12/27/23 21:15 VBG pH 7.42 (7.36-7.41) H 12/27/23 22:25 VBG pCO2 42 mmHg (38-50) 12/27/23 22:25 VBG pO2 56 mmHg 12/27/23 22:25 VBG HCO3 27 mmol/L 12/27/23 22:25 VBG O2 Saturation 89.0 % 12/27/23 22:25 VBG Base Excess 2.4 mEq/L 12/27/23 22:25 Sodium 137 mmol/L (136-145) 12/27/23 21:15 Potassium 4.0 mmol/L (3.5-5.1) 12/27/23 22:16 Chloride 105 mmol/L (98-107) 12/27/23 21:15 Carbon Dioxide 26 mmol/L (21-32) 12/27/23 21:15 Anion Gap 6 (3-11) 12/27/23 21:15 BUN 13 mg/dl (6-23) 12/27/23 21:15 Creatinine 1.54 mg/dl (0.6-1.4) H 12/27/23 21:15 Est Cr Clr Drug Dosing 59.1 ml/min 12/27/23 21:15 Est GFR ( Amer) 56.8 ml/min 12/27/23 21:15 Est GFR (Non-Af Amer) 49.0 ml/min 12/27/23 21:15 BUN/Creatinine Ratio 8.4 (10-20) L 12/27/23 21:15 Glucose 114 mg/dl (70-99(Fasting)) H 12/27/23 21:15 Calcium 9.3 mg/dl (8.6-10.3) 12/27/23 21:15 Magnesium 1.8 mg/dl (1.7-2.4) 12/27/23 21:15 Total Bilirubin 0.5 mg/dl (0.2-1.0) 12/27/23 21:15 AST 19 U/L (13-39) 12/27/23 22:16 ALT 13 U/L (7-52) 12/27/23 21:15 Alkaline Phosphatase 90 U/L (34-104) 12/27/23 21:15 Troponin I High Sens 36.3 pg/ml (0-20) H D 12/27/23 23:05 B-Natriuretic Peptide 97 pg/ml (0-100) 12/27/23 22:16 Total Protein 7.4 gm/dl (6.0-8.3) 12/27/23 21:15 Albumin 4.0 gm/dl (3.4-5.0) 12/27/23 21:15 Globulin 3.4 gm/dl (2.5-4.0) 12/27/23 21:15 Albumin/Globulin Ratio 1.2 (0.9-2) 12/27/23 21:15 Adenovirus (PCR) Not Detected (NotDetected) 12/27/23 22:02 B. pertussis DNA (PCR) Not Detected (NotDetected) 12/27/23 22:02 B.parapertussis DNA PCR Not Detected (NotDetected) 12/27/23 22:02 C. pneumoniae DNA (PCR) Not Detected (NotDetected) 12/27/23 22:02 Coronavirus OC43 (PCR) Not Detected (NotDetected) 12/27/23 22:02 Coronavirus HKU1 (PCR) Not Detected (NotDetected) 12/27/23 22:02 Coronavirus 229E (PCR) Not Detected (NotDetected) 12/27/23 22:02 SARS-CoV-2 (PCR) Not Detected (NotDetected) 12/27/23 22:02 Coronavirus NL63 (PCR) Not Detected (NotDetected) 12/27/23 22:02 Human Metapneumovir PCR Not Detected (NotDetected) 12/27/23 22:02 Influenza Type A (PCR) Not Detected (NotDetected) 12/27/23 22:02 Influenza Type B (PCR) Not Detected (NotDetected) 12/27/23 22:02 M. pneumoniae (PCR) Not Detected (NotDetected) 12/27/23 22:02 Parainfluenza 1 (PCR) Not Detected (NotDetected) 12/27/23 22:02 Parainfluenza 2 (PCR) Not Detected (NotDetected) 12/27/23 22:02 Parainfluenza 3 (PCR) Not Detected (NotDetected) 12/27/23 22:02 Parainfluenza 4 (PCR) Not Detected (NotDetected) 12/27/23 22:02 RSV (PCR) Not Detected (NotDetected) 12/27/23 22:02 Entero/Rhino (PCR) Not Detected (NotDetected) 12/27/23 22:[address] 12/27/23 21:27 Exam(s): CT HEAD Without Contrast EXAM: CT Head Without Intravenous Contrast CLINICAL HISTORY: Reason for exam: lethargy. TECHNIQUE: Axial computed tomography images of the head/brain without intravenous contrast. CTDI is 38.43 mGy and DLP is 546.36 mGy-cm. Automated exposure control was utilized for the study. A dose lowering technique was utilized adhering to the principles of ALARA. COMPARISON: Prior brain MRI from January 30, 2021. FINDINGS: This study is limited secondary to motion artifact. Brain: Unremarkable. No hemorrhage. No significant white matter disease. No edema. Ventricles: Unremarkable. No ventriculomegaly. Bones/joints: Unremarkable. No acute fracture. Soft tissues: Unremarkable. Sinuses: Chronic ethmoid sinusitis. No acute sinusitis. Mastoid air cells: Bilateral mastoid effusions with moderate amount of fluid in the left middle ear. IMPRESSION: No evidence of acute intracranial pathology. Electronically signed by: Mellisa Wright MD 12/28/23 00:10 AM Code Status & VTE Plan Code Status Full code VTE Prophylaxis Plan VTE Prophylaxis will be ordered: Yes PG Care Time/CCT Total # of Minutes Spent Total Time Spent with Patient: Total time spent is greater than 50% in coordination of care (as documented) at patient's floor/unit and/or counseling patient: Coding Level of Care Code 72796 INT INP/OBS CARE 3/75MIN Diagnoses Subtherapeutic international normalized ratio (INR) R79.1 H/O mitral valve replacement with mechanical valve Z95.2 History of aortic valve replacement with metallic valve Z95.4 Acute kidney injury superimposed on CKD N17.9; N18.9 Chronic anticoagulation Z79.01 Dizziness R42 Rheumatic disease of heart valve I09.1 Elevated troponin R79.89 Anxiety and depression F41.9; F32.A
[2023-12-28] MEDS: SODIUM CHLORIDE 0.9% 1,000 ML IV SCH (01:42)
[2023-12-28] MEDS: ENOXAPARIN 100 MG/1ML SYR SQ STA (02:17)
--- OUTSIDE RECORDS SUMMARY | 2023-12-28 02:39 | External Medical Summary | Summary of Care ---
Author Name Unknown Organization [facility] Address [address] [place] [address] Phone [phone] Care Team Providers Care Complaint Supervisor Name Role Phone Jake Siegel DO Primary Care Provider [phone] Reason for Visit * Reason Onset Date Comments Advice 12/22/2023 Encounter Details Date Type Department Care Team (Late st Contact Info) Description 12/22/2023 Telephone Urology, [place] [address] [place] [address] Lluvia Mcnair PA-C [address] [place] [address] Advice Allergies Active Allergy Reactions Criticality Noted Date Comments Adhesive Tape Rash Low 12/08/2022 Bee Venom High 12/08/2022 Other Reaction(s): Severe neck/throat swelling, dyspnea Chocolate Flavor 12/08/2022 Other Reaction(s): Advised to avoid by surgeon d/t Vitamin K content per pt documented as of this encounter (statuses as of 12/22/2023) Medications Medication Sig Dispensed Refills Start Date End Date Status Warfarin Sodium 5 MG Oral Tablet (Coumadin) Use as directed. 09/29/2022 Active Prazosin HCl 5 MG Oral Capsule (Minipress) Take 2 Capsules by mouth every night at bedtime. 05/24/2023 Active Sertraline HCl 50 MG Oral Tablet (Zoloft) Take 1 Tablet by mouth every evening. 03/16/2023 Active traZODone HCl 50 MG Oral Tablet (Desyrel) Take 1 Tablet by mouth at bedtime. 05/24/2023 Active Aspirin 81 MG Oral Tablet Delayed Release (Aspir-Low) Take 1 Tablet by mouth in the morning. Active buPROPion HCl ER (XL) 300 MG Oral Tablet Extended Release 24 Hour (Wellbutrin XL) Take 1 Tablet by mouth in the morning. 05/24/2023 Active hydrOXYzine HCl 50 MG Oral Tablet Take 1 Tablet by mouth in the morning and 1 Tablet before bedtime. 05/07/2022 Active Vitamin D3 50 MCG (2000 UT) Oral Capsule Take 1 Capsule by mouth in the morning. Active Furosemide 40 MG Oral Tablet (Lasix) Take 1 Tablet by mouth in the morning and 1 Tablet before bedtime. 05/11/2023 Active Potassium Chloride Aileen ER 20 MEQ Oral Tablet Extended Release Take 1 Tablet by mouth every other day. 05/11/2023 Active Trelegy Ellipta 100-62.5-25 MCG/ACT Aerosol Powder Breath Activated Inhale 1 Puff by mouth daily at noon. 05/24/2023 Active Melatonin 10 MG Oral Capsule Take 1 Capsule by mouth at bedtime. 06/04/2022 Active Atorvastatin Calcium 10 MG Oral Tablet (Lipitor) Take 1 Tablet by mouth every evening. 06/04/2022 Active Carvedilol 6.25 MG Oral Tablet (Coreg) Take 1 Tablet by mouth 2 times a day with morning and evening meals. 60 Tablet 3 07/08/2023 Active Docusate Sodium 100 MG Oral Capsule (Colace) Take 1 Capsule by mouth in the morning and 1 Capsule before bedtime. 10 Capsule 07/08/2023 Active Additional Information Patient not taking.Reported on 08/04/2023 Famotidine 20 MG Oral Tablet (Pepcid) Take 1 Tablet by mouth every evening. 30 Tablet 07/08/2023 Active oxyCODONE HCl 5 MG Oral Tablet (Oxy IR) Take 1 Tablet by mouth every 4 hours as needed for severe pain. 20 Tablet 07/09/2023 Active Fluticasone Furoate 100 MCG/ACT Inhalation Aerosol Powder Breath Activated (ARNUITY ellipta) Inhale 1 Puff by mouth as needed. 06/25/2023 Active Losartan Potassium 50 MG Oral Tablet (Cozaar) Take 1 Tablet by mouth in the morning. 07/21/2023 Active Umeclidinium-Vilan terol 62.5-25 MCG/ACT Inhalation Aerosol Powder Breath Activated (ANORO ellipta) daily. 06/25/2023 Active documented as of this encounter (statuses as of 12/22/2023) Active Problems Problem Noted Date Diagnosed Date Scrotal pain 07/09/2023 S/P MVR (mitral valve replacement) 07/08/2023 S/P AVR (aortic valve replacement) 07/08/2023 Prosthetic aortic valve failure requiring replac ement 06/30/2023 AVB (atrioventricular block) 06/28/2023 Sinus arrest 06/28/2023 DUDLEY (acute kidney injury) 06/28/2023 History of aortic valve replacement 06/25/2023 Rheumatic valvular disease 06/25/2023 Rheumatic aortic stenosis 06/25/2023 Heart failure with reduced ejection fraction 11/2023 Tobacco use 06/25/2023 Hypertension 06/25/2023 PTSD (post-traumatic stress disorder) 06/25/2023 Valvular heart disease 06/25/2023 documented as of this encounter (statuses as of 12/22/2023) Social History Tobacco Use Types Packs/Day Years Used Date Smoking Tobacco: Former Cigarettes Smokeless Tobacco: Never Comments:4 cigarettes a day, sometimes less Alcohol Use Standard Drinks/Week Comments Never 0 (1 standard drink = 0.6 oz pur e alcohol) Personal Safety Answer Date Recorded Do you feel unsafe or have concerns for your saf ety? No 06/25/2023 Do you have concerns for you r family's safety? (Household - for ages 0-17 years) Not on file 06/25/2023 Utilities Answer Date Recorded Do you have trouble paying y our heating, water, or electric bill? No 06/25/2023 Is your family able to pay t he heat, water, or electric bill? (Household - for ages 0-17 years) Not on file 06/25/2023 Does your family have access to good internet? (Household - for ages 0-17 years) Not on file 06/25/2023 Social Connections Answer Date Recorded How often do you feel lonely or isolated from those around you? (Adult - for ages 18 years and over) Not on file 10/05/2023 Transportation Needs Answer Date Record ed READ ONLY Do you have troubl e getting a ride to medical visits or work? Never True 06/25/2023 Does your family have a hard time getting a ride to doctors visits? (Household - for ages 0-17 years) Not on file 06/25/2023 Has lack of transportation k ept you from medical appointments, meetings, work, or from getting things needed for daily living? Check all that apply. (Adult - for ages 18 years and over) Not on file 06/25/2023 Do you (or your family) have trouble finding or paying for a ride (transportation)? (Household - for ages 0-17 years) Not on file 06/25/2023 Housing Stability Answer Date Recorded Do you currently live in a s helter or have no steady place to sleep at night? (Adult - for ages 18 years and over) Not on file 06/25/2023 READ ONLY Do you think you a re at risk of becoming homeless? No 06/25/2023 Does your family worry about paying for your home or becoming homeless? (Household - for ages 0-17 years) Not on file 0 06/25/2023 Are you homeless or worried that you might be in the future? (Adult - for ages 18 years and over) Not on file Are you (or your family) aldo eless or worried that you might be in the future? (Household - for ages 0-17 years) Not on file Food Insecurity Answer Date Recorded Do you need food for this week? No 06/25/2023 Are you able to get enough f ood for your family? (Household - for ages 0-17 years) Not on file 06/25/2023 Does your family need food t his week? (Household - for ages 0-17 years) Not on file 06/25/2023 Do you always have enough fo od for your family? (Household - for ages 0-17 years) Not on file 06/25/2023 Sex and Gender Information Value Date Recorded Sex Assigned at Not on file Gender Identity Not on file Sexual Orientation Not on file Job Start Date Occupation Industry Not on file Not on file Not on file documented as of this encounter Functional Status Functional Status Response Date of Assess ment Are you deaf or do you have serious difficulty h earing? No 06/25/2023 Are you blind or do you have serious difficulty seeing, even when wearing glasses? No 06/25/2023 Do you have serious difficul ty walking or climbing stairs? (5 years old or older) No 06/25/2023 Do you have difficulty dress ing or bathing? (5 years old or older) No 06/25/2023 Because of a physical, menta l, or emotional condition, do you have difficulty doing errands alone such as visiting a doctor s office or shopping? (15 years old or older) No 06/25/19 Cognitive Status Response Date of Assessm ent Because of a physical, menta l, or emotional condition, do you have serious difficulty concentrating, remembering, or making decisions? (5 years old or older) No 06/25/2023 documented as of this encounter Miscellaneous Notes * Telephone Encounter - Lluvia Mcnair PA-C - 12/22/2023 11:36 AM EDT Attempted to call patient 12/22/2023 11:38 AM left voicemail requesting return call. His scrotal US showed potential mass, tumor markers were ordered, he did not follow up in clinic, letters have been sent out. Lluvia Mcnair PA-C 12/22/2023 11:39 AM documented in this encounter Plan of Treatment Health Maintenance Due Date Last Done Comments Depression Screening 1977 HIV Screening 1980 Hepatitis C Screening 09/15/1983 DTap/Tdap Vaccines (1 - Tdap) 1984 Hepatitis B Vaccine (1 of 3 - 19+ 3-dose series) 1984 Cologuard 2010 Colonoscopy 2010 Colorectal Cancer Screening 2010 Fecal Occult Blood Test 2010 Sigmoidoscopy 2010 Zoster Vaccines (1 of 2) 09/15/2015 COVID-19 Vaccine ( season) 2023 09/03/2022, 06/04/2022, 05/07/2022 Influenza Vaccine (FLU shot) (#1) 2023 05/07/2022, 04/10/2021, 02/07/2014 GFR 07/08/2024 07/09/2023, 06/18, 07/07/2023, Additional history exists Albumin/Creatinine Ratio 06/27/2026 06/28/2023 Lipid Panel 06/24/2028 06/25/2023 Pneumococcal Vaccine: Pediatrics (0 to 5 Years) and At-Risk Patients (6 to 64 Years) Aged Out 02/10/2014 No longer eligible based on patient's age to complete this topic HPV (Gardasil) Vaccine Aged Out No lo nger eligible based on patient's age to complete this topic MENINGOCOCCAL (MENACTRA/MENVEO) Aged Out No longer eligible based on patient's age to complete this topic documented as of this encounter Medical Devices Implanted Type Area Concrete Wall Grinder Operator Device Identifier Shelf Expiration Date Model / Serial / Lot Catheter 5fr Flow-Pacing - [id number] Implanted:Qty: 1 on 06/28/2023 by Dustin Branch MD [place] [facility] [place] : ATRIAL FIBRILLATION [id number] 05/19/2024 [id number] / / [id number] [place] Ptfe 6x6in X5 - [id number] Implanted:Qty: 1 on 06/29/2023 by David Khan [place] [facility] [place] Heart CR BARD : PERIPHERAL VASCULAR 06/16/2025 [id number] / / [id number] Description:package discarde d and unable to obtain lot or expiration Valve Aortic Mech 25mm - [id number] Implanted:Qty: 1 on 06/29/2023 by David Khan MD [place] [facility] [place] [employer] [id number] 03/26/2029 ONXACE-[id number] [place] Mitral 33mj-501 - [id number] - [id number] Implanted:Qty: 1 on 06/29/2023 by David Khan MD [place] [facility] [place] [facility] [place] : CARDIOVASCULAR [id number] 01/21/2028 33MJ-501 / [id number] / [id number] Cath Iabp Sensation 50cc Fiber - [id number] Implanted:Qty: 1 on 06/29/2023 by David Khan [place] [facility] [place]: Heart GETINGE : MAQUET 05/11/2025 0684-00- 0 576-01U / / [id number] Suture Steel 6 B&S19 M654g - [id number] Implanted:Qty: 7 on 06/30/2023 by David Khan [place] [facility] [place]: Sternum JNJ : [employer] 02/17/2028 [id number] / / [id number] documented as of this encounter Advance Directives * Full Code (Latest Code Status on File) Date Activated Date Inactivated Comments 06/29/2023 3:21 PM 07/09/2023 8:00 PM This order r eflects the patients wishes and were consensually agreed upon. Question Answer Comments Discussion of Advance Directives occurred with: Patient * Full Code Date Activated Date Inactivated Comments 06/25/2023 10:15 PM 06/29/2023 3:21 PM This order r eflects the patients wishes and were consensually agreed upon. Question Answer Comments Discussion of Advance Directives occurred with: Patient Care Teams Complaint Supervisor Relationship Specialty Start Date End Date Jake Siegel DO [address] [facility] [place] [address] PCP - General Family Medicine 06/18/23 documented as of this encounter
--- OUTSIDE RECORDS SUMMARY | 2023-12-28 02:39 | External Medical Summary | Summary of Care ---
Author Name Unknown Organization [facility] Address [address] [place] [address] Phone [phone] Care Team Providers Care Brokerage Office Manager Name Role Phone Jake Siegel DO Primary Care Provider [phone] Encounter Details Date Type Department Care Team (Late st Contact Info) Description 06/15/2023 Telephone Cardiothoracic Surg [facility], [place] [address] [place] [address] Ahsan Brandt PA-C [address] [place] [address] Allergies Active Allergy Reactions Criticality Noted Date Comments Adhesive Tape Rash Low 12/08/2022 Bee Venom High 12/08/2022 Other Reaction(s): Severe neck/throat swelling, dyspnea Chocolate Flavor 12/08/2022 Other Reaction(s): Advised to avoid by surgeon d/t Vitamin K content per pt documented as of this encounter (statuses as of 2023) Medications Medication Sig Dispensed Refills Start Date [...] Tablet by mouth every evening. 06/04/2022 Active Losartan Potassium 50 MG Oral Tablet (Cozaar) Take 1 Tablet by mouth every evening. 07/08/2023 Discontinued Metoprolol Succinate ER 25 MG Oral Tablet Extended Release 24 Hour (toPROL XL) Take 1 Tablet by mouth every evening. 03/16/2023 07/08/2023 Discontinued documented as of this encounter (statuses as of 2023) Active Problems Problem Noted Date Diagnosed Date [...] as of this encounter (statuses as of 2023) Social History Tobacco Use Types Packs/Day Years Used Date Smoking Tobacco: Every Day Cigarettes Smokeless Tobacco: Never Comments:4 cigarettes a day, sometimes less Alcohol Use Standard Drinks/Week Comments Never 0 (1 standard drink = 0.6 oz pur e alcohol) Sex and Gender Information Value Date Recorded Sex Assigned at Not on file Gender Identity Not on file Sexual Orientation Not on file Job Start Date Occupation Industry Not on file Not on file Not on file documented as of this encounter Miscellaneous Notes * Telephone Encounter - Asha Leroy RN - 06/16/2023 12:36 PM EST I spoke with patient's Aunt Ines, she states that pt had CARLYN completed while admitted at [facility]. Asha Leroy RN * Telephone Encounter - Scarlet Don OSA - 06/15/2023 12:40 PM EST Good morning, Pt has an order for a CARLYN to be scheduled at [place]. Please advise at your earliest convenience. Thank you documented in this encounter Plan of Treatment Health Maintenance Due Date Last Done Comments Depression Screening 1977 HIV Screening 1980 Hepatitis C Screening 09/15/1983 DTaP,Tdap,and Td Vaccines (1 - Tdap) 1984 Hepatitis B (1 of 3 - 19+ 3-dose series) 1984 Cologuard 2010 Colonoscopy 2010 Colorectal Cancer Screening 2010 Fecal Occult Blood Test 2010 Sigmoidoscopy 2010 Zoster Vaccines (1 of 2) 09/15/2015 COVID-19 Vaccine (4 - 2022- season) 2022 09/03/2022, 06/04/2022, 05/07/2022 Influenza Vaccine (FLU shot) (Season Ended) 2023 05/07/2022, 04/10/2021, 02/07/2014 GFR 07/08/2024 07/09/2023, 06/18, 07/07/2023, Additional history exists Albumin/Creatinine Ratio 06/27/2026 06/28/2023 Lipid Panel 06/24/2028 06/25/2023 Pneumococcal Vaccine: Pediatrics (0 to 5 Years) and At-Risk Patients (6 to 64 Years) Aged Out 02/10/2014 No longer eligible based on patient's age to complete this topic GARDASIL-HPV IMMUNIZATION SERIES Aged Out No longer eligible based on patient's age to complete this topic MENINGOCOCCAL (MENACTRA/MENVEO) Aged Out No longer eligible based on patient's age to complete this topic documented as of this encounter Medical Devices Implanted Type Area Regional Airline Pilot Device Identifier Shelf Expiration Date Model / Serial / Lot Catheter 5fr Flow-Pacing - [id number] Implanted:Qty: 1 on 06/28/2023 by Dustin Branch MD at [facility] [place] [facility] [employer] : ATRIAL FIBRILLATION [id number] 05/19/2024 [id number] / / [id number] [place] Ptfe 6x6in X5 - [id number] Implanted:Qty: 1 on 06/29/2023 by David Khan MD at OR [facility] [place] N/A: Heart CR BARD : PERIPHERAL VASCULAR 06/16/2025 [id number] / / [id number] Description:package discarde d and unable to obtain lot or expiration Valve Aortic Mech 25mm - [id number] Implanted:Qty: 1 on 06/29/2023 by David Khan MD at OR [facility] [place] Heart [employer] [id number] 03/26/2029 ONXACE-[id number] [place] Mitral 33mj-501 - [id number] - [id number] Implanted:Qty: 1 on 06/29/2023 by David Khan MD at OR [facility] [place] Heart ST EVELIN : CARDIOVASCULAR [id number] 01/21/2028 33MJ-501 / [id number] / [id number] Cath Iabp Sensation 50cc Fiber - [id number] Implanted:Qty: 1 on 06/29/2023 by David Khan MD at OR [facility] [place] N/A: Heart GETINGE : MAQUET 05/11/2025 0684-00- 0 576-01U / / [id number] Suture Steel 6 B&S19 M654g - [id number] Implanted:Qty: 7 on 06/30/2023 by David Khan MD at OR [facility] [place] N/A: Sternum JNJ : [employer] 02/17/2028 [...] Advance Directives occurred with: Patient Care Teams Brokerage Office Manager Relationship Specialty Start Date End Date Jake Siegel DO [address] [place] [address] PCP - General Family Medicine 06/18/23 documented as of this encounter
--- OUTSIDE RECORDS SUMMARY | 2023-12-28 02:39 | External Medical Summary | Summary of Care ---
Author Name Unknown Organization [facility] Address [address] [place] [address] Phone [phone] Care Team Providers Care Icing Machine Operator Name Role Phone Jake Siegel DO Primary Care Provider [phone] Reason for Visit * Reason Onset Date Comments No Show 07/15/2023 Encounter Details Date Type Department Care Team (Late st Contact Info) Description 07/15/2023 Telephone Cardiovascular Surgery [facility] [address] [facility] [place] [address] Geeta Saini PA-C [address] [place] [address] No Show Allergies Active Allergy Reactions Criticality Noted Date Comments Adhesive Tape Rash Low 12/08/2022 Bee Venom High 12/08/2022 Other Reaction(s): Severe neck/throat swelling, dyspnea Chocolate Flavor 12/08/2022 Other Reaction(s): Advised to avoid by surgeon d/t Vitamin K content per pt documented as of this encounter (statuses as of 10/14/2023) Medications Medication Sig Dispensed Refills Start Date [...] for severe pain. 20 Tablet 07/09/2023 Active documented as of this encounter (statuses as of 10/14/2023) Active Problems Problem Noted Date Diagnosed Date [...] as of this encounter (statuses as of 10/14/2023) Social History Tobacco Use Types Packs/Day Years [...] encounter Miscellaneous Notes * Telephone Encounter - Patrica Thornton OSA - 07/15/2023 4:55 PM EDT Your patient failed to keep their appointment with you today. If you would like the patient rescheduled, please send this message to the scheduling team @ p [phone] and include the time frame you wouldlike them rescheduled in. RADHA Roger44:55 PM documented in this encounter Plan of Treatment [...] (1 of 2) 09/15/2015 COVID-19 Vaccine ( - season) 2022 09/03/2022, 06/04/2022, 05/07/2022 Influenza Vaccine [...] this encounter Medical Devices Implanted Type Area Bobbin Drier Device Identifier Shelf Expiration Date Model / Serial / Lot Catheter 5fr Flow-Pacing - [id number] Implanted:Qty: 1 on 06/28/2023 by Dustin Branch MD at [facility] [place] ST EVELIN : ATRIAL FIBRILLATION [id number] 05/19/2024 [id number] / / [id number] [place] Ptfe 6x6in X5 - [id number] Implanted:Qty: 1 on 06/29/2023 by David Khan MD at [place] [facility] [place] N/A: Heart CR BARD : PERIPHERAL VASCULAR 06/16/2025 [id number] / / [id number] Description:package discarde d and unable to obtain lot or expiration Valve Aortic Mech 25mm - [id number] Implanted:Qty: 1 on 06/29/2023 by David Khan MD at [place] [facility] [place] Heart [employer] [id number] 03/26/2029 ONXACE-2 5 / / [id number] Valve [facility] [place] Mitral 33mj-501 - [id number] - [id number] Implanted:Qty: 1 on 06/29/2023 by David Khan MD at OR [facility] ST EVELIN : CARDIOVASCULAR [id number] 01/21/2028 33MJ-501 / [id number] / [id number] Cath Iabp Sensation 50cc Fiber - [id number] Implanted:Qty: 1 on 06/29/2023 by David Khan MD at OR [facility] [place] N/A: Heart GETINGE : MAQUET 05/11/2025 0684-00- 0 576-01U / / [id number] Suture Steel 6 B&S19 M654g - [id number] Implanted:Qty: 7 on 06/30/2023 by David Khan MD at OR [facility] [place] N/A: Sternum JNJ : [employer] 02/17/2028 [...] Advance Directives occurred with: Patient Care Teams Icing Machine Operator Relationship Specialty Start Date End Date Jake Siegel DO [address] [place] [address] PCP - General Family Medicine 06/18/23 documented as of this encounter
[2023-12-28 04:15] LABS: Basophils # (auto) 0.05 K/uL (0.00-0.20); Basophils % (auto) 0.8 %; Eosinophils # (auto) 0.27 K/uL (0.00-0.50); Eosinophils % (auto) 4.6 %; Hemoglobin 12.3 g/dl (14.0-18.0); Immature Granulocytes # (auto) 0.01 K/uL (0.01-0.20); Immature Granulocytes % (auto) 0.2 %; Lymphocytes # (auto) 1.57 K/uL (1.20-3.40); Lymphocytes % (auto) 26.5 %; Mean Corpuscular Hgb Conc 33.2 g/dL (32.0-36.0); Mean Corpuscular Volume 87.3 fL (80.0-100.0); Mean Platelet Volume 10.6 fL (9.4-12.4); Monocytes # (auto) 0.52 K/uL (0.11-0.59); Monocytes % (auto) 8.8 %; Neutrophils % (auto) 59.1 %; Platelet Count 220 K/uL (130-400); RDW Coefficient of Variation 14.4 % (11.5-14.5); RDW Standard Deviation 45.7 fL (36.4-46.3); Red Blood Count 4.24 M/uL (4.70-6.10); White Blood Count 5.92 K/ul (4.8-10.8)
[2023-12-28 04:31] LABS: Albumin Level 3.6 gm/dl (3.4-5.0); Calcium 8.6 mg/dl (8.6-10.3); Creatinine Clr Calc Pharmacy 66.9 ml/min; Magnesium 1.8 mg/dl (1.7-2.4); Phosphorus 3.3 mg/dl (2.5-4.9); Potassium 3.7 mmol/L (3.5-5.1)
[2023-12-28 04:39] LABS: INR 1.4 (0.9-1.1)
[2023-12-28 06:22] LABS: Appearance Urine Clear (Clear); Bilirubin Urine Negative (Negative); Blood Urine Negative (Negative); Color Urine Yellow; Glucose Urine UA Negative (Negative); Ketones Urine Trace (Negative); Leukocyte Esterase Urine Negative (Negative); Nitrite Urine Negative (Negative); Protein Urine Negative (Negative); Specific Gravity Urine 1.021 (1.000-1.030); Urobilinogen Urine Negative (Negative); pH Urine 6.5 (4.5-7.5)
--- NOTE | 2023-12-28 07:58 | XRay Report ---
XR chest 1V not portable CLINICAL HISTORY: Chest pain, nonspecific TECHNIQUE: Single frontal radiograph of the chest was obtained. Comparison: Comparison is made to chest radiograph 06/24/2023 FINDINGS: Median sternotomy wires are unchanged. Calcified aortic knob is seen. The lungs are clear. No evidenc e of pleural effusion or pneumothorax. IMPRESSION: No acute chest disease. ACT 112: Negative or not required by law. Electronically signed by: Vitor Floyd M.D. 12/28/2023 7:57 AM
[2023-12-28] MEDS: ASPIRIN 81 MG ECTAB PO SCH (08:14)
[2023-12-28] MEDS: SERTRALINE HCL 50 MG TABLET PO SCH (08:15)
[2023-12-28] MEDS: CHOLECALCIFEROL 25 MCG (1000 UNITS) TAB PO SCH (08:15)
[2023-12-28] MEDS: UMECLIDINIUM/VILANTEROL 62.5/25MCG 7 PUFFS/INHALER INH SCH (08:31)
[2023-12-28] MEDS: FLUTICASONE FUROATE 100MCG 14 PUFFS/INHALER INH SCH (08:32)
--- NOTE | 2023-12-28 11:35 | XCELERA ---
[id number] \\[email or web address]\[id number]
--- NOTE | 2023-12-28 11:54 | Electrocardiogram Report ---
Test Reason : Blood Pressure : */* mmHG Vent. Rate : 85 BPM Atrial Rate : 85 BPM P-R Int : 178 ms QRS Dur : 96 ms QT Int : 408 ms P-R-T Axes : 55 34 83 degrees QTcB Int : 485 ms Normal sinus rhythm Nonspecific ST abnormality Prolonged QT Abnormal ECG When compared with ECG of 24-Jun-2023 16:00, Incomplete left bundle block is no longer Present ST no longer depressed in Lateral leads Nonspecific T wave abnormality no longer evident in Inferior leads T wave inversion no longer evident in Lateral leads Confirmed by Anand Watters ([id number]) on 12/28/2023 11:54:36 AM Referred By: REFERRED SELF Confirmed By: Anand Watters
[2023-12-28] MEDS: ENOXAPARIN 100 MG/1ML SYR SQ SCH (12:08)
[2023-12-28] MEDS: WARFARIN SOD 7.5 MG TAB PO SCH ×2 (15:14→16:34)
--- NOTE | 2023-12-28 15:35 | Communication Note ---
Date of Service: December 28, 2023 Please refer to the H&P dictated earlier this morning for details of presentation on admission. In brief, the patient presented with feeling generally weak and fatigued and lightheaded. He was noted to have an elevated creatinine compared to his baseline and his INR was subtherapeutic. 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 He was started on Lovenox. He was given IV fluids with improvement in his creatinine. Dr. Argueta who knows him from Coumadin clinic recommended 15 mg of Coumadin for 2 days followed by usual 7.5 mg thereafter. The patient is most likely noncompliant although he denies it.
[2023-12-28] MEDS: WARFARIN SOD 7.5 MG TAB PO ONE (17:26)
[2023-12-28] MEDS: PRAZOSIN HCL 1 MG CAP PO SCH (20:19)
[2023-12-28] MEDS: traZODone HCL 50 MG TAB PO SCH (20:19)
[2023-12-28] MEDS: buPROPion XL 300 MG TABCR PO SCH (20:19)
[2023-12-29 06:11] LABS: Basophils # (auto) 0.05 K/uL (0.00-0.20); Basophils % (auto) 0.8 %; Eosinophils # (auto) 0.35 K/uL (0.00-0.50); Eosinophils % (auto) 5.9 %; Hematocrit (blood only) 35.8 % (42.0-52.0); Immature Granulocytes # (auto) 0.01 K/uL (0.01-0.20); Immature Granulocytes % (auto) 0.2 %; Lymphocytes # (auto) 2.11 K/uL (1.20-3.40); Lymphocytes % (auto) 35.8 %; Mean Corpuscular Hemoglobin 29.1 pg (25.0-34.0); Mean Corpuscular Hgb Conc 33.5 g/dL (32.0-36.0); Mean Corpuscular Volume 86.7 fL (80.0-100.0); Mean Platelet Volume 10.9 fL (9.4-12.4); Monocytes # (auto) 0.49 K/uL (0.11-0.59); Monocytes % (auto) 8.3 %; Neutrophils # (auto) 2.88 K/uL (1.40-6.50); Platelet Count 210 K/uL (130-400); RDW Coefficient of Variation 14.3 % (11.5-14.5); RDW Standard Deviation 45.7 fL (36.4-46.3); Red Blood Count 4.13 M/uL (4.70-6.10); White Blood Count 5.89 K/ul (4.8-10.8)
[2023-12-29 06:19] LABS: Albumin Level 3.6 gm/dl (3.4-5.0); BUN Creatinine Ratio 13.5 (10-20); Calcium 8.4 mg/dl (8.6-10.3); Creatinine Clr Calc Pharmacy 72.2 ml/min; Est GFR (African American) 72.4 ml/min; Est GFR (Non-African American) 62.5 ml/min; Magnesium 1.7 mg/dl (1.7-2.4); Phosphorus 3.5 mg/dl (2.5-4.9); Potassium 3.9 mmol/L (3.5-5.1)
[2023-12-29 06:37] LABS: INR 1.9 (0.9-1.1); Prothrombin Time 19.3 Seconds (9.0-12.0)
[2023-12-29 10:25] VITALS: PULSE 82
[2023-12-29 11:00] VITALS: BP 132/79; RESP 16; TEMP 98.1; O2SAT 96
--- NOTE | 2023-12-29 11:26 | Discharge Summary ---
Date of Service December 29, 2023 Admission HPI Per Admitting Provider The patient is a 58-year-old male with a past medical history including AV block, supratherapeutic INR, subtherapeutic INR, acute on chronic systolic CHF, hearing loss, rheumatic heart disease, status post AVR and MVR with mechanical valve, anxiety and depression, on chronic anticoagulation. The patient presents to the emergency department with acute onset of feeling lightheaded, generally weak and fatigued while sitting down for supper this evening. He reports he had his usual day prior to this. Admission Exam Per Admitting Provider The patient is awake, alert and oriented 3, well developed and well nourished, normocephalic and atraumatic, lying in bed and in no acute distress. HEENT--PERRL, EOMI, mucous membranes and oropharynx mildly dry. Neck--supple. No JVD. No bruits. Thyroid normal, trachea midline, no adenopathy. Heart--normal S1 and S2. No murmurs, rubs or gallops. Lungs--clear bilaterally, no respiratory distress, no accessory muscle use. Abdomen--normal bowel sounds and soft. Nontender. Nondistended, no hernias or masses, no organomegaly. Extremities--no cyanosis or clubbing. No edema. Dermatologic--normal skin turgor, normal color, no abnormal lymph nodes, no rash. Neurologic--cranial nerves II through XII grossly intact. Rheumatologic--normal range of motion. Psychiatric--normal affect. Principal Diagnosis Acute kidney injury on chronic kidney disease due to dehydration Subtherapeutic INR likely due to noncompliance to Coumadin Mechanical valves requiring Coumadin with goal INR 2.5-3.5 Discharge Exam General: Awake, conversant Heart: S1, S2/regular rate and rhythm, no murmur rubs or gallops Lungs: Clear to auscultation bilaterally. Normal effort Abdomen: Soft/nontender/nondistended. No hepatosplenomegaly Extremities: No clubbing/cyanosis. No edema Behavior: Appropriate, cooperative Discharge Data Allergies Allergy/AdvReac Type Severity Reaction Status Date / Time bee venom protein (honey bee) Allergy Severe Severe Verified 08/03/23 10:28 neck/throat swelling, dyspnea adhesive Allergy Mild Rash Verified 08/03/23 10:28 chocolate flavor AdvReac Unknown Advised to Verified 08/03/23 10:28 avoid by surgeon d/t Vitamin K content per pt Consultations 12/28/23 00:07 ED Decision to Admit Stat 12/28/23 02:03 Consult Anticoagulation Clinic Routine Ordered Studies 12/27/23 21:27 CT head/brain wo con Stat Hospital Course (1) Subtherapeutic international normalized ratio (INR): (2) H/O mitral valve replacement with mechanical valve: (3) History of aortic valve replacement with metallic valve: (4) Acute kidney injury superimposed on CKD: (5) Chronic anticoagulation: (6) Dizziness: (7) Rheumatic disease of heart valve: (8) Elevated troponin: (9) Anxiety and depression: Plan Status post AVR and MVR/chronic anticoagulation/subtherapeutic INR/elevated troponin- Present INR is 1.2 Placed on Lovenox 1 mg/kg SQ every 12 hours Patient follows with anticoagulation clinic, and was subtherapeutic earlier in November as well 2D echo reviewed. No changes Continue aspirin 81 mg daily Anticoagulation clinic consulted Recommended doubling his dose of Coumadin to 15 mg for 2 days, then back to 7.5 mg usual dose Subtherapeutic INR is likely due to medication noncompliance He will be discharged on 3 days worth of Lovenox He has been advised to stay in connection with the Coumadin clinic for further guidance Elevated troponin Demand ischemia most likely due to acute kidney injury No chest pain No EKG changes Acute kidney injury superimposed on CKD- Creatinine 1.54, with base 1.39 Resume furosemide and losartan Resolved with hydration COPD- Continue Trelegy Ellipta Anxiety and depression- Continue bupropion, melatonin, prazosin, and trazodone, once verified Discharge to home today Total Time Total Time Spent Total Time Spent (In Minutes): 35 Discharge Plan Discharge Items Patient Disposition: Home - Self-Care Reason For Visit: DUDLEY ON CKD, DEHYDRA, ELEV TROP, SUBTHERAPEUTIC INR Discharge Diagnosis: Acute kidney injury on chronic kidney disease due to dehydration Subtherapeutic INR Mechanical valves requiring Coumadin with goal INR 2.5-3.5 Activity: Resume your previous activity Non-emergency contact: Primary Care Provider Call non-emergency contact if: you have any medication questions and your symptoms worsen Follow-up/Referrals: Elena Argueta MD, PhD [Pathologist] - Jake Siegel DO [Primary Care Provider] - 01/05/24 8:15 am (Hospital follow up scheduled January 04 at 8:15) Diet: Heart Healthy Addtl Attending Provider Instructions: Advised to follow-up with PCP in 1 week Advised to follow-up with and seen connection with Coumadin clinic Advised to take Coumadin 15 mg (doubled the usual dose) tonight and then go back to usual dose starting tomorrow Advised to note that you have been prescribed 3 days worth of Lovenox to bridge until your INR is therapeutic. Please communicate your INR readings with the Coumadin clinic as you may not require the Lovenox for all 3 days. Pending Studies at Discharge: No Stand-Alone Forms: My [facility] Medications and DC Order Prescriptions: New enoxaparin 100 mg/mL Syringe 90 mg subcut Q12 3 Days Qty: 5.4 0RF Continued trazodone 50 mg tablet 50 mg PO HS aspirin 81 mg tablet,delayed release (DR/EC) 81 mg PO QAM Rx Instructions: Unable to verify OTC meds at this date/time. warfarin 5 mg tablet See Rx Instructions PO UD Qty: 50 2RF Dose Instruction: TAKE 1 & 1/2 TABLETS BY MOUTH DIRECTED PER [facility] Rx Instructions: 7.5mg daily- or as directed by [facility] Anticoagulation Clinic bupropion HCl 300 mg tablet extended release 24 hr 300 mg PO HS cholecalciferol (vitamin D3) 50 mcg (2,000 unit) capsule 50 mcg PO QAM Rx Instructions: Unable to verify OTC meds at this date/time. prazosin 5 mg capsule 10 mg PO QPM epinephrine 0.3 mg/0.3 mL auto-injector 0.3 mg IM Q10M PRN (Reason: Anaphylaxis) Qty: 2 1RF Rx Instructions: for 2 doses sertraline 50 mg tablet 50 mg PO DAILY losartan 50 mg tablet 50 mg PO DAILY Qty: 90 3RF melatonin 10 mg capsule 10 mg PO HS PRN (Reason: Insomnia) Rx Instructions: Unable to verify OTC meds at this date/time. Trelegy Ellipta 100-62.5-25 mcg blister with device 1 ea INHALATION DAILY Discharge Orders: Discharge Order (Routine); Ordered 12/29/23 Ordered By: Jefferson Rodriguez Admission Data Admit Date/Time: 12/28/23 00:59 Attending Provider: Jefferson Rodriguez Admit Provider: Miguel Angel Tomas Primary Care Provider: Jake Siegel Other Providers: Miguel Angel Tomas; Elena Argueta Other Interventions: Discharge Summary Assessment (RN) Last Done: 12/29/23 11:42
[2023-12-30] MEDS ORDERED: WARFARIN SOD 7.5 MG TAB PO SCH (16:00)
== END 2023-12-29 14:47 | disposition home or self-care (01) ==
LOC: EDINP 20:58 → ED 20:58 → SUATTDRO 12-28 00:59 → 2E 12-28 14:55

== ENCOUNTER 2025-02-26 15:55 | Observation (INO) ==
[2025-02-26 16:45] LABS: Hematocrit (blood only) 40.5 % (42.0-52.0); Hemoglobin 14.0 g/dl (14.0-18.0); Immature Granulocytes # (auto) 0.01 K/uL (0.01-0.20); Immature Granulocytes % (auto) 0.2 %; Mean Corpuscular Hemoglobin 30.9 pg (25.0-34.0); Mean Corpuscular Volume 89.4 fL (80.0-100.0); Platelet Count 197 K/uL (130-400); RDW Standard Deviation 40.6 fL (36.4-46.3); Red Blood Count 4.53 M/uL (4.70-6.10); White Blood Count 6.66 K/ul (4.8-10.8)
[2025-02-26] MEDS: diphenhydrAMINE 50 MG/ML VIAL IV STA (16:47)
[2025-02-26] MEDS: METOCLOPRAMIDE HCL INJ 5 MG/ML 2 ML VIAL IV STA (16:47)
[2025-02-26] MEDS: MAGNESIUM SULFATE / D5W 1 GM/100 ML BAG IV ONE (16:51)
[2025-02-26] MEDS: SODIUM CHLORIDE 0.9% 500 ML IV SCH (16:51)
[2025-02-26 17:02] LABS: INR 1.0 (0.9-1.1); Prothrombin Time 10.9 Seconds (9.0-12.0)
[2025-02-26 17:10] LABS: Alanine Aminotransferase 17.0 U/L (7-52); Albumin Globulin Ratio 1.2 (0.9-2); Albumin Level 3.8 gm/dl (3.4-5.0); Alkaline Phosphatase 68.0 U/L (34-104); Anion Gap 6.0 (3-11); Bilirubin,Total 0.8 mg/dl (0.2-1.0); Blood Urea Nitrogen 13.0 mg/dl (6-23); Calcium 9.0 mg/dl (8.6-10.3); Carbon Dioxide 27.0 mmol/L (21-32); Chloride 107.0 mmol/L (98-107); Creatinine Clr Calc Pharmacy 79.7 ml/min; Globulin 3.1 gm/dl (2.5-4.0); Glucose 113.0 mg/dl (70-99(Fasting)); Potassium 4.1 mmol/L (3.5-5.1); Sodium 140.0 mmol/L (136-145); Total Protein 6.9 gm/dl (6.0-8.3)
[2025-02-26] MEDS: OPTIRAY 320 125ml IV ONE (17:46)
--- NOTE | 2025-02-26 18:09 | CT Scan Report ---
Head CT without contrast CT angiogram of the neck CT angiogram of the brain with contrast Provided History: Headache Comparison: Head CT from 02/23/2025 Technique: HEAD CT: Using multidetector thin collimation helical acquisition technique, axial, coronal and sagittal CT images from the skull base to the vertex were obtained without intravenous contrast. HEAD and NECK CTA: During rapid bolus intravenous injection of nonionic contrast material, axial images were obtained using thin collimation multidetector helical technique from the base of the neck through the of vertex of the head. This CT angiogram data was reconstructed at thin intervals with mild overlap. 3D reconstructions were obtained. The axial source images, multiplanar reformations, 3D reconstructions in both maximum intensity projection display and volume rendered models were reviewed. Dose reduction techniques were achieved by using automatic exposure control and/or adjustment of mA and/or kV according to patient size and/or use of iterative reconstruction technique. Findings: Head CT: There is no intracranial hemorrhage, mass effect, or midline shift. Carrera/white matter differentiation in both cerebral hemispheres is preserved. Ventricles are proportionate to the cerebral sulci. Chronic small infarcts, as noted on prior head CT. Head CTA demonstrates no aneurysm or stenosis of the major intracranial arteries. Neck CTA demonstrates no stenosis of the major cervical arteries. The origins of the great vessels from the aortic arch are patent. There is aneurysmal dilation of the right subclavian artery which measures 2.0 cm in diameter. No mass is noted within the visualized portions of the cervical soft tissues or lung apices. Impression: 1. Head CTA demonstrates no aneurysm or stenosis of the major intracranial arteries, 2. Neck CTA demonstrates no stenosis of the major cervical arteries. 3. No intracranial hemorrhage on the noncontrast head CT. 4. Aneurysmal dilation of the right subclavian artery. The patient also has a known dilation of the ascending thoracic aorta. 5. Bilateral mastoid air cell effusions, as well as soft tissue thickening of the left middle ear. Electronically signed by Ahsan Don 02-26-2025 6:09 PM
--- NOTE | 2025-02-26 20:32 | Emergency Department Note ---
History of Present Illness General Chief complaint: Headache Stated complaint: MIGRAIN Source: patient Mode of arrival: EMS Limitations: no limitations History of Present Illness Maximum Pain Intensity: 9 Patient is a 59-year-old male with history of aortic valve replacement with mechanical valve, chronic anticoagulation on Coumadin who presents today for headache for several days. Symptoms are on Wednesday. Gradual onset. Unchanged to began. Bitemporal location. Describes 5 out of 10 throbbing headache. Also endorses photophobia, As well as nausea and vomiting. No prior history of headaches in the past. He does report some paresthesias to the face and chest. No numbness, vision change, speech change, weakness reported. Denies any dizziness or gait dysfunction. He was seen in the ED three days ago when LADD began and had a non-concerning workup at that time including negative CTH. Home Medications Medication Instructions Recorded Confirmed Type bupropion HCl 300 mg 24 hr tablet, 300 mg PO HS 09/09/20 02/26/25 History extended release cholecalciferol (vitamin D3) 50 50 mcg PO QAM 09/09/20 02/26/25 History mcg (2,000 unit) capsule trazodone 50 mg tablet 50 mg PO HS 09/12/20 02/26/25 History aspirin 81 mg tablet,delayed 81 mg PO QAM 09/27/20 02/26/25 History release prazosin 5 mg capsule 10 mg PO QPM 01/12/22 02/26/25 History epinephrine 0.3 mg/0.3 mL 0.3 mg (0.3 mL) IM Q10M PRN 05/07/22 02/26/25 Rx injection, auto-injector Anaphylaxis #2 ea melatonin 10 mg capsule 10 mg PO HS PRN Insomnia 06/04/22 02/26/25 History sertraline 50 mg tablet 50 mg PO DAILY 03/16/23 02/26/25 History losartan 50 mg tablet 50 mg PO DAILY #90 tabs 02/17/24 02/26/25 Rx fluticasone fur. 100 mcg-umeclid 1 inh inhalation DAILY 02/26/25 02/26/25 History 62.5 mcg-vilant 25 mcg inhalat.powder (Trelegy Ellipta) warfarin 5 mg tablet 5 mg PO UD 02/26/25 02/26/25 History Allergies Allergy/AdvReac Type Severity Reaction Status Date / Time bee venom protein (honey bee) Allergy Severe Severe Verified 02/26/25 18:42 neck/throat swelling, dyspnea adhesive Allergy Mild Rash Verified 02/26/25 18:42 chocolate flavor AdvReac Unknown Advised to Verified 02/26/25 18:42 avoid by surgeon d/t Vitamin K content per pt Past Med/Surg History Problem List (Updated 02/26/25 @ 21:28 by Chad Wayne MD) Subtherapeutic international normalized ratio (INR) (Acute) Headache (Acute) Nausea (Acute) Headache (Acute) History of aortic valve replacement with metallic valve H/O mitral valve replacement with mechanical valve Acute kidney injury superimposed on CKD Subtherapeutic international normalized ratio (INR) Non-ST elevation AL (NSTEMI) (Acute) Chest pain (Acute) Dizziness (Acute) AVB (atrioventricular block) COVID-19 determined by clinical diagnostic criteria Supratherapeutic INR (Acute) Nausea & vomiting Elevated troponin DUDLEY (acute kidney injury) Acute on chronic systolic (congestive) heart failure Acute respiratory failure with hypoxia 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 Systolic CHF Dysfunction of both eustachian tubes Tinnitus of right ear Conductive hearing loss of left ear with restricted hearing of right ear Mixed conductive and sensorineural hearing loss of right ear with restricted hearing of left ear Chest pain Pre-op testing Arthritis Heart disease History of back problems Lipoma of back Lipoma of arm Rheumatic disease of heart valve Preoperative cardiovascular examination Aortic valve disease s/p AVR/revisions (1981, 1982x2, 2023), on warfarin, FOLLOWED BY BECKY JAMES PA-C H/O excision of mass (10/16/20) Soft Tissue Mass Excision Bilateral Arms (2-5 cm) and Right Flank (19.5 cm)(Not Applicable) - Yang Lemus, DO, FACS Sensorineural hearing loss (SNHL) of right ear with restricted hearing of left ear Chronic mastoiditis of right side Acquired deviated nasal septum Tameka bullosa Papilloma of oropharynx Anxiety and depression LVH (left ventricular hypertrophy) Chronic anticoagulation Impacted cerumen, right ear Acute bronchitis Nonfunctional myringotomy tube Medical History PTSD (post-traumatic stress disorder) Anemia Cardiomyopathy Valvular heart disease Chronic dental infection Anemia Fracture of incisor teeth Dental fistula Exposed lingual bone On warfarin therapy NICM (nonischemic cardiomyopathy) Poor dentition Severe aortic valve regurgitation Mitral regurgitation Ascending aortic aneurysm Dyslipidemia Coronary artery calcification Normal Coronary Arteries on Cardiac Cath 05/20/23 Deviated septum Claustrophobia Did have issues in the past with oxygen mask Osteoarthritis Hearing loss in right ear Post traumatic stress disorder History of rheumatic fever as a child at age 6 > led to cardiac issues (hx AVR) On warfarin therapy Asthma Surgical History H/O mechanical aortic valve replacement Hx of oral surgery (06/14/23) Extraction 6 Teeth, Incision and Drainage(Not Applicable) - Trell Ramirez, DMD S/P excision of lipoma LEFT/RT FOREARM AND RT HIP History of appendectomy History of tooth extraction all upper teeth removed/some lower teeth removed History of cardiac cath multiple, last Feb 1983--no stents placed Aortic valve replaced s/p AVR/revisions (1981, 1982x2) Family History Brother Family history of reaction to anesthesia when he received anesthesia "it always triggered his seizures" Father Hearing loss Cancer Sister Hearing loss Cancer Other Allergies No family history of bleeding disorder Social History Smoking Status: Former smoker Tobacco Type: Cigarettes Age Started Using Tobacco: 14; Cigarettes Per Day: 4; Second Hand Exposure: Yes; Do You Dip or Chew Tobacco: No; Hx Alcohol Use: No Hx Substance Use: No Preferred Language: Persian Communication Ability: Effective Visual Impairment: No Limitations Manager Sap Required: No Beliefs That Will Affect Care: None marital status: / Current Living Situation: Other Current Living Situation Comment: lives w/ friend current occupational status: disabled Feels Safe at Home: Yes Assistive Devices: None Review of Systems Review of systems negative outside of positive findings mentioned in HPI. This Physical Exam Vital Signs Vital Signs - 24 hr 02/26/25 15:48 02/26/25 16:08 02/26/25 16:12 Temperature 36.5 C Temperature Source Oral Pulse Rate 49 L 49 L Pulse Rate [Finger] 47 L Pulse Rate from SpO2 Sensor 50 L Respiratory Rate 20 18 12 Blood Pressure 167/83 H Blood Pressure [Left Arm] 167/83 H Blood Pressure Mean 111 Blood Pressure Mean [Left Arm] 111 Pulse Oximetry 95 96 94 Oxygen Delivery Method Room Air Room Air Sepsis Recent Fever Within 48 Hours No Sepsis New/Unexplained Change in Mental Status No Sepsis Action Taken by Nursing No Action Required 02/26/25 16:21 02/26/25 16:25 02/26/25 16:30 Temperature Temperature Source Pulse Rate 52 L 50 L 49 L Pulse Rate [Finger] Pulse Rate from SpO2 Sensor 52 L 50 L Respiratory Rate 9 L 14 Blood Pressure Blood Pressure [Left Arm] Blood Pressure Mean Blood Pressure Mean [Left Arm] Pulse Oximetry 92 99 Oxygen Delivery Method Sepsis Recent Fever Within 48 Hours Sepsis New/Unexplained Change in Mental Status Sepsis Action Taken by Nursing 02/26/25 16:42 02/26/25 16:51 02/26/25 17:00 Temperature Temperature Source Pulse Rate 46 L 59 L 49 L Pulse Rate [Finger] Pulse Rate from SpO2 Sensor 46 L 59 L 50 L Respiratory Rate 14 16 9 L Blood Pressure Blood Pressure [Left Arm] Blood Pressure Mean Blood Pressure Mean [Left Arm] Pulse Oximetry 97 97 96 Oxygen Delivery Method Sepsis Recent Fever Within 48 Hours Sepsis New/Unexplained Change in Mental Status Sepsis Action Taken by Nursing 02/26/25 17:00 02/26/25 17:00 02/26/25 17:00 Temperature Temperature Source Pulse Rate Pulse Rate [Finger] Pulse Rate from SpO2 Sensor Respiratory Rate Blood Pressure 151/76 H 151/76 H 151/76 H Blood Pressure [Left Arm] Blood Pressure Mean 107 107 107 Blood Pressure Mean [Left Arm] Pulse Oximetry Oxygen Delivery Method Sepsis Recent Fever Within 48 Hours Sepsis New/Unexplained Change in Mental Status Sepsis Action Taken by Nursing 02/26/25 17:00 02/26/25 17:12 02/26/25 17:21 Temperature Temperature Source Pulse Rate 61 55 L Pulse Rate [Finger] Pulse Rate from SpO2 Sensor 56 L 55 L Respiratory Rate 11 L 14 Blood Pressure 151/76 H Blood Pressure [Left Arm] Blood Pressure Mean 107 Blood Pressure Mean [Left Arm] Pulse Oximetry 91 92 Oxygen Delivery Method Sepsis Recent Fever Within 48 Hours Sepsis New/Unexplained Change in Mental Status Sepsis Action Taken by Nursing 02/26/25 17:30 02/26/25 18:00 02/26/25 18:00 Temperature Temperature Source Pulse Rate 59 L Pulse Rate [Finger] Pulse Rate from SpO2 Sensor 56 L Respiratory Rate 14 Blood Pressure 145/79 H 145/79 H Blood Pressure [Left Arm] Blood Pressure Mean 115 115 Blood Pressure Mean [Left Arm] Pulse Oximetry 93 Oxygen Delivery Method Sepsis Recent Fever Within 48 Hours Sepsis New/Unexplained Change in Mental Status Sepsis Action Taken by Nursing 02/26/25 18:00 02/26/25 18:00 02/26/25 18:00 Temperature Temperature Source Pulse Rate Pulse Rate [Finger] Pulse Rate from SpO2 Sensor Respiratory Rate Blood Pressure 145/79 H 145/79 H 145/79 H Blood Pressure [Left Arm] Blood Pressure Mean 115 115 115 Blood Pressure Mean [Left Arm] Pulse Oximetry Oxygen Delivery Method Sepsis Recent Fever Within 48 Hours Sepsis New/Unexplained Change in Mental Status Sepsis Action Taken by Nursing 02/26/25 18:00 02/26/25 18:08 02/26/25 18:12 Temperature Temperature Source Pulse Rate 55 L 58 L Pulse Rate [Finger] 56 L Pulse Rate from SpO2 Sensor 54 L 58 L Respiratory Rate 17 19 15 Blood Pressure Blood Pressure [Left Arm] 145/79 H Blood Pressure Mean Blood Pressure Mean [Left Arm] 101 Pulse Oximetry 95 93 94 Oxygen Delivery Method Sepsis Recent Fever Within 48 Hours Sepsis New/Unexplained Change in Mental Status Sepsis Action Taken by Nursing 02/26/25 18:21 02/26/25 18:30 02/26/25 18:42 Temperature Temperature Source Pulse Rate 58 L 56 L 65 Pulse Rate [Finger] Pulse Rate from SpO2 Sensor 57 L 57 L 67 Respiratory Rate 14 13 18 Blood Pressure Blood Pressure [Left Arm] Blood Pressure Mean Blood Pressure Mean [Left Arm] Pulse Oximetry 94 94 96 Oxygen Delivery Method Sepsis Recent Fever Within 48 Hours Sepsis New/Unexplained Change in Mental Status Sepsis Action Taken by Nursing 02/26/25 18:51 02/26/25 19:00 02/26/25 19:00 Temperature Temperature Source Pulse Rate 56 L 54 L Pulse Rate [Finger] Pulse Rate from SpO2 Sensor 55 L 53 L Respiratory Rate 13 12 Blood Pressure 137/77 Blood Pressure [Left Arm] Blood Pressure Mean 101 Blood Pressure Mean [Left Arm] Pulse Oximetry 94 94 Oxygen Delivery Method Sepsis Recent Fever Within 48 Hours Sepsis New/Unexplained Change in Mental Status Sepsis Action Taken by Nursing 02/26/25 19:00 02/26/25 19:00 02/26/25 19:00 Temperature Temperature Source Pulse Rate Pulse Rate [Finger] Pulse Rate from SpO2 Sensor Respiratory Rate Blood Pressure 137/77 137/77 137/77 Blood Pressure [Left Arm] Blood Pressure Mean 101 101 101 Blood Pressure Mean [Left Arm] Pulse Oximetry Oxygen Delivery Method Sepsis Recent Fever Within 48 Hours Sepsis New/Unexplained Change in Mental Status Sepsis Action Taken by Nursing 02/26/25 19:00 02/26/25 19:00 02/26/25 19:00 Temperature Temperature Source Pulse Rate Pulse Rate [Finger] Pulse Rate from SpO2 Sensor Respiratory Rate Blood Pressure 137/77 137/77 137/77 Blood Pressure [Left Arm] Blood Pressure Mean 101 101 101 Blood Pressure Mean [Left Arm] Pulse Oximetry Oxygen Delivery Method Sepsis Recent Fever Within 48 Hours Sepsis New/Unexplained Change in Mental Status Sepsis Action Taken by Nursing 02/26/25 19:00 02/26/25 19:00 02/26/25 19:12 Temperature Temperature Source Pulse Rate 57 L Pulse Rate [Finger] Pulse Rate from SpO2 Sensor 55 L Respiratory Rate 17 Blood Pressure 137/77 137/77 Blood Pressure [Left Arm] Blood Pressure Mean 101 101 Blood Pressure Mean [Left Arm] Pulse Oximetry 94 Oxygen Delivery Method Sepsis Recent Fever Within 48 Hours Sepsis New/Unexplained Change in Mental Status Sepsis Action Taken by Nursing 02/26/25 19:21 02/26/25 19:33 02/26/25 19:42 Temperature Temperature Source Pulse Rate 52 L 50 L 49 L Pulse Rate [Finger] Pulse Rate from SpO2 Sensor 53 L 50 L 49 L Respiratory Rate 12 12 15 Blood Pressure Blood Pressure [Left Arm] Blood Pressure Mean Blood Pressure Mean [Left Arm] Pulse Oximetry 95 96 94 Oxygen Delivery Method Sepsis Recent Fever Within 48 Hours Sepsis New/Unexplained Change in Mental Status Sepsis Action Taken by Nursing 02/26/25 19:51 02/26/25 20:00 Temperature Temperature Source Pulse Rate 53 L Pulse Rate [Finger] 56 L Pulse Rate from SpO2 Sensor 54 L Respiratory Rate 13 18 Blood Pressure Blood Pressure [Left Arm] 131/75 Blood Pressure Mean Blood Pressure Mean [Left Arm] 93 Pulse Oximetry 94 98 Oxygen Delivery Method Sepsis Recent Fever Within 48 Hours Sepsis New/Unexplained Change in Mental Status Sepsis Action Taken by Nursing See below. Constitutional WD/WN, vitals as above Eyes PERRL, conjunctivae normal, anicteric sclerae Respiratory normal respiratory effort, lungs clear to auscultation Cardiovascular RRR, no murmur, no edema Positive murmur noted 2/2 mechanical valve Neurologic CN's II-XI intact bilaterally, moves all extremities and awake; no focal motor deficit Speech / Cognition: normal speech Motor/Sensory: no pronator drift and no sensory deficit Coordination: normal [id number] test and normal [id number] test Course Administered Medications Enoxaparin Sodium (Enoxaparin 100 Mg/1ml Syr) 100 mg SQ Q12H JOVANY Stop: 03/28/25 20:29 Last Admin: 02/26/25 20:38 Dose: 100 mg Documented By: catalina Discontinued Medications Diphenhydramine HCl (Diphenhydramine 50 Mg/Ml Vial) 25 mg IV NOW STA Stop: 02/26/25 16:30 Last Admin: 02/26/25 16:47 Dose: 25 mg Documented By: catalina Sodium Chloride (Nss) 500 mls @ 999 mls/hr IV .Q31M JOVANY Stop: 02/26/25 17:00 Last Infusion: 02/26/25 18:41 Dose: Infused Documented By: Admin: 02/26/25 16:51 Dose: 999 mls/hr Documented By: catalina Magnesium Sulfate/Dextrose (Magnesium Sulfate / D5w) 1 gm in 100 mls @ 100 mls/hr IV NOW ONE Stop: 02/26/25 17:28 Last Infusion: 02/26/25 18:11 Dose: Infused Documented By: catalina Admin: 02/26/25 16:51 Dose: 100 mls/hr Documented By: catalina Ioversol (Optiray 320 125ml) 120 ml IV ONCE ONE Stop: 02/26/25 17:47 Last Admin: 02/26/25 17:46 Dose: 120 ml Documented By: ABILIO Metoclopramide HCl (Metoclopramide Hcl Inj 5 Mg/Ml 2 Ml Vial) 10 mg IV NOW STA Stop: 02/26/25 16:30 Last Admin: 02/26/25 16:47 Dose: 10 mg Documented By: catalina Medical Decision Making Differential Diagnosis DDx includes but not limited to: Migraine headache, tension headache, SAH, neoplasm, CO poisoning, meningitis, CVT, subtherapeutic INR Laboratory Data Attestation: I reviewed the patient's lab results. 02/26/25 16:03 02/26/25 16:03 Lab Results 02/26/25 02/26/25 Range/Units 16:03 19:27 WBC 6.66 (4.8-10.8) K/ul RBC 4.53 L (4.70-6.10) M/uL Hgb 14.0 (14.0-18.0) g/dl Hct 40.5 L (42.0-52.0) % MCV 89.4 (80.0-100.0) fL MCH 30.9 (25.0-34.0) pg MCHC 34.6 (32.0-36.0) g/dL RDW Std Deviation 40.6 (36.4-46.3) fL RDW Coeff of Kacey 12.4 (11.5-14.5) % Plt Count 197 (130-400) K/uL MPV 10.7 (9.4-12.4) fL Immature Gran % (Auto) 0.2 % Neut % (Auto) 73.8 % Lymph % (Auto) 17.7 % [place] % (Auto) 5.9 % Eos % (Auto) 1.8 % Baso % (Auto) 0.6 % Neut # (Auto) 4.92 (1.40-6.50) K/uL Lymph # (Auto) 1.18 L (1.20-3.40) K/uL [place] # (Auto) 0.39 (0.11-0.59) K/uL Eos # (Auto) 0.12 (0.00-0.50) K/uL Baso # (Auto) 0.04 (0.00-0.20) K/uL Immature Gran # (Auto) 0.01 (0.01-0.20) K/uL ESR 8 (0-20) mm/hr PT 10.9 (9.0-12.0) Seconds INR 1.0 (0.9-1.1) Carboxyhemoglobin 1.8 % THgb Sodium 140 (136-145) mmol/L Potassium 4.1 (3.5-5.1) mmol/L Chloride 107 (98-107) mmol/L Carbon Dioxide 27 (21-32) mmol/L Anion Gap 6 (3-11) BUN 13 (6-23) mg/dl Creatinine 1.16 (0.6-1.4) mg/dl Est Cr Clr Drug Dosing 79.7 ml/min eGFR 72.56 BUN/Creatinine Ratio 11.2 (10-20) Glucose 113 H (70-99(Fasting)) mg/dl Calcium 9.0 (8.6-10.3) mg/dl Total Bilirubin 0.8 (0.2-1.0) mg/dl AST 19 (13-39) U/L ALT 17 (7-52) U/L Alkaline Phosphatase 68 (34-104) U/L Total Protein 6.9 (6.0-8.3) gm/dl Albumin 3.8 (3.4-5.0) gm/dl Globulin 3.1 (2.5-4.0) gm/dl Albumin/Globulin Ratio 1.2 (0.9-2) Imaging Data Radiologist's Impression: Head CTA 02/26/25 16:[address] without contrast CT angiogram of the neck CT angiogram of the brain with contrast Provided History: Headache Comparison: Head CT from 02/23/2025 Technique: HEAD CT: Using multidetector thin collimation helical acquisition technique, axial, coronal and sagittal CT images from the skull base to the vertex were obtained without intravenous contrast. HEAD and NECK CTA: During rapid bolus intravenous injection of nonionic contrast material, axial images were obtained using thin collimation multidetector helical technique from the base of the neck through the of vertex of the head. This CT angiogram data was reconstructed at thin intervals with mild overlap. 3D reconstructions were obtained. The axial source images, multiplanar reformations, 3D reconstructions in both maximum intensity projection display and volume rendered models were reviewed. Dose reduction techniques were achieved by using automatic exposure control and/or adjustment of mA and/or kV according to patient size and/or use of iterative reconstruction technique. Findings: Head CT: There is no intracranial hemorrhage, mass effect, or midline shift. Carrera/white matter differentiation in both cerebral hemispheres is preserved. Ventricles are proportionate to the cerebral sulci. Chronic small infarcts, as noted on prior head CT. Head CTA demonstrates no aneurysm or stenosis of the major intracranial arteries. Neck CTA demonstrates no stenosis of the major cervical arteries. The origins of the great vessels from the aortic arch are patent. There is aneurysmal dilation of the right subclavian artery which measures 2.0 cm in diameter. No mass is noted within the visualized portions of the cervical soft tissues or lung apices. Impression: 1. Head CTA demonstrates no aneurysm or stenosis of the major intracranial arteries, 2. Neck CTA demonstrates no stenosis of the major cervical arteries. 3. No intracranial hemorrhage on the noncontrast head CT. 4. Aneurysmal dilation of the right subclavian artery. The patient also has a known dilation of the ascending thoracic aorta. 5. Bilateral mastoid air cell effusions, as well as soft tissue thickening of the left middle ear. Electronically signed by Ahsan Don 02-26-2025 6:09 PM Neck CTA 02/26/25 16:[address] without contrast CT angiogram of the neck CT angiogram of the brain with contrast Provided History: Headache Comparison: Head CT from 02/23/2025 Technique: HEAD CT: Using multidetector thin collimation helical acquisition technique, axial, coronal and sagittal CT images from the skull base to the vertex were obtained without intravenous contrast. HEAD and NECK CTA: During rapid bolus intravenous injection of nonionic contrast material, axial images were obtained using thin collimation multidetector helical technique from the base of the neck through the of vertex of the head. This CT angiogram data was reconstructed at thin intervals with mild overlap. 3D reconstructions were obtained. The axial source images, multiplanar reformations, 3D reconstructions in both maximum intensity projection display and volume rendered models were reviewed. Dose reduction techniques were achieved by using automatic exposure control and/or adjustment of mA and/or kV according to patient size and/or use of iterative reconstruction technique. Findings: Head CT: There is no intracranial hemorrhage, mass effect, or midline shift. Carrera/white matter differentiation in both cerebral hemispheres is preserved. Ventricles are proportionate to the cerebral sulci. Chronic small infarcts, as noted on prior head CT. Head CTA demonstrates no aneurysm or stenosis of the major intracranial arteries. Neck CTA demonstrates no stenosis of the major cervical arteries. The origins of the great vessels from the aortic arch are patent. There is aneurysmal dilation of the right subclavian artery which measures 2.0 cm in diameter. No mass is noted within the visualized portions of the cervical soft tissues or lung apices. Impression: 1. Head CTA demonstrates no aneurysm or stenosis of the major intracranial arteries, 2. Neck CTA demonstrates no stenosis of the major cervical arteries. 3. No intracranial hemorrhage on the noncontrast head CT. 4. Aneurysmal dilation of the right subclavian artery. The patient also has a known dilation of the ascending thoracic aorta. 5. Bilateral mastoid air cell effusions, as well as soft tissue thickening of the left middle ear. Electronically signed by Ahsan Don 02-26-2025 6:10 PM [facility] [place] Narrative Report received patient is a 59-year-old male with history as seen above who presents for headache for 3 days. No red flags on history concerning for subarachnoid hemorrhage, meningitis or CO poisoning. No focal neurologic deficits noted. I reviewed prior ER visit from 3 days prior. Migraine cocktail was ordered here today. CTA was ordered without any acute findings. Chronic infarcts noted on CTA of the head and neck. Lab work notable for subtherapeutic INR of 1. Likely secondary to noncompliance. In setting of mechanical valve he is at high risk for thrombus formation and plan is for admission for bridge to Coumadin. Weight-based Lovenox given. Patient's headache improved on reevaluation. stable for admission to hospital service. Impression & Plan Headache, Subtherapeutic international normalized ratio (INR) Discharge Plan Visit Data Chief Complaint: Headache Stated Complaint: MIGRAIN ED Provider: Chad Wayne Discharge Problem: Headache, Subtherapeutic international normalized ratio (INR) Patient Disposition: Admitted As Inpatient Condition: Good Forms Stand Alone Forms: My [facility] [employer] Prescriptions Prescriptions: No Action trazodone 50 mg tablet 50 mg PO HS aspirin 81 mg tablet,delayed release (DR/EC) 81 mg PO QAM Rx Instructions: Unable to verify OTC meds at this date/time. losartan 50 mg tablet 50 mg PO DAILY Qty: 90 3RF bupropion HCl 300 mg tablet extended release 24 hr 300 mg PO HS cholecalciferol (vitamin D3) 50 mcg (2,000 unit) capsule 50 mcg PO QAM Rx Instructions: Unable to verify OTC meds at this date/time. prazosin 5 mg capsule 10 mg PO QPM epinephrine 0.3 mg/0.3 mL auto-injector 0.3 mg IM Q10M PRN (Reason: Anaphylaxis) Qty: 2 1RF Rx Instructions: for 2 doses sertraline 50 mg tablet 50 mg PO DAILY melatonin 10 mg capsule 10 mg PO HS PRN (Reason: Insomnia) Rx Instructions: Unable to verify OTC meds at this date/time. warfarin 5 mg tablet 5 mg PO UD Rx Instructions: 7.5mg daily per [facility] orally use as directed; Trelegy Ellipta 100-62.5-25 mcg blister with device 1 inh inhalation DAILY Rx Instructions: INHALE ONE (1) PUFF BY MOUTH DAILY Referrals Referrals: Jake Siegel DO [Primary Care Provider] -
[2025-02-26] MEDS: ENOXAPARIN 100 MG/1ML SYR SQ SCH (20:38)
--- NOTE | 2025-02-26 21:45 | History & Physical Report ---
Date of Service February 26, 2025 Assessment & Plan (1) Subtherapeutic international normalized ratio (INR): (2) Headache: (3) Acute bilateral mastoiditis: (4) Nausea & vomiting: Plan The patient is a 59-year-old male with past medical history including metallic AVR and MVR, history of DUDLEY/CKD, subtherapeutic INR, history of NSTEMI, AV block, history of acute respiratory failure with hypoxia, hearing loss bilaterally, with chronic right-sided mastoiditis, and noncompliance with prescribed chronic anticoagulation with warfarin. He was initially seen for complaints of headache emergency department on 02/23/2025, complaining of headache that began the previous evening, associated with photosensitivity, nausea and vomiting without relief from OTC medications at home. On that date he had a CT scan of head without contrast, which showed stable chronic lacunar infarct in the left basal ganglia, as well as interval appearance of new chronic appearing small infarcts in the right frontal lobe, as compared to 12/27/2023. Telemedicine neurology consult with [facility] was also conducted that evening. The patient was given IV Tylenol, IV Benadryl, and IV Zofran. He was then given magnesium 2 g IV, and by the time of completion of infusion, reported that his headache was significantly improved. He was given a tramadol home pack today, if any severe pain, and was advised to follow-up in the outpatient setting with his neurologist and PCP for further evaluation. The patient presents to the emergency department this evening with complaint of persistent and worsening bitemporal throbbing headache, photophobia, nausea and vomiting. He also reported some paresthesias in his face and chest. He underwent CT of head which showed no change compared to CT of 02/23/2025. He underwent CTA head and neck, which were negative. There was an aneurysmal dilatation of the right subclavian artery measuring 2 cm in diameter. Bilateral mastoid air cell effusions were noted, as well as soft tissue thickening of the left middle ear. His INR was found to be subtherapeutic at 1.0, he was given Lovenox 100 mg subcu every 12 hours by the ED, and then referred for evaluation for admission to the [facility]. Intractable headache/nausea and vomiting- CT of head without contrast showed stable chronic lacunar infarct in the left basal ganglia, as well as interval appearance of new chronic appearing small infarcts in the right frontal lobe. CTA head and neck were negative. Dilation of 2 cm of the left right subclavian artery with noted. Bilateral mastoid effusions were noted on CT of head. Patient had continued symptomatology after being given NSS 500 mL bolus, Reglan 10 mg IV, magnesium 1 g IV, and Benadryl 25 mg IV from the ED. He would not be able to tolerate an MRI this evening, due to the severity of his headache. Will try to order the MRI for the a.m. Will place him on Solu-Medrol 60 mg IV now, and cefepime 2 g IV every 12 hours, to address bilateral mastoiditis. Acetaminophen 650 mg by mouth every 6 hours as needed for mild pain or fever Tramadol 50 mg by mouth every 6 hours as needed for moderate pain Morphine sulfate 2 mg IV every 4 hours as needed for severe pain LR at 80 mL/h x 1 L Bilateral mastoiditis- As above, Solu-Medrol 60 mg IV now, and cefepime 2 g IV every 12 History of mechanical AVR/MVR- The patient will be admitted to telemetry for serial cardiac enzymes, serial EKG's, cardiac rhythm monitoring and a 2-D echocardiogram with Dopplers. Patient's last follow-up with the anticoagulation clinic was February 2024. INR subtherapeutic at 1.0 For tonight continue Lovenox 100 mg subcu every 12 hours already began by the ED In the morning will blade changer to heparin IV, in the event that a CARLYN will be performed Last echocardiogram on 12/28/2023 showed EF 50%, presence of mechanical AVR and MVR. Consult cardiology Patient has been noncompliant with warfarin, and is at considerable risk for stroke. Will see if cardiology has any further recommendations. Continue aspirin, losartan Depression and anxiety- Continue usual medications bupropion, prazosin, sertraline, trazodone COPD- Continue Trecipriano Mtz History of Present Illness Primary Care Provider: Jake Siegel DO The patient is a 59-year-old male with past medical history including metallic AVR and MVR, history of DUDLEY/CKD, subtherapeutic INR, history of NSTEMI, AV block, history of acute respiratory failure with hypoxia, hearing loss bilaterally, with chronic right-sided mastoiditis, and noncompliance with prescribed chronic anticoagulation with warfarin. Allergies Allergy/AdvReac Type Severity Reaction Status Date / Time bee venom protein (honey bee) Allergy Severe Severe Verified 02/26/25 18:42 neck/throat swelling, dyspnea adhesive Allergy Mild Rash Verified 02/26/25 18:42 chocolate flavor AdvReac Unknown Advised to Verified 02/26/25 18:42 avoid by surgeon d/t Vitamin K content per pt Home Medications Medication Instructions Recorded Confirmed Type bupropion HCl 300 mg 24 hr tablet, 300 mg PO HS 09/09/20 02/26/25 History extended release cholecalciferol (vitamin D3) 50 50 mcg PO QAM 09/09/20 02/26/25 History mcg (2,000 unit) capsule trazodone 50 mg tablet 50 mg PO HS 09/12/20 02/26/25 History aspirin 81 mg tablet,delayed 81 mg PO QAM 09/27/20 02/26/25 History release prazosin 5 mg capsule 10 mg PO QPM 01/12/22 02/26/25 History epinephrine 0.3 mg/0.3 mL 0.3 mg (0.3 mL) IM Q10M PRN 05/07/22 02/26/25 Rx injection, auto-injector Anaphylaxis #2 ea melatonin 10 mg capsule 10 mg PO HS PRN Insomnia 06/04/22 02/26/25 History sertraline 50 mg tablet 50 mg PO DAILY 03/16/23 02/26/25 History losartan 50 mg tablet 50 mg PO DAILY #90 tabs 02/17/24 02/26/25 Rx fluticasone fur. 100 mcg-umeclid 1 inh inhalation DAILY 02/26/25 02/26/25 History 62.5 mcg-vilant 25 mcg inhalat.powder (Trelegy Ellipta) warfarin 5 mg tablet 5 mg PO UD 02/26/25 02/26/25 History Past Med/Surg History Problem List (Updated 02/26/25 @ 23:47 by Miguel Angel Tomas MD) Acute bilateral mastoiditis Subtherapeutic international normalized ratio (INR) (Acute) Headache (Acute) Nausea (Acute) Headache (Acute) History of aortic valve replacement with metallic valve H/O mitral valve replacement with mechanical valve Acute kidney injury superimposed on CKD Subtherapeutic international normalized ratio (INR) Non-ST elevation SD (NSTEMI) (Acute) Chest pain (Acute) Dizziness (Acute) AVB (atrioventricular block) COVID-19 determined by clinical diagnostic criteria Supratherapeutic INR (Acute) Nausea & vomiting Elevated troponin DUDLEY (acute kidney injury) Acute on chronic systolic (congestive) heart failure Acute respiratory failure with hypoxia 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 Systolic CHF Dysfunction of both eustachian tubes Tinnitus of right ear Conductive hearing loss of left ear with restricted hearing of right ear Mixed conductive and sensorineural hearing loss of right ear with restricted hearing of left ear Chest pain Pre-op testing Arthritis Heart disease History of back problems Lipoma of back Lipoma of arm Rheumatic disease of heart valve Preoperative cardiovascular examination Aortic valve disease s/p AVR/revisions (1981, 1982x2, 2023), on warfarin, FOLLOWED BY BECKY JAMES PA-C H/O excision of mass (10/16/20) Soft Tissue Mass Excision Bilateral Arms (2-5 cm) and Right Flank (19.5 cm)(Not Applicable) - Yang Lemus, DO, FACS Sensorineural hearing loss (SNHL) of right ear with restricted hearing of left ear Chronic mastoiditis of right side Acquired deviated nasal septum Tameka bullosa Papilloma of oropharynx Anxiety and depression LVH (left ventricular hypertrophy) Chronic anticoagulation Impacted cerumen, right ear Acute bronchitis Nonfunctional myringotomy tube Medical History PTSD (post-traumatic stress disorder) Anemia Cardiomyopathy Valvular heart disease Chronic dental infection Anemia Fracture of incisor teeth Dental fistula Exposed lingual bone On warfarin therapy NICM (nonischemic cardiomyopathy) Poor dentition Severe aortic valve regurgitation Mitral regurgitation Ascending aortic aneurysm Dyslipidemia Coronary artery calcification Normal Coronary Arteries on Cardiac Cath 05/20/23 Deviated septum Claustrophobia Did have issues in the past with oxygen mask Osteoarthritis Hearing loss in right ear Post traumatic stress disorder History of rheumatic fever as a child at age 6 > led to cardiac issues (hx AVR) On warfarin therapy Asthma Surgical History H/O mechanical aortic valve replacement Hx of oral surgery (06/14/23) Extraction 6 Teeth, Incision and Drainage(Not Applicable) - Trell Ramirez, DMD S/P excision of lipoma LEFT/RT FOREARM AND RT HIP History of appendectomy History of tooth extraction all upper teeth removed/some lower teeth removed History of cardiac cath multiple, last Feb 1983--no stents placed Aortic valve replaced s/p AVR/revisions (1981, 1982x2) Family History Brother Family history of reaction to anesthesia when he received anesthesia "it always triggered his seizures" Father Hearing loss Cancer Sister Hearing loss Cancer Other Allergies No family history of bleeding disorder Social History Smoking Status: Former smoker Tobacco Type: Cigarettes Age Started Using Tobacco: 14; Cigarettes Per Day: 4; Second Hand Exposure: Yes; Do You Dip or Chew Tobacco: No; Hx Alcohol Use: No Hx Substance Use: No Preferred Language: French Communication Ability: Effective Visual Impairment: No Limitations Auditor Required: No Beliefs That Will Affect Care: None marital status: / Current Living Situation: Other Current Living Situation Comment: lives w/ friend current occupational status: disabled Feels Safe at Home: Yes Assistive Devices: None Review of Systems Review of Systems: The patient denies chest pain, palpitations, shortness of breath, dyspnea on exertion, cough, lower extremity swelling, sore throat, fevers, chills, sweats, diarrhea , constipation, abdominal pain, pelvic pain, blood in urine or stool, dysuria, urinary frequency or urgency, loss of consciousness, rash, abnormal bruising or bleeding, focal weakness, numbness or tingling in arms or legs, generalized arthralgias or myalgias, back or neck pain, or night sweats. The review of systems is otherwise negative other than for that already noted above, and at least 10 systems have been reviewed. Physical Exam Physical Exam: The patient is awake, alert and oriented 3, well developed and well nourished, normocephalic and atraumatic, lying in bed and in mild to moderate acute distress secondary to bitemporal headache with HEENT--PERRL, EOMI, mucous membranes and oropharynx mildly dry. Neck--supple. No JVD. No bruits. Thyroid normal, trachea midline, no adenopathy. Heart--normal S1 and S2. No murmurs, rubs or gallops. Lungs--clear bilaterally, no respiratory distress, no accessory muscle use. Abdomen--normal bowel sounds and soft. Nontender. Nondistended, no hernias or masses, no organomegaly. Extremities--no cyanosis or clubbing. No edema. There are good distal pulses b/l. Dermatologic--normal skin turgor, normal color, no abnormal lymph nodes, no rash. Neurologic--cranial nerves II through XII grossly intact. Photosensitivity noted Rheumatologic--normal range of motion. Psychiatric--normal affect. Results & Data Results & Data Vital Signs (Past 12 Hours) Vital Signs Temp Pulse Pulse Resp BP BP Pulse Ox 02/26/25 20:00 56 L 18 131/75 98 02/26/25 19:51 53 L 13 94 02/26/25 19:42 49 L 15 94 02/26/25 19:33 50 L 12 96 02/26/25 19:21 52 L 12 95 02/26/25 19:12 57 L 17 94 02/26/25 19:00 137/77 02/26/25 19:00 137/77 02/26/25 19:00 137/77 02/26/25 19:00 137/77 02/26/25 19:00 137/77 02/26/25 19:00 137/77 02/26/25 19:00 137/77 02/26/25 19:00 137/77 02/26/25 19:00 137/77 02/26/25 19:00 54 L 12 94 02/26/25 18:51 56 L 13 94 02/26/25 18:42 65 18 96 02/26/25 18:30 56 L 13 94 02/26/25 18:21 58 L 14 94 02/26/25 18:12 58 L 15 94 02/26/25 18:08 56 L 19 145/79 H 93 02/26/25 18:00 55 L 17 95 02/26/25 18:00 145/79 H 02/26/25 18:00 145/79 H 02/26/25 18:00 145/79 H 02/26/25 18:00 145/79 H 02/26/25 18:00 145/79 H 02/26/25 17:30 59 L 14 93 02/26/25 17:21 55 L 14 92 02/26/25 17:12 61 11 L 91 02/26/25 17:00 151/76 H 02/26/25 17:00 151/76 H 02/26/25 17:00 151/76 H 02/26/25 17:00 151/76 H 02/26/25 17:00 49 L 9 L 96 02/26/25 16:51 59 L 16 97 02/26/25 16:42 46 L 14 97 02/26/25 16:30 49 L 14 99 02/26/25 16:25 50 L 02/26/25 16:21 52 L 9 L 92 02/26/25 16:12 49 L 12 94 02/26/25 16:08 47 L 18 167/83 H 96 02/26/25 15:48 36.5 C 49 L 20 167/83 H 95 O2 Del Method 02/26/25 20:00 02/26/25 19:51 02/26/25 19:42 02/26/25 19:33 02/26/25 19:21 02/26/25 19:12 02/26/25 19:00 02/26/25 19:00 02/26/25 19:00 02/26/25 19:00 02/26/25 19:00 02/26/25 19:00 02/26/25 19:00 02/26/25 19:00 02/26/25 19:00 02/26/25 19:00 02/26/25 18:51 02/26/25 18:42 02/26/25 18:30 02/26/25 18:21 02/26/25 18:12 02/26/25 18:08 02/26/25 18:00 02/26/25 18:00 02/26/25 18:00 02/26/25 18:00 02/26/25 18:00 02/26/25 18:00 02/26/25 17:30 02/26/25 17:21 02/26/25 17:12 02/26/25 17:00 02/26/25 17:00 02/26/25 17:00 02/26/25 17:00 02/26/25 17:00 02/26/25 16:51 02/26/25 16:42 02/26/25 16:30 02/26/25 16:25 02/26/25 16:21 02/26/25 16:12 02/26/25 16:08 Room Air 02/26/25 15:48 Room Air Laboratory Results Laboratory Results WBC 6.66 K/ul (4.8-10.8) 02/26/25 16:03 RBC 4.53 M/uL (4.70-6.10) L 02/26/25 16:03 Hgb 14.0 g/dl (14.0-18.0) 02/26/25 16:03 Hct 40.5 % (42.0-52.0) L 02/26/25 16:03 MCV 89.4 fL (80.0-100.0) 02/26/25 16:03 MCH 30.9 pg (25.0-34.0) 02/26/25 16:03 MCHC 34.6 g/dL (32.0-36.0) 02/26/25 16:03 RDW Std Deviation 40.6 fL (36.4-46.3) 02/26/25 16:03 RDW Coeff of Kacey 12.4 % (11.5-14.5) 02/26/25 16:03 Plt Count 197 K/uL (130-400) 02/26/25 16:03 MPV 10.7 fL (9.4-12.4) 02/26/25 16:03 Immature Gran % (Auto) 0.2 % 02/26/25 16:03 Neut % (Auto) 73.8 % 02/26/25 16:03 Lymph % (Auto) 17.7 % 02/26/25 16:03 Duchesne % (Auto) 5.9 % 02/26/25 16:03 Eos % (Auto) 1.8 % 02/26/25 16:03 Baso % (Auto) 0.6 % 02/26/25 16:03 Neut # (Auto) 4.92 K/uL (1.40-6.50) 02/26/25 16:03 Lymph # (Auto) 1.18 K/uL (1.20-3.40) L 02/26/25 16:03 Duchesne # (Auto) 0.39 K/uL (0.11-0.59) 02/26/25 16:03 Eos # (Auto) 0.12 K/uL (0.00-0.50) 02/26/25 16:03 Baso # (Auto) 0.04 K/uL (0.00-0.20) 02/26/25 16:03 Immature Gran # (Auto) 0.01 K/uL (0.01-0.20) 02/26/25 16:03 ESR 8 mm/hr (0-20) 02/26/25 16:03 PT 10.9 Seconds (9.0-12.0) 02/26/25 16:03 INR 1.0 (0.9-1.1) 02/26/25 16:03 Carboxyhemoglobin 1.8 % THgb 02/26/25 19:27 Sodium 140 mmol/L (136-145) 02/26/25 16:03 Potassium 4.1 mmol/L (3.5-5.1) 02/26/25 16:03 Chloride 107 mmol/L (98-107) 02/26/25 16:03 Carbon Dioxide 27 mmol/L (21-32) 02/26/25 16:03 Anion Gap 6 (3-11) 02/26/25 16:03 BUN 13 mg/dl (6-23) 02/26/25 16:03 Creatinine 1.16 mg/dl (0.6-1.4) 02/26/25 16:03 Est Cr Clr Drug Dosing 79.7 ml/min 02/26/25 16:03 eGFR 72.56 02/26/25 16:03 BUN/Creatinine Ratio 11.2 (10-20) 02/26/25 16:03 Glucose 113 mg/dl (70-99(Fasting)) H 02/26/25 16:03 Calcium 9.0 mg/dl (8.6-10.3) 02/26/25 16:03 Total Bilirubin 0.8 mg/dl (0.2-1.0) 02/26/25 16:03 AST 19 U/L (13-39) 02/26/25 16:03 ALT 17 U/L (7-52) 02/26/25 16:03 Alkaline Phosphatase 68 U/L (34-104) 02/26/25 16:03 Total Protein 6.9 gm/dl (6.0-8.3) 02/26/25 16:03 Albumin 3.8 gm/dl (3.4-5.0) 02/26/25 16:03 Globulin 3.1 gm/dl (2.5-4.0) 02/26/25 16:03 Albumin/Globulin Ratio 1.2 (0.9-2) 02/26/25 16:03 Impressions Head CTA 02/26/25 16:[address] without contrast CT angiogram of the neck CT angiogram of the brain with contrast Provided History: Headache Comparison: Head CT from 02/23/2025 Technique: HEAD CT: Using multidetector thin collimation helical acquisition technique, axial, coronal and sagittal CT images from the skull base to the vertex were obtained without intravenous contrast. HEAD and NECK CTA: During rapid bolus intravenous injection of nonionic contrast material, axial images were obtained using thin collimation multidetector helical technique from the base of the neck through the of vertex of the head. This CT angiogram data was reconstructed at thin intervals with mild overlap. 3D reconstructions were obtained. The axial source images, multiplanar reformations, 3D reconstructions in both maximum intensity projection display and volume rendered models were reviewed. Dose reduction techniques were achieved by using automatic exposure control and/or adjustment of mA and/or kV according to patient size and/or use of iterative reconstruction technique. Findings: Head CT: There is no intracranial hemorrhage, mass effect, or midline shift. Carrera/white matter differentiation in both cerebral hemispheres is preserved. Ventricles are proportionate to the cerebral sulci. Chronic small infarcts, as noted on prior head CT. Head CTA demonstrates no aneurysm or stenosis of the major intracranial arteries. Neck CTA demonstrates no stenosis of the major cervical arteries. The origins of the great vessels from the aortic arch are patent. There is aneurysmal dilation of the right subclavian artery which measures 2.0 cm in diameter. No mass is noted within the visualized portions of the cervical soft tissues or lung apices. Impression: 1. Head CTA demonstrates no aneurysm or stenosis of the major intracranial arteries, 2. Neck CTA demonstrates no stenosis of the major cervical arteries. 3. No intracranial hemorrhage on the noncontrast head CT. 4. Aneurysmal dilation of the right subclavian artery. The patient also has a known dilation of the ascending thoracic aorta. 5. Bilateral mastoid air cell effusions, as well as soft tissue thickening of the left middle ear. Electronically signed by Ahsan Don 02-26-2025 6:09 PM Neck CTA 02/26/25 16:[address] without contrast CT angiogram of the neck CT angiogram of the brain with contrast Provided History: Headache Comparison: Head CT from 02/23/2025 Technique: HEAD CT: Using multidetector thin collimation helical acquisition technique, axial, coronal and sagittal CT images from the skull base to the vertex were obtained without intravenous contrast. HEAD and NECK CTA: During rapid bolus intravenous injection of nonionic contrast material, axial images were obtained using thin collimation multidetector helical technique from the base of the neck through the of vertex of the head. This CT angiogram data was reconstructed at thin intervals with mild overlap. 3D reconstructions were obtained. The axial source images, multiplanar reformations, 3D reconstructions in both maximum intensity projection display and volume rendered models were reviewed. Dose reduction techniques were achieved by using automatic exposure control and/or adjustment of mA and/or kV according to patient size and/or use of iterative reconstruction technique. Findings: Head CT: There is no intracranial hemorrhage, mass effect, or midline shift. Carrera/white matter differentiation in both cerebral hemispheres is preserved. Ventricles are proportionate to the cerebral sulci. Chronic small infarcts, as noted on prior head CT. Head CTA demonstrates no aneurysm or stenosis of the major intracranial arteries. Neck CTA demonstrates no stenosis of the major cervical arteries. The origins of the great vessels from the aortic arch are patent. There is aneurysmal dilation of the right subclavian artery which measures 2.0 cm in diameter. No mass is noted within the visualized portions of the cervical soft tissues or lung apices. Impression: 1. Head CTA demonstrates no aneurysm or stenosis of the major intracranial arteries, 2. Neck CTA demonstrates no stenosis of the major cervical arteries. 3. No intracranial hemorrhage on the noncontrast head CT. 4. Aneurysmal dilation of the right subclavian artery. The patient also has a known dilation of the ascending thoracic aorta. 5. Bilateral mastoid air cell effusions, as well as soft tissue thickening of the left middle ear. Electronically signed by Ahsan Don 02-26-2025 6:10 PM - Code Status & VTE Plan Code Status Full code VTE Prophylaxis Plan VTE Prophylaxis will be ordered: Yes PG Care Time/CCT Total # of Minutes Spent Total Time Spent with Patient: Total time spent is greater than 50% in coordination of care (as documented) at patient's floor/unit and/or counseling patient: Coding Level of Care Code 66767 INT INP/OBS CARE 75MIN Diagnoses Subtherapeutic international normalized ratio (INR) R79.1 Headache R51.9 Acute bilateral mastoiditis H70.003 Nausea & vomiting R11.2
[2025-02-26] MEDS: LACTATED RINGER'S 1,000 ML IV SCH (23:07)
[2025-02-26] MEDS ORDERED: MoRPHine SULFATE 4 MG/ML 1 ML CARP\\VIAL IV PRN (23:57)
[2025-02-27] MEDS: ENOXAPARIN 1 MG/KG SQ SCH
[2025-02-27] MEDS: CEFEPIME 2000MG 2,000 MG/20 ML SYR IV STA (00:25)
[2025-02-27] MEDS ORDERED: MELATONIN 3 MG TAB PO PRN (01:38)
[2025-02-27] MEDS: ACETAMINOPHEN 325 MG TAB PO PRN (01:45)
[2025-02-27 06:00] LABS: Hematocrit (blood only) 39.5 % (42.0-52.0); Hemoglobin 13.7 g/dl (14.0-18.0); Mean Corpuscular Hemoglobin 31.1 pg (25.0-34.0); Mean Corpuscular Volume 89.6 fL (80.0-100.0); Platelet Count 208 K/uL (130-400); RDW Standard Deviation 40.8 fL (36.4-46.3); Red Blood Count 4.41 M/uL (4.70-6.10); White Blood Count 8.46 K/ul (4.8-10.8)
[2025-02-27 06:18] LABS: Alanine Aminotransferase 16.0 U/L (7-52); Albumin Globulin Ratio 1.4 (0.9-2); Albumin Level 4.0 gm/dl (3.4-5.0); Alkaline Phosphatase 65.0 U/L (34-104); Anion Gap 5.0 (3-11); Bilirubin,Total 0.6 mg/dl (0.2-1.0); Blood Urea Nitrogen 14.0 mg/dl (6-23); Calcium 9.0 mg/dl (8.6-10.3); Carbon Dioxide 26.0 mmol/L (21-32); Chloride 107.0 mmol/L (98-107); Creatinine Clr Calc Pharmacy 79.7 ml/min; Globulin 2.9 gm/dl (2.5-4.0); Glucose 160.0 mg/dl (70-99(Fasting)); Magnesium 1.8 mg/dl (1.7-2.4); Potassium 3.8 mmol/L (3.5-5.1); Sodium 138.0 mmol/L (136-145); Total Protein 6.9 gm/dl (6.0-8.3)
[2025-02-27 06:29] LABS: Immature Granulocytes # (auto) 0.04 K/uL (0.01-0.20); Immature Granulocytes % (auto) 0.5 %; Ovalocytes 1+
[2025-02-27 06:41] LABS: INR 1.0 (0.9-1.1); Partial Thromboplastin Time 31 Seconds (21-31); Prothrombin Time 11.0 Seconds (9.0-12.0)
[2025-02-27] MEDS: WARFARIN SOD 10 MG TAB PO ONE (08:48)
[2025-02-27] MEDS: ASPIRIN 81 MG ECTAB PO SCH (08:51)
[2025-02-27] MEDS: CHOLECALCIFEROL 25 MCG (1000 UNITS) TAB PO SCH (08:51)
[2025-02-27] MEDS: LOSARTAN POTASSIUM 50 MG TAB PO SCH (08:51)
[2025-02-27] MEDS: SERTRALINE HCL 50 MG TABLET PO SCH (08:52)
[2025-02-27] MEDS: FLUTICASONE FUROATE 100MCG 14 PUFFS/INHALER INH SCH (08:53)
[2025-02-27] MEDS: UMECLIDINIUM/VILANTEROL 62.5/25MCG 7 PUFFS/INHALER INH SCH (08:54)
[2025-02-27] MEDS: ONDANSETRON INJ 2 MG/ML 2 ML VIAL IV PRN (10:32)
[2025-02-27] MEDS: MAGNESIUM SULFATE / D5W 1 GM/100 ML BAG IV SCH (11:37)
--- NOTE | 2025-02-27 11:37 | Hospitalist Progress Note ---
Date of Service February 27, 2025 Assessment & Plan (1) Subtherapeutic international normalized ratio (INR): Plan: Continue Lovenox 100 mg subcutaneously every 12 hours until INR is therapeutic. Daily high-dose Coumadin until INR is between 2.5 and 3.5. (2) Headache: Plan: Most intense in the left frontal area. He responded favorably in the past to intravenous magnesium which has been reordered. Pain control measures. (3) Acute bilateral mastoiditis: Plan: Suspected on admission. He remains on intravenous cefepime and Solu-Medrol. (4) Nausea & vomiting: Plan: Present on admission due to headache. Now resolved Plan Anticipate eventual discharge back to home later this week once the INR is therapeutic Admission and Anticipated Discharge Date Admission Date: February 26, 2025 Subjective Patient is alert and oriented and states he feels better with near resolution of his headache. He is currently on Lovenox 100 mg subcutaneously every 12 hours while high-dose Coumadin is administered daily to bring the INR level into a therapeutic range. Currently, INR is only 1.0, February 27. He responded favorably to parenteral magnesium in the past for his headache and this has been reordered. He remains on intravenous cefepime and Solu-Medrol for the suspected mastoiditis. Head CT scan on admission reveals no acute findings but there is evidence of old probably embolic CVAs. Unfortunately, brain MRI cannot be obtained due to mechanical aortic and mitral valves. He states he is unable to get to the Coumadin clinic on a regular basis because of transportation issues. He may need to get an INR monitor for home use and monitor his own Coumadin levels. Review of Systems 2 Review of Systems: Constitutionalno fever or chills ENTno blurred vision, no double vision, no epistaxis, no sore throat. He does have a frontal headache most intense in the left frontal area Respiratoryno cough, no wheezing, no shortness of breath Cardiacno palpitations, no chest pain, no syncope Carleen nausea, vomiting, diarrhea, melena, hematochezia GUno urinary retention, no urinary incontinence, no dysuria, no hematuria Musculoskeletalno joint pain, no muscle tenderness Skinno bruising, no rashes, no pruritus Neurono isolated weakness, no paresthesia, no weakness Psychno depression, no anxiety Physical Exam 2 Physical Exam: General-alert and oriented x3, no fever, no chills HEENT-head atraumatic and normocephalic, pupils equal and reactive to light, extraocular muscles intact Neck-no lymphadenopathy or thyromegaly, trachea midline Chest-clear to auscultation. No rales, wheezing or rhonchi Cardiac-regular rate and rhythm, systolic and diastolic artificial valve clicks, normal S1 and S2 Abdomen-normal bowel sounds, no hepatosplenomegaly Extremities-no cyanosis, clubbing, or edema Neuro-cranial nerves II through XII intact, motor and sensory function within normal limits, strength symmetrical, no focal deficits Psych-normal affect, normal mood Results & Data Results & Data Vital Signs (Past 12 Hours) Vital Signs Temp Pulse Pulse Resp BP BP Pulse Ox 02/27/25 11:20 36.8 C 63 17 140/73 94 02/27/25 08:26 65 02/27/25 08:16 36.7 C 59 L 18 125/71 95 02/27/25 04:38 36.7 C 70 18 127/70 93 02/27/25 02:07 36.8 C 58 L 16 154/75 H 95 02/27/25 01:33 02/27/25 01:33 55 L 02/27/25 00:53 53 L 02/27/25 00:00 50 L 14 124/62 95 O2 Del Method 02/27/25 11:20 Room Air 02/27/25 08:26 02/27/25 08:16 Room Air 02/27/25 04:38 Room Air 02/27/25 02:07 Room Air 02/27/25 01:33 Room Air 02/27/25 01:33 02/27/25 00:53 02/27/25 00:00 Room Air Laboratory Results 02/27/25 05:28 02/27/25 05:28 PG Care Time/CCT Total # of Minutes Spent Total Time Spent with Patient: Total time spent is greater than 50% in coordination of care (as documented) at patient's floor/unit and/or counseling patient: Coding Level of Care Code 06528 SUB INP/OBS CARE 3/50MIN Diagnoses Subtherapeutic international normalized ratio (INR) R79.1 Headache R51.9 Acute bilateral mastoiditis H70.003 Nausea & vomiting R11.2
[2025-02-27] MEDS: CEFEPIME 2000MG 2,000 MG/20 ML SYR IV SCH (11:38)
--- NOTE | 2025-02-27 17:15 | Cardiology Consultation ---
Date of Consultation February 27, 2025 Assessment & Plan (1) Mechanical heart valve present: (2) On continuous oral anticoagulation: (3) Stroke due to embolism: Plan 1. Mechanical aortic and mitral valves: Clinically they seem to be functioning well, the valve sounds are crisp. The echocardiogram is pending. 2. Anticoagulation: He needs to be on warfarin as an anticoagulant, that is being loaded but his INR is still normal. I discussed warfarin regulation with him and he assures me that he is taking steps to have things set up so he can get the warfarin and get the laboratory studies done. I do not know if that will be true. 3. CVA: He has multiple strokes, in different distributions, and most likely this is due to lack of appropriate anticoagulation and his mechanical valves. I discussed the strokes with him and the likelihood that he will have further st rokes if he does not control his warfarin and he seems surprised that he has had strokes and seemed to understand that he needs to be more compliant. I talked about compliance with him and he expresses a willingness to follow-up as an outpatient. History of Present Illness Attending Physician: Christiano Andrews MD History of Present Illness This is a 59-year-old male with an extensive cardiac history who is followed in our office occasionally however the last time we saw him at all was during a hospitalization in June 2023. For the most part he is noncompliant and we have seen him mostly during hospitalizations and not at all following his most recent valve surgery. I do not believe he is following up anywhere else (by his admission and I did check [facility] records). When he was hospitalized here in June 2023, he had been evaluated for progressive valvular heart disease and he had moderate to severe mitral regurgitation with a perivalvular leak and he also had 3+ aortic insufficiency which was perivalvular. He had a series of aortic valve replacements in 1981, 1982 in 1983 with this last 1 now having severe regurgitation. A catheterization in May 2023 showed normal coronary arteries. On June 29, 2023 he had an aortic valve replacement at [facility] with a 25 mm On-X valve and a 33 mm [employer] mechanical valve. He required mediastinal exploration the next day but was discharged and placed on warfarin for both mechanical valves. Unfortunately he has been very noncompliant with medical therapy, when asked why he does not come in for appointments he told me that he had trouble with his car and transportation, when asked about warfarin he gave me the same response. In our records the last INR we have before his current admission was December 29, 2023 when it was 1.9, from February 23, 2025 through February 27, 2025 his INR has to be 1.0. He is now on Lovenox while he is getting loaded with warfarin. He seems to feel fairly well, he is not complaining of cardiovascular symptoms. Allergies Allergy/AdvReac Type Severity Reaction Status Date / Time bee venom protein (honey bee) Allergy Severe Severe Verified 02/26/25 18:42 neck/throat swelling, dyspnea adhesive Allergy Mild Rash Verified 02/26/25 18:42 chocolate flavor AdvReac Unknown Advised to Verified 02/26/25 18:42 avoid by surgeon d/t Vitamin K content per pt Home Medications Medication Instructions Recorded Confirmed Type bupropion HCl 300 mg 24 hr tablet, 300 mg PO HS 09/09/20 02/26/25 History extended release cholecalciferol (vitamin D3) 50 50 mcg PO QAM 09/09/20 02/26/25 History mcg (2,000 unit) capsule trazodone 50 mg tablet 50 mg PO HS 09/12/20 02/26/25 History aspirin 81 mg tablet,delayed 81 mg PO QAM 09/27/20 02/26/25 History release prazosin 5 mg capsule 10 mg PO QPM 01/12/22 02/26/25 History epinephrine 0.3 mg/0.3 mL 0.3 mg (0.3 mL) IM Q10M PRN 05/07/22 02/26/25 Rx injection, auto-injector Anaphylaxis #2 ea melatonin 10 mg capsule 10 mg PO HS PRN Insomnia 06/04/22 02/26/25 History sertraline 50 mg tablet 50 mg PO DAILY 03/16/23 02/26/25 History losartan 50 mg tablet 50 mg PO DAILY #90 tabs 02/17/24 02/26/25 Rx fluticasone fur. 100 mcg-umeclid 1 inh inhalation DAILY 02/26/25 02/26/25 History 62.5 mcg-vilant 25 mcg inhalat.powder (Trelegy Ellipta) warfarin 5 mg tablet 5 mg PO UD 02/26/25 02/26/25 History Patient History Medical History PTSD (post-traumatic stress disorder) Anemia Cardiomyopathy Valvular heart disease Chronic dental infection Anemia Fracture of incisor teeth Dental fistula Exposed lingual bone On warfarin therapy NICM (nonischemic cardiomyopathy) Poor dentition Severe aortic valve regurgitation Mitral regurgitation Ascending aortic aneurysm Dyslipidemia Coronary artery calcification Normal Coronary Arteries on Cardiac Cath 05/20/23 Deviated septum Claustrophobia Did have issues in the past with oxygen mask Osteoarthritis Hearing loss in right ear Post traumatic stress disorder History of rheumatic fever as a child at age 6 > led to cardiac issues (hx AVR) On warfarin therapy Asthma Surgical History H/O mechanical aortic valve replacement Hx of oral surgery (06/14/23) Extraction 6 Teeth, Incision and Drainage(Not Applicable) - Trell Ramirez, DMD S/P excision of lipoma LEFT/RT FOREARM AND RT HIP History of appendectomy History of tooth extraction all upper teeth removed/some lower teeth removed History of cardiac cath multiple, last Feb 1983--no stents placed Aortic valve replaced s/p AVR/revisions (1981, 1982x2) Family History Brother Family history of reaction to anesthesia when he received anesthesia "it always triggered his seizures" Father Hearing loss Cancer Sister Hearing loss Cancer Other Allergies No family history of bleeding disorder Social History Smoking Status: Former smoker Tobacco Type: Cigarettes Age Started Using Tobacco: 14; Cigarettes Per Day: 4 cigs per day; Second Hand Exposure: Yes; Do You Dip or Chew Tobacco: No; Hx Alcohol Use: No Hx Substance Use: No Preferred Language: Georgian Communication Ability: Effective Visual Impairment: No Limitations [employer] Required: No Beliefs That Will Affect Care: None marital status: / Current Living Situation: Other Current Living Situation Comment: lives with friend current occupational status: disabled Other Information That Helps Us Care for You: Yes (no transportation or way of getting home meds from pharmacy) Feels Safe at Home: Yes Assistive Devices: None Physical Exam Physical Exam: Constitutional: Alert, cooperative and in no distress. HEENT: Unremarkable Neck: No jugular venous distention, carotid pulses are normal and equal bilaterally without bruits. Pulmonary: Clear to auscultation bilaterally. Cardiac: Regular rhythm with good prosthetic valve sounds and a grade 2/6 crescendo decrescendo murmur at the base, no gallop or rub. Abdomen: Soft, nontender with normal bowel sounds. Extremities: No edema. Neurologic: No focal findings. Skin: No rash, ecchymoses or petechiae. Cardiac Enzymes 02/27/25 Range/Units 05:28 AST 17 (13-39) U/L Coagulation 02/27/25 Range/Units 05:28 PT 11.0 (9.0-12.0) [place] ds APTT 31 (21-31) Seconds CBC 02/27/25 Range/Units 05:28 WBC 8.46 (4.8-10.8) K/ul RBC 4.41 L (4.70-6.10) M/uL Hgb 13.7 L (14.0-18.0) g/dl Hct 39.5 L (42.0-52.0) % Plt Count 208 (130-400) K/uL Neut # (Auto) 7.75 H (1.40-6.50) K/uL Lymph # (Auto) 0.60 L (1.20-3.40) K/uL [place] # (Auto) 0.05 L (0.11-0.59) K/uL Eos # (Auto) 0.00 (0.00-0.50) K/uL Baso # (Auto) 0.02 (0.00-0.20) K/uL Comprehensive Metabolic Panel 02/27/25 Range/Units 05:28 Sodium 138 (136-145) mmol/L Potassium 3.8 (3.5-5.1) mmol/L Chloride 107 (98-107) mmol/L Carbon Dioxide 26 (21-32) mmol/L BUN 14 (6-23) mg/dl Creatinine 1.16 (0.6-1.4) mg/dl Glucose 160 H (70-99(Fasting)) mg/dl Calcium 9.0 (8.6-10.3) mg/dl AST 17 (13-39) U/L ALT 16 (7-52) U/L Alkaline Phosphata se 65 (34-104) U/L Total Protein 6.9 (6.0-8.3) gm/dl Albumin 4.0 (3.4-5.0) gm/dl Intake and Output 02/27/25 02/27/25 02/27/25 06:59 14:59 22:59 Intake Total 150 / 750 1053.333 / 1153.33 3 100 / 1153.333 Balance 150 / 750 1053.333 / 1153.33 3 100 / 1153.333 Intake: IV 853.333 / 953.333 100 / 953.333 Lactated Ringe r's 1,000 ml @ 80 773.333 / 773.333 mls/hr IV .Q12 H30M JOVANY Rx#: [id number] Magnesium Sulf ate / D5w 1 gm In 80 / 180 100 / 180 100 ml @ 50 ml s/hr IV Q2H JOVANY Rx#:[id number] Oral 150 / 150 200 / 200 Other: # Unmeasured Voi ds 1 2 Weight 97.1 kg Weight Measureme nt Method Built in [facility] Results & Data Vital Signs (Past 12 Hours) Vital Signs Temp Pulse Pulse Resp BP BP Pulse Ox 02/27/25 15:55 36.6 C 76 19 136/69 93 02/27/25 15:39 89 02/27/25 11:20 36.8 C 63 17 140/73 94 02/27/25 08:26 65 02/27/25 08:16 36.7 C 59 L 18 125/71 95 O2 Del Method 02/27/25 15:55 Room Air 02/27/25 15:39 02/27/25 11:20 Room Air 02/27/25 08:26 02/27/25 08:16 Room Air PG Care Time/CCT Total # of Minutes Spent Total Time Spent with Patient: Total time spent is greater than 50% in coordination of care (as documented) at patient's floor/unit and/or counseling patient: Coding Level of Care Code 25700 IN/OBS CONSULT LVL 4,60M Diagnoses Mechanical heart valve present Z95.2 On continuous oral anticoagulation Z79.01 Stroke due to embolism I63.9
[2025-02-27] MEDS: PRAZOSIN HCL 1 MG CAP PO SCH (20:11)
[2025-02-28 06:25] LABS: Hematocrit (blood only) 35.3 % (42.0-52.0); Hemoglobin 12.4 g/dL (14.0-18.0); Immature Granulocytes # (auto) 0.03 K/uL (0.01-0.20); Immature Granulocytes % (auto) 0.4 %; Mean Corpuscular Hemoglobin 31.6 pg (25.0-34.0); Mean Corpuscular Volume 90.1 fL (80.0-100.0); Platelet Count 171 K/uL (130-400); RDW Standard Deviation 41.2 fL (36.4-46.3); Red Blood Count 3.92 M/uL (4.70-6.10); White Blood Count 7.79 K/ul (4.8-10.8)
[2025-02-28 06:46] LABS: Alanine Aminotransferase 13.0 U/L (7-52); Albumin Globulin Ratio 1.3 (0.9-2); Albumin Level 3.5 gm/dl (3.4-5.0); Alkaline Phosphatase 55.0 U/L (34-104); Anion Gap 4.0 (3-11); Bilirubin,Total 0.4 mg/dl (0.2-1.0); Blood Urea Nitrogen 21.0 mg/dl (6-23); Calcium 8.6 mg/dl (8.6-10.3); Carbon Dioxide 29.0 mmol/L (21-32); Chloride 108.0 mmol/L (98-107); Creatinine Clr Calc Pharmacy 72.8 ml/min; Globulin 2.6 gm/dl (2.5-4.0); Glucose 125.0 mg/dl (70-99(Fasting)); Magnesium 1.8 mg/dl (1.7-2.4); Potassium 3.5 mmol/L (3.5-5.1); Sodium 141.0 mmol/L (136-145); Total Protein 6.1 gm/dl (6.0-8.3)
[2025-02-28 06:54] LABS: INR 1.3 (0.9-1.1); Prothrombin Time 13.5 Seconds (9.0-12.0)
[2025-02-28] MEDS: WARFARIN SOD 10 MG TAB PO ONE (11:00)
--- NOTE | 2025-02-28 11:12 | Hospitalist Progress Note ---
Date of Service February 28, 2025 Assessment & Plan (1) Subtherapeutic international normalized ratio (INR): Plan: Continue Lovenox 100 mg subcutaneously every 12 hours until INR is therapeutic. Daily high-dose Coumadin until INR is between 2.5 and 3.5. (2) Headache: Plan: Most intense in the left frontal area. Recurred again last evening, February 27, with transient inability to speak clearly. Suspect this may be migraine equivalent. He did receive intravenous magnesium yesterday, February 27. Will follow. Pain control measures. (3) Acute bilateral mastoiditis: Plan: Suspected on admission. He remains on intravenous cefepime and Solu-Medrol. (4) Nausea & vomiting: Plan: Present on admission due to headache. Now resolved Plan Anticipate eventual discharge back to home later this week once the INR is therapeutic Admission and Anticipated Discharge Date Admission Date: February 26, 2025 Subjective The patient is currently asymptomatic but last night he had recurrent headache and was transiently unable to speak clearly. This may be migraine equivalent rather than TIA. He received intravenous magnesium yesterday, February 27. INR has increased slightly to 1.3. Will repeat Coumadin 10 mg dose today. Continue Lovenox 100 mg subcutaneously every 12 hours. Nurse navigator instructed to request home Coumadin monitor since he is having transportation difficulty getting to the Coumadin clinic Review of Systems 2 Review of Systems: Constitutionalno fever or chills ENTno blurred vision, no double vision, no epistaxis, no sore throat. He does have a frontal headache most intense in the left frontal area Respiratoryno cough, no wheezing, no shortness of breath Cardiacno palpitations, no chest pain, no syncope Carleen nausea, vomiting, diarrhea, melena, hematochezia GUno urinary retention, no urinary incontinence, no dysuria, no hematuria Musculoskeletalno joint pain, no muscle tenderness Skinno bruising, no rashes, no pruritus Neurono isolated weakness, no paresthesia, no weakness Psychno depression, no anxiety Physical Exam 2 Physical Exam: General-alert and oriented x3, no fever, no chills HEENT-head atraumatic and normocephalic, pupils equal and reactive to light, extraocular muscles intact Neck-no lymphadenopathy or thyromegaly, trachea midline Chest-clear to auscultation. No rales, wheezing or rhonchi Cardiac-regular rate and rhythm, systolic and diastolic artificial valve clicks, normal S1 and S2 Abdomen-normal bowel sounds, no hepatosplenomegaly Extremities-no cyanosis, clubbing, or edema Neuro-cranial nerves II through XII intact, motor and sensory function within normal limits, strength symmetrical, no focal deficits Psych-normal affect, normal mood Results & Data Results & Data Vital Signs (Past 12 Hours) Vital Signs Temp Pulse Resp BP BP Pulse Ox O2 Del Method 02/28/25 07:53 36.5 C 75 19 141/73 H 92 Room Air 02/28/25 05:09 36.6 C 79 16 134/65 92 Room Air 02/27/25 23:23 36.7 C 92 H 18 136/66 92 Room Air Laboratory Results 02/28/25 05:56 02/28/25 05:56 PG Care Time/CCT Total # of Minutes Spent Total Time Spent with Patient: Total time spent is greater than 50% in coordination of care (as documented) at patient's floor/unit and/or counseling patient: Coding Level of Care Code 35405 SUB INP/OBS CARE 2/35MIN Diagnoses Subtherapeutic international normalized ratio (INR) R79.1 Headache R51.9 Acute bilateral mastoiditis H70.003 Nausea & vomiting R11.2
--- NOTE | 2025-02-28 15:07 | XCELERA ---
[id number] \\[id number]
[2025-03-01 05:53] LABS: Hematocrit (blood only) 37.0 % (42.0-52.0); Hemoglobin 12.8 g/dL (14.0-18.0); Immature Granulocytes # (auto) 0.02 K/uL (0.01-0.20); Immature Granulocytes % (auto) 0.3 %; Mean Corpuscular Hemoglobin 31.4 pg (25.0-34.0); Mean Corpuscular Volume 90.7 fL (80.0-100.0); Platelet Count 160 K/uL (130-400); RDW Standard Deviation 41.6 fL (36.4-46.3); Red Blood Count 4.08 M/uL (4.70-6.10); White Blood Count 5.82 K/ul (4.8-10.8)
[2025-03-01 06:13] LABS: Alanine Aminotransferase 20.0 U/L (7-52); Albumin Globulin Ratio 1.3 (0.9-2); Albumin Level 3.4 gm/dl (3.4-5.0); Alkaline Phosphatase 56.0 U/L (34-104); Anion Gap 3.0 (3-11); Bilirubin,Total 0.4 mg/dl (0.2-1.0); Blood Urea Nitrogen 22.0 mg/dl (6-23); Calcium 8.6 mg/dl (8.6-10.3); Carbon Dioxide 31.0 mmol/L (21-32); Chloride 106.0 mmol/L (98-107); Creatinine Clr Calc Pharmacy 75.8 ml/min; Globulin 2.6 gm/dl (2.5-4.0); Glucose 147.0 mg/dl (70-99(Fasting)); Magnesium 1.7 mg/dl (1.7-2.4); Potassium 4.2 mmol/L (3.5-5.1); Sodium 140.0 mmol/L (136-145); Total Protein 6.0 gm/dl (6.0-8.3)
[2025-03-01 06:20] LABS: INR 1.7 (0.9-1.1); Prothrombin Time 17.2 Seconds (9.0-12.0)
[2025-03-01] MEDS: WARFARIN SOD 10 MG TAB PO ONE (10:29)
[2025-03-01 20:56] LABS: INR 1.8 (0.9-1.1); Prothrombin Time 18.2 Seconds (9.0-12.0)
--- NOTE | 2025-03-01 22:59 | Hospitalist Progress Note ---
Date of Service March 01, 2025 Assessment & Plan (1) Subtherapeutic international normalized ratio (INR): Plan: Continue Lovenox 100 mg subcutaneously every 12 hours until INR is therapeutic. Daily high-dose Coumadin until INR is between 2.5 and 3.5. Patient agreeable to continuing Lovenox. Patient received 10 mg of Coumadin today. Reviewed records, patient normally is on 7.5 mg a day. (2) Headache: Plan: Most intense in the left frontal area. Recurred again last evening, February 27, with transient inability to speak clearly. Suspect this may be migraine equivalent. He did receive intravenous magnesium yesterday, February 27. Will follow. Pain control measures. (3) Acute bilateral mastoiditis: Plan: Suspected on admission. He remains on intravenous cefepime and Solu-Medrol. (4) Nausea & vomiting: Plan: Present on admission due to headache. Now resolved Plan Anticipate eventual discharge back to home later this week once the INR is therapeutic Admission and Anticipated Discharge Date Admission Date: February 26, 2025 Subjective 59 yo male reports no new symptoms. He states his abd. did bleed earlier today. Physical Exam Constitutional: WD/WN, vitals as above Neck: trachea midline, no thyromegaly Respiratory: normal respiratory effort, lungs clear to auscultation Cardiovascular: RRR, no murmur, no edema Results & Data Results & Data Vital Signs (Past 12 Hours) Vital Signs Temp Pulse Pulse Resp BP BP Pulse Ox 03/01/25 19:57 36.7 C 58 L 16 148/75 H 96 03/01/25 16:00 36.6 C 51 L 19 161/83 H 95 03/01/25 15:00 59 L 03/01/25 11:37 36.4 C L 57 L 20 160/79 H 97 O2 Del Method 03/01/25 19:57 Room Air 03/01/25 16:00 Room Air 03/01/25 15:00 03/01/25 11:37 Room Air PG Care Time/CCT Total # of Minutes Spent Total Time Spent with Patient: Total time spent is greater than 50% in coordination of care (as documented) at patient's floor/unit and/or counseling patient: Coding Level of Care Code 51336 SUB INP/OBS CARE 3/50MIN Diagnoses Subtherapeutic international normalized ratio (INR) R79.1 Headache R51.9 Acute bilateral mastoiditis H70.003 Nausea & vomiting R11.2
[2025-03-02 06:13] LABS: Hematocrit (blood only) 39.3 % (42.0-52.0); Hemoglobin 13.5 g/dL (14.0-18.0); Immature Granulocytes # (auto) 0.03 K/uL (0.01-0.20); Immature Granulocytes % (auto) 0.4 %; Mean Corpuscular Hemoglobin 30.8 pg (25.0-34.0); Mean Corpuscular Volume 89.5 fL (80.0-100.0); Platelet Count 176 K/uL (130-400); RDW Standard Deviation 41.2 fL (36.4-46.3); Red Blood Count 4.39 M/uL (4.70-6.10); White Blood Count 7.49 K/ul (4.8-10.8)
[2025-03-02 06:33] LABS: Anion Gap 4.0 (3-11); Blood Urea Nitrogen 18.0 mg/dl (6-23); Calcium 9.1 mg/dl (8.6-10.3); Carbon Dioxide 30.0 mmol/L (21-32); Chloride 105.0 mmol/L (98-107); Creatinine Clr Calc Pharmacy 76.4 ml/min; Glucose 98.0 mg/dl (70-99(Fasting)); Potassium 4.0 mmol/L (3.5-5.1); Sodium 139.0 mmol/L (136-145)
[2025-03-02 06:59] LABS: INR 2.4 (0.9-1.1); Prothrombin Time 24.6 Seconds (9.0-12.0)
[2025-03-02] MEDS: WARFARIN SOD 7.5 MG TAB PO ONE (09:42)
[2025-03-02 11:11] VITALS: BP 118/63; PULSE 83; RESP 20; TEMP 98.1; O2SAT 96
--- NOTE | 2025-03-02 13:56 | Discharge Summary ---
Discharge Summary Date of Service March 02, 2025 Principal Dx & Hospital Course #1 = Principal Diagnosis (1) Subtherapeutic international normalized ratio (INR): Continue Lovenox 100 mg subcutaneously every 12 hours until INR is therapeutic. Will resume home dose of coumadin now that INR is 2.4 Patient will now be off lovenox. Patient will recheck his INR and set up followup appointment with Dr. Siegel Reviewed records, patient normally is on 7.5 mg a day. (2) Headache: Most intense in the left frontal area. Recurred again last evening, February 27, with transient inability to speak clearly. Suspect this may be migraine equivalent. He did receive intravenous magnesium yesterday, February 27. Pain controlled on day of discharge. Pain control measures. (3) Acute bilateral mastoiditis: Suspected on admission. Treated with intravenous cefepime and Solu-Medrol. Will discharge on augmentin. (4) Nausea & vomiting: Present on admission due to headache. Now resolved Admission HPI Per Admitting Provider The patient is a 59-year-old male with past medical history including metallic AVR and MVR, history of DUDLEY/CKD, subtherapeutic INR, history of NSTEMI, AV block, history of acute respiratory failure with hypoxia, hearing loss bilaterally, with chronic right-sided mastoiditis, and noncompliance with prescribed chronic anticoagulation with warfarin. Discharge Exam Constitutional WD/WN, vitals as above Neck trachea midline, no thyromegaly Respiratory normal respiratory effort, lungs clear to auscultation Cardiovascular RRR, no murmur, no edema Discharge Plan Discharge Items Patient Disposition: Home - Self-Care Reason For Visit: SEVERE HEADACHE, SUBTHERAPEUTIC INR Discharge Diagnosis: same as above Condition on Discharge: Good Activity: Resume your previous activity Non-emergency contact: Primary Care Provider Call non-emergency contact if: you have any medication questions Diet: Heart Healthy Addtl Attending Provider Instructions: Recommend monitoring INR daily for next 3 days. Please start warfarin tomorrow Start antibiotic tonight. Pending Studies at Discharge: No Stand-Alone Forms: My [place], Smoking Cessation Medications and DC Order Prescriptions: New amoxicillin-pot clavulanate 875-125 mg tablet 1 tab PO BID Qty: 14 0RF Rx Instructions: first dose tonight Continued trazodone 50 mg tablet 50 mg PO HS aspirin 81 mg tablet,delayed release (DR/EC) 81 mg PO QAM Rx Instructions: Unable to verify OTC meds at this date/time. losartan 50 mg tablet 50 mg PO DAILY Qty: 90 3RF bupropion HCl 300 mg tablet extended release 24 hr 300 mg PO HS cholecalciferol (vitamin D3) 50 mcg (2,000 unit) capsule 50 mcg PO QAM Rx Instructions: Unable to verify OTC meds at this date/time. prazosin 5 mg capsule 10 mg PO QPM epinephrine 0.3 mg/0.3 mL auto-injector 0.3 mg IM Q10M PRN (Reason: Anaphylaxis) Qty: 2 1RF Rx Instructions: for 2 doses sertraline 50 mg tablet 50 mg PO DAILY melatonin 10 mg capsule 10 mg PO HS PRN (Reason: Insomnia) Rx Instructions: Unable to verify OTC meds at this date/time. Trelegy Ellipta 100-62.5-25 mcg blister with device 1 inh inhalation DAILY Rx Instructions: INHALE ONE (1) PUFF BY MOUTH DAILY Discontinued warfarin 5 mg tablet 5 mg PO UD Rx Instructions: 7.5mg daily per [facility] orally use as directed; No Action warfarin 5 mg tablet 7.5 mg PO UD Qty: 45 0RF Rx Instructions: 7.5mg daily per [facility] orally use as directed; Discharge Orders: Discharge Order (Routine); Ordered 03/02/25 Ordered By: Ludwig Novoa Admission Data Admit Date/Time: 02/26/25 21:45 Attending Provider: Ludwig Novoa Admit Provider: Miguel Angel Tomas Primary Care Provider: Jake Siegel Other Providers: Miguel Angel Tomas; Ahsan Martinez Other Interventions: Discharge Summary Assessment (RN) Last Done: 03/02/25 14:11 Hospital Stay Data Consultations 02/26/25 21:22 ED Decision to Admit Stat 02/27/25 01:33 Consult Cardiology Routine Diagnostic Imagining Performed 02/26/25 16:30 CT angio head wo/w Stat CT angio neck wo/w con Stat Pending Results Patient Have Any Pending Studies at Discharge: No Discharge Instructions Given to Patient (Per Discharging Provider) Recommend monitoring INR daily for next 3 days. Please start warfarin tomorrow Start antibiotic tonight. Total Time Total Time Spent Total Time Spent (In Minutes): 35 Spent over 30 minutes discussing discharge plan, evaluating patient, reviewing chart and formulating discharge Coding Level of Care Code 05806 INP/OBS DISCH >30 MIN Diagnoses Subtherapeutic international normalized ratio (INR) R79.1 Headache R51.9 Acute bilateral mastoiditis H70.003 Nausea & vomiting R11.2
== END 2025-03-02 14:25 | disposition home or self-care (01) ==
LOC: SUATTDRO → ED 15:55 → 4W 21:45 → SUATTDRO 21:45 → INTOOBSV 21:45 → 4W 02-27 01:09
DX: Z79.82 Long term (current) use of aspirin; Z95.2 Presence of prosthetic heart valve; Z86.73 Personal history of transient ischemic attack (TIA), and cerebral infarction without residual deficits; J44.9 Chronic obstructive pulmonary disease, unspecified; Z79.899 Other long term (current) drug therapy; Z87.891 Personal history of nicotine dependence; H70.003 Acute mastoiditis without complications, bilateral; R79.1 Abnormal coagulation profile; R51.9 Headache, unspecified; F41.9 Anxiety disorder, unspecified; R11.2 Nausea with vomiting, unspecified; Z91.199 Patient's noncompliance with other medical treatment and regimen due to unspecified reason; Z91.030 Bee allergy status; Z79.01 Long term (current) use of anticoagulants; F32.A Depression, unspecified